=== PATIENT | female | born 1935 | race Two or more races ===

== ENCOUNTER → 2018-07-11 | Outpatient (CLI) | payer MEDICARE, OTHER ==
[~2018-07-11] MED LIST: ACTOS30 MG ORAL; ASPIRIN EC81 MG ORAL; BYSTOLIC10 MG ORAL; IBUPROFEN600 MG ORAL; LEVOTHYROXINE112 MCG ORAL; LOSARTAN POTASS50 MG ORAL; METFORMIN HCL1000 M1 ORAL; ONDANSETRON ODT4 MG ORAL; SIMVASTATIN80 MG ORAL; TRICOR145 MG ORAL; ZOFRAN4 MG ORAL
--- NOTE | 2018-07-11 19:16 | Diagnostic Imaging Report ---
Indication: Headache Technique: MRI the brain performed utilizing T1 sagittal, T2 axial, T1 FLAIR axial, T2 FLAIR axial, T2*GRE and diffusion axial images without gadolinium. Comparison: 03/11/2010 Findings: No diffusion abnormalities are seen on diffusion weighted imaging. There is no evidence of acute intracranial hemorrhage. No abnormal mass effect. No shift of midline structures. No evidence of cortical edema. The sulci, ventricles and cisterns are mildly prominent consistent with age-related atrophy. Periventricular and supratentorial white matter T2 hyperintensity are seen without mass effect, most commonly related to sequela of chronic microvascular ischemia. Expected signal flow voids are seen of the vessels of the skull base. Visualized mastoid air cells and paranasal sinuses are unremarkable. No focal bony calvarium or soft tissue lesions are seen. IMPRESSION: No acute intracranial abnormality identified. Specifically, no evidence of acute intracranial hemorrhage, mass effect, midline shift or cortical edema. Mild atrophy and chronic/senescent changes
== END | disposition home or self-care (01) ==
LOC: MRI 10:33
DX: R51 Headache (principal); R11.0 Nausea
CPT/HCPCS: 70551

== ENCOUNTER 2018-12-11 11:21 | Emergency (ER) | payer MEDICARE, OTHER ==
[~2018-12-11] VITALS: Ht 157.5 cm; Wt 77.1 kg
--- NOTE | 2018-12-11 11:42 | NUR ---
ED Nurse Note: pt present at ER with kim, Welsh speaker, fell when she was getting off the bus yesterday. she fell on her Lt side and Lt foot is swallen and bruised. pt aao x4 and calm. skin clean and intact.
--- NOTE | 2018-12-11 13:49 | Emergency Room Report ---
History of Present Illness General Chief Complaint: Lower Extremity Injury Source: Patient Present Illness HPI 83-year-old female with significant past medical history of hypertension controlled with medication however none taken today and diabetes here complaining of 2 days of left foot pain after she slipped off the bus. Patient injured in the pain 10 out of 10, without radiation, without any tingling and numbness. Patient is here with her daughter and her daughter indicates that she has been taking Advil for pain with minimal relief. Vision is also on daily dose of aspirin. According to daughter patient has never been tested for osteoporosis. Denies any other injuries, chest pain, SOB, palpitation no other associated symptoms Allergies: Coded Allergies: No Known Allergies (Verified , 08/18/07) Patient History Past Medical History: see triage record Past Surgical History: none Immunizations: UTD Reviewed Nursing Documentation: PMH: Agreed; PSxH: Agreed Nursing Documentation-PMH Hx Cardiac Problems: Yes Hx Hypertension: Yes Hx Pacemaker: No - hyperlipidimia Hx Diabetes: Yes Hx Cancer: No Hx Gastrointestinal Problems: Yes Hx Neurological Problems: No Review of Systems All Other Systems: negative except mentioned in HPI Physical Exam Vital Signs Date Time Temp Pulse Resp B/P (MAP) Pulse Ox O2 Delivery O2 Flow Rate FiO2 12/11/18 11:25 98.1 63 18 141/67 95 Room Air Sp02 EP Interpretation: reviewed, normal General Appearance: normal inspection, well appearing, no apparent distress, alert, GCS 15 Head: normocephalic, atraumatic Eyes: bilateral eye normal inspection, bilateral eye PERRL ENT: normal ENT inspection, hearing grossly normal, normal pharynx Neck: normal inspection, full range of motion, supple Respiratory: normal inspection, chest non-tender, lungs clear, normal breath sounds, no rhonchi Cardiovascular #1: normal inspection, normal peripheral pulses, regular rate, rhythm Cardiovascular #2: 2+ dorsalis pedis (R), 2+ dorsalis pedis (L) Gastrointestinal: normal inspection, normal bowel sounds, non tender, soft Rectal: deferred Genitourinary: no CVA tenderness Musculoskeletal: digits/nails normal, swelling - Swelling and bruising of left foot, tender - left foot On the left fourth and fifth metatarsals Neurologic: normal inspection, alert, oriented x3 Psychiatric: normal inspection, judgement/insight normal, memory normal Skin: no rash, warm/dry, other - Bruising over her left foot Lymphatic: normal inspection, no adenopathy Medical Decision Making PA Attestation All diagnoses and treatment plans were reviewed and discussed my supervising physician Diagnostic Impression: Primary Impression: Fracture of fifth metatarsal bone of left foot Additional Impression: Foot fracture, left ER Course 83-year-old female with significant past medical history of hypertension controlled with medication however none taken today and diabetes here complaining of 2 days of left foot pain after she slipped off the bus. Patient injured in the pain 10 out of 10, without radiation, without any tingling and numbness. Patient is here with her daughter and her daughter indicates that she has been taking Advil for pain with minimal relief. Vision is also on daily dose of aspirin. According to daughter patient has never been tested for osteoporosis. Denies any other injuries, chest pain, SOB, palpitation no other associated symptoms Ddx considered but are not limited to left foot fracture, left foot contusion, foot sprain Vital signs: are WNL, pt. is afebrile H&PE are most consistent with fracture of left fourth and fifth metatarsal, osteoporotic changes noted. ORDERS: left foot x-ray, splints, postoperative shoe, cane ED INTERVENTIONS: postoperative shoe, splint, cane DISCHARGE: At this time pt. is stable for d/c to home. Will provide printed patient care instructions, and any necessary prescriptions. Care plan and follow up instructions have been discussed with the patient prior to discharge. follow up with orthopedic for further imaging possible casting or surgery he explained on keeping postoperative shoe on patient refuses crutches as is more comfortable with a cane. Follow-up with a primary care provider for any new onset of symptoms Other X-Ray Diagnostic Results Other X-Ray Diagnostic Results : X-Ray ordered: left foot # of Views/Limited Vs Complete: 2 View Indication: Swelling EP Interpretation: Yes PA Xray: Interpretation reviewed, by supervising MD, and agrees with findings. Interpretation: other - fracture left fourth and fifth metatarsal Impression: Other - Fracture Electronically Signed by: marina branham PA-C Last Vital Signs Date Time Temp Pulse Resp B/P (MAP) Pulse Ox O2 Delivery O2 Flow Rate FiO2 12/11/18 11:25 98.1 63 18 141/67 95 Room Air Disposition: HOME, SELF-CARE Condition: Stable Scripts Acetaminophen With Codeine 300MG/30MG (T#3)* (TYLENOL WITH CODEINE #3 TABLET*) Y Tab 2 TAB ORAL Q8HR PRN for For Pain, #15 TAB 0 Refills Prov: Marina Powell 12/11/18 Referrals: NON PHYSICIAN (PCP) Patient Instructions: Avulsion Fracture of the Foot Additional Instructions: keep splint on and by the postoperative shoe until you see orthopedics. Elevate leg, alternatives and icing and heating Marina Powell Dec 11, 2018 13:49
[2018-12-11] MEDS ORDERED: TYLENOL WITH C1 EACH ORAL (13:50)
[2018-12-11 14:16] VITALS: BP 127/54
--- NOTE | 2018-12-11 14:18 | NUR ---
ER DISCHARGE NOTE: Patient is Kiswahili speaker, accompanied by daughter, cleared to be discharged per ERPA, pt is aox4, on room air, with stable vital signs. pt was given dc instructions, and splint applied, and cane was provided. pt was able to verbalize understanding, pt id band and removed. pt is able to ambulate with steady gait with splint on it and with cane. pt took all belongings and left with daughter.
--- NOTE | 2018-12-12 12:34 | Diagnostic Imaging Report ---
Indication: Foot pain Comparison: None Findings: 3 views of the left foot were obtained. There is a fracture at the neck of this fourth metatarsal and a suspected fracture involving the neck of the fifth metatarsal. Bones are osteopenic. Plantar calcaneal spur noted. Faint vascular calcifications are present. IMPRESSION: Acute fracture of the fourth metatarsal neck and probable fracture of the fifth metatarsal neck
== END 2018-12-11 14:22 | disposition home or self-care (01) ==
LOC: EMR 12:50
DX: S92.352A Displaced fracture of fifth metatarsal bone, left foot, initial encounter for closed fracture (principal); S92.342A Displaced fracture of fourth metatarsal bone, left foot, initial encounter for closed fracture; W01.0XXA Fall on same level from slipping, tripping and stumbling without subsequent striking against object, initial encounter; Y92.811 Bus as the place of occurrence of the external cause; I10 Essential (primary) hypertension; E78.5 Hyperlipidemia, unspecified; E11.9 Type 2 diabetes mellitus without complications
CPT/HCPCS: 29515; 99283

== ENCOUNTER 2019-02-06 10:31 | Inpatient (IN) | payer MEDICARE, OTHER ==
[~2019-02-06] VITALS: Ht 154.9 cm; Wt 81.6 kg
[~2019-02-06 10:31] MED LIST changes: +TYLENOL WITH C1 EACH ORAL
[2019-02-06] MEDS ORDERED: COZAAR25 MG ORAL (10:47)
[2019-02-06 10:54] VITALS: BP 138/70
--- NOTE | 2019-02-06 10:54 | NUR ---
ED Nurse Note: Pt from home came in due to fall incident happened yesterday. Denies head injury. There is no known cause of fall and pt c/o pain in RLE that goes to her left hip. Pt stil able to move all extremities. Noted bruising on pt's right forearm. Pt is AAO x4, follows commands and ambulates with her walker.
[2019-02-06] MEDS ORDERED: Morphine Sulfate 2mg/ml Inj(IV/IM USE ONLY) IVP ONE (11:00)
[2019-02-06] MEDS ORDERED: Ketorolac 30mg Inj IM ONE (11:00)
[2019-02-06 11:30] LABS: BASOPHILS % (AUTO) 0.8 % (0.0-2.0); EOSINOPHILS % (AUTO) 2.3 % (0.0-3.0); HEMATOCRIT 45.9 % (37.0-47.0); HEMOGLOBIN 14.5 G/DL (12.0-16.0); LYMPHOCYTES % (AUTO) 20.8 % (20.0-45.0); MEAN CORPUSCULAR VOLUME 93 FL (80-99); NEUTROPHILS % (AUTO) 70.1 % (45.0-75.0); PLATELET COUNT 219 K/UL (150-450); RED BLOOD COUNT 4.93 M/UL (4.20-5.40); RED CELL DISTRIBUTION WIDTH 13.4 % (11.6-14.8); WHITE BLOOD COUNT 6.9 K/UL (4.8-10.8)
[2019-02-06 11:33] LABS: ANION GAP 8 mmol/L (5-15); BLOOD UREA NITROGEN 39 mg/dL (7-18); CALCIUM 9.3 MG/DL (8.5-10.1); CARBON DIOXIDE 25 MMOL/L (21-32); CHLORIDE 110 MMOL/L (98-107); CREATININE 1.3 MG/DL (0.55-1.30); POTASSIUM 5.2 MMOL/L (3.5-5.1); SODIUM 143 MMOL/L (136-145)
[2019-02-06 11:38] LABS: ALANINE AMINOTRANSFERASE 18 U/L (12-78); ALBUMIN 3.4 G/DL (3.4-5.0); ALBUMIN/GLOBULIN RATIO 0.8 (1.0-2.7); ALKALINE PHOSPHATASE 92 U/L (46-116); ASPARTATE AMINO TRANSFERASE 16 U/L (15-37); BILIRUBIN,TOTAL 0.2 MG/DL (0.2-1.0)
[2019-02-06 12:00] LABS: APPEARANCE,URINE CLEAR; BILIRUBIN, URINE NEGATIVE (NEGATIVE); COLOR,URINE PALE YELLOW; GLUCOSE, URINE (UA) NEGATIVE (NEGATIVE); KETONES,URINE NEGATIVE (NEGATIVE); LEUKOCYTE ESTERASE ,URINE 3+ (NEGATIVE); NITRITE,URINE NEGATIVE (NEGATIVE); PH,URINE 5 (4.5-8.0); PROTEIN,URINE 2+ (NEGATIVE); UROBILINOGEN,URINE NORMAL MG/DL (0.0-1.0)
[2019-02-06 12:26] VITALS: BP 96/63
--- NOTE | 2019-02-06 12:28 | NUR ---
ED Nurse Note: opto mechanical technician for xray at the bedside.
--- NOTE | 2019-02-06 13:10 | NUR ---
ED Nurse Note: Oxygen sat goes down to 87% at times. Noted wheezing upon ascultation. Dr Roman notified and waiting for orders.
--- NOTE | 2019-02-06 13:12 | NUR ---
Ian shah in EDM - 02/06/19 at 1649 by ARPAN ED Note: Oxygen at 2LP
--- NOTE | 2019-02-06 13:12 | NUR ---
ED Nurse Note: Oxygen at 2LPM via NC applied to patient.
[2019-02-06] MEDS ORDERED: Solu-MEDROL 125mg Inj IVP ONE (13:15)
[2019-02-06] MEDS ORDERED: Ipratropium 0.02% Inh Soln 2.5ml UD HHN ONE (13:15)
[2019-02-06] MEDS ORDERED: Albuterol ud Inhalation HHN ONE (13:15)
--- NOTE | 2019-02-06 13:20 | NUR ---
ED Nurse Note: Called RT for breathing treatment.
--- NOTE | 2019-02-06 14:16 | Diagnostic Imaging Report ---
Indication: Trauma, pain Technique: One view of the pelvis Comparison: none Findings: Body habitus limits evaluation. There is bilateral mild hip joint space narrowing and proliferative change. No definite acute fractures. No dislocations. Impression: No definite acute bony trauma. Note, however, that in elderly osteoporotic patients, nondisplaced hip or pelvic fractures can easily be occult. Consider cross-sectional imaging, if there is high clinical suspicion
[2019-02-06 14:20] VITALS: BP 128/55
--- NOTE | 2019-02-06 14:36 | NUR ---
ED Nurse Note: PT. TRANSPORTED TO [facility] WITH ALL BELONGINGS. TELEPHONE REPORT GIVEN TO JULY CANTOR
--- NOTE | 2019-02-06 14:51 | Diagnostic Imaging Report ---
Indication: Right hip pain, trauma, fall yesterday Technique: Noncontrast spiral acquisitions obtained through the pelvis. Multiplanar reconstructions generated. Total dose length product 535.65 mGycm. CTDIvol(s) 20.09 mGy. Dose reduction achieved using automated exposure control Comparison: Plain radiographs of earlier the same day Findings: No acute fractures. No dislocations. There is minimal narrowing of the bilateral hip joint spaces. No significant soft tissue contusion or hematoma demonstrated. The pelvic viscera are unremarkable. Impression: Minimal bilateral hip degenerative changes No acute bony trauma The CT scanner at [facility] is accredited by the [employer] and the scans are performed using protocols designed to limit radiation exposure to as low as reasonably achievable to attain images of sufficient resolution adequate for diagnostic evaluation.
--- NOTE | 2019-02-06 15:01 | Emergency Room Report ---
History of Present Illness General Chief Complaint: Multiple Trauma/Fall Source: Patient, Family Member Present Illness HPI Patient "slipped" and fell in her kitchen yesterday. She is walking with a walker but has severe pain in the R hip radiating to her R knee. There was no loss of consciousness. She denies any chest pain or palpitations before the fall. She denies any back pain. There is no numbness or incontinence. No medication has been taken. She rates the pain 10/10. It radiates somewhat from the hip down to the knee. The knee is not tender. No blood thinners or oncologic problems. The patient has had multiple falls recently. She dislocated her right shoulder. Continued weakness of R arm. No fevers, chills, nausea, vomiting, diarrhea, dysuria, abdominal pain, depression, visual changes, headache. Daughter has heard the patient wheezing. There is a variable response when asked if she used to smoke. Allergies: Coded Allergies: No Known Allergies (Verified , 08/18/07) Patient History Past Medical History: see triage record Social History: Denies: smoking - prior Social History Narrative Born [facility] -lives with 85-year-old with daughter who helps Reviewed Nursing Documentation: PMH: Agreed; PSxH: Agreed Nursing Documentation-PMH Past Medical History: No History, Except For Hx Cardiac Problems: Yes Hx Hypertension: Yes Hx Pacemaker: No - hyperlipidimia Hx Diabetes: Yes Hx Cancer: No Hx Gastrointestinal Problems: Yes Hx Neurological Problems: No Review of Systems All Other Systems: negative except mentioned in HPI Physical Exam Vital Signs Date Time Temp Pulse Resp B/P (MAP) Pulse Ox O2 Delivery O2 Flow Rate FiO2 02/06/19 10:44 98.1 65 18 135/63 95 Room Air 02/06/19 13:35 21 Sp02 EP Interpretation: reviewed, normal General Appearance: well appearing, no apparent distress, GCS 15 Head: normocephalic, atraumatic Eyes: bilateral eye normal inspection, bilateral eye PERRL, bilateral eye EOMI ENT: moist mucus membranes Neck: supple Respiratory: wheezing, expiration Cardiovascular #1: regular rate, rhythm Cardiovascular #2: 2+ radial (R) Gastrointestinal: normal inspection, normal bowel sounds, non tender, no mass, non-distended Musculoskeletal: back normal, no calf tenderness, pelvis stable, other - Painful range of motion right hip with mild tenderness to palpation. No shortening or external rotation. Knee is not tender and range of motion is good. Neurologic: alert, oriented x3, motor strength/tone normal, DTRs symmetric, sensory intact, speech normal, motor weakness - Right arm Psychiatric: mood/affect normal Skin: normal inspection, warm/dry Medical Decision Making Diagnostic Impression: Primary Impression: COPD exacerbation Additional Impressions: Multiple falls Contusion of right hip Qualified Codes: S70.01XA - Contusion of right hip, initial encounter UTI (urinary tract infection) Qualified Codes: N30.00 - Acute cystitis without hematuria ER Course Patient presents post multiple falls. She has right hip pain. Differential includes fracture of the hip, fracture of the pelvis, contusion amongst others. The falls appear to be non-syncopal however the fact that there are multiple falls the etiology is unclear and medical evaluation is indicated. She denies any headache and therefore CT of the head is not indicated at this time. The patient will be treated with gentle IV hydration and analgesia. In addition she has wheezing. She will be treated with Solu-Medrol and breathing treatments. EKG without injury. Chest x-ray with increased ovalles with some suggestion of pulmonary hypertension. Labs with normal CBC, CMP with elevated BUN. Because of the x-ray a BNP was added which is slightly elevated. Pyuria. Rocephin ordered for urinary tract infection. Patient with decreased pain but unable to ambulate. CT of the pelvis is ordered. CT the pelvis reveals degenerative disease without fractures. Discussed with Dr. Brown. Improved with breathing treatments. Patient admitted to medical floor for further evaluation and consideration for arranging for rehab. Laboratory Tests Test 02/06/19 11:10 02/06/19 11:35 White Blood Count 6.9 K/UL (4.8-10.8) Red Blood Count 4.93 M/UL (4.20-5.40) Hemoglobin 14.5 G/DL (12.0-16.0) Hematocrit 45.9 % (37.0-47.0) Mean Corpuscular Volume 93 FL (80-99) Mean Corpuscular Hemoglobin 29.5 PG (27.0-31.0) Mean Corpuscular Hemoglobin Concent 31.7 G/DL (32.0-36.0) L Red Cell Distribution Width 13.4 % (11.6-14.8) Platelet Count 219 K/UL (150-450) Mean Platelet Volume 8.0 FL (6.5-10.1) Neutrophils (%) (Auto) 70.1 % (45.0-75.0) Lymphocytes (%) (Auto) 20.8 % (20.0-45.0) Monocytes (%) (Auto) 6.0 % (1.0-10.0) Eosinophils (%) (Auto) 2.3 % (0.0-3.0) Basophils (%) (Auto) 0.8 % (0.0-2.0) Prothrombin Time 10.1 SEC (9.30-11.50) Prothrombin Time INR 1.0 (0.9-1.1) PTT 27 SEC (23-33) Sodium Level 143 MMOL/L (136-145) Potassium Level 5.2 MMOL/L (3.5-5.1) H Chloride Level 110 MMOL/L (98-107) H Carbon Dioxide Level 25 MMOL/L (21-32) Anion Gap 8 mmol/L (5-15) Blood Urea Nitrogen 39 mg/dL (7-18) H Creatinine 1.3 MG/DL (0.55-1.30) Estimate Glomerular Filtration Rate mL/min (>60) Glucose Level 122 MG/DL (74-106) H Calcium Level 9.3 MG/DL (8.5-10.1) Total Bilirubin 0.2 MG/DL (0.2-1.0) Aspartate Amino Transferase (AST) 16 U/L (15-37) Alanine Aminotransferase (ALT) 18 U/L (12-78) Alkaline Phosphatase 92 U/L (46-116) Pro-B-Type Natriuretic Peptide 480 pg/mL (0-125) H Total Protein 7.6 G/DL (6.4-8.2) Albumin 3.4 G/DL (3.4-5.0) Globulin 4.2 g/dL Albumin/Globulin Ratio 0.8 (1.0-2.7) L Urine Color Pale yellow Urine Appearance Clear Urine pH 5 (4.5-8.0) Urine Specific [place] 1.015 (1.005-1.035) Urine Protein 2+ (NEGATIVE) H Urine Glucose (UA) Negative (NEGATIVE) Urine Ketones Negative (NEGATIVE) Urine Blood Negative (NEGATIVE) Urine Nitrite Negative (NEGATIVE) Urine Bilirubin Negative (NEGATIVE) Urine Urobilinogen Normal MG/DL (0.0-1.0) Urine Leukocyte Esterase 3+ (NEGATIVE) H Urine RBC 0-2 /HPF (0 - 2) Urine WBC 10-15 /HPF (0 - 2) H Urine Squamous Epithelial Cells Moderate /LPF (NONE/OCC) H Urine Bacteria Moderate /HPF (NONE) H Urine Yeast Few /HPF (NONE) H EKG Diagnostic Results Rate: normal Rhythm: NSR ST Segments: no acute changes Rhythm Strip Diag. Results EP Interpretation: yes Rhythm: NSR, no PVC's, no ectopy Chest X-Ray Diagnostic Results Chest X-Ray Diagnostic Results : Chest X-Ray Ordered: Yes # of Views/Limited/Complete: 1 View Indication: Shortness of Breath EP Interpretation: Yes Interpretation: no consolidation, no effusion, no pneumothorax, other - COPD Other X-Ray Diagnostic Results Other X-Ray Diagnostic Results #1: X-Ray ordered: pelvis # of Views/Limited Vs Complete: 1 View Indication: Pain EP Interpretation: Yes Interpretation: no dislocation, no soft tissue swelling, no fractures, other - Degenerative joint disease Impression: Other Electronically Signed by: Electronically signed by Zeus Roman MD Other X-Ray Diagnostic Results #2: X-Ray ordered: Right hip # of Views/Limited Vs Complete: 3 View Indication: Pain EP Interpretation: Yes Interpretation: no dislocation, no soft tissue swelling, no fractures, other - Degenerative joint disease Impression: Other Electronically Signed by: Electronically signed by Zeus Roman MD CT/MRI/US Diagnostic Results CT/MRI/US Diagnostic Results : Imaging Test Ordered: pelvis Impression djd, no fx Last Vital Signs Date Time Temp Pulse Resp B/P (MAP) Pulse Ox O2 Delivery O2 Flow Rate FiO2 02/06/19 20:24 Nasal Cannula 2.0 02/06/19 19:58 98.4 75 18 131/65 (87) 95 02/06/19 13:51 21 Status: improved Disposition: ADMITTED INPATIENT Condition: Serious Referrals: Richard Brown MD (PCP) Zeus Roman MD Feb 06, 2019 15:01
--- NOTE | 2019-02-06 15:11 | Diagnostic Imaging Report ---
Indication: Trauma, chest pain Technique: One view of the chest Comparison: 11/21/2015 Findings: Body habitus limits evaluation. Bilateral diffuse interstitial prominence appears similar to multiple prior studies. The heart is upper limits normal in size. There is equivocal slight costophrenic angle blunting. No focal airspace consolidation Impression: Bilateral diffuse mild interstitial disease, similar to multiple prior exams, suspect on the basis of chronic interstitial changes. The possibility of superimposed acute interstitial disease should nonetheless be considered as well. Equivocal minimal bilateral costophrenic angle blunting, could indicate small pleural effusions real No definite acute process otherwise.
[2019-02-06] MEDS ORDERED: cefTRIAXone 1 GM in NS 55 ML IVPB ONE (15:45)
[2019-02-06] MEDS ORDERED: Albuterol/Ipratropium 3ml neb HHN PRN (17:45)
[2019-02-06] MEDS ORDERED: Milk of Magnesia 30ml Ud ORAL PRN (17:45)
[2019-02-06] MEDS ORDERED: HYDROcodone/Acetamin 5/325 tab ORAL PRN (17:45)
[2019-02-06] MEDS ORDERED: Zolpidem 5mg tab ORAL PRN (17:45)
--- NOTE | 2019-02-06 19:15 | NUR ---
HAND-OFF: Report given to Newton MCDOWELL.
[2019-02-06 19:58] VITALS: BP 131/65
--- NOTE | 2019-02-06 20:09 | NUR ---
NURSE NOTES: Received patient awake,alert,eating dinner,no SOB,daughter at bedside.
--- NOTE | 2019-02-06 23:45 | History and Physical Report ---
DATE OF ADMISSION: 02/06/2019 HISTORY OF PRESENT ILLNESS: The patient is a pleasant 83-year-old female, who states she was in her kitchen, slipped and fell on her right hip and right knee on Wednesday. Denies any loss of consciousness. Denies any chest pain, shortness of breath, or palpitations. Denies any abdominal pain. She does complain of right arm weakness. The patient states the pain got worse and she decided to come to the emergency room for further evaluation. Per the ER physician, apparently the patient has had few episodes of falls, nonsyncopal in nature. The patient also was recently injured, getting off of a bus for which she has been seeing Dr. Villasenor, has had knee pain. PAST MEDICAL HISTORY: Includes a history of hypertension, history of hyperlipidemia, history of diabetes, history of peripheral vascular disease, history of hernia repair in the 1970s, history of chronic obstructive pulmonary disease, history of hypothyroidism, history of hypertriglyceridemia. ALLERGIES: None known. MEDICATIONS: Please see the reconciled med list. SOCIAL HISTORY: The patient has been smoking one pack a day over 30 years, and she has stopped and has not smoked in several years. Denies any alcohol use. FAMILY HISTORY: Noncontributory. REVIEW OF SYSTEMS: She denies any headaches. No shortness of breath. No chest pain. She was noted to be somewhat hypoxic in the ER and wheezy. As per the ER physician, there is no abdominal pain, no urinary symptoms. PHYSICAL EXAMINATION: GENERAL: She is well developed and well nourished, currently in no apparent distress. VITAL SIGNS: Revealed blood pressure 131/55, pulse 75, temperature 98.4, pulse oximetry is now 95%, and she is on 2 L nasal cannula. HEENT: Head is normocephalic and atraumatic. Pupils are equal and reactive to light. Extraocular muscles are intact. Eyes are anicteric. NECK: Supple. No JVP. LUNGS: Decreased breath sounds and wheezy, end-expiratory. HEART: Regular rate and rhythm. ABDOMEN: Soft. Positive bowel sounds. Nondistended. Nontender. EXTREMITIES: No clubbing, cyanosis, or edema. Right knee with some tenderness with range of motion. Right fifth toe has full range of motion with slight tenderness. NEUROLOGIC: She is alert, nonfocal. DIAGNOSTIC DATA: X-rays of the hip and pelvis revealed no definite acute bone trauma. Chest x-ray revealed bilateral diffuse mild interstitial disease similar to multiple prior exams, suspect on the basis of chronic interstitial changes with possibility of superimposed acute interstitial disease should nonetheless be considered as well. She has equivocal minimal bilateral costophrenic angle blunting could indicate small pleural effusions and no definite acute process. Pelvic CT revealed minimal bilateral facet degenerative changes, no acute bony trauma. EKG noted. LABORATORY DATA: White count 6.9, hemoglobin 14.5, hematocrit 45.9, and platelet count 219. Sodium 143, potassium 4.2, carbon dioxide 110, BUN of 39, creatinine 1.3, and glucose 1.2. ProBNP is 480. Urinalysis with 10 to 15 wbc's, 3+ leukocyte esterase, 2+ protein. INR 1.0. ASSESSMENT AND PLAN: The patient is an 83-year-old female with history of hypertension, hyperlipidemia, diabetes, hypothyroidism, peripheral vascular disease, who presents status post fall. She has had a few falls apparently, this appears to be nonsyncopal in nature, mechanical, complaints hip, pelvic, and right knee pain. The patient has been admitted to monitored bed. I will ask orthopedist, Dr. Villasenor to see her. I will also order x-rays of her knee. She is wheezing as well, she was given some breathing treatments and steroids in the ER. We will continue her with breathing treatments as needed. She was also hypoxic, we will check lower extremity venous Dopplers as well. Placed on DVT and ulcer prophylaxis. She also appears to have a UTI, for which we will give her antibiotics. Her BNP is elevated at 480, we will check 2D echo on her as well. The patient should be on DVT and ulcer prophylaxis. Richard Brown M.D. DR: SHARON JOB#: [id number] CC:
[2019-02-07] VITALS: BP 118/50
[2019-02-07 04:00] VITALS: BP 117/52
[2019-02-07] MEDS ORDERED: metFORMIN 500mg tab ORAL SCH (06:30)
[2019-02-07 07:04] LABS: HEMATOCRIT 41.2 % (37.0-47.0); MEAN CORPUSCULAR VOLUME 93 FL (80-99); PLATELET COUNT 227 K/UL (150-450); RED BLOOD COUNT 4.42 M/UL (4.20-5.40); RED CELL DISTRIBUTION WIDTH 13.6 % (11.6-14.8); WHITE BLOOD COUNT 9.8 K/UL (4.8-10.8)
[2019-02-07 07:10] LABS: ALANINE AMINOTRANSFERASE 19 U/L (12-78); ALBUMIN 3.1 G/DL (3.4-5.0); ALBUMIN/GLOBULIN RATIO 0.8 (1.0-2.7); ALKALINE PHOSPHATASE 80 U/L (46-116); ANION GAP 10 mmol/L (5-15); ASPARTATE AMINO TRANSFERASE 15 U/L (15-37); BILIRUBIN,TOTAL 0.2 MG/DL (0.2-1.0); BLOOD UREA NITROGEN 44 mg/dL (7-18); CARBON DIOXIDE 23 MMOL/L (21-32); CHLORIDE 108 MMOL/L (98-107); CHOLESTEROL 142 MG/DL (< 200); CREATININE 1.3 MG/DL (0.55-1.30); HDL CHOLESTEROL 50 MG/DL (40-60); POTASSIUM 5.4 MMOL/L (3.5-5.1); SODIUM 141 MMOL/L (136-145); TRIGLYCERIDES 65 MG/DL (30-150)
--- NOTE | 2019-02-07 07:10 | NUR ---
HAND-OFF: Report given to JULY Miller.
[2019-02-07 08:00] VITALS: BP 97/44
--- NOTE | 2019-02-07 08:00 | NUR ---
NURSE NOTES: RECEIVED PATIENT IN BED, RESTING AND ALERT TO x4. IV INTACT. NO SIGNS OF RESPIRATORY DISTRESS, PATIENT ON 2L NC. BED IN LOWEST POSITION. CALL LIGHT WITHIN REACH. BED ALARM ON. WILL CONTINUE TO MONITOR.
[2019-02-07] MEDS ORDERED: Losartan 50mg tab ORAL SCH (09:00)
--- NOTE | 2019-02-07 09:03 | NUR ---
RADIOLOGY DEPT., RIGHT KNEE X-RAYS COMPLETED.-P.DYE
--- NOTE | 2019-02-07 09:07 | NUR ---
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 CONTUSION OF RIGHT HIP VS: BP 128/55, P 75, T 98.0, RR 18, SpO2 93 on 3.0L O2 NC K 5.2, BUN 44, URINE: BACTERIA- MODERATE , YEAST- FEW IS:ZOFRAN 4mg IVP TORADOL 30mg 15MG IM MORPHINE SULFATE 2mg ATROVENT 500mcg HHN PROVENTIL 5mg HHN SOLU-MEDROL 125mg IVP CEFTRIAXONE 55ml IVPB ADMITTED TO MED/SURG DCP: RETURN HOME
--- NOTE | 2019-02-07 09:26 | Diagnostic Imaging Report ---
Indication: Fall, trauma, pain Technique: 2 views of the right knee Comparison: none Findings: No acute fractures. No dislocations. The joint spaces are preserved. No suprapatellar effusion. Impression: Negative
[2019-02-07] MEDS: Aspirin Baby 81mg ORAL SCH (10:18)
[2019-02-07] MEDS: Docusate 100mg cap ORAL SCH ×2 (10:18→17:53)
[2019-02-07] MEDS: Heparin 5000 units/ml inj SUBQ SCH ×2 (10:26→21:08)
[2019-02-07 12:00] VITALS: BP 125/56
--- NOTE | 2019-02-07 14:11 | Diagnostic Imaging Report ---
Indication: Trauma, right hip pain Technique: 2 views of the right hip, one view of the pelvis Comparison: none Findings: There is mild bilateral degenerative hip joint narrowing. No acute fractures. No dislocations. Impression: Degenerative changes No acute bony trauma
--- NOTE | 2019-02-07 14:31 | Consultation ---
Consult Note Assessment/Plan DICT # [id number] Javi Ho MD Feb 07, 2019 14:31
--- NOTE | 2019-02-07 15:21 | NUR ---
P.T Note: P.T evaluation completed and treatment initiated with daughter present in the room for Emirati translation. Pt reports c/o pain on the R knee aggravated by ambulation :1/10 at rest, 5/10 with WB/ambulation however agreeable to participate in P.T evaluation. Pt is also limited by weakness and LOM of the R shoulder from old injury. Pt currently require MIN A x 1 for bed mobilities, CGA x 1 for transfers and gait/ambulation activities using the FWW. Skilled P.T service is warranted to improve strength, balance and endurance to increase mobility independence and safety. Recommend home P.T and FWW at [facility]. Thank for this referral.
[2019-02-07 16:00] VITALS: BP 108/55
--- NOTE | 2019-02-07 16:15 | Cardiology Report ---
APPROVED REPORT EXAM: Two-dimensional and M-mode echocardiogram with Doppler and color Doppler. INDICATION Ejection Fraction M-Mode DIMENSIONS IVSd1.4 (0.7-1.1cm)Left Atrium (MM)3.8 (1.6-4.0cm) LVDd4.7 (3.5-5.6cm)Aortic Root3.1 (2.0-3.7cm) PWd1.7 (0.7-1.1cm)Aortic Cusp Exc.1.6 (1.5-2.0cm) LVDs3.1 (2.5-4.0cm) PWs1.4 cm Technically difficult study due to poor acoustical windows. Normal left ventricular chamber size, systolic function and wall motion to extent visualized. Left ventricular ejection fraction estimated to be 60-65 %. Borderline left ventricular hypertrophy. Anterior Echo-free space, may be due to pericardial fat or effusion. All other cardiac chamber sizes are within normal limits. Focal aortic valve sclerosis with adequate cusp excursion. Thickened mitral valve leaflets with normal excursion. Mitral annulus and aortic root calcification. Pulmonic valve not well visualized. Normal tricuspid valve structure. IVC at normal size with physiologic collapse. A color flow and spectral Doppler study was performed and revealed: Trace aortic regurgitation. Trace mitral regurgitation. Mitral diastolic velocities suggest reduced left ventricular relaxation c/w mild LV diastolic dysfunction (Grade I). Mild tricuspid regurgitation. Tricuspid systolic velocities suggests peak right ventricular systolic pressure of 43 mmHg, consistent with mild pulmonary hypertension.
--- NOTE | 2019-02-07 16:16 | Diagnostic Imaging Report ---
Clinical Indication: Shortness of breath, recent trauma Technique: Spiral acquisitions obtained through the chest. No IV contrast utilized, per referring physician request. Multiplanar reconstructions generated. Total dose length product 833.1 mGycm. CTDIvol(s) 25.48 mGy. Dose reduction achieved using automated exposure control Comparison: Chest CT angiogram dated 08/19/2000 Findings: The bones are unremarkable. No acute fractures. The lungs demonstrate fairly extensive interstitial septal thickening, diffuse but with a peripheral predominance. Areas of honeycombing are seen in the posterior lower lobes bilaterally. This has progressed considerably since the previous study. A cystic space is seen in the left upper lobe, also evident previously. No dense consolidation, groundglass opacity, effusions, or nodules or masses demonstrated. No pneumothorax. The heart size is normal. No pericardial effusion. No mediastinal or hilar mass or adenopathy. Unremarkable esophagus. No axillary mass or adenopathy. Included upper abdominal viscera demonstrate distended fluid-filled stomach, are otherwise unremarkable. Impression: Extensive bilateral interstitial disease,, nonspecific as regards etiology, progressive since 08/19/2007. There is honeycombing in the posterior lower lobes bilaterally, indicative of chronic interstitial fibrosis. Left upper lobe cystic space, also present on 2007 exam. No evidence of significant posttraumatic abnormality The CT scanner at [facility] is accredited by the [employer] and the scans are performed using protocols designed to limit radiation exposure to as low as reasonably achievable to attain images of sufficient resolution adequate for diagnostic evaluation.
--- NOTE | 2019-02-07 16:30 | NUR ---
NURSE NOTES: WALKER AND RAISED TOILET SEAT PROVIDED TO PATIENT. DME ORDER ENTERED.
[2019-02-07] MEDS: cefTRIAXone 1 GM in D5W 55 ML IVPB SCH (16:47)
--- NOTE | 2019-02-07 16:50 | Cardiac Electrophysiology PN ---
Subjective Subjective [id number] Objective Last 24 Hour Vital Signs Date Time Temp Pulse Resp B/P (MAP) Pulse Ox O2 Delivery O2 Flow Rate FiO2 02/07/19 09:00 97/44 02/07/19 09:00 Nasal Cannula 2.0 02/07/19 08:00 98.3 70 18 97/44 (61) 97 02/07/19 04:00 98.2 57 17 117/52 (73) 98 02/07/19 00:00 98.3 66 16 118/50 (72) 97 02/06/19 20:24 Nasal Cannula 2.0 02/06/19 19:58 98.4 75 18 131/65 (87) 95 02/06/19 17:33 Nasal Cannula 2.0 Intake and Output 02/06/19 02/07/19 18:59 06:59 Intake Total 160 ml 1200 ml Output Total 300 ml Balance 160 ml 900 ml Intake Oral 160 ml 300 ml IV Total 900 ml Output Urine Total 300 ml Laboratory Tests Test 02/07/19 04:45 02/07/19 12:28 02/07/19 12:55 White Blood Count 9.8 K/UL (4.8-10.8) Red Blood Count 4.42 M/UL (4.20-5.40) Hemoglobin 13.0 G/DL (12.0-16.0) Hematocrit 41.2 % (37.0-47.0) Mean Corpuscular Volume 93 FL (80-99) Mean Corpuscular Hemoglobin 29.4 PG (27.0-31.0) Mean Corpuscular Hemoglobin Concent 31.4 G/DL (32.0-36.0) L Red Cell Distribution Width 13.6 % (11.6-14.8) Platelet Count 227 K/UL (150-450) Mean Platelet Volume 8.9 FL (6.5-10.1) Neutrophils (%) (Auto) % (45.0-75.0) Lymphocytes (%) (Auto) % (20.0-45.0) Monocytes (%) (Auto) % (1.0-10.0) Eosinophils (%) (Auto) % (0.0-3.0) Basophils (%) (Auto) % (0.0-2.0) Differential Total Cells Counted 100 Neutrophils % (Manual) 82 % (45-75) H Lymphocytes % (Manual) 16 % (20-45) L Monocytes % (Manual) 2 % (1-10) Eosinophils % (Manual) 0 % (0-3) Basophils % (Manual) 0 % (0-2) Band Neutrophils 0 % (0-8) Platelet Estimate Adequate Platelet Morphology Normal Red Blood Cell Morphology Normal Sodium Level 141 MMOL/L (136-145) Potassium Level 5.4 MMOL/L (3.5-5.1) H Chloride Level 108 MMOL/L (98-107) H Carbon Dioxide Level 23 MMOL/L (21-32) Anion Gap 10 mmol/L (5-15) Blood Urea Nitrogen 44 mg/dL (7-18) H Creatinine 1.3 MG/DL (0.55-1.30) Estimat Glomerular Filtration Rate mL/min (>60) Glucose Level 110 MG/DL (74-106) H Hemoglobin A1c 6.4 % (4.3-6.0) H Calcium Level 9.0 MG/DL (8.5-10.1) Total Bilirubin 0.2 MG/DL (0.2-1.0) Aspartate Amino Transf (AST/SGOT) 15 U/L (15-37) Alanine Aminotransferase (ALT/SGPT) 19 U/L (12-78) Alkaline Phosphatase 80 U/L (46-116) Troponin I 0.000 ng/mL (0.000-0.056) Pro-B-Type Natriuretic Peptide 1126 pg/mL (0-125) H Total Protein 6.9 G/DL (6.4-8.2) Albumin 3.1 G/DL (3.4-5.0) L Globulin 3.8 g/dL Albumin/Globulin Ratio 0.8 (1.0-2.7) L Triglycerides Level 65 MG/DL (30-150) Cholesterol Level 142 MG/DL (< 200) LDL Cholesterol 82 mg/dL (<100) HDL Cholesterol 50 MG/DL (40-60) Cholesterol/HDL Ratio 2.8 (3.3-4.4) L Thyroid Stimulating Hormone (TSH) 1.967 uiU/mL (0.358-3.740) Arterial Blood pH 7.308 (7.350-7.450) Arterial Blood Partial Pressure CO2 44.1 mmHg (35.0-45.0) Arterial Blood Partial Pressure O2 58.1 mmHg (75.0-100.0) L Arterial Blood HCO3 21.6 mmol/L (22.0-26.0) L Arterial Blood Oxygen Saturation 88.7 % (95-100) *L Arterial Blood Base Excess -4.6 (-2-2) L Porfirio Test Positive D-Dimer 0.66 mg/L FEU (0.00-0.49) H Microbiology Date/Time Source Procedure Growth Status 02/06/19 11:35 Urine,Clean Catch Urine Culture - Preliminary Strep Species, Beta Hemolytic Resulted Francesco Patricia MD Feb 07, 2019 16:50
--- NOTE | 2019-02-07 17:45 | Consultation ---
DATE OF CONSULTATION: 02/07/2019 PULMONARY CONSULTATION CONSULTING PHYSICIAN: Javi Ho M.D. REFERRING PHYSICIAN: Richard Brown M.D. REASON FOR CONSULTATION: Chronic obstructive pulmonary disease. HISTORY OF PRESENT ILLNESS: The patient is an 83-year-old female, extensive former smoker with a history of hypertension, hyperlipidemia, diabetes, peripheral vascular disease, hypothyroidism, and likely underlying chronic obstructive pulmonary disease, who presented to the ER yesterday after a slip and fall in her kitchen. She presented with severe right hip pain and was initially seen and evaluated in the ER. Imaging was done. X-ray of her right hip just showed degenerative changes, so a pelvic CT was done which showed bilateral hip degenerative changes. Chest x-ray showed interstitial disease with likely chronic changes and the patient is having cough and wheezing. Per her daughter, who is here with the patient cough and wheezing is chronic. She has never had a formal pulmonary evaluation, but she has a daily nonproductive cough with wheezing and shortness of breath. Her exercise tolerance at baseline is limited by dyspnea. PAST MEDICAL HISTORY: 1. Hypertension. 2. Hyperlipidemia. 3. Diabetes. 4. Peripheral vascular disease. 5. Hypothyroidism. 6. Likely COPD. PAST SURGICAL HISTORY: Hernia repair. ALLERGIES: No known drug allergies. MEDICATIONS: Prior to admission, medications reviewed. Current medications reviewed. SOCIAL HISTORY: One pack per day smoker for greater than 30 years. She per report, quit 10 years ago, but her daughter said she still sneaks cigarettes. No drug use. No alcohol use. FAMILY HISTORY: Noncontributory. REVIEW OF SYSTEMS: Negative on history of present illness. PHYSICAL EXAMINATION: VITAL SIGNS: Temperature 98.2, pulse 57, blood pressure 117/50, respiratory rate 17. GENERAL: She is a frail, elderly female, in no acute distress. Awake, alert, and oriented x3. HEENT: Normocephalic and atraumatic. Oropharynx is clear with moist mucous membranes. NECK: Supple without lymphadenopathy. CHEST: Scattered coarse breath sounds. Distant faint wheezing. HEART: Regular rate and rhythm. ABDOMEN: Soft, nontender, and nondistended. EXTREMITIES: No cyanosis, clubbing or edema. ANCILLARY DATA: Imaging reviewed. Labs, white count 6.9, hemoglobin 14.5, and platelet count 219. ABG 7.30/44/58/21/88. INR 1.0. Sodium 141, potassium 5.4, chloride 108, bicarbonate 23, BUN 44, creatinine 1.3, glucose 110. Hemoglobin A1c 6.4. Calcium 9. Total bilirubin 0.2. AST 15, ALT 19, alkaline phosphatase 80. Troponin negative. BNP 1126. Total protein 6.9, albumin 3.1, globulin 3.8. Triglycerides 65, total cholesterol 142, LDL 82, HDL 50. TSH 1.97. Urinalysis, moderate squamous cells, moderate bacteria, few yeast, 3+ leukocyte esterase. ASSESSMENT: The patient is an 83-year-old female, extensive smoker with likely underlying chronic obstructive pulmonary disease, hypertension, hyperlipidemia, hypothyroidism, presenting after a slip and fall with hip and pelvis injury. Pulmonary consultation is called for optimization of her respiratory status. She has had some wheezing and shortness of breath likely attributable to her underlying chronic obstructive pulmonary disease. PROBLEM LIST: 1. Extensive former smoker with likely chronic obstructive pulmonary disease. 2. Likely chronic obstructive pulmonary disease without evidence of exacerbation. 3. Urinary tract infection. 4. Slip and fall. 5. Degenerative joint disease. 6. Hip injury. 7. Hypertension. 8. Hyperlipidemia. 9. Peripheral vascular disease. 10. Diabetes. 11. Hypothyroidism. TREATMENT PLAN: 1. Optimize pulmonary hygiene/mobilize as tolerated. 2. Check D-dimer and duplex lower extremities. 3. Check an echo. 4. Noncontrast CT of the chest ordered. 5. Around the clock and p.r.n. DuoNebs. 6. Continue antibiotics for urinary tract infection. 7. Monitor for development of respiratory infection. 8. Pain control/supportive care. 9. Orthopedic evaluation. 10. Monitor volumes and renal function. 11. DVT prophylaxis. 12. Heparin subcutaneous. 13. Continue to encourage the patient to abstain from smoking. 14. The patient should have outpatient PFTs. Dr. Brown, thank you for allowing me to assist in the care of your patient. If I may be of any assistance, please do not hesitate to ask. Javi Ho M.D. : Deepali JOB#: [id number] CC:
--- NOTE | 2019-02-07 18:15 | Consultation ---
DATE OF CONSULTATION: 02/07/2019 CARDIOLOGY CONSULTATION CONSULTING PHYSICIAN: Francesco Patricia M.D. REFERRING PHYSICIAN: Richard Brown M.D. REASON FOR CONSULTATION: Shortness of breath and management of hypertension. HISTORY OF PRESENT ILLNESS: The patient is an 83-year-old lady with history of hypertension and smoking history, had a fall in her kitchen, fell on her right hip and right knee on Wednesday. The patient did not have any chest pain or shortness of breath or loss of consciousness. The pain got worse and came to the emergency room. In the emergency room, the patient was found to also have wheezing and was evaluated by surgery, but did not have any fracture. Cardiology consultation was obtained for further evaluation and management. REVIEW OF SYSTEMS: Review of systems was negative other than what is mentioned in the history of present illness. PAST MEDICAL HISTORY: 1. Hypertension. 2. Hyperlipidemia. 3. Diabetes. 4. Peripheral vascular disease. 5. History of hernia repair. 6. Chronic obstructive pulmonary disease. 7. Hypothyroidism. MEDICATIONS: Per reconciliation. ALLERGIES: She has no known drug allergies. SOCIAL HISTORY: Smokes a pack a day over 30 years. But, does not drink alcohol or use any drugs. PHYSICAL EXAMINATION: VITAL SIGNS: Show blood pressure of 97/44, pulse is 70, respirations 18, and she is afebrile. HEAD AND NECK: Shows no jugular venous distention. LUNGS: Has wheezing. CARDIOVASCULAR: Shows regular S1 and S2 with no gallop or murmur. ABDOMEN: Soft. EXTREMITIES: No pitting edema. Her lower extremity duplex showed no evidence of DVT. DIAGNOSTIC DATA: An echocardiogram showed ejection fraction 60 to 65 percent with no significant valvular pathology. LABORATORY AND DIAGNOSTIC DATA: Her laboratories show white count of 9.8, hemoglobin of 13, hematocrit of 41, and platelet count of 227,000. Sodium is 141, potassium 5.4, BUN of 44, and creatinine 1.3. Troponin is negative. BNP is 1126. ASSESSMENT/PLAN: 1. Elevated BNP of more than 1000, likely due to diastolic dysfunction. Ejection fraction is within normal range. I will start the patient on low-dose Lasix and continue to follow the patient clinically. 2. History of hypertension. Blood pressure currently on the lower side. Discontinue Cozaar. Continue Bystolic 10 mg daily and add p.r.n. clonidine. 3. Diabetes. On metformin. 4. Possible pneumonia. On ceftriaxone and a chest CT is ordered per Dr. Ho. 5. Status post fall without syncope. Thank you very much for allowing me to participate in the care of this patient. Please do not hesitate to contact me for any questions regarding my evaluation. Francesco Patricia M.D. DR: SOFIA JOB#: [id number] CC:
--- NOTE | 2019-02-07 19:10 | NUR ---
HAND-OFF: Report given to JULY ALMANZAR.
--- NOTE | 2019-02-07 19:34 | NUR ---
NURSE NOTES: Received patient awake,alert,verbal,resting in bed,no SOB noted,relatives at bedside.
[2019-02-07 20:00] VITALS: BP 114/48
--- NOTE | 2019-02-07 21:03 | Consultation ---
Consult Note Consult Note NEUROLOGY CONSULTATION: Full note dictated #[id number] 83 y/o, RH, HF with PH of HTN, DM, DL, peripheral vascular disease, hypothyroidism, chronic obstructive pulmonary disease, right shoulder injury, left foot injury, right hip injury and a few mechanical falls - 3 in the last 1.5 years. She was in the kitchen and her slippery shoes slipped and she fell down and hurt her right hip yesterday. ON EXAM: Awake and alert. Oriented x3 except for exact date. Able to remember the president is [place] to [employer]. Cranial nerves II through XII intact. Grade 5/[address] in right shoulder and right hip due to pain. Sensory intact to pinprick and light touch. Reflexes trace+ and bilaterally symmetrical at biceps triceps and brachioradialis 0 at both knees and ankles. Plantar responses flexor. Coordination normal finger to nose. Needed support on both sides to stand up. Able to walk but complained of pain when she walked. IMPRESSION: Recent mechanical fall with right hip strain. Nonfocal neurological examination. RECOMMENDATIONS: Agree with management thus far. Pulmonary workup as planned. Mobilize with physical and occupational therapy. Juan Monzon M.D., M.S.P.H. Juan Monzon MD Feb 07, 2019 21:03
--- NOTE | 2019-02-07 22:45 | Consultation ---
DATE OF CONSULTATION: 02/07/2019 NEUROLOGY CONSULTATION CONSULTING PHYSICIAN: uJan Monzon M.D. REFERRING PHYSICIAN: Richard Brown M.D. HISTORY: Ms. Veronica Sesay is an 83-year-old, right-handed, lady, who does have a past history of hypertension, diabetes mellitus, dyslipidemia, peripheral vascular disease, hypothyroidism, chronic obstructive pulmonary disease, a right shoulder injury quite a few years ago associated with a fall, a left foot injury again associated with a fall, and on the day of admission a fall in her kitchen where she slipped over her slippery shoes and strained her right hip. She came in with hip discomfort and in addition problems with breathing. This consultation was requested to evaluate the patient from a neurological point of view for her frequent falls. The patient feels that all her falls were mechanical and there was never any alteration in level of consciousness or altered consciousness associated with the falls. She denies any definite weakness on one side or the other, numbness on one side or the other, problems with speech, problems with language, problems with vision, but does say that because of joint pain she has significant problems with using her right upper extremity and both lower extremities. PAST MEDICAL HISTORY: Significant for hypertension, diabetes mellitus, dyslipidemia, peripheral vascular disease, hypothyroidism, chronic obstructive pulmonary disease, and multiple orthopedic injuries. FAMILY HISTORY: Significant for high blood pressure and diabetes mellitus in other family members. PERSONAL HISTORY: Home: She lives with her and son. 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 Habits: She has been smoking for numerous years. She has a rare alcoholic drink. There is no history of any illicit drug use. MEDICATIONS: Present medications include Lasix, clonidine, ceftriaxone, DSS, pantoprazole, heparin for DVT prophylaxis, aspirin 81 mg daily, fenofibrate, Bystolic, Synthroid, Actos, DuoNeb inhaler, Tylenol as needed, [place] as needed, milk of magnesia as needed, Mylanta as needed, and Ambien as needed. PHYSICAL EXAMINATION: GENERAL: She is a well-developed and well-nourished, obese lady, lying in bed, in no acute distress. VITAL SIGNS: Pulse 63/minute, blood pressure 114/48 mmHg, respirations 18/minute, and temperature 98.7 degrees Fahrenheit. HEAD: Head is normocephalic and atraumatic. EENT: Examination benign. NECK: No neck rigidity was observed. NEUROLOGIC EXAMINATION: MENTAL STATUS EXAMINATION: She was awake and alert. She was oriented to person, place, and time except for the exact date. She was able to recall 3/3 words immediately after 1 minute and after 3 minutes. She was able to remember presidents Trump through [employer]. Her mathematical skills were minimally impaired. Her visuospatial function was also minimally impaired. SPEECH: She had no dysarthria. LANGUAGE: She had no aphasia in Urdu as per her daughter, who was interpreting for her. CRANIAL NERVES EXAMINATION: II: The visual mckeon were intact on confrontation testing. III, IV & : The external ocular movements were full and the pupils 3 mm in diameter, equal, round, regular, and reactive to light. V: She had normal facial sensations, and the temporales, masseters, and pterygoids functioned normally. VII: She had normal facial expressions and no facial asymmetry. VIII: She was able to hear well bilaterally and had no nystagmus. IX: The palate moved symmetrically on phonation. X: She had no hoarseness of voice. XI: The sternocleidomastoids and trapezii functioned normally. XII: The tongue was in the midline without any fasciculations or atrophy. MOTOR SYSTEM: The tone was normal in all four extremities. Examination of muscle mass revealed no focal wasting. Examination of power revealed G 5/5 power except for give-way weakness in the right shoulder and right hip associated with pain. SENSORY EXAMINATION: She had intact sensations to pinprick and light touch. COORDINATION: She performed well on [id number] testing. She was unable to perform [id number] testing. REFLEXES: Trace+ and bilaterally symmetrical at the biceps, triceps, and brachioradialis, 0 at both knees and ankles. The plantar responses were flexor bilaterally. STANCE: She needed support on both sides to stand up. GAIT: She walked with support on both sides, but complained of pain when she walked. DIAGNOSTIC IMPRESSION: 1. Ms. Veronica Sesay is an 83-year-old, right-handed, lady, with the past history of multiple medical problems including hypertension, diabetes mellitus, dyslipidemia, peripheral vascular disease, hypothyroidism, chronic obstructive pulmonary disease, right shoulder injury, left foot injury, and a 3 mechanical falls in the last year and a half. The last fall was on the day of admission where she was in the kitchen slipped over her slippery shoes and fell down and hurt her right hip. 2. On neurological examination, at this time, she does have mild disorientation to the exact date, problems with higher cognitive function and visuospatial function, give-way weakness in the right shoulder and right hip related to pain, and globally diminished reflexes in the upper extremities with loss of deep tendon reflexes in the lower extremities, need for support to stand up and the need for support to walk due to pain in her limbs. 3. The patient's history and neurological examination are most consistent with a recent mechanical fall with a right hip strain making walking more difficult. She does not demonstrate any focal neurological dysfunction. RECOMMENDATIONS: 1. Agree with management thus far. 2. Pulmonary workup as per Dr. Ho. 3. The patient should be mobilized with the help of physical and occupational therapy. 4. She does have a neuropathic process, which is most probably related to her diabetes, but she should be worked up for other treatable causes. Thank you for entrusting me with the care of Ms. Sesay. I shall follow her with you. Juan Monzon M.D., M.S.P.H. DR: MERRILL JOB#: [id number]
--- NOTE | 2019-02-07 22:45 | General Progress Note ---
Assessment/Plan Plan: sp fall weakness UTI right knee pain copd hypoxia interstitial lung disease diabetess htn hld ortho eval PT abx pulmonay hygine abx for uti accuchecks noted bp stabe dvt and ulcer prophylaxis dc planning Subjective Allergies: Coded Allergies: No Known Allergies (Verified , 08/18/07) Subjective co right knee pain sp fall no chest painbeathing better no dysuria Objective Last 24 Hour Vital Signs Date Time Temp Pulse Resp B/P (MAP) Pulse Ox O2 Delivery O2 Flow Rate FiO2 02/07/19 20:29 Nasal Cannula 2.0 02/07/19 20:00 98.7 63 18 114/48 (70) 95 02/07/19 19:45 96 Nasal Cannula 2.0 28 02/07/19 19:45 Nasal Cannula 2.0 28 02/07/19 16:00 98.0 60 20 108/55 (72) 100 02/07/19 12:00 98.9 67 18 125/56 (79) 97 02/07/19 09:00 97/44 02/07/19 09:00 Nasal Cannula 2.0 02/07/19 08:00 98.3 70 18 97/44 (61) 97 02/07/19 04:00 98.2 57 17 117/52 (73) 98 02/07/19 00:00 98.3 66 16 118/50 (72) 97 Intake and Output 02/06/19 02/07/19 19:00 07:00 Intake Total 160 ml 1200 ml Output Total 300 ml Balance 160 ml 900 ml Intake Oral 160 ml 300 ml IV Total 900 ml Output Urine Total 300 ml Laboratory Tests 02/07/19 04:45: White Blood Count 9.8, Red Blood Count 4.42, Hemoglobin 13.0, Hematocrit 41.2, Mean Corpuscular Volume 93, Mean Corpuscular Hemoglobin 29.4, Mean Corpuscular Hemoglobin Concent 31.4L, Red Cell Distribution Width 13.6, Platelet Count 227, Mean Platelet Volume 8.9, Neutrophils (%) (Auto) , Lymphocytes (%) (Auto) , Monocytes (%) (Auto) , Eosinophils (%) (Auto) , Basophils (%) (Auto) , Differential Total Cells Counted 100, Neutrophils % (Manual) 82H, Lymphocytes % (Manual) 16L, Monocytes % (Manual) 2, Eosinophils % (Manual) 0, Basophils % ( Manual) 0, Band Neutrophils 0, Platelet Estimate Adequate, Platelet Morphology Normal, Red Blood Cell Morphology Normal, Erythrocyte Sedimentation Rate 45H, Sodium Level 141, Potassium Level 5.4H, Chloride Level 108H, Carbon Dioxide Level 23, Anion Gap 10, Blood Urea Nitrogen 44H, Creatinine 1.3, Estimat Glomerular Filtration Rate , Glucose Level 110H, Hemoglobin A1c 6.4H, Calcium Level 9.0, Total Bilirubin 0.2, Aspartate Amino Transf (AST/SGOT) 15, Alanine Aminotransferase (ALT/SGPT) 19, Alkaline Phosphatase 80, Troponin I 0.000, Pro-B -Type Natriuretic Peptide 1126H, Total Protein 6.9, Albumin 3.1L, Globulin 3.8, Albumin/Globulin Ratio 0.8L, Triglycerides Level 65, Cholesterol Level 142, LDL Cholesterol 82, HDL Cholesterol 50, Cholesterol/HDL Ratio 2.8L, Vitamin B12 Level 374, Thyroid Stimulating Hormone (TSH) 1.967 02/07/19 12:28: Arterial Blood pH 7.308L, Arterial Blood Partial Pressure CO2 44.1, Arterial Blood Partial Pressure O2 58.1L, Arterial Blood HCO3 21.6L, Arterial Blood Oxygen Saturation 88.7*L, Arterial Blood Base Excess -4.6L, Porfirio Test Positive 02/07/19 12:55: D-Dimer 0.66H Height (Feet): 5 Height (Inches): 1.00 Weight (Pounds): 150 General Appearance: WD/WN Neck: supple Cardiovascular: normal rate Respiratory/Chest: lungs clear Abdomen: soft Edema: no edema noted Arm (L), no edema noted Arm (R), no edema noted Leg (L), no edema noted Leg (R), no edema noted Pedal (L), no edema noted Pedal (R), no edema noted 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
[2019-02-08] VITALS: BP 136/80
--- NOTE | 2019-02-08 00:30 | Consultation ---
DATE OF CONSULTATION: 02/06/2019 ORTHOPEDIC CONSULTATION CONSULTING PHYSICIAN: Ish Villasenor M.D. HISTORY OF PRESENT ILLNESS: The patient is a pleasant 83-year-old female who presented after she had a ground-level fall at home. She was cooking, turned, then fell on the posterior buttock. Since then, she has had some posterior buttock pain radiating on the right thigh. She was seen in the ER, was noted to be somewhat hypoxic and therefore was admitted for COPD exacerbation as well as right hip contusion. Orthopedic consultation was obtained for further care and recommendation. PAST MEDICAL HISTORY: Reviewed per the intake chart. SURGICAL HISTORY: Reviewed per the intake chart. MEDICATIONS: Reviewed per the intake chart. PHYSICAL EXAMINATION: GENERAL: The patient is alert and oriented. She is resting comfortably on exam bed. VITAL SIGNS: Afebrile. Stable vital signs. She is currently on nasal cannula. EXTREMITIES: Right hip shows no ecchymosis. No swelling. No pain on the lumbar spine. No pain on the sacrum. There is some pain on the right hand straining the posterior buttock area. In terms of the right knee, there was some pain and fullness along the posterior aspect of the knee. Mild effusion. No pain on medial or lateral joint line. Posterior calf is soft. IMAGING: Two views of the right knee reviewed showed no fracture or dislocation along the joint space. Two views of the right hip reviewed and showed soft tissue abnormalities. CT scan of the pelvis shows no obvious pelvic ring fracture. No sacral ala fracture. ASSESSMENT: 1. Right hip contusion. 2. COPD. DISCUSSION: At this point, it looks like she stable. What I recommend is to go ahead and start physical therapy. Weightbearing as tolerated. Recommend anti-inflammatories. Re-evaluate her tomorrow. See how she does after therapy. Ish Villasenor M.D. DR: ALEX JOB#: [id number] CC:
--- NOTE | 2019-02-08 00:30 | Progress Note ---
DATE: 02/07/2019 SUBJECTIVE: The patient is doing well. Overnight, she did have some issues with bleeding. Currently requiring nasal cannula. She reports that she is able to bear weight on the right leg. She is ambulating with a walker. PHYSICAL EXAMINATION: GENERAL: The patient is resting comfortably in exam bed. VITAL SIGNS: Afebrile. Stable vital signs. EXTREMITIES: There is right posterior buttock pain. Neurovascular exam is normal. ASSESSMENT: Right posterior buttock pain, status post fall. DISCUSSION: At this point, soft tissue. She had some right knee pain, which may be related to aggravation of possible underlying sciatica, but at this point, she is feeling much better. What I recommend is just a compression wrap around the knee, which did provide her some relief. When she is at home, I recommended physical therapy. Weightbearing as tolerated. The ultrasound of lower extremity was unremarkable for any DVT and the CT scan was unremarkable as well. At this point, I think it is primarily soft tissue injury. In terms of knee, she still has continued issues and she may be a candidate for cortisone injection. I recommend followup in a couple of weeks or cortisone injection as an outpatient if she has continued knee pain and if she is off the antibiotics. If she is on the antibiotics, then she has to wait until she is completely off before getting a cortisone injection. She is doing some outpatient physical therapy for left foot. What I recommend is to may be reschedule that for next week until she feels clinically better from this episode. Ish Villasenor M.D. DR: ALEX JOB#: [id number] CC:
[2019-02-08 03:56] VITALS: BP 129/52
[2019-02-08 07:10] LABS: BASOPHILS % (AUTO) 0.7 % (0.0-2.0); EOSINOPHILS % (AUTO) 1.4 % (0.0-3.0); HEMATOCRIT 40.3 % (37.0-47.0); HEMOGLOBIN 12.6 G/DL (12.0-16.0); LYMPHOCYTES % (AUTO) 22.5 % (20.0-45.0); MEAN CORPUSCULAR VOLUME 94 FL (80-99); MONOCYTES % (AUTO) 6.8 % (1.0-10.0); NEUTROPHILS % (AUTO) 68.6 % (45.0-75.0); PLATELET COUNT 202 K/UL (150-450); RED BLOOD COUNT 4.26 M/UL (4.20-5.40); RED CELL DISTRIBUTION WIDTH 13.8 % (11.6-14.8); WHITE BLOOD COUNT 8.2 K/UL (4.8-10.8)
--- NOTE | 2019-02-08 07:15 | NUR ---
HAND-OFF: Report given to Amor Chan RN.
--- NOTE | 2019-02-08 07:20 | NUR ---
NURSE NOTES: Received patient in bed, awake, alert and oriented x4. not in acute respiratory/cardiac distress. Denies pain @ this time. Patient able to walk with a walker and assist. IV intact, no s/s of infiltration. Bed is in lowest position and locked. Call light within reach, bed alarm is on for safety. Will continue plan of care.
[2019-02-08 07:46] LABS: ANION GAP 8 mmol/L (5-15); BLOOD UREA NITROGEN 56 mg/dL (7-18); CALCIUM 8.6 MG/DL (8.5-10.1); CARBON DIOXIDE 24 MMOL/L (21-32); CHLORIDE 109 MMOL/L (98-107); CREATININE 1.6 MG/DL (0.55-1.30); POTASSIUM 5.6 MMOL/L (3.5-5.1); SODIUM 141 MMOL/L (136-145)
[2019-02-08 08:00] VITALS: BP 122/58
--- NOTE | 2019-02-08 08:11 | NUR ---
NURSE NOTES: RN spoke to Dr. Brown and relayed potassium level of 5.6 and BUN/CR 56/1.6 and sodium of 141 with new order to give kayexalate 30gm po x1 and change IVF to NS @75cc/hr and cbc and BMP in am. Order read back and carried out.
[2019-02-08] MEDS: Docusate 100mg cap ORAL SCH ×2 (09:31→17:38)
[2019-02-08] MEDS: Aspirin Baby 81mg ORAL SCH (09:31)
[2019-02-08] MEDS: Furosemide 40mg tab ORAL SCH (09:31)
[2019-02-08] MEDS: Heparin 5000 units/ml inj SUBQ SCH ×2 (09:33→20:36)
[2019-02-08] MEDS ORDERED: Sodium Polystyrene Sulfonate 15gm Powder ORAL SCH (10:00)
--- NOTE | 2019-02-08 10:15 | NUR ---
NURSE NOTES: given Kayexalate 30gm po.
[2019-02-08 12:00] VITALS: BP 128/64
--- NOTE | 2019-02-08 12:34 | Cardiac Electrophysiology PN ---
Assessment/Plan Assessment/Plan 1. Elevated BNP of more than 1000, likely due to diastolic dysfunction. Ejection fraction is within normal range 65%. On Lasix 40 po daily 2. History of hypertension. Continue Bystolic 10 mg daily, Lasix 40 po daily and p.r.n. clonidine. 3. Diabetes. On metformin. 4. Possible pneumonia. On ceftriaxone and a chest CT is ordered per Dr. Ho. 5. Status post fall without syncope. Her lower extremity duplex showed no evidence of DVT. Subjective Subjective Feeling better. No CP or SOB. Objective Last 24 Hour Vital Signs Date Time Temp Pulse Resp B/P (MAP) Pulse Ox O2 Delivery O2 Flow Rate FiO2 02/08/19 09:40 96 Nasal Cannula 2.0 28 02/08/19 09:40 Nasal Cannula 2.0 28 02/08/19 09:00 Nasal Cannula 2.0 02/08/19 08:00 97.3 63 20 122/58 (79) 97 02/08/19 03:56 98.0 63 20 129/52 (77) 96 02/08/19 00:00 98.3 63 20 136/80 (98) 96 02/07/19 20:29 Nasal Cannula 2.0 02/07/19 20:00 98.7 63 18 114/48 (70) 95 02/07/19 19:45 96 Nasal Cannula 2.0 28 02/07/19 19:45 Nasal Cannula 2.0 28 02/07/19 16:00 98.0 60 20 108/55 (72) 100 Intake and Output 02/07/19 02/08/19 18:59 06:59 Intake Total 720 ml 900 ml Balance 720 ml 900 ml Intake Oral 720 ml IV Total 900 ml # Voids 2 2 Laboratory Tests Test 02/07/19 12:55 02/08/19 05:56 D-Dimer 0.66 mg/L FEU (0.00-0.49) H White Blood Count 8.2 K/UL (4.8-10.8) Red Blood Count 4.26 M/UL (4.20-5.40) Hemoglobin 12.6 G/DL (12.0-16.0) Hematocrit 40.3 % (37.0-47.0) Mean Corpuscular Volume 94 FL (80-99) Mean Corpuscular Hemoglobin 29.5 PG (27.0-31.0) Mean Corpuscular Hemoglobin Concent 31.2 G/DL (32.0-36.0) L Red Cell Distribution Width 13.8 % (11.6-14.8) Platelet Count 202 K/UL (150-450) Mean Platelet Volume 9.2 FL (6.5-10.1) Neutrophils (%) (Auto) 68.6 % (45.0-75.0) Lymphocytes (%) (Auto) 22.5 % (20.0-45.0) Monocytes (%) (Auto) 6.8 % (1.0-10.0) Eosinophils (%) (Auto) 1.4 % (0.0-3.0) Basophils (%) (Auto) 0.7 % (0.0-2.0) Sodium Level 141 MMOL/L (136-145) Potassium Level 5.6 MMOL/L (3.5-5.1) H Chloride Level 109 MMOL/L (98-107) H Carbon Dioxide Level 24 MMOL/L (21-32) Anion Gap 8 mmol/L (5-15) Blood Urea Nitrogen 56 mg/dL (7-18) H Creatinine 1.6 MG/DL (0.55-1.30) H Estimat Glomerular Filtration Rate mL/min (>60) Glucose Level 90 MG/DL (74-106) Calcium Level 8.6 MG/DL (8.5-10.1) Pro-B-Type Natriuretic Peptide 1179 pg/mL (0-125) H Total Protein (PEP) Pending Albumin (PEP) Pending Globulin (PEP) Pending Albumin/Globulin Ratio Pending [id number] Pending Jdxwt-3-[id number] Pending Beta Globulins Pending Beta Gamma Globulin Pending PEP Abnormal Protein Bands Pending Protein Electrophoresis Interpret Pending Vitamin D 25-Hydroxy Pending 25-Hydroxy Vitamin D2 Pending 25-Hydroxy Vitamin D3 Pending Rapid Plasma Reagin Pending Microbiology Date/Time Source Procedure Growth Status 02/06/19 11:35 Urine,Clean Catch Urine Culture - Final Strep Agalactiae Group B Complete Objective HEAD AND NECK: No JVD LUNGS: Has wheezing. CARDIOVASCULAR: Shows regular S1 and S2 with no gallop or murmur. ABDOMEN: Soft. EXTREMITIES: No pitting edema. Francesco Patricia MD Feb 08, 2019 12:34
--- NOTE | 2019-02-08 13:09 | Pulmonology Progress Note ---
Assessment/Plan Problems: (1) Hypoxemia (2) Former smoker (3) COPD (chronic obstructive pulmonary disease) (4) UIP (usual interstitial pneumonitis) (5) ILD (interstitial lung disease) (6) UTI (urinary tract infection) (7) Multiple falls (8) Contusion of right hip Assessment/Plan ASSESSMENT: The patient is an 83-year-old female, extensive smoker with likely underlying chronic obstructive pulmonary disease, hypertension, hyperlipidemia, hypothyroidism, presenting after a slip and fall with hip and pelvis injury. Pulmonary consultation is called for optimization of her respiratory status. She has had some wheezing and shortness of breath likely attributable to her underlying lung disease. CT shows progression of bilateral fibrotic changes in a UIP like pattern, concerning for possible IPF. PROBLEM LIST: 1. Extensive former smoker 2. ILD/UIP like pattern, concerning for IPF 3. Likely chronic obstructive pulmonary disease without evidence of exacerbation. 4. Urinary tract infection. 5. Slip and fall. 6. Degenerative joint disease. 7. Hip injury. 8. Hypertension. 9. Hyperlipidemia. 10. Peripheral vascular disease. 11. Diabetes. 12. Hypothyroidism. 13. DAVID TREATMENT PLAN: 1. Optimize pulmonary hygiene/mobilize as tolerated. 2. ILD serologies sent off 3. Needs outpatient PFT's 4. RTC & PRN DuoNebs. 5. Continue antibiotics for urinary tract infection. 6. Monitor for development of respiratory infection. 7. Pain control/supportive care. 8. Orthopedic recs: non-operative manageemnt 9. Monitor volumes and renal function. 10. DVT prophylaxis: Heparin subcutaneous. 11. Continue to encourage the patient to abstain from smoking. Subjective Allergies: Coded Allergies: No Known Allergies (Verified , 08/18/07) Subjective AFVSS O2 needs stable CT with sig ILD, ? UIP, no infiltrate/GGO No change in baseline cough or SOB no wheezing no CP no FC Objective Last 24 Hour Vital Signs Date Time Temp Pulse Resp B/P (MAP) Pulse Ox O2 Delivery O2 Flow Rate FiO2 02/08/19 12:00 97.7 59 18 128/64 (85) 95 02/08/19 09:40 96 Nasal Cannula 2.0 28 02/08/19 09:40 Nasal Cannula 2.0 28 02/08/19 09:00 Nasal Cannula 2.0 02/08/19 08:00 97.3 63 20 122/58 (79) 97 02/08/19 03:56 98.0 63 20 129/52 (77) 96 02/08/19 00:00 98.3 63 20 136/80 (98) 96 02/07/19 20:29 Nasal Cannula 2.0 02/07/19 20:00 98.7 63 18 114/48 (70) 95 02/07/19 19:45 96 Nasal Cannula 2.0 28 02/07/19 19:45 Nasal Cannula 2.0 28 02/07/19 16:00 98.0 60 20 108/55 (72) 100 Intake and Output 02/07/19 02/08/19 18:59 06:59 Intake Total 720 ml 900 ml Balance 720 ml 900 ml Intake Oral 720 ml IV Total 900 ml # Voids 2 2 General Appearance: WD/WN, no acute distress HEENT: normocephalic, atraumatic, anicteric, mucous membranes moist Respiratory/Chest: chest wall non-tender, crackles/rales Cardiovascular: normal peripheral pulses, normal rate, regular rhythm Abdomen: normal bowel sounds, soft, non tender, no organomegaly, non distended Extremities: no cyanosis, no clubbing, no edema Microbiology Date/Time Source Procedure Growth Status 02/06/19 11:35 Urine,Clean Catch Urine Culture - Final Strep Agalactiae Group B Complete Laboratory Tests 02/08/19 05:56: White Blood Count 8.2, Red Blood Count 4.26, Hemoglobin 12.6, Hematocrit 40.3, Mean Corpuscular Volume 94, Mean Corpuscular Hemoglobin 29.5, Mean Corpuscular Hemoglobin Concent 31.2L, Red Cell Distribution Width 13.8, Platelet Count 202, Mean Platelet Volume 9.2, Neutrophils (%) (Auto) 68.6, Lymphocytes (%) (Auto) 22.5, Monocytes (%) (Auto) 6.8, Eosinophils (%) (Auto) 1.4, Basophils (%) (Auto ) 0.7, Sodium Level 141, Potassium Level 5.6H, Chloride Level 109H, Carbon Dioxide Level 24, Anion Gap 8, Blood Urea Nitrogen 56H, Creatinine 1.6H, Estimat Glomerular Filtration Rate , Glucose Level 90, Calcium Level 8.6, Pro-B- Type Natriuretic Peptide 1179H, Total Protein (PEP) [Pending], Albumin (PEP) [ Pending], Globulin (PEP) [Pending], Albumin/Globulin Ratio [Pending], Alpha-1- Globulins [Pending], Abhyt-4-Hhvarwjkt [Pending], Beta Globulins [Pending], Beta Gamma Globulin [Pending], PEP Abnormal Protein Bands [Pending], Protein Electrophoresis Interpret [Pending], Vitamin D 25-Hydroxy [Pending], 25-Hydroxy Vitamin D2 [Pending], 25-Hydroxy Vitamin D3 [Pending], Rapid Plasma Reagin [ Pending] Current Medications Medications (Trade) Dose Ordered Sig/Diane Route PRN Reason Start Time Stop Time Status Last Admin Dose Admin Acetaminophen (Tylenol) 650 mg Q6H PRN ORAL Mild Pain/Temp > 100.5 02/06/19 17:45 03/08/19 17:44 02/08/19 10:15 Acetaminophen/ Hydrocodone Bitart (Erwin 5/325) 1 tab Q4H PRN ORAL Moderate Pain (Pain Scale 4-6) 02/06/19 17:45 02/13/19 17:44 Al Hydroxide/Mg Hydroxide (Mylanta) 30 ml BIDPRN PRN ORAL UPSET STOMACH 02/06/19 17:45 03/08/19 17:44 Albuterol/ Ipratropium (Albuterol/ Ipratropium) 3 ml Q4H PRN HHN Shortness of Breath 02/06/19 17:45 02/11/19 17:44 Aspirin (ASA) 81 mg DAILY ORAL 02/07/19 09:00 03/09/19 08:59 02/08/19 09:31 Ceftriaxone Sodium 1 gm/ Dextrose 55 ml @ 110 mls/hr Q24H IVPB 02/07/19 16:00 02/14/19 15:59 02/07/19 16:47 Clonidine HCl (Catapres Tab) 0.1 mg Q4H PRN ORAL sbp>170 02/07/19 17:00 03/09/19 16:59 Docusate Sodium (Colace) 100 mg TWICE A DAY ORAL 02/07/19 09:00 03/09/19 08:59 02/08/19 09:31 Fenofibrate (Tricor) 145 mg DAILY ORAL 02/07/19 09:00 03/09/19 08:59 02/08/19 09:30 Furosemide (Lasix) 40 mg DAILY ORAL 02/08/19 09:00 03/10/19 08:59 02/08/19 09:31 Heparin Sodium (Porcine) (Heparin 5000 units/ml) 5,000 units EVERY 12 HOURS SUBQ 02/07/19 09:00 03/09/19 08:59 02/08/19 09:33 Levothyroxine Sodium (Synthroid) 112 mcg DAILY@0630 ORAL 02/07/19 06:30 03/09/19 06:29 02/08/19 05:57 Magnesium Hydroxide (Mom) 30 ml BIDPRN PRN ORAL Constipation 02/06/19 17:45 03/08/19 17:44 Nebivolol (Bystolic) 10 mg DAILY ORAL 02/07/19 09:00 03/09/19 08:59 02/08/19 09:31 Pantoprazole (Protonix) 40 mg EVERY 12 HOURS ORAL 02/07/19 09:00 03/09/19 08:59 02/08/19 09:31 Pioglitazone HCl (Actos) 30 mg ACBREAKFAST ORAL 02/07/19 06:30 03/09/19 06:29 02/08/19 05:57 Sodium Chloride 1,000 ml @ 75 mls/hr [id number] IV 02/08/19 08:15 03/10/19 08:14 02/08/19 09:32 Zolpidem Tartrate (Ambien) 5 mg HSPRN PRN ORAL Insomnia 02/06/19 17:45 02/13/19 17:44 Javi Ho MD Feb 08, 2019 13:09
[2019-02-08] MEDS: cefTRIAXone 1 GM in D5W 55 ML IVPB SCH (15:55)
[2019-02-08 16:00] VITALS: BP 121/57
--- NOTE | 2019-02-08 19:09 | Neurology Progress Note ---
Interim History Interim History Interim History Ms. Sesay feels better. Her right hip is more comfortable. She was able to do some walking today and felt steadier on her feet. The mind is clear. She has not noted any new neurological symptoms. Review of Systems Neuro Review of Systems Benign. Objective Physical Exam Last Vital Signs Date Time Temp Pulse Resp B/P (MAP) Pulse Ox O2 Delivery O2 Flow Rate FiO2 02/08/19 16:00 98.0 63 16 121/57 (78) 96 02/08/19 09:40 Nasal Cannula 2.0 28 Laboratory Tests Test 02/08/19 05:56 White Blood Count 8.2 K/UL (4.8-10.8) Red Blood Count 4.26 M/UL (4.20-5.40) Hemoglobin 12.6 G/DL (12.0-16.0) Hematocrit 40.3 % (37.0-47.0) Mean Corpuscular Volume 94 FL (80-99) Mean Corpuscular Hemoglobin 29.5 PG (27.0-31.0) Mean Corpuscular Hemoglobin Concent 31.2 G/DL (32.0-36.0) L Red Cell Distribution Width 13.8 % (11.6-14.8) Platelet Count 202 K/UL (150-450) Mean Platelet Volume 9.2 FL (6.5-10.1) Neutrophils (%) (Auto) 68.6 % (45.0-75.0) Lymphocytes (%) (Auto) 22.5 % (20.0-45.0) Monocytes (%) (Auto) 6.8 % (1.0-10.0) Eosinophils (%) (Auto) 1.4 % (0.0-3.0) Basophils (%) (Auto) 0.7 % (0.0-2.0) Erythrocyte Sedimentation Rate 35 MM/HR (0-30) H Sodium Level 141 MMOL/L (136-145) Potassium Level 5.6 MMOL/L (3.5-5.1) H Chloride Level 109 MMOL/L (98-107) H Carbon Dioxide Level 24 MMOL/L (21-32) Anion Gap 8 mmol/L (5-15) Blood Urea Nitrogen 56 mg/dL (7-18) H Creatinine 1.6 MG/DL (0.55-1.30) H Estimat Glomerular Filtration Rate mL/min (>60) Glucose Level 90 MG/DL (74-106) Calcium Level 8.6 MG/DL (8.5-10.1) C-Reactive Protein, Quantitative < 0.4 mg/dL (0.00-0.90) Pro-B-Type Natriuretic Peptide 1179 pg/mL (0-125) H Total Protein (PEP) Pending Albumin (PEP) Pending Globulin (PEP) Pending Albumin/Globulin Ratio Pending Vgmoo-7-Fezodrgcd Pending Nhxrd-2-Azxowdipg Pending Beta Globulins Pending Beta Gamma Globulin Pending PEP Abnormal Protein Bands Pending Protein Electrophoresis Interpret Pending Vitamin D 25-Hydroxy Pending 25-Hydroxy Vitamin D2 Pending 25-Hydroxy Vitamin D3 Pending Rheumatoid Factor Screen Pending Cyclic Citrullinated Peptide IgG Ab Pending Anti-Nuclear Antibody Screen Pending c-ANCA Titer Pending p-ANCA Titer Pending Rapid Plasma Reagin Pending Neurologic Exam Objective PHYSICAL EXAMINATION: GENERAL: She is a well-developed and well-nourished, obese lady, lying in bed, in no acute distress. HEAD: Normocephalic and atraumatic. EENT: Examination benign. NECK: No neck rigidity was observed. NEUROLOGIC EXAMINATION: MENTAL STATUS EXAMINATION: She was awake and alert. She was oriented to person, place, and time except for the exact date. She was able to recall 3/3 words immediately after 1 minute and after 3 minutes. She was able to remember presidents Trump through [employer]. Her mathematical skills were minimally impaired. Her visuospatial function was also minimally impaired. SPEECH: She had no dysarthria. LANGUAGE: She had no aphasia in Telugu. CRANIAL NERVES EXAMINATION: II: The visual mckeon were intact on confrontation testing. III, IV & : The external ocular movements were full and the pupils 3 mm in diameter, equal, round, regular, and reactive to light. V: She had normal facial sensations, and the temporales, masseters, and pterygoids functioned normally. VII: She had normal facial expressions and no facial asymmetry. VIII: She was able to hear well bilaterally and had no nystagmus. IX: The palate moved symmetrically on phonation. X: She had no hoarseness of voice. XI: The sternocleidomastoids and trapezii functioned normally. XII: The tongue was in the midline without any fasciculations or atrophy. MOTOR SYSTEM: The tone was normal in all four extremities. Examination of muscle mass revealed no focal wasting. Examination of power revealed G 5/5 power except for give-way weakness in the right shoulder and right hip associated with pain. SENSORY EXAMINATION: She had intact sensations to pinprick and light touch. COORDINATION: She performed well on [id number] testing. She was unable to perform [id number]-[id number] testing. REFLEXES: Trace+ and bilaterally symmetrical at the biceps, triceps, and brachioradialis, 0 at both knees and ankles. The plantar responses were flexor bilaterally. STANCE: She needed support to stand up. GAIT: She walked with support and complained of pain when she walked. Impression/Recommendations Diagnostic Impression 1. Ms. Veronica Sesay is an 83-year-old, right-handed, lady, with the past history of multiple medical problems including hypertension, diabetes mellitus, dyslipidemia, peripheral vascular disease, hypothyroidism, chronic obstructive pulmonary disease, right shoulder injury, left foot injury, and a 3 mechanical falls in the last year and a half. The last fall was on the day of admission where she was in the kitchen slipped over her slippery shoes and fell down and hurt her right hip. 2. She feels better. Her right hip is more comfortable. She was able to do some walking today and felt steadier on her feet. The mind is clear. She has not noted any new neurological symptoms. 3. On neurological examination, at this time, she does have mild disorientation to the exact date, problems with higher cognitive function and visuospatial function, give-way weakness in the right shoulder and right hip related to pain, and globally diminished reflexes in the upper extremities with loss of deep tendon reflexes in the lower extremities, need for support to stand up and the need for support to walk due to pain in her limbs. 4. Her vitamin B 12 level is low at 372. 5. The patient's history and neurological examination are most consistent with a recent mechanical fall with a right hip strain making walking more difficult. She does not demonstrate any focal neurological dysfunction. 6. Her neuropathy is most probably due to the diabetes and B12 deficiency. Recommendations 1. Continue present management. 2. Pulmonary workup. 3. Mobilize with the help of physical and occupational therapy. 4. Vitamin B12 - 1000 mcg SC daily x 3 and then q month. Juan Monzon M.D., M.S.P.H. Juan Monzon MD Feb 08, 2019 19:09
--- NOTE | 2019-02-08 19:37 | NUR ---
HAND-OFF: Report given to Hammad.
[2019-02-08 20:00] VITALS: BP 100/53
--- NOTE | 2019-02-08 20:00 | NUR ---
NURSE NOTES: PT IN BED, ON 2L O2 VIA N/C, NO SOB NO ACUTE DISTRESS, DENIES PAIN. UKRAINIAN SPEAKING, UNDERSTANDS ARMENIAN LITTLE. RAC IV INTACT, PATENT RUNNING FLUIDS. PT USES BEDSIDE COMMODE. BED IN LOWEST POSITION, LOCKED, ALARMS ON. CALL LIGHT IN REACH.
[2019-02-08] MEDS: Vitamin B12 1000mcg/ml Inj SUBQ SCH (20:36)
--- NOTE | 2019-02-08 22:39 | General Progress Note ---
Assessment/Plan Assessment/Plan: right knee pain ho fall diabetes htn hld ct scan noted cw IPF ho copd hyperkalemia renal insufficney pain control ambulate sen by ortho PT bp controlled kayexalate for hyprkalemia fluids dvt and ulcer prohylaxis dc planning Subjective Allergies: Coded Allergies: No Known Allergies (Verified , 08/18/07) Subjective co right knee pain sp fall no chest pain occ cough decresed sob no dysuria Objective Last 24 Hour Vital Signs Date Time Temp Pulse Resp B/P (MAP) Pulse Ox O2 Delivery O2 Flow Rate FiO2 02/08/19 20:00 98.8 66 20 100/53 (69) 96 02/08/19 19:55 Nasal Cannula 2.0 28 02/08/19 19:55 97 Nasal Cannula 2.0 28 02/08/19 19:55 65 18 Nasal Cannula 2.0 28 02/08/19 16:00 98.0 63 16 121/57 (78) 96 02/08/19 12:00 97.7 59 18 128/64 (85) 95 02/08/19 09:40 96 Nasal Cannula 2.0 28 02/08/19 09:40 Nasal Cannula 2.0 28 02/08/19 09:00 Nasal Cannula 2.0 02/08/19 08:00 97.3 63 20 122/58 (79) 97 02/08/19 03:56 98.0 63 20 129/52 (77) 96 02/08/19 00:00 98.3 63 20 136/80 (98) 96 Intake and Output 02/07/19 02/08/19 19:00 07:00 Intake Total 795 ml 900 ml Balance 795 ml 900 ml Intake Oral 720 ml IV Total 75 ml 900 ml # Voids 2 2 Laboratory Tests 02/08/19 05:56: White Blood Count 8.2, Red Blood Count 4.26, Hemoglobin 12.6, Hematocrit 40.3, Mean Corpuscular Volume 94, Mean Corpuscular Hemoglobin 29.5, Mean Corpuscular Hemoglobin Concent 31.2L, Red Cell Distribution Width 13.8, Platelet Count 202, Mean Platelet Volume 9.2, Neutrophils (%) (Auto) 68.6, Lymphocytes (%) (Auto) 22.5, Monocytes (%) (Auto) 6.8, Eosinophils (%) (Auto) 1.4, Basophils (%) (Auto ) 0.7, Erythrocyte Sedimentation Rate 35H, Sodium Level 141, Potassium Level 5.6H, Chloride Level 109H, Carbon Dioxide Level 24, Anion Gap 8, Blood Urea Nitrogen 56H, Creatinine 1.6H, Estimat Glomerular Filtration Rate , Glucose Level 90, Calcium Level 8.6, C-Reactive Protein, Quantitative < 0.4, Pro-B-Type Natriuretic Peptide 1179H, Total Protein (PEP) [Pending], Albumin (PEP) [Pending ], Globulin (PEP) [Pending], Albumin/Globulin Ratio [Pending], Alpha-1- Globulins [Pending], Vrtne-9-Bzzcuegbh [Pending], Beta Globulins [Pending], Beta Gamma Globulin [Pending], PEP Abnormal Protein Bands [Pending], Protein Electrophoresis Interpret [Pending], Vitamin D 25-Hydroxy [Pending], 25-Hydroxy Vitamin D2 [Pending], 25-Hydroxy Vitamin D3 [Pending], Rheumatoid Factor Screen [Pending], Cyclic Citrullinated Peptide IgG Ab [Pending], Anti-Nuclear Antibody Screen [Pending], c-ANCA Titer [Pending], p-ANCA Titer [Pending], Rapid Plasma Reagin [Pending] Height (Feet): 5 Height (Inches): 1.00 Weight (Pounds): 180 General Appearance: WD/WN, no apparent distress, alert Neck: supple Cardiovascular: normal peripheral pulses, normal rate Respiratory/Chest: lungs clear Abdomen: soft Objective right knee some tenderness with rom decrreeased Richard Brown MD Feb 08, 2019 22:39
[2019-02-09] VITALS: BP 108/49
[2019-02-09 04:00] VITALS: BP 99/56
[2019-02-09 07:32] LABS: BASOPHILS % (AUTO) 0.8 % (0.0-2.0); EOSINOPHILS % (AUTO) 2.8 % (0.0-3.0); HEMATOCRIT 41.1 % (37.0-47.0); HEMOGLOBIN 13.1 G/DL (12.0-16.0); LYMPHOCYTES % (AUTO) 22.8 % (20.0-45.0); MEAN CORPUSCULAR VOLUME 94 FL (80-99); MONOCYTES % (AUTO) 7.4 % (1.0-10.0); NEUTROPHILS % (AUTO) 66.2 % (45.0-75.0); PLATELET COUNT 212 K/UL (150-450); RED BLOOD COUNT 4.39 M/UL (4.20-5.40); RED CELL DISTRIBUTION WIDTH 13.6 % (11.6-14.8); WHITE BLOOD COUNT 7.1 K/UL (4.8-10.8)
--- NOTE | 2019-02-09 07:34 | NUR ---
NURSE NOTES: received report from Marisol Diego RN. patient in bed. sleeping. no respiratory distress noted. Iv RAC intact. running fluid. bed in the lowest position. call light within reach. will continue to monitor.
[2019-02-09 07:35] LABS: ANION GAP 8 mmol/L (5-15); BLOOD UREA NITROGEN 47 mg/dL (7-18); CARBON DIOXIDE 28 MMOL/L (21-32); CHLORIDE 110 MMOL/L (98-107); CREATININE 1.4 MG/DL (0.55-1.30); POTASSIUM 4.1 MMOL/L (3.5-5.1); SODIUM 146 MMOL/L (136-145)
[2019-02-09 08:00] VITALS: BP 116/69
[2019-02-09] MEDS: Furosemide 40mg tab ORAL SCH (09:13)
[2019-02-09] MEDS: Aspirin Baby 81mg ORAL SCH (09:13)
[2019-02-09] MEDS: Vitamin B12 1000mcg/ml Inj SUBQ SCH (09:14)
[2019-02-09] MEDS: Docusate 100mg cap ORAL SCH (09:14)
[2019-02-09] MEDS: Heparin 5000 units/ml inj SUBQ SCH (09:17)
--- NOTE | 2019-02-09 10:01 | Cardiac Electrophysiology PN ---
Assessment/Plan Assessment/Plan 1. Elevated BNP of more than 1000, likely due to diastolic dysfunction. Ejection fraction is 65%. On Lasix 40 po daily 2. History of hypertension. Continue Bystolic 10 mg daily, Lasix 40 po daily and p.r.n. clonidine. 3. Diabetes. On metformin. 4. Possible pneumonia. On ceftriaxone and a chest CT is ordered per Dr. Ho. 5. Status post fall without syncope. Her lower extremity duplex showed no evidence of DVT. DC planning in progress Subjective Subjective Feeling better. No CP or SOB.DC planning in progress Objective Last 24 Hour Vital Signs Date Time Temp Pulse Resp B/P (MAP) Pulse Ox O2 Delivery O2 Flow Rate FiO2 02/09/19 08:00 97.8 64 18 116/69 (85) 100 02/09/19 07:33 99 Nasal Cannula 2.0 28 02/09/19 07:33 Nasal Cannula 2.0 28 02/09/19 07:33 66 18 Nasal Cannula 2.0 28 02/09/19 04:00 98.1 61 20 99/56 (70) 100 02/09/19 00:00 98.3 69 20 108/49 (68) 96 02/08/19 21:00 Nasal Cannula 2.0 02/08/19 20:00 98.8 66 20 100/53 (69) 96 02/08/19 19:55 Nasal Cannula 2.0 28 02/08/19 19:55 97 Nasal Cannula 2.0 28 02/08/19 19:55 65 18 Nasal Cannula 2.0 28 02/08/19 16:00 98.0 63 16 121/57 (78) 96 02/08/19 12:00 97.7 59 18 128/64 (85) 95 Intake and Output 02/08/19 02/09/19 19:00 07:00 Intake Total 2004 ml 260 ml Balance 2004 ml 260 ml Intake Oral 1200 ml 260 ml IV Total 805 ml # Voids 9 5 Laboratory Tests Test 02/09/19 06:05 White Blood Count 7.1 K/UL (4.8-10.8) Red Blood Count 4.39 M/UL (4.20-5.40) Hemoglobin 13.1 G/DL (12.0-16.0) Hematocrit 41.1 % (37.0-47.0) Mean Corpuscular Volume 94 FL (80-99) Mean Corpuscular Hemoglobin 29.8 PG (27.0-31.0) Mean Corpuscular Hemoglobin Concent 31.8 G/DL (32.0-36.0) L Red Cell Distribution Width 13.6 % (11.6-14.8) Platelet Count 212 K/UL (150-450) Mean Platelet Volume 8.8 FL (6.5-10.1) Neutrophils (%) (Auto) 66.2 % (45.0-75.0) Lymphocytes (%) (Auto) 22.8 % (20.0-45.0) Monocytes (%) (Auto) 7.4 % (1.0-10.0) Eosinophils (%) (Auto) 2.8 % (0.0-3.0) Basophils (%) (Auto) 0.8 % (0.0-2.0) Sodium Level 146 MMOL/L (136-145) H Potassium Level 4.1 MMOL/L (3.5-5.1) Chloride Level 110 MMOL/L (98-107) H Carbon Dioxide Level 28 MMOL/L (21-32) Anion Gap 8 mmol/L (5-15) Blood Urea Nitrogen 47 mg/dL (7-18) H Creatinine 1.4 MG/DL (0.55-1.30) H Estimat Glomerular Filtration Rate mL/min (>60) Glucose Level 89 MG/DL (74-106) Calcium Level 9.0 MG/DL (8.5-10.1) Microbiology Date/Time Source Procedure Growth Status 02/06/19 11:35 Urine,Clean Catch Urine Culture - Final Strep Agalactiae Group B Complete Objective HEAD AND NECK: No JVD LUNGS: Clear CARDIOVASCULAR: Regular S1 and S2 with no gallop or murmur. ABDOMEN: Soft. EXTREMITIES: No pitting edema. Francesco Patricia MD Feb 09, 2019 10:01
--- NOTE | 2019-02-09 11:45 | NUR ---
NURSE NOTES: patient discharged to home with family stable condition. no repsiratory distress noted. remove IV and ID band. checked and counted belongings with patient and obtained sign. provided dc packet. patient verballized understood. escorted patient via w/C with family member. left by family car.
--- NOTE | 2019-02-09 12:09 | Diagnostic Imaging Report ---
APPROVED REPORT CPT Code: 07815 Present Symptoms Lower Extremity Pain: Bilateral BILATERAL: Imaging reveals a patent deep venous system bilaterally. There is no evidence of thrombus within the common femoral, superficial femoral, popliteal or tibial segments. The greater saphenous veins are within normal limits. Doppler indicates normal spontaneous flow within these segments.
--- NOTE | 2019-02-10 10:29 | Discharge Summary ---
Discharge Summary Discharge Summary _ DATE OF ADMISSION: 02/06/2019 DATE OF DISCHARGE: 02/09/2019 DISCHARGED BY: Dr. Richard Brown CONSULTANTS: Dr. Francesco Ho BRIEF HOSPITAL COURSE: Patient is an 83-year-old female, who was in her kitchen, slipped and fell on her right hip and right knee on 2018. She denied any loss of consciousness. Denied chest pain, shortness of breath or palpitations. Denied abdominal pain. She complained of right arm weakness. Pain had gotten worse and decided to come to the emergency room for further evaluation. She has medical history significant for hypertension, hyperlipidemia, diabetes, history of peripheral vascular disease, history of hernia repair in , COPD, hypothyroidism and hypertriglyceridemia. On evaluation at ED, vital signs were stable. Blood work did not show any leukocytosis. Hemoglobin and hematocrit were stable. Electrolytes showed potassium level of 5.2. BUN was elevated to 39, creatinine 1.3. Glucose 122. Urinalysis with 3+ leukocyte esterase, 10-15 WBC, 0-2 RBC. Chest x-ray showed bilateral diffuse mild interstitial disease. EKG was in normal sinus rhythm. Right hip x-ray showed degenerative changes with no acute bony trauma. No fractures. No dislocations. Pelvic CT showed minimal bilateral hip degenerative changes with no acute bony trauma. She was started on Rocephin for urinary tract infection. She was given gentle IV hydration. She was noted to be wheezing and was given Solu-Medrol and breathing treatment. She was then admitted for evaluation of falls. Patient had a fall, apparently, appeared to be non-syncopal in nature. She complained of pain to the hip, pelvic and right knee. She was admitted to monitored bed. She was also wheezing and was given breathing treatments. She was placed on DVT and ulcer prophylaxis. She was continued on IV antibiotics. She was given Kayexalate for hyperkalemia. Breaster was consulted. Patient was extensive former smoker with likely chronic COPD. There was no evidence of exacerbation. She was given round-the- clock and prn DuoNeb. She was given pulmonary hygiene. D-dimer was slightly high 0.66. Venous duplex of the lower extremity was negative for acute DVT. Journal Box Inspector was consulted. Patient had elevated BNP, likely due to diastolic dysfunction. Echocardiogram done showed ejection fraction of 60 to 65% with no significant valvular pathology. She was started on Lasix. She was continued on Bystolic. Cozaar was discontinued. Neurologist was consulted. Neuro examination did not demonstrate any focal neurological dysfunction patient has a neuropathic process, most probably related to diabetes and low B12 level which was at 372. She had right hip pain making ambulation difficult. She was given vitamin B12 injection. Urine culture showed growth of group B strep. Orthopedic evaluation was done. Imaging of the right knee showed no fractures or dislocation along the joint space. CT scan of the pelvis did not show any fracture. She was given physical therapy and weightbearing as tolerated. Patient was recommended may benefit from cortisone injection into the right knee when off antibiotics. CT scan of the chest showed progression of bilateral fibrotic changes in usual interstitial pneumonia (UIP) pattern, concerning for possible idiopathic pulmonary fibrosis (IPF). Interstitial lung disease serologies were sent off. Patient would need outpatient pulmonary function testing done. He was encouraged to continue abstaining from smoking. She was eventually discharged home with home health. FINAL DIAGNOSES: Status post mechanical fall without syncope Right knee pain and right posterior buttock pain/hip contusion Diabetes Hypertension Hyperlipidemia CT scan findings consistent with idiopathic pulmonary fibrosis Hyperkalemia COPD without evidence of exacerbation Acute diastolic congestive heart failure Possible Renal insufficiency/acute kidney injury Neuropathy most probably due to diabetes and B12 deficiency Extensive former smoker Urinary tract infection Degenerative joint disease Hypothyroidism DISPOSITION: DC home with home health. DISCHARGE MEDICATIONS: Refer to Discharge Medication List. DISCHARGE INSTRUCTIONS: Follow-up in a week. I have been assigned to complete a discharge summary on this account, I was not involved with the patient's management. Julieta Peralta NP Feb 10, 2019 10:29
--- NOTE | 2019-02-10 15:49 | Cardiology Report ---
APPROVED REPORT EKG Measurement Heart [id number] Normal sinus rhythm Normal ECG
== END 2019-02-09 12:00 | disposition home or self-care (01) | DRG 604 ==
LOC: EMR 11:09 → 4E 14:01 → EDBEDREQ 15:31 → 4E 16:47
DX: S70.01XA Contusion of right hip, initial encounter (principal); I50.31 Acute diastolic (congestive) heart failure; N39.0 Urinary tract infection, site not specified; N17.9 Acute kidney failure, unspecified; M25.561 Pain in right knee; W01.0XXA Fall on same level from slipping, tripping and stumbling without subsequent striking against object, initial encounter; Y92.000 Kitchen of unspecified non-institutional (private) residence as the place of occurrence of the external cause; J44.9 Chronic obstructive pulmonary disease, unspecified; I11.0 Hypertensive heart disease with heart failure; Z87.891 Personal history of nicotine dependence; E78.5 Hyperlipidemia, unspecified; E03.9 Hypothyroidism, unspecified; I73.9 Peripheral vascular disease, unspecified; E87.5 Hyperkalemia; E11.40 Type 2 diabetes mellitus with diabetic neuropathy, unspecified; M19.90 Unspecified osteoarthritis, unspecified site; R29.6 Repeated falls; Z79.84 Long term (current) use of oral hypoglycemic drugs; J84.89 Other specified interstitial pulmonary diseases
CPT/HCPCS: 36415; 36600; 71045; 71250; 72170; 72192; 80048; 80053; 80061; 81001; 82306; 82607; 82803; 83036; 83880; 84165; 84443; 84484; 85007; 85025; 85379; 85610; 85651; 85730; 86021; 86039; 86140; 86200; 86431; 86592; 87086; 93005; 93306; 93970; 94640; 94664; 94760; 96365; 96372; 96375; 99285; J2405

== ENCOUNTER 2019-06-24 02:51 | Inpatient (IN) | payer MEDICARE, OTHER ==
[2019-06-24] VITALS (7 sets, daily range): BP systolic 106–176; BP diastolic 46–89
[~2019-06-24] VITALS: Ht 160 cm; Wt 79.8 kg
[~2019-06-24 02:51] MED LIST changes: +COZAAR25 MG ORAL
--- NOTE | 2019-06-24 03:00 | NUR ---
ED Nurse Note: pt brought in by family from home c/c nausea and vomiting x1 day and sob x couple of days. upon arrival noted pt vomiting x 1, increase weakness, noted multiple pvc on the upholstery restorer, 12 lead ekg done, ERMD notified result, pt o2sat =89% on RA, pt started on o2 via nc 2L/min. will cont monitor.
--- NOTE | 2019-06-24 03:05 | NUR ---
ED Nurse Note: EXTRA WARM BLANKET PROVIDED FOR COMFORT.
[2019-06-24] MEDS ORDERED: HYDROCHLOROTHIA25 MG ORAL (03:11)
[2019-06-24] MEDS ORDERED: GUAIFENESIN-CO118 M1 ORAL (03:11)
--- NOTE | 2019-06-24 03:12 | Emergency Room Report ---
History of Present Illness General Chief Complaint: Nausea, Vomiting, and Diarrhea Source: Patient Present Illness HPI Patient is presented after increased nausea and vomiting. Patient was noted to have increased shortness of breath. She had recently been started on inhaler by primary physician. She prior history of diabetes. Patient was noted to have multiple episodes of vomiting. She is a current smoker. She had some prior history of lung disease. Patient been having increased difficulty with breathing over the past few days. Allergies: Coded Allergies: No Known Allergies (Verified , 08/18/07) Patient History Past Medical History: see triage record Last Menstrual Period: na Reviewed Nursing Documentation: PMH: Agreed; PSxH: Agreed Nursing Documentation-PMH Hx Cardiac Problems: Yes Hx Hypertension: Yes Hx Pacemaker: No - hyperlipidimia Hx Diabetes: Yes Hx Cancer: No Hx Gastrointestinal Problems: Yes Hx Neurological Problems: No Review of Systems All Other Systems: negative except mentioned in HPI Physical Exam Vital Signs Date Time Temp Pulse Resp B/P (MAP) Pulse Ox O2 Delivery O2 Flow Rate FiO2 06/24/19 03:03 98.4 94 14 181/90 (120) 92 Nasal Cannula 2.0 Sp02 EP Interpretation: reviewed, normal General Appearance: normal inspection, well appearing, alert, GCS 15 Head: atraumatic ENT: normal ENT inspection, hearing grossly normal, normal voice Neck: normal inspection, full range of motion, supple, no bony tend Respiratory: normal inspection, no retraction, wheezing Cardiovascular #1: no edema, irregularly irregular Gastrointestinal: normal inspection, normal bowel sounds, non tender, soft, no guarding, no hernia Genitourinary: no CVA tenderness Musculoskeletal: normal inspection, back normal, normal range of motion Neurologic: normal inspection, alert, oriented x3, responsive, welfare service aide III-XII nml as tested, speech normal Psychiatric: normal inspection, judgement/insight normal, mood/affect normal Medical Decision Making Diagnostic Impression: Primary Impression: COPD (chronic obstructive pulmonary disease) Additional Impressions: Pancreatitis ILD (interstitial lung disease) ER Course Patient presented for shortness of breath. Differential included but was not limited to anemia, pneumonia, pneumothorax, myocardial infarction, pericardial effusion, congestive heart failure, acidosis because of complexity of patient's case laboratory tests and imaging studies were ordered. Patient was noted to have some prior history of lung disease. She was noted to be somewhat short of breath. She is given IV steroids as well as breathing treatments with some mild improvement. She was also given IV magnesium due to intermittent ventricular bigeminy. She was started on IV Lasix. Laboratory testing showed evidence of elevation of BNP as well as normal white blood count and adequate hemoglobin. Patient was noted to be hypoxic and will be admitted to the hospital for further evaluation treatment. Dr. Juan Luis Brown was contacted and requested patient admitted to panel physician. Patient will be admitted to Dr. Toñito canseco for inpatient management due to panel physician Laboratory Tests Test 06/24/19 03:05 06/25/19 06:00 06/25/19 13:06 White Blood Count 9.8 K/UL (4.8-10.8) 9.7 K/UL (4.8-10.8) Red Blood Count 5.33 M/UL (4.20-5.40) 4.90 M/UL (4.20-5.40) Hemoglobin 15.6 G/DL (12.0-16.0) 14.6 G/DL (12.0-16.0) Hematocrit 50.7 % (37.0-47.0) H 46.5 % (37.0-47.0) Mean Corpuscular Volume 95 FL (80-99) 95 FL (80-99) Mean Corpuscular Hemoglobin 29.3 PG (27.0-31.0) 29.9 PG (27.0-31.0) Mean Corpuscular Hemoglobin Concent 30.9 G/DL (32.0-36.0) L 31.5 G/DL (32.0-36.0) L Red Cell Distribution Width 13.7 % (11.6-14.8) 13.2 % (11.6-14.8) Platelet Count 244 K/UL (150-450) 217 K/UL (150-450) Mean Platelet Volume 7.9 FL (6.5-10.1) 7.5 FL (6.5-10.1) Neutrophils (%) (Auto) 83.5 % (45.0-75.0) H 79.7 % (45.0-75.0) H Lymphocytes (%) (Auto) 10.9 % (20.0-45.0) L 13.2 % (20.0-45.0) L Monocytes (%) (Auto) 4.3 % (1.0-10.0) 6.4 % (1.0-10.0) Eosinophils (%) (Auto) 1.1 % (0.0-3.0) 0.1 % (0.0-3.0) Basophils (%) (Auto) 0.3 % (0.0-2.0) 0.5 % (0.0-2.0) Prothrombin Time 11.0 SEC (9.30-11.50) Prothrombin Time INR 1.0 (0.9-1.1) PTT 29 SEC (23-33) Sodium Level 145 MMOL/L (136-145) 141 MMOL/L (136-145) Potassium Level 4.4 MMOL/L (3.5-5.1) 4.9 MMOL/L (3.5-5.1) Chloride Level 111 MMOL/L (98-107) H 108 MMOL/L (98-107) H Carbon Dioxide Level 22 MMOL/L (21-32) 28 MMOL/L (21-32) Anion Gap 12 mmol/L (5-15) 5 mmol/L (5-15) Blood Urea Nitrogen 29 mg/dL (7-18) H 39 mg/dL (7-18) H Creatinine 1.4 MG/DL (0.55-1.30) H 1.5 MG/DL (0.55-1.30) H Estimate Glomerular Filtration Rate mL/min (>60) mL/min (>60) Glucose Level 145 MG/DL (74-106) H 115 MG/DL (74-106) H Calcium Level 9.2 MG/DL (8.5-10.1) 9.3 MG/DL (8.5-10.1) Total Bilirubin 0.4 MG/DL (0.2-1.0) 0.3 MG/DL (0.2-1.0) Aspartate Amino Transferase (AST) 19 U/L (15-37) 16 U/L (15-37) Alanine Aminotransferase (ALT) 24 U/L (12-78) 18 U/L (12-78) Alkaline Phosphatase 93 U/L (46-116) 79 U/L (46-116) Troponin I 0.006 ng/mL (0.000-0.056) Pro-B-Type Natriuretic Peptide 4708 pg/mL (0-125) H Total Protein 7.5 G/DL (6.4-8.2) 7.1 G/DL (6.4-8.2) Albumin 3.3 G/DL (3.4-5.0) L 3.0 G/DL (3.4-5.0) L Globulin 4.2 g/dL 4.1 g/dL Albumin/Globulin Ratio 0.8 (1.0-2.7) L 0.7 (1.0-2.7) L Triglycerides Level 153 MG/DL (30-150) H Cholesterol Level 161 MG/DL (< 200) LDL Cholesterol 94 mg/dL (<100) HDL Cholesterol 41 MG/DL (40-60) Cholesterol/HDL Ratio 3.9 (3.3-4.4) Lipase 667 U/L (73-393) H Vitamin B12 Level 636 PG/ML (193-986) Thyroid Stimulating Hormone (TSH) 1.618 uiU/mL (0.358-3.740) Urine Color Pale yellow Urine Appearance Clear Urine pH 5 (4.5-8.0) Urine Specific Bryant 1.010 (1.005-1.035) Urine Protein Negative (NEGATIVE) Urine Glucose (UA) Negative (NEGATIVE) Urine Ketones Negative (NEGATIVE) Urine Blood Negative (NEGATIVE) Urine Nitrite Negative (NEGATIVE) Urine Bilirubin Negative (NEGATIVE) Urine Urobilinogen Normal MG/DL (0.0-1.0) Urine Leukocyte Esterase Negative (NEGATIVE) Urine RBC 0 /HPF (0 - 2) Urine WBC 0 /HPF (0 - 2) Urine Squamous Epithelial Cells Occasional /LPF Urine Bacteria Occasional /HPF (NONE) Urine Random Sodium 113 mmol/L (20-110) H Urine Creatinine 8.7 MG/DL (30.0-125.0) L EKG Diagnostic Results Rate: normal Rhythm: NSR ST Segments: no acute changes Chest X-Ray Diagnostic Results Chest X-Ray Diagnostic Results : Chest X-Ray Ordered: Yes # of Views/Limited/Complete: 1 View Indication: Shortness of Breath EP Interpretation: No Interpretation: no effusion, other - interstitial lung disease Last Vital Signs Date Time Temp Pulse Resp B/P (MAP) Pulse Ox O2 Delivery O2 Flow Rate FiO2 06/24/19 03:03 98.4 94 14 181/90 (120) 92 Nasal Cannula 2.0 Status: improved Disposition: ADMITTED INPATIENT Condition: Serious Bart Goodrich MD Jun 24, 2019 03:12
[2019-06-24] MEDS ORDERED: Albuterol/Ipratropium 3ml neb HHN ONE (03:15)
[2019-06-24] MEDS ORDERED: Solu-MEDROL 125mg Inj IVP ONE (03:15)
[2019-06-24 03:24] LABS: BASOPHILS % (AUTO) 0.3 % (0.0-2.0); EOSINOPHILS % (AUTO) 1.1 % (0.0-3.0); HEMATOCRIT 50.7 % (37.0-47.0); HEMOGLOBIN 15.6 G/DL (12.0-16.0); LYMPHOCYTES % (AUTO) 10.9 % (20.0-45.0); MEAN CORPUSCULAR VOLUME 95 FL (80-99); MONOCYTES % (AUTO) 4.3 % (1.0-10.0); NEUTROPHILS % (AUTO) 83.5 % (45.0-75.0); PLATELET COUNT 244 K/UL (150-450); RED BLOOD COUNT 5.33 M/UL (4.20-5.40); RED CELL DISTRIBUTION WIDTH 13.7 % (11.6-14.8); WHITE BLOOD COUNT 9.8 K/UL (4.8-10.8)
--- NOTE | 2019-06-24 03:30 | NUR ---
ED Nurse Note: RT at the bedside for breathing tx, will cont monitor.
[2019-06-24 03:36] LABS: ANION GAP 12 mmol/L (5-15); BLOOD UREA NITROGEN 29 mg/dL (7-18); CALCIUM 9.2 MG/DL (8.5-10.1); CARBON DIOXIDE 22 MMOL/L (21-32); CHLORIDE 111 MMOL/L (98-107); CREATININE 1.4 MG/DL (0.55-1.30); POTASSIUM 4.4 MMOL/L (3.5-5.1); SODIUM 145 MMOL/L (136-145)
[2019-06-24 03:41] LABS: ALANINE AMINOTRANSFERASE 24 U/L (12-78); ALBUMIN 3.3 G/DL (3.4-5.0); ALBUMIN/GLOBULIN RATIO 0.8 (1.0-2.7); ALKALINE PHOSPHATASE 93 U/L (46-116); ASPARTATE AMINO TRANSFERASE 19 U/L (15-37); BILIRUBIN,TOTAL 0.4 MG/DL (0.2-1.0)
--- NOTE | 2019-06-24 04:01 | Diagnostic Imaging Report ---
EXAM: XR Chest, 1 View CLINICAL HISTORY: SOB TECHNIQUE: Frontal view of the chest. COMPARISON: 02/06/19 FINDINGS: Lungs: Severe low lung volumes limit evaluation. Diffuse increased lung markings with indistinctness likely edema. Body habitus and underpenetrated technique limit evaluation of the lung bases. Pleural space: Unremarkable. No pneumothorax. Heart: Stable enlarged cardiovascular silhouette likely accentuated by low lung volume. Mediastinum: Unremarkable. Bones/joints: Unremarkable. Vasculature: Tortuous calcified thoracic aorta, unchanged. IMPRESSION: 1. Suspect developing edema/congestion. 2. Low lung volume limit evaluation. 3. Borderline cardiomegaly
[2019-06-24] MEDS ORDERED: Isovue-300 100ml vial INJ PRN (05:00)
--- NOTE | 2019-06-24 05:08 | NUR ---
NURSE NOTES: Admitted 84 year old female patient from ER with diagnosis of COPD and Atrial Bigeminy. Endorsement received from JULY Odom. Patient alert, oriented. Israeli speaking. On 2LPM nasal cannula. No SOB at this time. Skin is intact. No complains of pain. No nausea or vomiting at this time. With right hand G 20, and left AC G 20 heplock. Oriented to her room, call light, staff. Vital signs taken. Placed on bed. Locked and in low position. Head of bed elevated. Bed alarm on. Call light within reach.
--- NOTE | 2019-06-24 05:10 | NUR ---
ED Nurse Note: PT TRANSFERRED TO SDU(TELE), REPORT WAS GIEN TO RN RAZ AND ENDORSED CARE, IV INTACT AND PATENT, BELONGING SENT W/ PT W/ COMPLETED LIST, PARTIAL BELONGLINGS SENT HOME W/ SON&, PT ON O2VIA NC 2L/MIN, PT SINUS RHYTHM W/ PVC ON PERIOPERATIVE EDUCATOR.
--- NOTE | 2019-06-24 05:15 | NUR ---
ED Nurse Note: VERIFIED W/ ERMD, CANCEL THE CT ORDER.
--- NOTE | 2019-06-24 05:20 | NUR ---
NURSE NOTES: Called Dr. Giang for admission orders. Left a message, awaiting for return call.
[2019-06-24] MEDS ORDERED: Albuterol/Ipratropium 3ml neb HHN PRN (05:45)
[2019-06-24] MEDS ORDERED: HydrALAZINE 25mg tab ORAL PRN (05:45)
--- NOTE | 2019-06-24 05:45 | NUR ---
NURSE NOTES: Received return call from Dr. Mejía, drone software development engineer for Dr. Giang. With new orders made, read back to MD and MD confirmed telephone orders.
--- NOTE | 2019-06-24 05:50 | NUR ---
NURSE NOTES: Dr. Mejía informed that CT scan of abdomen was not done in the ER and was cancelled.
--- NOTE | 2019-06-24 07:00 | NUR ---
TRANSFER TO FLOOR: Patient transferred to [facility] - 2 , per hospital bed in stable condition. No nausea or vomiting, no pain. Report given to JULY Russo. Belongings checked with the RN, dentures, pants and 2 round small gold earrings are all currently being worn by the patient, no other belongings.
--- NOTE | 2019-06-24 08:09 | NUR ---
NURSE NOTES: Received patient from Sal Boles. Patient is awake and alert, Azeri speaking. Oriented patient to new room. safety precautions in place, side rails X2 up, bed locked to lowest position, bed alarm activated. call lainez within patients reach. Will anticipate needs.
--- NOTE | 2019-06-24 09:09 | History and Physical ---
History of Present Illness General Date patient seen: Jun 24, 2019 Reason for Hospitalization: Nausea, Vomiting, and Diarrhea Present Illness HPI 84 year old female brought in by the family from home for nausea and vomiting for 1 day and shortness fo breath for few days. Patient feeling weak. Vomiting non bilious, no blood seen. Also has epigastric abdominal pain, 5/10, radiating to the back, no relieving or aggravating factors. Also has non-bloody diarrhea for the same duration. Denies chest pain, plaps. Has sob, and has been using an inhaler prescribed by pcp. Denies any headaches, fever, chills, recent travel. In the ER had PVCs on the monitor and was saturating at 89% on RA and placed on monitor. Of note she was hospitalized at [facility] [place] in 02/03 after a mechanical fall and was treated for a UTI. At that time, was seen by cards who determined her to have HFpEF and she was maintained on Lasix,Cozaar and Bystolic. 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 She was seen by pulmonary. ILD serologies were sent. RF, cycl cit peptite igG, JOSELYN, P-ANCA and CANCA all negative. Past medical history: COPD, hypertriglyceridemia, HFpEF , B12 deficiency, DM, HTN, HLD, ?CKD, neuropathy, DJD, hypothyroidism Past surgical history: Hernia repair Family history: per patient unknown Social history: Extensive ex smoker Allergies: Coded Allergies: No Known Allergies (Verified , 08/18/07) Medication History Scheduled Aspirin Ec* (Aspirin Ec*), 81 MG ORAL DAILY, (Reported) Fenofibrate (Tricor), 134 MG ORAL DAILY, (Reported) Hydrochlorothiazide* (Hydrochlorothiazide*), 25 MG ORAL DAILY, (Reported) Levothyroxine Sodium* (Levothyroxine Sodium*), 112 MCG ORAL DAILY, (Reported) Losartan Potassium* (Losartan Potassium*), 100 MG ORAL DAILY, (Reported) Losartan Potassium* (Cozaar*), Unknown Dose ORAL DAILY, (Reported) Metformin Hcl* (Metformin Hcl*), 1,000 MG ORAL DAILY, (Reported) Nebivolol Hcl (Bystolic*), 5 MG ORAL DAILY, (Reported) Pioglitazone Hcl* (Actos*), 30 MG ORAL DAILY, (Reported) Simvastatin (Zocor), 80 MG ORAL BEDTIME, (Reported) Scheduled PRN Acetaminophen With Codeine 300MG/30MG (T#3)* (Tylenol With Codeine #3 Tablet*), 2 TAB ORAL Q8HR PRN for For Pain Guaifenesin/Codeine Phos* (Robitussin Ac*), 5 ML ORAL Q6H PRN for For Cough, ( Reported) Patient History Healthcare decision maker Resuscitation status Full Code Advanced Directive on File Review of Systems Constitutional: Reports: weakness Eye: Denies: no symptoms, see HPI, eye pain, blurred vision, tearing, double vision, nose pain, nose congestion, acuity changes, discharge, other ENT: Denies: no symptoms, see HPI, ear pain, ear discharge, nose pain, nose congestion, throat pain, throat swelling, mouth pain, hearing loss, nasal discharge, other Respiratory: Reports: no symptoms, orthopnea, shortness of breath Cardiovascular: Denies: no symptoms, see HPI, chest pain, edema, palpitations, syncope, PND, other Gastrointestinal: Reports: abdominal pain, diarrhea, nausea, vomiting Genitourinary: Denies: no symptoms, see HPI, discharge, dysuria, frequency, hematuria, pain, retention, incontinence, urgency, vag bleed/dc, other Musculoskeletal: Denies: no symptoms, see HPI, back pain, gout, joint pain, joint swelling, muscle pain, muscle stiffness, other Skin: Denies: no symptoms, see HPI, rash, change in color, change in hair/nails , dryness, lesions, other Psychiatric: Denies: no symptoms, see HPI, prior hx, anxiety, depressed feelings, emotional problems, SI, HI, hallucinations, other Neurological: Denies: no symptoms, see HPI, headache, numbness, paresthesia, seizure, tingling, tremors, focal weakness, syncope, dizziness, other Endocrine: Denies: no symptoms, see HPI, excessive sweating, flushing, intolerance to temperature, increased thirst, increased urine, unexplained weight loss, other Hematologic/Lymphatic: Denies: no symptoms, see HPI, anemia, blood clots, easy bleeding, easy bruising, swollen glands, diathesis, other All Other Systems: negative except mentioned in HPI Physical Exam Last 24 Hour Vital Signs Date Time Temp Pulse Resp B/P (MAP) Pulse Ox O2 Delivery O2 Flow Rate FiO2 06/24/19 05:57 Nasal Cannula 2.0 06/24/19 05:30 97.2 75 20 116/47 (70) 94 06/24/19 05:10 97.5 86 24 130/86 96 Nasal Cannula 2.0 06/24/19 04:40 97.5 83 20 135/56 99 Nasal Cannula 2.0 06/24/19 03:45 86 24 Nasal Cannula 2.0 06/24/19 03:40 98.4 92 18 176/89 99 Nasal Cannula 2.0 28 06/24/19 03:31 90 18 99 Nasal Cannula 2.0 28 89 18 89 06/24/19 03:03 98.4 94 14 181/90 (120) 92 Nasal Cannula 2.0 Intake and Output 06/23/19 06/24/19 19:00 07:00 Intake Total 50 ml Balance 50 ml Intake IV Total 50 ml Laboratory Tests Test 06/24/19 03:05 White Blood Count 9.8 K/UL (4.8-10.8) Red Blood Count 5.33 M/UL (4.20-5.40) Hemoglobin 15.6 G/DL (12.0-16.0) Hematocrit 50.7 % (37.0-47.0) H Mean Corpuscular Volume 95 FL (80-99) Mean Corpuscular Hemoglobin 29.3 PG (27.0-31.0) Mean Corpuscular Hemoglobin Concent 30.9 G/DL (32.0-36.0) L Red Cell Distribution Width 13.7 % (11.6-14.8) Platelet Count 244 K/UL (150-450) Mean Platelet Volume 7.9 FL (6.5-10.1) Neutrophils (%) (Auto) 83.5 % (45.0-75.0) H Lymphocytes (%) (Auto) 10.9 % (20.0-45.0) L Monocytes (%) (Auto) 4.3 % (1.0-10.0) Eosinophils (%) (Auto) 1.1 % (0.0-3.0) Basophils (%) (Auto) 0.3 % (0.0-2.0) Prothrombin Time 11.0 SEC (9.30-11.50) Prothromb Time International Ratio 1.0 (0.9-1.1) Activated Partial Thromboplast Time 29 SEC (23-33) Sodium Level 145 MMOL/L (136-145) Potassium Level 4.4 MMOL/L (3.5-5.1) Chloride Level 111 MMOL/L (98-107) H Carbon Dioxide Level 22 MMOL/L (21-32) Anion Gap 12 mmol/L (5-15) Blood Urea Nitrogen 29 mg/dL (7-18) H Creatinine 1.4 MG/DL (0.55-1.30) H Estimat Glomerular Filtration Rate mL/min (>60) Glucose Level 145 MG/DL (74-106) H Calcium Level 9.2 MG/DL (8.5-10.1) Total Bilirubin 0.4 MG/DL (0.2-1.0) Aspartate Amino Transf (AST/SGOT) 19 U/L (15-37) Alanine Aminotransferase (ALT/SGPT) 24 U/L (12-78) Alkaline Phosphatase 93 U/L (46-116) Troponin I 0.006 ng/mL (0.000-0.056) Pro-B-Type Natriuretic Peptide 4708 pg/mL (0-125) H Total Protein 7.5 G/DL (6.4-8.2) Albumin 3.3 G/DL (3.4-5.0) L Globulin 4.2 g/dL Albumin/Globulin Ratio 0.8 (1.0-2.7) L Lipase 667 U/L (73-393) H CXR: Congestion, cardiomegaly EKG: personably reviewed by me Height (Feet): 5 Height (Inches): 3.00 Weight (Pounds): 177 Medications Current Medications Medications (Trade) Dose Ordered Sig/Diane Route PRN Reason Start Time Stop Time Status Last Admin Dose Admin Acetaminophen (Tylenol) 650 mg Q6H PRN ORAL Mild Pain/Temp > 100.5 06/24/19 05:45 07/24/19 05:44 Albuterol/ Ipratropium (Albuterol/ Ipratropium) 3 ml Q4H PRN HHN Shortness of Breath 06/24/19 05:45 06/29/19 05:44 Azithromycin (Zithromax) 500 mg DAILY ORAL 06/24/19 09:00 07/01/19 08:59 Dextrose (Dextrose 50%) 25 ml Q30M PRN IV Hypoglycemia 06/24/19 05:45 07/24/19 05:44 Dextrose (Dextrose 50%) 50 ml Q30M PRN IV Hypoglycemia 06/24/19 05:45 07/24/19 05:44 Hydralazine HCl (Apresoline) 25 mg Q6H PRN ORAL For High Blood Pressure 06/24/19 05:45 07/24/19 05:44 Insulin Aspart (NovoLOG) BEFORE MEALS AND HS SUBQ 06/24/19 11:30 07/24/19 11:29 Ondansetron HCl (Zofran) 4 mg Q6H PRN IVP Nausea & Vomiting 06/24/19 05:45 07/24/19 05:44 Prednisone (predniSONE) 40 mg DAILY ORAL 06/24/19 09:00 07/24/19 08:59 Objective Narrative General Appearance: normal inspection, well appearing, alert HEENT: normal ENT inspection, hearing grossly normal, normal voice Neck: normal inspection, full range of motion, supple, no bony tend Respiratory: normal inspection, no retraction, +wheezing, few rales Cardiovascular: NSR, no m/r/g Gastrointestinal: soft, + epigastric tenderness, no guarding, normal BS Genitourinary: no CVA tenderness Musculoskeletal: normal inspection, back normal, normal range of motion Neurologic: normal inspection, alert, oriented x3, 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, 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, speech normal Psychiatric: normal inspection, judgement/insight normal, mood/affect normal Skin: No ulcers or rashes Assessment/Plan Problem List: (1) (HFpEF) heart failure with preserved ejection fraction ICD Codes: I50.30 - Unspecified diastolic (congestive) heart failure SNOMED: 819242882 (2) Pancreatitis ICD Codes: K85.90 - Acute pancreatitis without necrosis or infection, unspecified SNOMED: 11762970 (3) COPD (chronic obstructive pulmonary disease) ICD Codes: J44.9 - Chronic obstructive pulmonary disease, unspecified SNOMED: 31135621 (4) Abdominal pain ICD Codes: R10.9 - Unspecified abdominal pain SNOMED: 75887057 (5) Nausea, vomiting, and diarrhea ICD Codes: R11.2 - Nausea with vomiting, unspecified; R19.7 - Diarrhea, unspecified SNOMED: 6905743 (6) PVC (premature ventricular contraction) ICD Codes: I49.3 - Ventricular premature depolarization SNOMED: 41639575 Status: stable Assessment/Plan: 84 year old brought in by family for n/v/abdominal pain of 1 day and sob for few days. Admitted for COPD exacerbation. N/V/abdominal pain, from acute pancreatitis with lipase 667. SOB multifactorial, ?ILD (entertained in the past) , copd exacerbation vs. acute exacerbation of HFpEF. She also has DAVID, vs DAVID on CKD. PVCs on telemetry. 1. Acute pancreatitis (lipase 667): maybe drug induced from HCTZ, also patient with history of hypertriglyceridemia. -Hold HCTZ -Check lipid panel and abdominal US -NPO, gentle hydration,due to heart failure. Advance diet as tolerated 2.. AECOPD vs ILD. s/p IV solumedrol. Continue 40mg daily for 5 days. [facility] Consult: Dr. Curiel for Dr. Ho pulmonary toilet Azithromycin for its anti inflammatory properties for COPD 3.Acute exacerbation of diastolic CHF, pro bnp 4708, cxr vascular congestion IV lasix Cardiology consult with Dr. Obrien Monitor on telemetry. Monitor and replace electrolytes Continue ASA, Bystolic. Hold losartan and HCTZ 4. DM -Hold home po medications. Insulin sliding scale coverage 5. Hypothyroidism. Continue levothyroxine. Check TSH 6. DAVID vs DAVID on CKD. creatinine 1.4 on 02/09 when she left the hospital and ranged from 1.3-1.6. Renal consult. 7. B12 deficiency. Check B12 levels to monitor response to treatment DVT ppx: scd boots GI ppx: none code status: full code Disposition: Home with home services I spent 70 minutes on the encounter. 50% spent on counselling and care coordination. I spent 30 minute reviewing patient's previous hospitalizations and records Time of this note may not be the same as time of encounter. Lorne Antoine M.D. Jun 24, 2019 09:09
[2019-06-24] MEDS: Azithromycin 250mg tab ORAL SCH (09:35)
[2019-06-24] MEDS: NovoLOG Insulin Flexpen SUBQ SCH ×3 (11:30→21:41)
[2019-06-24 12:47] LABS: CHOLESTEROL 161 MG/DL (< 200); HDL CHOLESTEROL 41 MG/DL (40-60); TRIGLYCERIDES 153 MG/DL (30-150)
--- NOTE | 2019-06-24 14:46 | Pulmonology Progress Note ---
Assessment/Plan Assessment/Plan Pulmonary Consultation HPI Patient is an 84 year old woman admitted in Congestive Heart Failure (hfPef) with increasing shortness of breath, complained of nausea and vomiting for 1 day as well as feeling weak, diarrhea also noted. Vomiting non bilious, no blood seen. Also has epigastric abdominal pain, 5/10, radiating to the back, no relieving or aggravating factors. Denies chest pain. 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 Noted to have pancreatitis Denies any headaches, fever, chills, recent travel. Hospitalized at [facility] [place] in 02/03 after a mechanical fall and was treated for a UTI. 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 ILD serologies:RF, cycl cit peptite igG, JOSELYN, P-ANCA and CANCA previously negative. Past medical history: COPD, ILD, hypertriglyceridemia, HFpEF , B12 deficiency, DM, HTN, HLD, CKD, Neuropathy, DJD, Hypothyroidism Past surgical history: Hernia repair Social history: Extensive ex smoker Allergies: No Known Allergies All Other Systems: negative except mentioned in HPI Physical Exam Vital Signs Noted General Appearance: normal inspection, well appearing, alert HEENT: normal ENT inspection, hearing grossly normal, normal voice Neck: normal inspection, full range of motion, supple, no bony tend Respiratory: normal inspection, no retraction, mild wheezing, few rales Cardiovascular: NSR, HS1, HS2 normal, no murmer Gastrointestinal: soft, mild epigastric tenderness, no guarding, normal BS Genitourinary: no CVA tenderness Musculoskeletal: normal inspection, back normal, normal range of motion Neurologic: normal inspection, alert, oriented x3, 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, 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, speech normal Psychiatric: normal inspection, judgement/insight normal, mood/affect normal Skin: No ulcers or rashes Laboratory Tests Test 06/24/19 03:05 White Blood Count 9.8 K/UL (4.8-10.8) Red Blood Count 5.33 M/UL (4.20-5.40) Hemoglobin 15.6 G/DL (12.0-16.0) Hematocrit 50.7 % (37.0-47.0) H Mean Corpuscular Volume 95 FL (80-99) Mean Corpuscular Hemoglobin 29.3 PG (27.0-31.0) Mean Corpuscular Hemoglobin Concent 30.9 G/DL (32.0-36.0) L Red Cell Distribution Width 13.7 % (11.6-14.8) Platelet Count 244 K/UL (150-450) Mean Platelet Volume 7.9 FL (6.5-10.1) Neutrophils (%) (Auto) 83.5 % (45.0-75.0) H Lymphocytes (%) (Auto) 10.9 % (20.0-45.0) L Monocytes (%) (Auto) 4.3 % (1.0-10.0) Eosinophils (%) (Auto) 1.1 % (0.0-3.0) Basophils (%) (Auto) 0.3 % (0.0-2.0) Prothrombin Time 11.0 SEC (9.30-11.50) Prothromb Time International Ratio 1.0 (0.9-1.1) Activated Partial Thromboplast Time 29 SEC (23-33) Sodium Level 145 MMOL/L (136-145) Potassium Level 4.4 MMOL/L (3.5-5.1) Chloride Level 111 MMOL/L (98-107) H Carbon Dioxide Level 22 MMOL/L (21-32) Anion Gap 12 mmol/L (5-15) Blood Urea Nitrogen 29 mg/dL (7-18) H Creatinine 1.4 MG/DL (0.55-1.30) H Estimat Glomerular Filtration Rate mL/min (>60) Glucose Level 145 MG/DL (74-106) H Calcium Level 9.2 MG/DL (8.5-10.1) Total Bilirubin 0.4 MG/DL (0.2-1.0) Aspartate Amino Transf (AST/SGOT) 19 U/L (15-37) Alanine Aminotransferase (ALT/SGPT) 24 U/L (12-78) Alkaline Phosphatase 93 U/L (46-116) Troponin I 0.006 ng/mL (0.000-0.056) Pro-B-Type Natriuretic Peptide 4708 pg/mL (0-125) H Total Protein 7.5 G/DL (6.4-8.2) Albumin 3.3 G/DL (3.4-5.0) L Globulin 4.2 g/dL Albumin/Globulin Ratio 0.8 (1.0-2.7) L Lipase 667 U/L (73-393) H CXR: Congestion, cardiomegaly EKG: no acute change Height (Feet): 5 Height (Inches): 3.00 Weight (Pounds): 177 Medications Current Medications Medications (Trade) Dose Ordered Sig/Diane Route PRN Reason Start Time Stop Time Status Last Admin Dose Admin Acetaminophen (Tylenol) 650 mg Q6H PRN ORAL Mild Pain/Temp > 100.5 06/24/19 05:45 07/24/19 05:44 Albuterol/ Ipratropium (Albuterol/ Ipratropium) 3 ml Q4H PRN HHN Shortness of Breath 06/24/19 05:45 06/29/19 05:44 Azithromycin (Zithromax) 500 mg DAILY ORAL 06/24/19 09:00 07/01/19 08:59 Dextrose (Dextrose 50%) 25 ml Q30M PRN IV Hypoglycemia 06/24/19 05:45 07/24/19 05:44 Dextrose (Dextrose 50%) 50 ml Q30M PRN IV Hypoglycemia 06/24/19 05:45 07/24/19 05:44 Hydralazine HCl (Apresoline) 25 mg Q6H PRN ORAL For High Blood Pressure 06/24/19 05:45 07/24/19 05:44 Insulin Aspart (NovoLOG) BEFORE MEALS AND HS SUBQ 06/24/19 11:30 07/24/19 11:29 Ondansetron HCl (Zofran) 4 mg Q6H PRN IVP Nausea & Vomiting 06/24/19 05:45 07/24/19 05:44 Prednisone (predniSONE) 40 mg DAILY ORAL 06/24/19 09:00 07/24/19 08:59 Assessment/Plan Problem List: (1) (HFpEF) heart failure with preserved ejection fraction ICD Codes: I50.30 - Unspecified diastolic (congestive) heart failure SNOMED: 290954154 (2) Pancreatitis ICD Codes: K85.90 - Acute pancreatitis without necrosis or infection, unspecified SNOMED: 14230500 (3) COPD (chronic obstructive pulmonary disease) ICD Codes: J44.9 - Chronic obstructive pulmonary disease, unspecified SNOMED: 15390879 (4) Abdominal pain ICD Codes: R10.9 - Unspecified abdominal pain SNOMED: 10226145 (5) Nausea, vomiting, and diarrhea ICD Codes: R11.2 - Nausea with vomiting, unspecified; R19.7 - Diarrhea, unspecified SNOMED: 5025241 (6) PVC (premature ventricular contraction) ICD Codes: I49.3 - Ventricular premature depolarization SNOMED: 91311667 Status: stable Assessment/Plan: 84 year old brought in by family for n/v/abdominal pain of 1 day and sob for few days. Admitted for COPD exacerbation. N/V/abdominal pain, from acute pancreatitis with lipase 667. 1. Acute pancreatitis (lipase 667): maybe drug induced from HCTZ, also patient with history of hypertriglyceridemia. -Hold HCTZ -Check lipid panel and abdominal US -NPO, gentle hydration,due to heart failure. Advance diet as tolerated 2.. COPD vs ILD. IV solumedrol. Continue steroids 40mg daily for 5 days. 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 DM -Insulin sliding scale coverage 5. Hypothyroidism. on levothyroxine. 6. DAVID vs DAVID on CKD. DVT ppx: scd boots GI ppx: none code status: full code Subjective ROS Limited/Unobtainable: No Allergies: Coded Allergies: No Known Allergies (Verified , 08/18/07) Objective Last 24 Hour Vital Signs Date Time Temp Pulse Resp B/P (MAP) Pulse Ox O2 Delivery O2 Flow Rate FiO2 06/24/19 12:00 97.9 70 22 106/50 (68) 96 06/24/19 12:00 70 06/24/19 12:00 Nasal Cannula 2.0 06/24/19 08:00 94 06/24/19 08:00 99.1 72 20 110/46 (67) 94 06/24/19 05:57 Nasal Cannula 2.0 06/24/19 05:30 97.2 75 20 116/47 (70) 94 06/24/19 05:10 97.5 86 24 130/86 96 Nasal Cannula 2.0 06/24/19 04:40 97.5 83 20 135/56 99 Nasal Cannula 2.0 06/24/19 03:45 86 24 Nasal Cannula 2.0 06/24/19 03:40 98.4 92 18 176/89 99 Nasal Cannula 2.0 28 06/24/19 03:31 90 18 99 Nasal Cannula 2.0 28 89 18 89 06/24/19 03:03 98.4 94 14 181/90 (120) 92 Nasal Cannula 2.0 Intake and Output 06/23/19 06/24/19 18:59 06:59 Intake Total 50 ml Balance 50 ml Intake IV Total 50 ml Laboratory Tests 06/24/19 03:05: White Blood Count 9.8, Red Blood Count 5.33, Hemoglobin 15.6, Hematocrit 50.7H, Mean Corpuscular Volume 95, Mean Corpuscular Hemoglobin 29.3, Mean Corpuscular Hemoglobin Concent 30.9L, Red Cell Distribution Width 13.7, Platelet Count 244, Mean Platelet Volume 7.9, Neutrophils (%) (Auto) 83.5H, Lymphocytes (%) (Auto) 10.9L, Monocytes (%) (Auto) 4.3, Eosinophils (%) (Auto) 1.1, Basophils (%) (Auto ) 0.3, Prothrombin Time 11.0, Prothromb Time International Ratio 1.0, Activated Partial Thromboplast Time 29, Sodium Level 145, Potassium Level 4.4, Chloride Level 111H, Carbon Dioxide Level 22, Anion Gap 12, Blood Urea Nitrogen 29H, Creatinine 1.4H, Estimat Glomerular Filtration Rate , Glucose Level 145H, Calcium Level 9.2, Total Bilirubin 0.4, Aspartate Amino Transf (AST/SGOT) 19, Alanine Aminotransferase (ALT/SGPT) 24, Alkaline Phosphatase 93, Troponin I 0.006, Pro-B-Type Natriuretic Peptide 4708H, Total Protein 7.5, Albumin 3.3L, Globulin 4.2, Albumin/Globulin Ratio 0.8L, Triglycerides Level 153H, Cholesterol Level 161, LDL Cholesterol 94, HDL Cholesterol 41, Cholesterol/HDL Ratio 3.9, Lipase 667H Current Medications Medications (Trade) Dose Ordered Sig/Diane Route PRN Reason Start Time Stop Time Status Last Admin Dose Admin Acetaminophen (Tylenol) 650 mg Q6H PRN ORAL Mild Pain/Temp > 100.5 06/24/19 05:45 07/24/19 05:44 Albuterol/ Ipratropium (Albuterol/ Ipratropium) 3 ml Q4H PRN HHN Shortness of Breath 06/24/19 05:45 06/29/19 05:44 Aspirin (Ecotrin) 81 mg DAILY ORAL 06/25/19 09:00 07/25/19 08:59 Azithromycin (Zithromax) 500 mg DAILY ORAL 06/24/19 09:00 07/01/19 08:59 06/24/19 09:35 Dextrose (Dextrose 50%) 25 ml Q30M PRN IV Hypoglycemia 06/24/19 05:45 07/24/19 05:44 Dextrose (Dextrose 50%) 50 ml Q30M PRN IV Hypoglycemia 06/24/19 05:45 07/24/19 05:44 Fenofibrate (Tricor) 134 mg DAILY ORAL 06/25/19 09:00 07/25/19 08:59 Furosemide (Lasix) 40 mg DAILY IV 06/25/19 09:00 07/25/19 08:59 Hydralazine HCl (Apresoline) 25 mg Q6H PRN ORAL For High Blood Pressure 06/24/19 05:45 07/24/19 05:44 Insulin Aspart (NovoLOG) BEFORE MEALS AND HS SUBQ 06/24/19 11:30 07/24/19 11:29 Levothyroxine Sodium (Synthroid) 112 mcg Q24H ORAL 06/25/19 06:30 07/25/19 06:29 Nebivolol (Bystolic) 5 mg DAILY ORAL 06/25/19 09:00 07/25/19 08:59 Ondansetron HCl (Zofran) 4 mg Q6H PRN IVP Nausea & Vomiting 06/24/19 05:45 07/24/19 05:44 Prednisone (predniSONE) 40 mg DAILY ORAL 06/24/19 09:00 07/24/19 08:59 06/24/19 09:35 Zeus Curiel MD Jun 24, 2019 14:46
--- NOTE | 2019-06-24 15:04 | Consultation ---
History of Present Illness General Date patient seen: Jun 24, 2019 Time patient seen: 14:58 Chief Complaint: Nausea, Vomiting, and Diarrhea Present Illness HPI Patient brought in by family from home c/c nausea and vomiting x1 day and sob x couple of days with wheezing and chest tightness. EKG showed frequent PVCs. Echo pending. CXR with cardiomegaly and edema. BNP elevated. Allergies: Coded Allergies: No Known Allergies (Verified , 08/18/07) Medication History Scheduled Aspirin Ec* (Aspirin Ec*), 81 MG ORAL DAILY, (Reported) Fenofibrate (Tricor), 134 MG ORAL DAILY, (Reported) Hydrochlorothiazide* (Hydrochlorothiazide*), 25 MG ORAL DAILY, (Reported) Levothyroxine Sodium* (Levothyroxine Sodium*), 112 MCG ORAL DAILY, (Reported) Losartan Potassium* (Losartan Potassium*), 100 MG ORAL DAILY, (Reported) Losartan Potassium* (Cozaar*), Unknown Dose ORAL DAILY, (Reported) Metformin Hcl* (Metformin Hcl*), 1,000 MG ORAL DAILY, (Reported) Nebivolol Hcl (Bystolic*), 5 MG ORAL DAILY, (Reported) Pioglitazone Hcl* (Actos*), 30 MG ORAL DAILY, (Reported) Simvastatin (Zocor), 80 MG ORAL BEDTIME, (Reported) Scheduled PRN Acetaminophen With Codeine 300MG/30MG (T#3)* (Tylenol With Codeine #3 Tablet*), 2 TAB ORAL Q8HR PRN for For Pain Guaifenesin/Codeine Phos* (Robitussin Ac*), 5 ML ORAL Q6H PRN for For Cough, ( Reported) Patient History Healthcare decision maker Resuscitation status Full Code Advanced Directive on File Review of Systems Constitutional: Reports: no symptoms, malaise, weakness Eye: Reports: no symptoms ENT: Reports: no symptoms Respiratory: Reports: shortness of breath, wheezing, BAY Cardiovascular: Reports: chest pain, edema Gastrointestinal: Reports: no symptoms Genitourinary: Reports: no symptoms Musculoskeletal: Reports: no symptoms Skin: Reports: no symptoms Psychiatric: Reports: no symptoms Neurological: Reports: no symptoms Endocrine: Reports: no symptoms Hematologic/Lymphatic: Reports: no symptoms Physical Exam General Appearance: no apparent distress, alert Lines, tubes and drains: peripheral HEENT: normocephalic, atraumatic Neck: non-tender, normal alignment, supple, normal inspection Respiratory/Chest: chest wall non-tender, crackles/rales Cardiovascular/Chest: normal peripheral pulses, normal rate, regular rhythm Abdomen: normal bowel sounds, non tender, soft Extremities: normal range of motion, non-tender, normal inspection Skin Exam: normal pigmentation, warm/dry, cyanotic 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 II-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 grossly normal Last 24 Hour Vital Signs Date Time Temp Pulse Resp B/P (MAP) Pulse Ox O2 Delivery O2 Flow Rate FiO2 06/24/19 12:00 97.9 70 22 106/50 (68) 96 06/24/19 12:00 70 06/24/19 12:00 Nasal Cannula 2.0 06/24/19 08:00 94 06/24/19 08:00 99.1 72 20 110/46 (67) 94 06/24/19 05:57 Nasal Cannula 2.0 06/24/19 05:30 97.2 75 20 116/47 (70) 94 06/24/19 05:10 97.5 86 24 130/86 96 Nasal Cannula 2.0 06/24/19 04:40 97.5 83 20 135/56 99 Nasal Cannula 2.0 06/24/19 03:45 86 24 Nasal Cannula 2.0 06/24/19 03:40 98.4 92 18 176/89 99 Nasal Cannula 2.0 28 06/24/19 03:31 90 18 99 Nasal Cannula 2.0 28 89 18 89 06/24/19 03:03 98.4 94 14 181/90 (120) 92 Nasal Cannula 2.0 Intake and Output 06/23/19 06/24/19 18:59 06:59 Intake Total 50 ml Balance 50 ml Intake IV Total 50 ml Laboratory Tests Test 06/24/19 03:05 White Blood Count 9.8 K/UL (4.8-10.8) Red Blood Count 5.33 M/UL (4.20-5.40) Hemoglobin 15.6 G/DL (12.0-16.0) Hematocrit 50.7 % (37.0-47.0) H Mean Corpuscular Volume 95 FL (80-99) Mean Corpuscular Hemoglobin 29.3 PG (27.0-31.0) Mean Corpuscular Hemoglobin Concent 30.9 G/DL (32.0-36.0) L Red Cell Distribution Width 13.7 % (11.6-14.8) Platelet Count 244 K/UL (150-450) Mean Platelet Volume 7.9 FL (6.5-10.1) Neutrophils (%) (Auto) 83.5 % (45.0-75.0) H Lymphocytes (%) (Auto) 10.9 % (20.0-45.0) L Monocytes (%) (Auto) 4.3 % (1.0-10.0) Eosinophils (%) (Auto) 1.1 % (0.0-3.0) Basophils (%) (Auto) 0.3 % (0.0-2.0) Prothrombin Time 11.0 SEC (9.30-11.50) Prothromb Time International Ratio 1.0 (0.9-1.1) Activated Partial Thromboplast Time 29 SEC (23-33) Sodium Level 145 MMOL/L (136-145) Potassium Level 4.4 MMOL/L (3.5-5.1) Chloride Level 111 MMOL/L (98-107) H Carbon Dioxide Level 22 MMOL/L (21-32) Anion Gap 12 mmol/L (5-15) Blood Urea Nitrogen 29 mg/dL (7-18) H Creatinine 1.4 MG/DL (0.55-1.30) H Estimat Glomerular Filtration Rate mL/min (>60) Glucose Level 145 MG/DL (74-106) H Calcium Level 9.2 MG/DL (8.5-10.1) Total Bilirubin 0.4 MG/DL (0.2-1.0) Aspartate Amino Transf (AST/SGOT) 19 U/L (15-37) Alanine Aminotransferase (ALT/SGPT) 24 U/L (12-78) Alkaline Phosphatase 93 U/L (46-116) Troponin I 0.006 ng/mL (0.000-0.056) Pro-B-Type Natriuretic Peptide 4708 pg/mL (0-125) H Total Protein 7.5 G/DL (6.4-8.2) Albumin 3.3 G/DL (3.4-5.0) L Globulin 4.2 g/dL Albumin/Globulin Ratio 0.8 (1.0-2.7) L Triglycerides Level 153 MG/DL (30-150) H Cholesterol Level 161 MG/DL (< 200) LDL Cholesterol 94 mg/dL (<100) HDL Cholesterol 41 MG/DL (40-60) Cholesterol/HDL Ratio 3.9 (3.3-4.4) Lipase 667 U/L (73-393) H Height (Feet): 5 Height (Inches): 3.00 Weight (Pounds): 177 Medications Current Medications Medications (Trade) Dose Ordered Sig/Diane Route PRN Reason Start Time Stop Time Status Last Admin Dose Admin Acetaminophen (Tylenol) 650 mg Q6H PRN ORAL Mild Pain/Temp > 100.5 06/24/19 05:45 07/24/19 05:44 Albuterol/ Ipratropium (Albuterol/ Ipratropium) 3 ml Q4H PRN HHN Shortness of Breath 06/24/19 05:45 06/29/19 05:44 Aspirin (Ecotrin) 81 mg DAILY ORAL 06/25/19 09:00 07/25/19 08:59 Azithromycin (Zithromax) 500 mg DAILY ORAL 06/24/19 09:00 07/01/19 08:59 06/24/19 09:35 Dextrose (Dextrose 50%) 25 ml Q30M PRN IV Hypoglycemia 06/24/19 05:45 07/24/19 05:44 Dextrose (Dextrose 50%) 50 ml Q30M PRN IV Hypoglycemia 06/24/19 05:45 07/24/19 05:44 Fenofibrate (Tricor) 134 mg DAILY ORAL 06/25/19 09:00 07/25/19 08:59 Furosemide (Lasix) 40 mg DAILY IV 06/25/19 09:00 07/25/19 08:59 Hydralazine HCl (Apresoline) 25 mg Q6H PRN ORAL For High Blood Pressure 06/24/19 05:45 07/24/19 05:44 Insulin Aspart (NovoLOG) BEFORE MEALS AND HS SUBQ 06/24/19 11:30 07/24/19 11:29 Levothyroxine Sodium (Synthroid) 112 mcg Q24H ORAL 06/25/19 06:30 07/25/19 06:29 Nebivolol (Bystolic) 5 mg DAILY ORAL 06/25/19 09:00 07/25/19 08:59 Ondansetron HCl (Zofran) 4 mg Q6H PRN IVP Nausea & Vomiting 06/24/19 05:45 07/24/19 05:44 Prednisone (predniSONE) 40 mg DAILY ORAL 06/24/19 09:00 07/24/19 08:59 06/24/19 09:35 Assessment/Plan Status: stable Assessment/Plan: Assessment/Plan Problem List: (1) (HFpEF) heart failure with preserved ejection fraction (2) Pancreatitis (3) COPD (chronic obstructive pulmonary disease) (4) Abdominal pain (5) Nausea, vomiting, and diarrhea (6) PVC (premature ventricular contraction) Recommendations: Pancreatitis -GI consult -start niacin and fish oil for elevated triglycerides -NPO and IV fluids -GI consult -Bowel rest 2) COPD -pulmonary toilets -breathing treatments -steroids -singulair -Azithromycin 3) CHF diastolic exacerbation with elevated BNP and CXR with edema -Continue IV lasix -Replete electrolytes -Echocardiogram 4) Diabetes -ISS 5) Hypothyroid -stable Zeus Obrien MD Jun 24, 2019 15:04
--- NOTE | 2019-06-24 19:52 | NUR ---
HAND-OFF: Report given to Sal Alex.Plan of care endorsed.
--- NOTE | 2019-06-24 19:54 | NUR ---
NURSE NOTES: Received pt from JULY Lackey. Pt is awake and resting in bed, in no acute distress. IV site intact. bed locked in lowest position, call light within reach. Will continue with plan of care.
[2019-06-25 04:00] VITALS: BP 115/46
[2019-06-25] MEDS: NovoLOG Insulin Flexpen SUBQ SCH ×4 (06:17→21:30)
[2019-06-25 07:10] LABS: BASOPHILS % (AUTO) 0.5 % (0.0-2.0); EOSINOPHILS % (AUTO) 0.1 % (0.0-3.0); HEMATOCRIT 46.5 % (37.0-47.0); HEMOGLOBIN 14.6 G/DL (12.0-16.0); LYMPHOCYTES % (AUTO) 13.2 % (20.0-45.0); MEAN CORPUSCULAR VOLUME 95 FL (80-99); MONOCYTES % (AUTO) 6.4 % (1.0-10.0); NEUTROPHILS % (AUTO) 79.7 % (45.0-75.0); PLATELET COUNT 217 K/UL (150-450); RED CELL DISTRIBUTION WIDTH 13.2 % (11.6-14.8); WHITE BLOOD COUNT 9.7 K/UL (4.8-10.8)
[2019-06-25 07:21] LABS: ALANINE AMINOTRANSFERASE 18 U/L (12-78); ALBUMIN/GLOBULIN RATIO 0.7 (1.0-2.7); ALKALINE PHOSPHATASE 79 U/L (46-116); ANION GAP 5 mmol/L (5-15); ASPARTATE AMINO TRANSFERASE 16 U/L (15-37); BILIRUBIN,TOTAL 0.3 MG/DL (0.2-1.0); BLOOD UREA NITROGEN 39 mg/dL (7-18); CALCIUM 9.3 MG/DL (8.5-10.1); CARBON DIOXIDE 28 MMOL/L (21-32); CHLORIDE 108 MMOL/L (98-107); CREATININE 1.5 MG/DL (0.55-1.30); POTASSIUM 4.9 MMOL/L (3.5-5.1); SODIUM 141 MMOL/L (136-145)
--- NOTE | 2019-06-25 07:25 | NUR ---
NURSE NOTES: Received pt from JULY Alex. Pt is awake and resting in bed, in no acute distress. Patient is on 2L NC. 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 IV site intact. bed locked in lowest position, call light within reach. Will continue with plan of care.
--- NOTE | 2019-06-25 07:28 | NUR ---
HAND-OFF: Report given to JULY Delgado. Endorsed plan of care.
[2019-06-25 08:00] VITALS: BP 145/48
[2019-06-25] MEDS: Bystolic 2.5mg Tab ORAL SCH ×2 (09:00→09:21)
[2019-06-25] MEDS: Aspirin EC 81mg tab ORAL SCH (09:20)
[2019-06-25] MEDS: Azithromycin 250mg tab ORAL SCH (09:20)
--- NOTE | 2019-06-25 10:56 | General Progress Note ---
Assessment/Plan Problem List: (1) (HFpEF) heart failure with preserved ejection fraction ICD Codes: I50.30 - Unspecified diastolic (congestive) heart failure SNOMED: 749080647 (2) Pancreatitis ICD Codes: K85.90 - Acute pancreatitis without necrosis or infection, unspecified SNOMED: 33717981 (3) COPD (chronic obstructive pulmonary disease) ICD Codes: J44.9 - Chronic obstructive pulmonary disease, unspecified SNOMED: 67852634 (4) Abdominal pain ICD Codes: R10.9 - Unspecified abdominal pain SNOMED: 05155399 (5) Nausea, vomiting, and diarrhea ICD Codes: R11.2 - Nausea with vomiting, unspecified; R19.7 - Diarrhea, unspecified SNOMED: 4867493 (6) PVC (premature ventricular contraction) ICD Codes: I49.3 - Ventricular premature depolarization SNOMED: 09915364 (7) DAVID (acute kidney injury) ICD Codes: N17.9 - Acute kidney failure, unspecified SNOMED: 4406821, 44429916 (8) Hypertriglyceridemia ICD Codes: E78.1 - Pure hyperglyceridemia SNOMED: 791470557 Status: stable Assessment/Plan: 84 year old brought in by family for n/v/abdominal pain of 1 day and sob for few days. Admitted for COPD exacerbation. N/V/abdominal pain, from acute pancreatitis with lipase 667. SOB multifactorial, ?ILD (entertained in the past) , copd exacerbation vs. acute exacerbation of HFpEF. She also has DAVID, vs DAVID on CKD. PVCs on telemetry. 1. Acute pancreatitis (lipase 667): maybe drug induced from HCTZ, also patient with history of hypertriglyceridemia. -Hold HCTZ now and in the future -abdominal US -Triglycerides 150, LFTs unremarkable -Advance diet as tolerated -Add Niacin and fish oil to fenofibrate for hypertriglyceridemia 2.. AECOPD vs ILD. s/p IV solumedrol. Continue 40mg daily for 5 days. [facility] Consult: Dr. Curiel for Dr. Ho pulmonary toilet Azithromycin for its anti inflammatory properties for COPD 3.Acute exacerbation of diastolic CHF, pro bnp 4708, cxr vascular congestion s/p IV lasix, will stop due to worsening renal function Cardiology consult with Dr. Obrien Monitor on telemetry. Monitor and replace electrolytes Continue ASA, Bystolic. Hold losartan and HCTZ 4. DM -Hold home po medications. Insulin sliding scale coverage 5. Hypothyroidism. Continue levothyroxine. Check TSH 6. DAVID vs DAVID on CKD. creatinine 1.4 on 02/09 when she left the hospital and ranged from 1.3-1.6. Renal consult. Renal US, urine lytes. 7. B12 deficiency. Check B12 levels to monitor response to treatment- B12 600 range. DVT ppx: scd boots GI ppx: none code status: full code Disposition: Home with home services I spent 40 minutes on the encounter. 50% spent on counselling and care coordination. Time of this note may not be the same as time of encounter. Subjective Date patient seen: Jun 25, 2019 ROS Limited/Unobtainable: No Constitutional: Denies: no symptoms, chills, diaphoresis, fever, malaise, weakness, other HEENT: Denies: no symptoms, eye pain, blurred vision, tearing, double vision, ear pain, ear discharge, nose pain, nose congestion, throat pain, throat swelling, mouth pain, mouth swelling, other Cardiovascular: Denies: no symptoms, chest pain, edema, irregular heart rate, lightheadedness, palpitations, syncope, other Respiratory: Denies: no symptoms, cough, orthopnea, shortness of breath, SOB with excertion, SOB at rest, sputum, stridor, wheezing, other Gastrointestinal/Abdominal: Denies: no symptoms, abdomen distended, abdominal pain, black stools, tarry stools, blood in stool, constipated, diarrhea, difficulty swallowing, nausea, poor appetite, poor fluid intake, rectal bleeding , vomiting, other Genitourinary: Denies: no symptoms, burning, discharge, frequency, flank pain, hematuria, incontinence, pain, urgency, other Neurologic/Psychiatric: Denies: no symptoms, anxiety, depressed, emotional problems, headache, numbness, paresthesia, pre-existing deficit, seizure, tingling, tremors, weakness, other Endocrine: Denies: no symptoms, excessive sweating, flushing, intolerance to cold, intolerance to heat, increased hunger, increased thirst, increased urine, unexplained weight gain, unexplained weight loss, other Hematologic/Lymphatic: Denies: no symptoms, anemia, easy bleeding, easy bruising, other Allergies: Coded Allergies: No Known Allergies (Verified , 08/18/07) Subjective seen and examined No complaints Comfortable Diet advanced and tolerating Objective Last 24 Hour Vital Signs Date Time Temp Pulse Resp B/P (MAP) Pulse Ox O2 Delivery O2 Flow Rate FiO2 06/25/19 09:00 Nasal Cannula 2.0 06/25/19 08:00 97.0 48 22 145/48 (80) 99 06/25/19 07:41 53 06/25/19 07:04 54 16 99 Nasal Cannula 2.0 28 06/25/19 07:04 99 Nasal Cannula 2.0 28 06/25/19 04:00 97.6 52 19 115/46 (69) 93 06/25/19 04:00 52 06/25/19 00:00 43 06/25/19 00:00 43 06/24/19 21:00 Nasal Cannula 2.0 06/24/19 20:00 98.2 62 19 136/55 (82) 95 06/24/19 20:00 62 06/24/19 19:50 97 Nasal Cannula 2.0 28 06/24/19 19:50 66 18 97 Nasal Cannula 2.0 28 06/24/19 16:00 56 06/24/19 16:00 98.7 60 18 117/69 (85) 96 06/24/19 12:00 97.9 70 22 106/50 (68) 96 06/24/19 12:00 70 06/24/19 12:00 Nasal Cannula 2.0 Intake and Output 06/24/19 06/25/19 19:00 07:00 Intake Total 240 ml 200 ml Balance 240 ml 200 ml Intake Oral 240 ml 200 ml # Voids 3 2 Laboratory Tests 06/25/19 06:00: White Blood Count 9.7, Red Blood Count 4.90, Hemoglobin 14.6, Hematocrit 46.5, Mean Corpuscular Volume 95, Mean Corpuscular Hemoglobin 29.9, Mean Corpuscular Hemoglobin Concent 31.5L, Red Cell Distribution Width 13.2, Platelet Count 217, Mean Platelet Volume 7.5, Neutrophils (%) (Auto) 79.7H, Lymphocytes (%) (Auto) 13.2L, Monocytes (%) (Auto) 6.4, Eosinophils (%) (Auto) 0.1, Basophils (%) (Auto ) 0.5, Sodium Level 141, Potassium Level 4.9, Chloride Level 108H, Carbon Dioxide Level 28, Anion Gap 5, Blood Urea Nitrogen 39H, Creatinine 1.5H, Estimat Glomerular Filtration Rate , Glucose Level 115H, Calcium Level 9.3, Total Bilirubin 0.3, Aspartate Amino Transf (AST/SGOT) 16, Alanine Aminotransferase (ALT/SGPT) 18, Alkaline Phosphatase 79, Total Protein 7.1, Albumin 3.0L, Globulin 4.1, Albumin/Globulin Ratio 0.7L, Vitamin B12 Level 636, Thyroid Stimulating Hormone (TSH) 1.618 Height (Feet): 5 Height (Inches): 3.00 Weight (Pounds): 177 Objective General Appearance: normal inspection, well appearing, alert HEENT: normal ENT inspection, hearing grossly normal, normal voice Neck: normal inspection, full range of motion, supple, no bony tend Respiratory: normal inspection, no retraction,no wheezing, rales or rhonchi Cardiovascular: NSR, no m/r/g Gastrointestinal: soft, + epigastric tenderness, no guarding, normal BS Genitourinary: no CVA tenderness Musculoskeletal: normal inspection, back normal, normal range of motion Neurologic: normal inspection, alert, oriented x3, responsive, saw handle assembler III-XII nml as tested, speech normal Psychiatric: normal inspection, judgement/insight normal, mood/affect normal Skin: No ulcers or rashes Lorne Antoine M.D. Jun 25, 2019 10:56
[2019-06-25 12:00] VITALS: BP 132/67
--- NOTE | 2019-06-25 13:15 | Consultation ---
History of Present Illness General Date patient seen: Jun 25, 2019 Chief Complaint: Nausea, Vomiting, and Diarrhea Present Illness HPI 84 year old female brought in by the family from home for nausea and vomiting for 1 day and shortness fo breath for few days. Patient feeling weak. Vomiting non bilious, no blood seen. Also has epigastric abdominal pain, 5/10, radiating to the back, no relieving or aggravating factors. Also has non-bloody diarrhea for the same duration. Denies chest pain, plaps. Has sob, and has been using an inhaler prescribed by pcp. Denies any headaches, fever, chills, recent travel. Of note she was hospitalized at [facility] in 02/03 after a mechanical fall and was treated for a UTI. At that time, was seen by cards who determined her to have HFpEF and she was maintained on Lasix,Cozaar and Bystolic. 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 She was seen by pulmonary. ILD serologies were sent. RF, cycl cit peptite igG, JOSELYN, P-ANCA and CANCA all negative. Allergies: Coded Allergies: No Known Allergies (Verified , 08/18/07) Medication History Scheduled Aspirin Ec* (Aspirin Ec*), 81 MG ORAL DAILY, (Reported) Fenofibrate (Tricor), 134 MG ORAL DAILY, (Reported) Hydrochlorothiazide* (Hydrochlorothiazide*), 25 MG ORAL DAILY, (Reported) Levothyroxine Sodium* (Levothyroxine Sodium*), 112 MCG ORAL DAILY, (Reported) Losartan Potassium* (Losartan Potassium*), 100 MG ORAL DAILY, (Reported) Losartan Potassium* (Cozaar*), Unknown Dose ORAL DAILY, (Reported) Metformin Hcl* (Metformin Hcl*), 1,000 MG ORAL DAILY, (Reported) Nebivolol Hcl (Bystolic*), 5 MG ORAL DAILY, (Reported) Pioglitazone Hcl* (Actos*), 30 MG ORAL DAILY, (Reported) Simvastatin (Zocor), 80 MG ORAL BEDTIME, (Reported) Scheduled PRN Acetaminophen With Codeine 300MG/30MG (T#3)* (Tylenol With Codeine #3 Tablet*), 2 TAB ORAL Q8HR PRN for For Pain Guaifenesin/Codeine Phos* (Robitussin Ac*), 5 ML ORAL Q6H PRN for For Cough, ( Reported) Patient History Healthcare decision maker Resuscitation status Full Code Advanced Directive on File Review of Systems Constitutional: Denies: no symptoms, see HPI, chills, sweats, fever, malaise, weakness, other Eye: Denies: no symptoms, see HPI, eye pain, blurred vision, tearing, double vision, nose pain, nose congestion, acuity changes, discharge, other ENT: Denies: no symptoms, see HPI, ear pain, ear discharge, nose pain, nose congestion, throat pain, throat swelling, mouth pain, hearing loss, nasal discharge, other Respiratory: Denies: no symptoms, see HPI, cough, orthopnea, shortness of breath, stridor, wheezing, BAY, sputum, other Gastrointestinal: Reports: nausea, vomiting Genitourinary: Denies: no symptoms, see HPI, discharge, dysuria, frequency, hematuria, pain, retention, incontinence, urgency, vag bleed/dc, other Musculoskeletal: Denies: no symptoms, see HPI, back pain, gout, joint pain, joint swelling, muscle pain, muscle stiffness, other Skin: Denies: no symptoms, see HPI, rash, change in color, change in hair/nails , dryness, lesions, other Neurological: Denies: no symptoms, see HPI, headache, numbness, paresthesia, seizure, tingling, tremors, focal weakness, syncope, dizziness, other Endocrine: Denies: no symptoms, see HPI, excessive sweating, flushing, intolerance to temperature, increased thirst, increased urine, unexplained weight loss, other Hematologic/Lymphatic: Denies: no symptoms, see HPI, anemia, blood clots, easy bleeding, easy bruising, swollen glands, diathesis, other Physical Exam General Appearance: WD/WN, no apparent distress HEENT: normocephalic, atraumatic Neck: non-tender, normal alignment Respiratory/Chest: lungs clear, normal breath sounds, no respiratory distress Cardiovascular/Chest: normal rate, regular rhythm Abdomen: normal bowel sounds, non tender, other - + epigastric pain Extremities: normal range of motion, non-tender Last 24 Hour Vital Signs Date Time Temp Pulse Resp B/P (MAP) Pulse Ox O2 Delivery O2 Flow Rate FiO2 06/25/19 12:00 97.0 52 22 132/67 (88) 96 06/25/19 11:42 51 06/25/19 09:00 Nasal Cannula 2.0 06/25/19 08:00 97.0 48 22 145/48 (80) 99 06/25/19 07:41 53 06/25/19 07:04 54 16 99 Nasal Cannula 2.0 28 06/25/19 07:04 99 Nasal Cannula 2.0 28 06/25/19 04:00 97.6 52 19 115/46 (69) 93 06/25/19 04:00 52 06/25/19 00:00 43 06/25/19 00:00 43 06/24/19 21:00 Nasal Cannula 2.0 06/24/19 20:00 98.2 62 19 136/55 (82) 95 06/24/19 20:00 62 06/24/19 19:50 97 Nasal Cannula 2.0 28 06/24/19 19:50 66 18 97 Nasal Cannula 2.0 28 06/24/19 16:00 56 06/24/19 16:00 98.7 60 18 117/69 (85) 96 Intake and Output 06/24/19 06/25/19 19:00 07:00 Intake Total 240 ml 200 ml Balance 240 ml 200 ml Intake Oral 240 ml 200 ml # Voids 3 2 Laboratory Tests Test 06/25/19 06:00 White Blood Count 9.7 K/UL (4.8-10.8) Red Blood Count 4.90 M/UL (4.20-5.40) Hemoglobin 14.6 G/DL (12.0-16.0) Hematocrit 46.5 % (37.0-47.0) Mean Corpuscular Volume 95 FL (80-99) Mean Corpuscular Hemoglobin 29.9 PG (27.0-31.0) Mean Corpuscular Hemoglobin Concent 31.5 G/DL (32.0-36.0) L Red Cell Distribution Width 13.2 % (11.6-14.8) Platelet Count 217 K/UL (150-450) Mean Platelet Volume 7.5 FL (6.5-10.1) Neutrophils (%) (Auto) 79.7 % (45.0-75.0) H Lymphocytes (%) (Auto) 13.2 % (20.0-45.0) L Monocytes (%) (Auto) 6.4 % (1.0-10.0) Eosinophils (%) (Auto) 0.1 % (0.0-3.0) Basophils (%) (Auto) 0.5 % (0.0-2.0) Sodium Level 141 MMOL/L (136-145) Potassium Level 4.9 MMOL/L (3.5-5.1) Chloride Level 108 MMOL/L (98-107) H Carbon Dioxide Level 28 MMOL/L (21-32) Anion Gap 5 mmol/L (5-15) Blood Urea Nitrogen 39 mg/dL (7-18) H Creatinine 1.5 MG/DL (0.55-1.30) H Estimat Glomerular Filtration Rate mL/min (>60) Glucose Level 115 MG/DL (74-106) H Calcium Level 9.3 MG/DL (8.5-10.1) Total Bilirubin 0.3 MG/DL (0.2-1.0) Aspartate Amino Transf (AST/SGOT) 16 U/L (15-37) Alanine Aminotransferase (ALT/SGPT) 18 U/L (12-78) Alkaline Phosphatase 79 U/L (46-116) Total Protein 7.1 G/DL (6.4-8.2) Albumin 3.0 G/DL (3.4-5.0) L Globulin 4.1 g/dL Albumin/Globulin Ratio 0.7 (1.0-2.7) L Vitamin B12 Level 636 PG/ML (193-986) Thyroid Stimulating Hormone (TSH) 1.618 uiU/mL (0.358-3.740) Height (Feet): 5 Height (Inches): 3.00 Weight (Pounds): 177 Medications Current Medications Medications (Trade) Dose Ordered Sig/Diane Route PRN Reason Start Time Stop Time Status Last Admin Dose Admin Acetaminophen (Tylenol) 650 mg Q6H PRN ORAL Mild Pain/Temp > 100.5 06/24/19 05:45 07/24/19 05:44 Albuterol/ Ipratropium (Albuterol/ Ipratropium) 3 ml Q4H PRN HHN Shortness of Breath 06/24/19 05:45 06/29/19 05:44 Aspirin (Ecotrin) 81 mg DAILY ORAL 06/25/19 09:00 07/25/19 08:59 06/25/19 09:20 Azithromycin (Zithromax) 500 mg DAILY ORAL 06/24/19 09:00 07/01/19 08:59 06/25/19 09:20 Dextrose (Dextrose 50%) 25 ml Q30M PRN IV Hypoglycemia 06/24/19 05:45 07/24/19 05:44 Dextrose (Dextrose 50%) 50 ml Q30M PRN IV Hypoglycemia 06/24/19 05:45 07/24/19 05:44 Fenofibrate (Tricor) 134 mg DAILY ORAL 06/25/19 09:00 07/25/19 08:59 06/25/19 09:20 Furosemide (Lasix) 40 mg DAILY IV 06/25/19 09:00 07/25/19 08:59 06/25/19 09:21 Hydralazine HCl (Apresoline) 25 mg Q6H PRN ORAL For High Blood Pressure 06/24/19 05:45 07/24/19 05:44 Insulin Aspart (NovoLOG) BEFORE MEALS AND HS SUBQ 06/24/19 11:30 07/24/19 11:29 06/25/19 12:06 Levothyroxine Sodium (Synthroid) 112 mcg Q24H ORAL 06/25/19 06:30 07/25/19 06:29 06/25/19 06:17 Nebivolol (Bystolic) 5 mg DAILY ORAL 06/25/19 09:00 07/25/19 08:59 Ondansetron HCl (Zofran) 4 mg Q6H PRN IVP Nausea & Vomiting 06/24/19 05:45 07/24/19 05:44 Prednisone (predniSONE) 40 mg DAILY ORAL 06/24/19 09:00 07/24/19 08:59 06/25/19 09:20 Assessment/Plan Problem List: (1) Nausea, vomiting, and diarrhea ICD Codes: R11.2 - Nausea with vomiting, unspecified; R19.7 - Diarrhea, unspecified SNOMED: 9603400 (2) ILD (interstitial lung disease) ICD Codes: J84.9 - Interstitial pulmonary disease, unspecified SNOMED: 119568676 (3) GERD (gastroesophageal reflux disease) ICD Codes: K21.9 - Gastro-esophageal reflux disease without esophagitis SNOMED: 169967742 (4) (HFpEF) heart failure with preserved ejection fraction ICD Codes: I50.30 - Unspecified diastolic (congestive) heart failure SNOMED: 133541251 (5) Pancreatitis ICD Codes: K85.90 - Acute pancreatitis without necrosis or infection, unspecified SNOMED: 35885810 (6) COPD (chronic obstructive pulmonary disease) ICD Codes: J44.9 - Chronic obstructive pulmonary disease, unspecified SNOMED: 00774735 Diagnosis [place] I: #Acute kidney injury likely pre-renal azotemia in the setting of acute pancreatitis - hold diuresis while on CLD - check urine chemistries - monitor cr - hold HCTZ and PATRICIA for now - continue bystolic 5mg daily - hydralazine prn for bp control - follow renal US - monitor UOP - strict I&Os - daily weights #acute pancreatitis - pain control - advance diet as tolerated - hold off lasix for now - would avoid thiazide going forward Vianney Smith M.D. Jun 25, 2019 13:15
[2019-06-25 13:16] LABS: APPEARANCE,URINE CLEAR; BILIRUBIN, URINE NEGATIVE (NEGATIVE); COLOR,URINE PALE YELLOW; GLUCOSE, URINE (UA) NEGATIVE (NEGATIVE); KETONES,URINE NEGATIVE (NEGATIVE); LEUKOCYTE ESTERASE ,URINE NEGATIVE (NEGATIVE); NITRITE,URINE NEGATIVE (NEGATIVE); PH,URINE 5 (4.5-8.0); PROTEIN,URINE NEGATIVE (NEGATIVE); UROBILINOGEN,URINE NORMAL MG/DL (0.0-1.0)
[2019-06-25 16:00] VITALS: BP 135/67
[2019-06-25] MEDS: Niacin 50mg tab ORAL SCH (17:43)
--- NOTE | 2019-06-25 18:19 | NUR ---
NURSE NOTES: Called Dr. Sibley or covering doctor for PRN medication for cough. Awaiting call back.
--- NOTE | 2019-06-25 18:52 | Pulmonology Progress Note ---
Assessment/Plan Assessment/Plan Pulmonary Progress Note HPI Patient is an 84 year old woman admitted in Congestive Heart Failure (hfPef) with increasing shortness of breath, complained of nausea and vomiting for 1 day as well as feeling weak, diarrhea also noted. Vomiting non bilious, no blood seen. Also has epigastric abdominal pain, 5/10, radiating to the back, no relieving or aggravating factors. Denies chest pain. 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 Noted to have pancreatitis Denies any headaches, fever, chills, recent travel. Hospitalized at [facility] in 02/03 after a mechanical fall and was treated for a UTI. 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 ILD serologies:RF, cycl cit peptite igG, JOSELYN, P-ANCA and CANCA previously negative. Past medical history: COPD, ILD, hypertriglyceridemia, HFpEF , B12 deficiency, DM, HTN, HLD, CKD, Neuropathy, DJD, Hypothyroidism Past surgical history: Hernia repair Social history: Extensive ex smoker Allergies: No Known Allergies All Other Systems: negative except mentioned in HPI Physical Exam Vital Signs Noted General Appearance: normal inspection, well appearing, alert HEENT: normal ENT inspection, hearing grossly normal, normal voice Neck: normal inspection, full range of motion, supple, no bony tend Respiratory: normal inspection, no retraction, mild wheezing, few rales Cardiovascular: NSR, HS1, HS2 normal, no murmer Gastrointestinal: soft, mild epigastric tenderness, no guarding, normal BS Genitourinary: no CVA tenderness Musculoskeletal: normal inspection, back normal, normal range of motion Neurologic: normal inspection, alert, oriented x3, responsive, picking machine operator III-XII nml as tested, speech normal Psychiatric: normal inspection, judgement/insight normal, mood/affect normal Skin: No ulcers or rashes Laboratory Tests Test 06/24/19 03:05 White Blood Count 9.8 K/UL (4.8-10.8) Red Blood Count 5.33 M/UL (4.20-5.40) Hemoglobin 15.6 G/DL (12.0-16.0) Hematocrit 50.7 % (37.0-47.0) H Mean Corpuscular Volume 95 FL (80-99) Mean Corpuscular Hemoglobin 29.3 PG (27.0-31.0) Mean Corpuscular Hemoglobin Concent 30.9 G/DL (32.0-36.0) L Red Cell Distribution Width 13.7 % (11.6-14.8) Platelet Count 244 K/UL (150-450) Mean Platelet Volume 7.9 FL (6.5-10.1) Neutrophils (%) (Auto) 83.5 % (45.0-75.0) H Lymphocytes (%) (Auto) 10.9 % (20.0-45.0) L Monocytes (%) (Auto) 4.3 % (1.0-10.0) Eosinophils (%) (Auto) 1.1 % (0.0-3.0) Basophils (%) (Auto) 0.3 % (0.0-2.0) Prothrombin Time 11.0 SEC (9.30-11.50) Prothromb Time International Ratio 1.0 (0.9-1.1) Activated Partial Thromboplast Time 29 SEC (23-33) Sodium Level 145 MMOL/L (136-145) Potassium Level 4.4 MMOL/L (3.5-5.1) Chloride Level 111 MMOL/L (98-107) H Carbon Dioxide Level 22 MMOL/L (21-32) Anion Gap 12 mmol/L (5-15) Blood Urea Nitrogen 29 mg/dL (7-18) H Creatinine 1.4 MG/DL (0.55-1.30) H Estimat Glomerular Filtration Rate mL/min (>60) Glucose Level 145 MG/DL (74-106) H Calcium Level 9.2 MG/DL (8.5-10.1) Total Bilirubin 0.4 MG/DL (0.2-1.0) Aspartate Amino Transf (AST/SGOT) 19 U/L (15-37) Alanine Aminotransferase (ALT/SGPT) 24 U/L (12-78) Alkaline Phosphatase 93 U/L (46-116) Troponin I 0.006 ng/mL (0.000-0.056) Pro-B-Type Natriuretic Peptide 4708 pg/mL (0-125) H Total Protein 7.5 G/DL (6.4-8.2) Albumin 3.3 G/DL (3.4-5.0) L Globulin 4.2 g/dL Albumin/Globulin Ratio 0.8 (1.0-2.7) L Lipase 667 U/L (73-393) H CXR: Congestion, cardiomegaly EKG: no acute change Height (Feet): 5 Height (Inches): 3.00 Weight (Pounds): 177 Medications Current Medications Medications (Trade) Dose Ordered Sig/Diane Route PRN Reason Start Time Stop Time Status Last Admin Dose Admin Acetaminophen (Tylenol) 650 mg Q6H PRN ORAL Mild Pain/Temp > 100.5 06/24/19 05:45 07/24/19 05:44 Albuterol/ Ipratropium (Albuterol/ Ipratropium) 3 ml Q4H PRN HHN Shortness of Breath 06/24/19 05:45 06/29/19 05:44 Azithromycin (Zithromax) 500 mg DAILY ORAL 06/24/19 09:00 07/01/19 08:59 Dextrose (Dextrose 50%) 25 ml Q30M PRN IV Hypoglycemia 06/24/19 05:45 07/24/19 05:44 Dextrose (Dextrose 50%) 50 ml Q30M PRN IV Hypoglycemia 06/24/19 05:45 07/24/19 05:44 Hydralazine HCl (Apresoline) 25 mg Q6H PRN ORAL For High Blood Pressure 06/24/19 05:45 07/24/19 05:44 Insulin Aspart (NovoLOG) BEFORE MEALS AND HS SUBQ 06/24/19 11:30 07/24/19 11:29 Ondansetron HCl (Zofran) 4 mg Q6H PRN IVP Nausea & Vomiting 06/24/19 05:45 07/24/19 05:44 Prednisone (predniSONE) 40 mg DAILY ORAL 06/24/19 09:00 07/24/19 08:59 Assessment/Plan Problem List: (1) (HFpEF) heart failure with preserved ejection fraction ICD Codes: I50.30 - Unspecified diastolic (congestive) heart failure SNOMED: 436104012 (2) Pancreatitis ICD Codes: K85.90 - Acute pancreatitis without necrosis or infection, unspecified SNOMED: 33978432 (3) COPD (chronic obstructive pulmonary disease) ICD Codes: J44.9 - Chronic obstructive pulmonary disease, unspecified SNOMED: 68962452 (4) Abdominal pain ICD Codes: R10.9 - Unspecified abdominal pain SNOMED: 92847050 (5) Nausea, vomiting, and diarrhea ICD Codes: R11.2 - Nausea with vomiting, unspecified; R19.7 - Diarrhea, unspecified SNOMED: 4669355 (6) PVC (premature ventricular contraction) ICD Codes: I49.3 - Ventricular premature depolarization SNOMED: 50876613 Status: stable Assessment/Plan: 84 year old brought in by family for n/v/abdominal pain of 1 day and sob for few days. Admitted for COPD exacerbation. N/V/abdominal pain, from acute pancreatitis with lipase 667. 1. Acute pancreatitis (lipase 667): maybe drug induced from HCTZ, also patient with history of hypertriglyceridemia. -Hold HCTZ -Check lipid panel and abdominal US -NPO, gentle hydration,due to heart failure. Advance diet as tolerated 2.. COPD vs ILD. 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 DM -Insulin sliding scale coverage 5. Hypothyroidism. on levothyroxine. 6. DAVID vs DAVID on CKD. DVT ppx: scd boots GI ppx: none code status: full code Subjective ROS Limited/Unobtainable: No Allergies: Coded Allergies: No Known Allergies (Verified , 08/18/07) Objective Last 24 Hour Vital Signs Date Time Temp Pulse Resp B/P (MAP) Pulse Ox O2 Delivery O2 Flow Rate FiO2 06/25/19 16:00 97.3 53 22 135/67 (89) 98 06/25/19 15:22 58 06/25/19 12:00 97.0 52 22 132/67 (88) 96 06/25/19 11:42 51 06/25/19 09:00 Nasal Cannula 2.0 06/25/19 08:00 97.0 48 22 145/48 (80) 99 06/25/19 07:41 53 06/25/19 07:04 54 16 99 Nasal Cannula 2.0 28 06/25/19 07:04 99 Nasal Cannula 2.0 28 06/25/19 04:00 97.6 52 19 115/46 (69) 93 06/25/19 04:00 52 06/25/19 00:00 43 06/25/19 00:00 43 06/24/19 21:00 Nasal Cannula 2.0 06/24/19 20:00 98.2 62 19 136/55 (82) 95 06/24/19 20:00 62 06/24/19 19:50 97 Nasal Cannula 2.0 28 06/24/19 19:50 66 18 97 Nasal Cannula 2.0 28 Intake and Output 06/24/19 06/25/19 18:59 06:59 Intake Total 240 ml 200 ml Balance 240 ml 200 ml Intake Oral 240 ml 200 ml # Voids 3 2 Microbiology Date/Time Source Procedure Growth Status 06/24/19 03:45 Blood Blood Culture - Preliminary NO GROWTH AFTER 24 HOURS Resulted 06/24/19 03:05 Blood Blood Culture - Preliminary NO GROWTH AFTER 24 HOURS Resulted Laboratory Tests 06/25/19 06:00: White Blood Count 9.7, Red Blood Count 4.90, Hemoglobin 14.6, Hematocrit 46.5, Mean Corpuscular Volume 95, Mean Corpuscular Hemoglobin 29.9, Mean Corpuscular Hemoglobin Concent 31.5L, Red Cell Distribution Width 13.2, Platelet Count 217, Mean Platelet Volume 7.5, Neutrophils (%) (Auto) 79.7H, Lymphocytes (%) (Auto) 13.2L, Monocytes (%) (Auto) 6.4, Eosinophils (%) (Auto) 0.1, Basophils (%) (Auto ) 0.5, Sodium Level 141, Potassium Level 4.9, Chloride Level 108H, Carbon Dioxide Level 28, Anion Gap 5, Blood Urea Nitrogen 39H, Creatinine 1.5H, Estimat Glomerular Filtration Rate , Glucose Level 115H, Calcium Level 9.3, Total Bilirubin 0.3, Aspartate Amino Transf (AST/SGOT) 16, Alanine Aminotransferase (ALT/SGPT) 18, Alkaline Phosphatase 79, Total Protein 7.1, Albumin 3.0L, Globulin 4.1, Albumin/Globulin Ratio 0.7L, Vitamin B12 Level 636, Thyroid Stimulating Hormone (TSH) 1.618 06/25/19 13:06: Urine Color Pale yellow, Urine Appearance Clear, Urine pH 5, Urine Specific [place] 1.010, Urine Protein Negative, Urine Glucose (UA) Negative, Urine Ketones Negative, Urine Blood Negative, Urine Nitrite Negative, Urine Bilirubin Negative, Urine Urobilinogen Normal, Urine Leukocyte Esterase Negative, Urine RBC 0, Urine WBC 0, Urine Squamous Epithelial Cells Occasional, Urine Bacteria Occasional, Urine Random Sodium 113H, Urine Creatinine 8.7L Current Medications Medications (Trade) Dose Ordered Sig/Diane Route PRN Reason Start Time Stop Time Status Last Admin Dose Admin Acetaminophen (Tylenol) 650 mg Q6H PRN ORAL Mild Pain/Temp > 100.5 06/24/19 05:45 07/24/19 05:44 Albuterol/ Ipratropium (Albuterol/ Ipratropium) 3 ml Q4H PRN HHN Shortness of Breath 06/24/19 05:45 06/29/19 05:44 Aspirin (Ecotrin) 81 mg DAILY ORAL 06/25/19 09:00 07/25/19 08:59 06/25/19 09:20 Azithromycin (Zithromax) 500 mg DAILY ORAL 06/24/19 09:00 07/01/19 08:59 06/25/19 09:20 Dextrose (Dextrose 50%) 25 ml Q30M PRN IV Hypoglycemia 06/24/19 05:45 07/24/19 05:44 Dextrose (Dextrose 50%) 50 ml Q30M PRN IV Hypoglycemia 06/24/19 05:45 07/24/19 05:44 Fenofibrate (Tricor) 134 mg DAILY ORAL 06/25/19 09:00 07/25/19 08:59 06/25/19 09:20 Fish Oil (Fish Oil) 1,000 mg DAILY ORAL 06/26/19 09:00 07/26/19 08:59 Hydralazine HCl (Apresoline) 25 mg Q6H PRN ORAL For High Blood Pressure 06/24/19 05:45 07/24/19 05:44 Insulin Aspart (NovoLOG) BEFORE MEALS AND HS SUBQ 06/24/19 11:30 07/24/19 11:29 06/25/19 17:23 Levothyroxine Sodium (Synthroid) 112 mcg Q24H ORAL 06/25/19 06:30 07/25/19 06:29 06/25/19 06:17 Nebivolol (Bystolic) 5 mg DAILY ORAL 06/25/19 09:00 07/25/19 08:59 Niacin (Niacin) 50 mg THREE TIMES A DAY ORAL 06/25/19 18:00 07/25/19 17:59 06/25/19 17:43 Ondansetron HCl (Zofran) 4 mg Q6H PRN IVP Nausea & Vomiting 06/24/19 05:45 07/24/19 05:44 Prednisone (predniSONE) 30 mg DAILY ORAL 06/26/19 09:00 07/24/19 08:59 Zeus Curiel MD Jun 25, 2019 18:52
--- NOTE | 2019-06-25 19:13 | NUR ---
HAND-OFF: Report given to JULY Alex. Endorsed about cough medication order.
--- NOTE | 2019-06-25 19:16 | NUR ---
NURSE NOTES: Received report from JULY Delgado. Patient in bed AO X4. Patient denies pain at this time. On 2L nasal cannula. IV line intact and patent. Family at bedside. Safety precaution in place; side rails X 2 up, call light within reach, bed in lowest position, brakes and alarm on at all times. Will continue plan of care and monitor for any changes noted
[2019-06-25] MEDS ORDERED: Guaifenesin/DM 10ml syrup ORAL PRN (19:30)
[2019-06-25 20:00] VITALS: BP 155/84
--- NOTE | 2019-06-25 21:43 | Cardiology Progress Note ---
Assessment/Plan Status: stable Assessment/Plan Assessment/Plan Problem List: (1) (HFpEF) heart failure with preserved ejection fraction (2) Pancreatitis (3) COPD (chronic obstructive pulmonary disease) (4) Abdominal pain (5) Nausea, vomiting, and diarrhea (6) PVC (premature ventricular contraction) Recommendations: Pancreatitis -GI consult -start niacin and fish oil for elevated triglycerides -NPO and IV fluids -GI consult -Bowel rest -d/c HCTZ 2) COPD -pulmonary toilets -breathing treatments -steroids -singulair -Azithromycin 3) CHF diastolic exacerbation with elevated BNP and CXR with edema -Continue IV lasix -Replete electrolytes -Echocardiogram 4) Diabetes -ISS 5) Hypothyroid 6) DAVID -hold HCTZ -Hold Cozaar -per nephrology Subjective Cardiovascular: Reports: no symptoms Respiratory: Reports: no symptoms Gastrointestinal/Abdominal: Reports: no symptoms Genitourinary: Reports: no symptoms Subjective No acute events, on 2 liters NC, HCTZ stopped, mild SOB, no fevers, bradycardic Objective Last 24 Hour Vital Signs Date Time Temp Pulse Resp B/P (MAP) Pulse Ox O2 Delivery O2 Flow Rate FiO2 06/25/19 16:00 97.3 53 22 135/67 (89) 98 06/25/19 15:22 58 06/25/19 12:00 97.0 52 22 132/67 (88) 96 06/25/19 11:42 51 06/25/19 09:00 Nasal Cannula 2.0 06/25/19 08:00 97.0 48 22 145/48 (80) 99 06/25/19 07:41 53 06/25/19 07:04 54 16 99 Nasal Cannula 2.0 28 06/25/19 07:04 99 Nasal Cannula 2.0 28 06/25/19 04:00 97.6 52 19 115/46 (69) 93 06/25/19 04:00 52 06/25/19 00:00 43 06/25/19 00:00 43 General Appearance: no apparent distress EENT: PERRL/EOMI Neck: non-tender, normal alignment, supple, normal inspection, no JVD Rhythm: SB Cardiovascular: normal peripheral pulses, normal rate, bradycardia Respiratory/Chest: chest wall non-tender, accessory muscle use, crackles/rales Abdomen: normal bowel sounds, non tender, soft, no organomegaly, no mass Extremities: normal range of motion, non-tender, normal inspection, no calf tenderness, no swelling 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 normal, no motor/sensory deficits Intake and Output 06/24/19 06/25/19 18:59 06:59 Intake Total 240 ml 200 ml Balance 240 ml 200 ml Intake Oral 240 ml 200 ml # Voids 3 2 Laboratory Tests Test 06/25/19 06:00 06/25/19 13:06 White Blood Count 9.7 K/UL (4.8-10.8) Red Blood Count 4.90 M/UL (4.20-5.40) Hemoglobin 14.6 G/DL (12.0-16.0) Hematocrit 46.5 % (37.0-47.0) Mean Corpuscular Volume 95 FL (80-99) Mean Corpuscular Hemoglobin 29.9 PG (27.0-31.0) Mean Corpuscular Hemoglobin Concent 31.5 G/DL (32.0-36.0) L Red Cell Distribution Width 13.2 % (11.6-14.8) Platelet Count 217 K/UL (150-450) Mean Platelet Volume 7.5 FL (6.5-10.1) Neutrophils (%) (Auto) 79.7 % (45.0-75.0) H Lymphocytes (%) (Auto) 13.2 % (20.0-45.0) L Monocytes (%) (Auto) 6.4 % (1.0-10.0) Eosinophils (%) (Auto) 0.1 % (0.0-3.0) Basophils (%) (Auto) 0.5 % (0.0-2.0) Sodium Level 141 MMOL/L (136-145) Potassium Level 4.9 MMOL/L (3.5-5.1) Chloride Level 108 MMOL/L (98-107) H Carbon Dioxide Level 28 MMOL/L (21-32) Anion Gap 5 mmol/L (5-15) Blood Urea Nitrogen 39 mg/dL (7-18) H Creatinine 1.5 MG/DL (0.55-1.30) H Estimat Glomerular Filtration Rate mL/min (>60) Glucose Level 115 MG/DL (74-106) H Calcium Level 9.3 MG/DL (8.5-10.1) Total Bilirubin 0.3 MG/DL (0.2-1.0) Aspartate Amino Transf (AST/SGOT) 16 U/L (15-37) Alanine Aminotransferase (ALT/SGPT) 18 U/L (12-78) Alkaline Phosphatase 79 U/L (46-116) Total Protein 7.1 G/DL (6.4-8.2) Albumin 3.0 G/DL (3.4-5.0) L Globulin 4.1 g/dL Albumin/Globulin Ratio 0.7 (1.0-2.7) L Vitamin B12 Level 636 PG/ML (193-986) Thyroid Stimulating Hormone (TSH) 1.618 uiU/mL (0.358-3.740) Urine Color Pale yellow Urine Appearance Clear Urine pH 5 (4.5-8.0) Urine Specific [place] 1.010 (1.005-1.035) Urine Protein Negative (NEGATIVE) Urine Glucose (UA) Negative (NEGATIVE) Urine Ketones Negative (NEGATIVE) Urine Blood Negative (NEGATIVE) Urine Nitrite Negative (NEGATIVE) Urine Bilirubin Negative (NEGATIVE) Urine Urobilinogen Normal MG/DL (0.0-1.0) Urine Leukocyte Esterase Negative (NEGATIVE) Urine RBC 0 /HPF (0 - 2) Urine WBC 0 /HPF (0 - 2) Urine Squamous Epithelial Cells Occasional /LPF Urine Bacteria Occasional /HPF (NONE) Urine Random Sodium 113 mmol/L (20-110) H Urine Creatinine 8.7 MG/DL (30.0-125.0) L Microbiology Date/Time Source Procedure Growth Status 06/24/19 03:45 Blood Blood Culture - Preliminary NO GROWTH AFTER 24 HOURS Resulted 06/24/19 03:05 Blood Blood Culture - Preliminary NO GROWTH AFTER 24 HOURS Resulted Zeus Obrien MD Jun 25, 2019 21:43
[2019-06-26] VITALS: BP 156/82
[2019-06-26 04:00] VITALS: BP 100/63
[2019-06-26] MEDS: NovoLOG Insulin Flexpen SUBQ SCH ×4 (06:16→21:00)
--- NOTE | 2019-06-26 07:27 | NUR ---
HAND-OFF: Report given to JULY Delgado. Endorsed plan of care.
--- NOTE | 2019-06-26 07:28 | NUR ---
NURSE NOTES: Received pt from JULY Alex. Pt is resting in bed, in no acute distress. Patient is on 2L NC. Patient is on satellite project site monitor. IV site intact. bed locked in lowest position, call light within reach. Will continue with plan of care. Patient is NPO for abdominal ultrasound.
[2019-06-26 08:00] VITALS: BP 140/60
[2019-06-26] MEDS: Niacin 50mg tab ORAL SCH ×3 (08:12→17:50)
[2019-06-26] MEDS: Aspirin EC 81mg tab ORAL SCH (08:12)
[2019-06-26] MEDS: Azithromycin 250mg tab ORAL SCH (08:14)
[2019-06-26] MEDS: Bystolic 2.5mg Tab ORAL SCH (08:26)
[2019-06-26 08:34] LABS: ANION GAP 7 mmol/L (5-15); BLOOD UREA NITROGEN 39 mg/dL (7-18); CALCIUM 9.6 MG/DL (8.5-10.1); CARBON DIOXIDE 29 MMOL/L (21-32); CHLORIDE 106 MMOL/L (98-107); CREATININE 1.3 MG/DL (0.55-1.30); POTASSIUM 4.3 MMOL/L (3.5-5.1); SODIUM 142 MMOL/L (136-145)
--- NOTE | 2019-06-26 09:30 | General Progress Note ---
Assessment/Plan Problem List: (1) (HFpEF) heart failure with preserved ejection fraction ICD Codes: I50.30 - Unspecified diastolic (congestive) heart failure SNOMED: 423598239 (2) Pancreatitis ICD Codes: K85.90 - Acute pancreatitis without necrosis or infection, unspecified SNOMED: 46159411 (3) COPD (chronic obstructive pulmonary disease) ICD Codes: J44.9 - Chronic obstructive pulmonary disease, unspecified SNOMED: 75225144 (4) Abdominal pain ICD Codes: R10.9 - Unspecified abdominal pain SNOMED: 91037910 (5) Nausea, vomiting, and diarrhea ICD Codes: R11.2 - Nausea with vomiting, unspecified; R19.7 - Diarrhea, unspecified SNOMED: 4115850 (6) PVC (premature ventricular contraction) ICD Codes: I49.3 - Ventricular premature depolarization SNOMED: 57392142 (7) DAVID (acute kidney injury) ICD Codes: N17.9 - Acute kidney failure, unspecified SNOMED: 9250421, 57342846 (8) Hypertriglyceridemia ICD Codes: E78.1 - Pure hyperglyceridemia SNOMED: 665515044 Status: stable Assessment/Plan: 84 year old brought in by family for n/v/abdominal pain of 1 day and sob for few days. Admitted for COPD exacerbation. N/V/abdominal pain, from acute pancreatitis with lipase 667. SOB multifactorial, ?ILD (entertained in the past) , copd exacerbation vs. acute exacerbation of HFpEF. She also has DAVID, vs DAVID on CKD. PVCs on telemetry. 1. Acute pancreatitis (lipase 667): maybe drug induced from HCTZ, also patient with history of hypertriglyceridemia. -Hold HCTZ now and in the future -abdominal US -Triglycerides 150, LFTs unremarkable. -Advance diet as tolerated--> can have regular diabetic diet today -Add Niacin and fish oil to fenofibrate for hypertriglyceridemia 2.. AECOPD vs ILD. s/p IV solumedrol. Continue 40mg daily for 5 days. prednisone changed to 30mg by pulmonary Duonebs Pulmonary Consult: Dr. Curiel for Dr. Ho pulmonary toilet Azithromycin for its anti inflammatory properties for COPD for 5 days. 3.Acute exacerbation of diastolic CHF, pro bnp 4708, cxr vascular congestion s/p IV lasix, will stop due to worsening renal function Cardiology consult with Dr. Obrien Monitor on telemetry. Monitor and replace electrolytes Continue ASA, Bystolic. Hold losartan and HCTZ 4. DM -Hold home po medications. Insulin sliding scale coverage -check A1c -Diabetic diet 5. Hypothyroidism. Continue levothyroxine 6. DAVID vs DAVID on CKD. creatinine 1.4 on 02/09 when she left the hospital and ranged from 1.3-1.6. Renal consult. Renal US, urine lytes. creatinine improved to 1.3. Eleavted BUN, from lasix and steroids 7. B12 deficiency. Check B12 levels to monitor response to treatment- B12 600 range. DVT ppx: scd boots GI ppx: none code status: full code Disposition: Home with home services. PT evaluation today. I spent 40 minutes on the encounter. 50% spent on counselling and care coordination. Time of this note may not be the same as time of encounter. Subjective Date patient seen: Jun 26, 2019 Constitutional: Denies: no symptoms, chills, diaphoresis, fever, malaise, weakness, other HEENT: Denies: no symptoms, eye pain, blurred vision, tearing, double vision, ear pain, ear discharge, nose pain, nose congestion, throat pain, throat swelling, mouth pain, mouth swelling, other Cardiovascular: Denies: no symptoms, chest pain, edema, irregular heart rate, lightheadedness, palpitations, syncope, other Respiratory: Denies: no symptoms, cough, orthopnea, shortness of breath, SOB with excertion, SOB at rest, sputum, stridor, wheezing, other Gastrointestinal/Abdominal: Denies: no symptoms, abdomen distended, abdominal pain, black stools, tarry stools, blood in stool, constipated, diarrhea, difficulty swallowing, nausea, poor appetite, poor fluid intake, rectal bleeding , vomiting, other Genitourinary: Denies: no symptoms, burning, discharge, frequency, flank pain, hematuria, incontinence, pain, urgency, other Neurologic/Psychiatric: Denies: no symptoms, anxiety, depressed, emotional problems, headache, numbness, paresthesia, pre-existing deficit, seizure, tingling, tremors, weakness, other Endocrine: Denies: no symptoms, excessive sweating, flushing, intolerance to cold, intolerance to heat, increased hunger, increased thirst, increased urine, unexplained weight gain, unexplained weight loss, other Allergies: Coded Allergies: No Known Allergies (Verified , 08/18/07) Subjective seen and examined No complaints Comfortable asked for cough meds last night Pulm changed prednisone to 30mg daily PO For renal US today creatinine improved after stopping lasix Diet advanced and tolerating Objective Last 24 Hour Vital Signs Date Time Temp Pulse Resp B/P (MAP) Pulse Ox O2 Delivery O2 Flow Rate FiO2 06/26/19 04:00 97.4 68 20 100/63 (75) 98 06/26/19 04:00 68 06/26/19 00:00 97.3 51 18 156/82 (106) 96 06/25/19 21:00 Nasal Cannula 2.0 06/25/19 20:00 57 06/25/19 20:00 97.1 57 18 155/84 (107) 93 06/25/19 19:43 59 18 96 Nasal Cannula 2.0 28 06/25/19 19:43 96 Nasal Cannula 2.0 28 06/25/19 16:00 97.3 53 22 135/67 (89) 98 06/25/19 15:22 58 06/25/19 12:00 97.0 52 22 132/67 (88) 96 06/25/19 11:42 51 Intake and Output 06/25/19 06/26/19 19:00 07:00 Intake Total 600 ml Balance 600 ml Intake Oral 600 ml # Voids 3 4 Laboratory Tests 06/25/19 13:06: Urine Color Pale yellow, Urine Appearance Clear, Urine pH 5, Urine Specific [place] 1.010, Urine Protein Negative, Urine Glucose (UA) Negative, Urine Ketones Negative, Urine Blood Negative, Urine Nitrite Negative, Urine Bilirubin Negative, Urine Urobilinogen Normal, Urine Leukocyte Esterase Negative, Urine RBC 0, Urine WBC 0, Urine Squamous Epithelial Cells Occasional, Urine Bacteria Occasional, Urine Random Sodium 113H, Urine Creatinine 8.7L 06/26/19 06:09: Sodium Level 142, Potassium Level 4.3, Chloride Level 106, Carbon Dioxide Level 29, Anion Gap 7, Blood Urea Nitrogen 39H, Creatinine 1.3, Estimat Glomerular Filtration Rate , Glucose Level 84, Calcium Level 9.6 Height (Feet): 5 Height (Inches): 3.00 Weight (Pounds): 177 Objective General Appearance: normal inspection, well appearing, alert HEENT: normal ENT inspection, hearing grossly normal, normal voice Neck: normal inspection, full range of motion, supple, no bony tend Respiratory: normal inspection, no retraction,no wheezing, rales or rhonchi Cardiovascular: NSR, no m/r/g Gastrointestinal: soft, + epigastric tenderness, no guarding, normal BS Genitourinary: no CVA tenderness Musculoskeletal: normal inspection, back normal, normal range of motion Neurologic: normal inspection, alert, oriented x3, responsive, credit reporting clerk III-XII nml as tested, speech normal Psychiatric: normal inspection, judgement/insight normal, mood/affect normal Skin: No ulcers or rashes Lorne Antoine M.D. Jun 26, 2019 09:30
--- NOTE | 2019-06-26 09:58 | Cardiology Progress Note ---
Assessment/Plan Status: doing well, stable Assessment/Plan Assessment/Plan Problem List: (1) (HFpEF) heart failure with preserved ejection fraction (2) Pancreatitis (3) COPD (chronic obstructive pulmonary disease) (4) Abdominal pain (5) Nausea, vomiting, and diarrhea (6) PVC (premature ventricular contraction) Recommendations: Pancreatitis -GI consult -start niacin and fish oil for elevated triglycerides -NPO and IV fluids -GI consult -Bowel rest -d/c HCTZ 2) COPD -pulmonary toilets -breathing treatments -steroids -singulair -Azithromycin 3) CHF diastolic exacerbation with elevated BNP and CXR with edema -Continue IV lasix -Replete electrolytes -Echocardiogram 4) Diabetes -ISS 5) Hypothyroid 6) DAVID -hold HCTZ -Hold Cozaar -per nephrology Subjective Cardiovascular: Reports: no symptoms Respiratory: Reports: no symptoms Gastrointestinal/Abdominal: Reports: no symptoms Genitourinary: Reports: no symptoms Subjective No acute events, on 2 liters NC, HCTZ stopped, mild SOB, no fevers, bradycardic Objective Last 24 Hour Vital Signs Date Time Temp Pulse Resp B/P (MAP) Pulse Ox O2 Delivery O2 Flow Rate FiO2 06/26/19 09:00 Nasal Cannula 2.0 06/26/19 08:00 97.7 54 18 140/60 (86) 95 06/26/19 07:39 54 06/26/19 04:00 97.4 68 20 100/63 (75) 98 06/26/19 04:00 68 06/26/19 00:00 97.3 51 18 156/82 (106) 96 06/25/19 21:00 Nasal Cannula 2.0 06/25/19 20:00 57 06/25/19 20:00 97.1 57 18 155/84 (107) 93 06/25/19 19:43 59 18 96 Nasal Cannula 2.0 28 06/25/19 19:43 96 Nasal Cannula 2.0 28 06/25/19 16:00 97.3 53 22 135/67 (89) 98 06/25/19 15:22 58 06/25/19 12:00 97.0 52 22 132/67 (88) 96 06/25/19 11:42 51 General Appearance: no apparent distress, alert EENT: PERRL/EOMI, normal ENT inspection, TMs normal, pharynx normal Neck: non-tender, normal alignment, supple, normal inspection, no JVD Rhythm: NSR Cardiovascular: normal peripheral pulses, normal rate, bradycardia Respiratory/Chest: chest wall non-tender, lungs clear, normal breath sounds, no respiratory distress Abdomen: normal bowel sounds, non tender, soft, no organomegaly, no mass Extremities: normal range of motion, non-tender, normal inspection, no calf tenderness 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 grossly normal, no motor/sensory deficits Intake and Output 06/25/19 06/26/19 19:00 07:00 Intake Total 600 ml Balance 600 ml Intake Oral 600 ml # Voids 3 4 Laboratory Tests Test 06/25/19 13:06 06/26/19 06:09 Urine Color Pale yellow Urine Appearance Clear Urine pH 5 (4.5-8.0) Urine Specific [place] 1.010 (1.005-1.035) Urine Protein Negative (NEGATIVE) Urine Glucose (UA) Negative (NEGATIVE) Urine Ketones Negative (NEGATIVE) Urine Blood Negative (NEGATIVE) Urine Nitrite Negative (NEGATIVE) Urine Bilirubin Negative (NEGATIVE) Urine Urobilinogen Normal MG/DL (0.0-1.0) Urine Leukocyte Esterase Negative (NEGATIVE) Urine RBC 0 /HPF (0 - 2) Urine WBC 0 /HPF (0 - 2) Urine Squamous Epithelial Cells Occasional /LPF Urine Bacteria Occasional /HPF (NONE) Urine Random Sodium 113 mmol/L (20-110) H Urine Creatinine 8.7 MG/DL (30.0-125.0) L Sodium Level 142 MMOL/L (136-145) Potassium Level 4.3 MMOL/L (3.5-5.1) Chloride Level 106 MMOL/L (98-107) Carbon Dioxide Level 29 MMOL/L (21-32) Anion Gap 7 mmol/L (5-15) Blood Urea Nitrogen 39 mg/dL (7-18) H Creatinine 1.3 MG/DL (0.55-1.30) Estimat Glomerular Filtration Rate mL/min (>60) Glucose Level 84 MG/DL (74-106) Calcium Level 9.6 MG/DL (8.5-10.1) Microbiology Date/Time Source Procedure Growth Status 06/24/19 03:45 Blood Blood Culture - Preliminary NO GROWTH AFTER 48 HOURS Resulted 06/24/19 03:05 Blood Blood Culture - Preliminary NO GROWTH AFTER 48 HOURS Resulted Zeus Obrien MD Jun 26, 2019 09:58
--- NOTE | 2019-06-26 11:06 | NUR ---
CASE MANAGEMENT:REVIEW 84 YR OLD FEMALE FROM HOME CC; N/V/D AND SOB. SAT 89% ON RA SI:COPD. PANCREATITIS. CHF 97.5 83 20 135/56 99% ON 2L/NC BUN+29 CR+1.4 LIPASE+667 BNP+4708 IS: IV ZOFRAN DUONEB HHN IV SOLUMEDROL IV MAG SULFATE IV LASIX BLOOD CX CHEST XRAY : TO TELEMETRY
--- NOTE | 2019-06-26 11:17 | Diagnostic Imaging Report ---
Indication: Abdominal pain, nausea, vomiting, abnormal renal function tests Technique: Churchill-scale and duplex images of the upper abdomen were obtained Comparison: none Findings: Gallbladder is unremarkable, without stones, wall thickening, nor pericholecystic fluid. Sonographic Celeste's sign is negative. Common bile duct measures 6 mm in diameter. No intrahepatic biliary ductal dilatation. Liver demonstrates coarsened echogenicity. Portal vein and hepatic veins are patent. Pancreas is unremarkable. Spleen is unremarkable. Left kidney measures 8.3 cm in length. Right kidney measures 8.9 cm length. Both kidneys demonstrate normal echogenicity. There is mild fullness to the left renal collecting system. There is a small left renal cyst . The abdominal aorta demonstrates focal saccular ectasia but no martha aneurysm, AP diameter 2.6 cm . Urinary bladder is nondistended Impression: Negative for gallstones or dilated bile duct Coarsened hepatic echogenicity, nonspecific but could indicate hepatocellular disease Mild left renal collecting system fullness, significance/etiology uncertain Abdominal aorta is illustrates focal saccular ectasia but is not frankly aneurysmal, maximal diameter 2.6 cm Incidental finding left renal cyst
[2019-06-26 12:00] VITALS: BP 139/69
--- NOTE | 2019-06-26 12:04 | Nephrology Progress Note ---
Assessment/Plan Problem List: (1) Nausea, vomiting, and diarrhea (2) ILD (interstitial lung disease) (3) GERD (gastroesophageal reflux disease) (4) (HFpEF) heart failure with preserved ejection fraction (5) Pancreatitis (6) COPD (chronic obstructive pulmonary disease) Plan #Acute kidney injury likely pre-renal azotemia in the setting of acute pancreatitis - hold diuresis for one more day - monitor cr - hold HCTZ and cozaar for now - continue bystolic 5mg daily - hydralazine prn for bp control - monitor UOP - strict I&Os - daily weights #BP - stable - continue bystolic 5mg daily - hold HCTZ and cozaar for now #acute pancreatitis - pain control - advance diet as tolerated - hold off lasix for one more day - would avoid thiazide going forward renal US: Both kidneys demonstrate normal echogenicity. There is mild fullness to the left renal collecting system. Subjective Interval Events/Complaints Cr 1.3 today breathing stable. no nausea or emesis Constitutional: Denies: no symptoms, chills, diaphoresis, fever, malaise, weakness, other HEENT: Denies: no symptoms, eye pain, blurred vision, tearing, double vision, ear pain, ear discharge, nose pain, nose congestion, throat pain, throat swelling, mouth pain, mouth swelling, other Genitourinary: Denies: no symptoms, burning, discharge, frequency, flank pain, hematuria, incontinence, pain, urgency, other Neurologic/Psychiatric: Denies: no symptoms, anxiety, depressed, emotional problems, headache, numbness, paresthesia, pre-existing deficit, seizure, tingling, tremors, weakness, other Objective Objective Last 24 Hour Vital Signs Date Time Temp Pulse Resp B/P (MAP) Pulse Ox O2 Delivery O2 Flow Rate FiO2 06/26/19 09:00 Nasal Cannula 2.0 06/26/19 08:00 97.7 54 18 140/60 (86) 95 06/26/19 07:39 54 06/26/19 04:00 97.4 68 20 100/63 (75) 98 06/26/19 04:00 68 06/26/19 00:00 97.3 51 18 156/82 (106) 96 06/25/19 21:00 Nasal Cannula 2.0 06/25/19 20:00 57 06/25/19 20:00 97.1 57 18 155/84 (107) 93 06/25/19 19:43 59 18 96 Nasal Cannula 2.0 28 06/25/19 19:43 96 Nasal Cannula 2.0 28 06/25/19 16:00 97.3 53 22 135/67 (89) 98 06/25/19 15:22 58 Intake and Output 06/25/19 06/26/19 19:00 07:00 Intake Total 600 ml Balance 600 ml Intake Oral 600 ml # Voids 3 4 Laboratory Tests 06/25/19 13:06: Urine Color Pale yellow, Urine Appearance Clear, Urine pH 5, Urine Specific [place] 1.010, Urine Protein Negative, Urine Glucose (UA) Negative, Urine Ketones Negative, Urine Blood Negative, Urine Nitrite Negative, Urine Bilirubin Negative, Urine Urobilinogen Normal, Urine Leukocyte Esterase Negative, Urine RBC 0, Urine WBC 0, Urine Squamous Epithelial Cells Occasional, Urine Bacteria Occasional, Urine Random Sodium 113H, Urine Creatinine 8.7L 06/26/19 06:09: Sodium Level 142, Potassium Level 4.3, Chloride Level 106, Carbon Dioxide Level 29, Anion Gap 7, Blood Urea Nitrogen 39H, Creatinine 1.3, Estimat Glomerular Filtration Rate , Glucose Level 84, Hemoglobin A1c 6.0, Calcium Level 9.6 Height (Feet): 5 Height (Inches): 3.00 Weight (Pounds): 177 General Appearance: WD/WN, no apparent distress EENT: PERRL/EOMI Neck: non-tender, normal alignment Cardiovascular: normal peripheral pulses, normal rate, regular rhythm Respiratory/Chest: chest wall non-tender, lungs clear, normal breath sounds, no respiratory distress Abdomen: normal bowel sounds, non tender, no organomegaly Neurologic: alert, oriented x 3 Vianney Smith M.D. Jun 26, 2019 12:04
--- NOTE | 2019-06-26 13:35 | Pulmonology Progress Note ---
Assessment/Plan Problems: (1) IPF (idiopathic pulmonary fibrosis) (2) ILD (interstitial lung disease) (3) UIP (usual interstitial pneumonitis) (4) COPD (chronic obstructive pulmonary disease) (5) (HFpEF) heart failure with preserved ejection fraction (6) Pancreatitis (7) DAVID (acute kidney injury) Assessment/Plan Optimize pulmonary hygiene/mobilize as tolerated Titrate down Fio2 to keep SaO2 > 90% RTC and PRN DUOnebs Continue Pred 30 (D2) Azithro (D3/5 Monitor volumes and renal function DVT Px: Hep SQ Needs op F/U, PFT's, consideration for anti-fibrotic therapy FC, discuss GOC Subjective Allergies: Coded Allergies: No Known Allergies (Verified , 08/18/07) Subjective AFVSS on 2l + cough + SOB + wheezing no FC Objective Last 24 Hour Vital Signs Date Time Temp Pulse Resp B/P (MAP) Pulse Ox O2 Delivery O2 Flow Rate FiO2 06/26/19 09:00 Nasal Cannula 2.0 06/26/19 08:00 97.7 54 18 140/60 (86) 95 06/26/19 07:39 54 06/26/19 04:00 97.4 68 20 100/63 (75) 98 06/26/19 04:00 68 06/26/19 00:00 97.3 51 18 156/82 (106) 96 06/25/19 21:00 Nasal Cannula 2.0 06/25/19 20:00 57 06/25/19 20:00 97.1 57 18 155/84 (107) 93 06/25/19 19:43 59 18 96 Nasal Cannula 2.0 28 06/25/19 19:43 96 Nasal Cannula 2.0 28 06/25/19 16:00 97.3 53 22 135/67 (89) 98 06/25/19 15:22 58 Intake and Output 06/25/19 06/26/19 19:00 07:00 Intake Total 600 ml Balance 600 ml Intake Oral 600 ml # Voids 3 4 General Appearance: no acute distress, cachetic HEENT: normocephalic, atraumatic, anicteric, mucous membranes moist Respiratory/Chest: crackles/rales Cardiovascular: normal peripheral pulses, normal rate, regular rhythm Abdomen: normal bowel sounds, soft, non tender, no organomegaly, non distended Extremities: no cyanosis, no clubbing, no edema Microbiology Date/Time Source Procedure Growth Status 06/24/19 03:45 Blood Blood Culture - Preliminary NO GROWTH AFTER 48 HOURS Resulted 06/24/19 03:05 Blood Blood Culture - Preliminary NO GROWTH AFTER 48 HOURS Resulted Laboratory Tests 06/26/19 06:09: Sodium Level 142, Potassium Level 4.3, Chloride Level 106, Carbon Dioxide Level 29, Anion Gap 7, Blood Urea Nitrogen 39H, Creatinine 1.3, Estimat Glomerular Filtration Rate , Glucose Level 84, Hemoglobin A1c 6.0, Calcium Level 9.6 Current Medications Medications (Trade) Dose Ordered Sig/Diane Route PRN Reason Start Time Stop Time Status Last Admin Dose Admin Acetaminophen (Tylenol) 650 mg Q6H PRN ORAL Mild Pain/Temp > 100.5 06/24/19 05:45 07/24/19 05:44 Albuterol/ Ipratropium (Albuterol/ Ipratropium) 3 ml Q4H PRN HHN Shortness of Breath 06/24/19 05:45 06/29/19 05:44 Aspirin (Ecotrin) 81 mg DAILY ORAL 06/25/19 09:00 07/25/19 08:59 06/26/19 08:12 Azithromycin (Zithromax) 500 mg DAILY ORAL 06/24/19 09:00 07/01/19 08:59 06/26/19 08:14 Dextrose (Dextrose 50%) 25 ml Q30M PRN IV Hypoglycemia 06/24/19 05:45 07/24/19 05:44 Dextrose (Dextrose 50%) 50 ml Q30M PRN IV Hypoglycemia 06/24/19 05:45 07/24/19 05:44 Fenofibrate (Tricor) 134 mg DAILY ORAL 06/25/19 09:00 07/25/19 08:59 06/26/19 08:12 Fish Oil (Fish Oil) 1,000 mg DAILY ORAL 06/26/19 09:00 07/26/19 08:59 06/26/19 08:13 Guaifenesin/ Dextromethorphan (Robitussin DM Syrup) 10 ml Q6H PRN ORAL For Cough 06/25/19 19:30 07/25/19 19:29 Hydralazine HCl (Apresoline) 25 mg Q6H PRN ORAL For High Blood Pressure 06/24/19 05:45 07/24/19 05:44 Insulin Aspart (NovoLOG) BEFORE MEALS AND HS SUBQ 06/24/19 11:30 07/24/19 11:29 06/25/19 17:23 Levothyroxine Sodium (Synthroid) 112 mcg Q24H ORAL 06/25/19 06:30 07/25/19 06:29 06/26/19 06:21 Nebivolol (Bystolic) 5 mg DAILY ORAL 06/25/19 09:00 07/25/19 08:59 Niacin (Niacin) 50 mg THREE TIMES A DAY ORAL 06/25/19 18:00 07/25/19 17:59 06/26/19 13:22 Ondansetron HCl (Zofran) 4 mg Q6H PRN IVP Nausea & Vomiting 06/24/19 05:45 07/24/19 05:44 Prednisone (predniSONE) 30 mg DAILY ORAL 06/26/19 09:00 07/24/19 08:59 06/26/19 08:14 Javi Ho MD Jun 26, 2019 13:35
--- NOTE | 2019-06-26 14:30 | NUR ---
PT EVALUATION NOTE Patient seen for initial evaluation, see complete evaluation for details. Patient presents with generalized weakness which affects patient's ability to perform mobility tasks safely. Patient requires SBA for bed mobility, transfers and ambulation with SPC x 150 ft. Patient will benefit from skilled inpatient PT intervention to address overall strength, balance and safety for improved functional mobility and to enable patient to return to prior level of function. Recommend discharge home with family assistance as needed and home PT followup once medically cleared by MD. Addendum: 06/26/19 at 1529 by QUINTON JO PT Amended: Links added.
[2019-06-26 16:00] VITALS: BP 117/51
--- NOTE | 2019-06-26 19:15 | NUR ---
HAND-OFF: Report given to JULY Alex.
[2019-06-26] MEDS: Albuterol/Ipratropium 3ml neb HHN SCH (19:30)
[2019-06-26 20:00] VITALS: BP 125/57
[2019-06-26] MEDS: Heparin 5000 units/ml inj SUBQ SCH (22:54)
[2019-06-27] VITALS: BP 112/72
[2019-06-27] MEDS: Albuterol/Ipratropium 3ml neb HHN SCH ×4 (01:13→19:40)
[2019-06-27 04:00] VITALS: BP 120/54
[2019-06-27] MEDS: NovoLOG Insulin Flexpen SUBQ SCH ×4 (06:05→21:20)
--- NOTE | 2019-06-27 07:10 | NUR ---
NURSE NOTES: Received pt from JULY Alex. Pt is resting in bed, in no acute distress. Patient is on 2L NC. Patient is on color television console monitor. IV site intact. bed locked in lowest position, call light within reach. Will continue with plan of care.
[2019-06-27 07:20] LABS: ALANINE AMINOTRANSFERASE 84 U/L (12-78); ALBUMIN 3.1 G/DL (3.4-5.0); ALBUMIN/GLOBULIN RATIO 0.8 (1.0-2.7); ALKALINE PHOSPHATASE 94 U/L (46-116); ANION GAP 7 mmol/L (5-15); ASPARTATE AMINO TRANSFERASE 55 U/L (15-37); BILIRUBIN,TOTAL 0.3 MG/DL (0.2-1.0); BLOOD UREA NITROGEN 53 mg/dL (7-18); CALCIUM 9.2 MG/DL (8.5-10.1); CARBON DIOXIDE 29 MMOL/L (21-32); CHLORIDE 108 MMOL/L (98-107); CREATININE 1.5 MG/DL (0.55-1.30); POTASSIUM 4.1 MMOL/L (3.5-5.1); SODIUM 144 MMOL/L (136-145)
--- NOTE | 2019-06-27 07:22 | NUR ---
HAND-OFF: Report given to JULY Delgado. Endorsed plan of care.
[2019-06-27 08:00] VITALS: BP 132/61
--- NOTE | 2019-06-27 08:48 | Pulmonology Progress Note ---
Assessment/Plan Problems: (1) IPF (idiopathic pulmonary fibrosis) (2) ILD (interstitial lung disease) (3) UIP (usual interstitial pneumonitis) (4) COPD (chronic obstructive pulmonary disease) (5) (HFpEF) heart failure with preserved ejection fraction (6) Pancreatitis (7) DAVID (acute kidney injury) Assessment/Plan Optimize pulmonary hygiene/mobilize as tolerated Titrate down Fio2 to keep SaO2 > 90% RTC and PRN DUOnebs Continue Pred 30 (D3) Azithro (D4/5) Monitor volumes and renal function DVT Px: Hep SQ Needs op F/U, PFT's, consideration for anti-fibrotic therapy FC, discuss GOC Subjective Allergies: Coded Allergies: No Known Allergies (Verified , 08/18/07) Subjective AFVSS on 2l + cough less SOB less wheezing no FC Objective Last 24 Hour Vital Signs Date Time Temp Pulse Resp B/P (MAP) Pulse Ox O2 Delivery O2 Flow Rate FiO2 06/27/19 08:00 98.4 65 21 132/61 (84) 93 06/27/19 07:37 69 18 98 Nasal Cannula 2.0 28 73 18 97 06/27/19 07:37 97 Nasal Cannula 2.0 28 06/27/19 04:00 97.8 78 18 120/54 (76) 95 06/27/19 04:00 78 06/27/19 01:13 60 18 97 Nasal Cannula 2.0 28 61 18 93 06/27/19 00:00 97.8 69 18 112/72 (85) 98 06/27/19 00:00 69 06/26/19 21:00 Nasal Cannula 2.0 06/26/19 20:00 63 06/26/19 20:00 97.7 63 18 125/57 (79) 97 06/26/19 19:40 63 18 98 Nasal Cannula 2.0 28 56 18 95 06/26/19 19:39 95 Nasal Cannula 2.0 28 06/26/19 19:30 86 18 95 Nasal Cannula 2.0 28 06/26/19 16:00 98.0 60 18 117/51 (73) 99 06/26/19 15:33 65 06/26/19 12:00 98.4 61 18 139/69 (92) 97 06/26/19 11:42 55 06/26/19 09:00 Nasal Cannula 2.0 Intake and Output 06/26/19 06/27/19 19:00 07:00 Intake Total 600 ml 120 ml Balance 600 ml 120 ml Intake Oral 600 ml 120 ml # Voids 3 1 General Appearance: no acute distress, cachetic HEENT: normocephalic, atraumatic, anicteric, mucous membranes moist Respiratory/Chest: crackles/rales Cardiovascular: normal peripheral pulses, normal rate, regular rhythm Abdomen: normal bowel sounds, soft, non tender, no organomegaly, non distended Extremities: no cyanosis, no clubbing, no edema Laboratory Tests 06/27/19 05:37: Sodium Level 144, Potassium Level 4.1, Chloride Level 108H, Carbon Dioxide Level 29, Anion Gap 7, Blood Urea Nitrogen 53H, Creatinine 1.5H, Estimat Glomerular Filtration Rate , Glucose Level 112H, Calcium Level 9.2, Total Bilirubin 0.3, Aspartate Amino Transf (AST/SGOT) 55H, Alanine Aminotransferase ( ALT/SGPT) 84H, Alkaline Phosphatase 94, Total Protein 6.8, Albumin 3.1L, Globulin 3.7, Albumin/Globulin Ratio 0.8L Current Medications Medications (Trade) Dose Ordered Sig/Diane Route PRN Reason Start Time Stop Time Status Last Admin Dose Admin Acetaminophen (Tylenol) 650 mg Q6H PRN ORAL Mild Pain/Temp > 100.5 06/24/19 05:45 07/24/19 05:44 Albuterol/ Ipratropium (Albuterol/ Ipratropium) 3 ml Q4H PRN HHN Shortness of Breath 06/24/19 05:45 06/29/19 05:44 Albuterol/ Ipratropium (Albuterol/ Ipratropium) 3 ml Q6HRT HHN 06/26/19 19:00 07/01/19 18:59 06/27/19 07:35 Aspirin (Ecotrin) 81 mg DAILY ORAL 06/25/19 09:00 07/25/19 08:59 06/26/19 08:12 Azithromycin (Zithromax) 500 mg DAILY ORAL 06/24/19 09:00 07/01/19 08:59 06/26/19 08:14 Dextrose (Dextrose 50%) 25 ml Q30M PRN IV Hypoglycemia 06/24/19 05:45 07/24/19 05:44 Dextrose (Dextrose 50%) 50 ml Q30M PRN IV Hypoglycemia 06/24/19 05:45 07/24/19 05:44 Fenofibrate (Tricor) 134 mg DAILY ORAL 06/25/19 09:00 07/25/19 08:59 06/26/19 08:12 Fish Oil (Fish Oil) 1,000 mg DAILY ORAL 06/26/19 09:00 07/26/19 08:59 06/26/19 08:13 Guaifenesin/ Dextromethorphan (Robitussin DM Syrup) 10 ml Q6H PRN ORAL For Cough 06/25/19 19:30 07/25/19 19:29 Heparin Sodium (Porcine) (Heparin 5000 units/ml) 5,000 units EVERY 12 HOURS SUBQ 06/26/19 21:00 07/26/19 20:59 06/26/19 22:54 Hydralazine HCl (Apresoline) 25 mg Q6H PRN ORAL For High Blood Pressure 06/24/19 05:45 07/24/19 05:44 Insulin Aspart (NovoLOG) BEFORE MEALS AND HS SUBQ 06/24/19 11:30 07/24/19 11:29 06/26/19 17:12 Levothyroxine Sodium (Synthroid) 112 mcg Q24H ORAL 06/25/19 06:30 07/25/19 06:29 06/27/19 06:04 Nebivolol (Bystolic) 5 mg DAILY ORAL 06/25/19 09:00 07/25/19 08:59 Niacin (Niacin) 50 mg THREE TIMES A DAY ORAL 06/25/19 18:00 07/25/19 17:59 06/26/19 17:50 Ondansetron HCl (Zofran) 4 mg Q6H PRN IVP Nausea & Vomiting 06/24/19 05:45 07/24/19 05:44 Prednisone (predniSONE) 30 mg DAILY ORAL 06/26/19 09:00 07/24/19 08:59 06/26/19 08:14 Javi Ho MD Jun 27, 2019 08:48
[2019-06-27] MEDS: Bystolic 2.5mg Tab ORAL SCH (09:00)
[2019-06-27] MEDS: Azithromycin 250mg tab ORAL SCH (09:19)
[2019-06-27] MEDS: Aspirin EC 81mg tab ORAL SCH (09:19)
[2019-06-27] MEDS: Heparin 5000 units/ml inj SUBQ SCH ×2 (09:20→21:19)
--- NOTE | 2019-06-27 09:20 | General Progress Note ---
Assessment/Plan Problem List: (1) Pancreatitis ICD Codes: K85.90 - Acute pancreatitis without necrosis or infection, unspecified SNOMED: 61363289 (2) DAVID (acute kidney injury) ICD Codes: N17.9 - Acute kidney failure, unspecified SNOMED: 7944893, 95008754 (3) IPF (idiopathic pulmonary fibrosis) ICD Codes: J84.112 - Idiopathic pulmonary fibrosis SNOMED: 631809576 (4) Transaminitis ICD Codes: R74.0 - Nonspecific elevation of levels of transaminase and lactic acid dehydrogenase [LDH] SNOMED: 019837134, 511526054 (5) (HFpEF) heart failure with preserved ejection fraction ICD Codes: I50.30 - Unspecified diastolic (congestive) heart failure SNOMED: 917306479 (6) COPD (chronic obstructive pulmonary disease) ICD Codes: J44.9 - Chronic obstructive pulmonary disease, unspecified SNOMED: 73737993 (7) Abdominal pain ICD Codes: R10.9 - Unspecified abdominal pain SNOMED: 85710864 (8) Nausea, vomiting, and diarrhea ICD Codes: R11.2 - Nausea with vomiting, unspecified; R19.7 - Diarrhea, unspecified SNOMED: 4847919 (9) PVC (premature ventricular contraction) ICD Codes: I49.3 - Ventricular premature depolarization SNOMED: 61361831 (10) Hypertriglyceridemia ICD Codes: E78.1 - Pure hyperglyceridemia SNOMED: 819348025 (11) ILD (interstitial lung disease) ICD Codes: J84.9 - Interstitial pulmonary disease, unspecified SNOMED: 664423712 (12) UIP (usual interstitial pneumonitis) ICD Codes: J84.112 - Idiopathic pulmonary fibrosis SNOMED: 856101360 Status: doing well, stable Assessment/Plan: 84 year old brought in by family for n/v/abdominal pain of 1 day and sob for few days. Admitted for COPD exacerbation. Has IPF. Never followed up.N/V/ abdominal pain, from acute pancreatitis with lipase 667. SOB multifactorial, ? ILD (entertained in the past), copd exacerbation vs. acute exacerbation of HFpEF. She also has DAVID, vs DAVID on CKD. PVCs on telemetry. 1. Acute pancreatitis (lipase 667): maybe drug induced from HCTZ, also patient with history of hypertriglyceridemia. -Hold HCTZ now and in the future -abdominal US- reviewed -Triglycerides 150, LFTs unremarkable on admission now rising -Advance diet as tolerated--> can have regular diabetic diet today -Added Niacin and fish oil to fenofibrate for hypertriglyceridemia per cardiolgoy recs. worsening LFTs, will discontinue Niacin 2.. AECOPD /IPF/UIP s/p IV solumedrol. Continue 40mg daily for 5 days. prednisone changed to 30mg by pulmonary, continue the same Duonebs Pulmonary Consult: Dr. Curiel/Dr. Ho pulmonary toilet Azithromycin for its anti inflammatory properties for COPD for 5 days. Considerations for antifibrotics medications per pulmonary as outpatient. 3.Acute exacerbation of diastolic CHF, pro bnp 4708, cxr vascular congestion s/p IV lasix, will stop due to worsening renal function. Continue to hold Cardiology consult with Dr. Obrien Monitor on telemetry. Monitor and replace electrolytes Continue ASA, Bystolic. Hold losartan and HCTZ 4. DM- Controlled HbA1c, 6.0 -Hold home po medications. Insulin sliding scale coverage -Diabetic diet 5. Hypothyroidism. Continue levothyroxine 6. DAVID vs DAVID on CKD. pre-renal azotemia, pancreatitis, lasix. creatinine 1.4 on 02/09 when she left the hospital and ranged from 1.3-1.6. Renal consult. Renal US, urine lytes, all reviewed. creatinine improved to 1.3, then abck to 1.5. Eleavted BUN, from lasix and steroids. Continue to hold lasix 7. B12 deficiency. Check B12 levels to monitor response to treatment- B12 600 range. DVT ppx: scd boots GI ppx: none code status: full code Disposition: Home with home services and home PT per PT evaluation. discharge date: 1-2 days I spent 40 minutes on the encounter. 50% spent on counselling and care coordination. Time of this note may not be the same as time of encounter. Subjective Date patient seen: Jun 27, 2019 ROS Limited/Unobtainable: No Constitutional: Denies: no symptoms, chills, diaphoresis, fever, malaise, weakness, other HEENT: Denies: no symptoms, eye pain, blurred vision, tearing, double vision, ear pain, ear discharge, nose pain, nose congestion, throat pain, throat swelling, mouth pain, mouth swelling, other Cardiovascular: Denies: no symptoms, chest pain, edema, irregular heart rate, lightheadedness, palpitations, syncope, other Respiratory: Denies: no symptoms, cough, orthopnea, shortness of breath, SOB with excertion, SOB at rest, sputum, stridor, wheezing, other Gastrointestinal/Abdominal: Denies: no symptoms, abdomen distended, abdominal pain, black stools, tarry stools, blood in stool, constipated, diarrhea, difficulty swallowing, nausea, poor appetite, poor fluid intake, rectal bleeding , vomiting, other Genitourinary: Denies: no symptoms, burning, discharge, frequency, flank pain, hematuria, incontinence, pain, urgency, other Neurologic/Psychiatric: Denies: no symptoms, anxiety, depressed, emotional problems, headache, numbness, paresthesia, pre-existing deficit, seizure, tingling, tremors, weakness, other Endocrine: Denies: no symptoms, excessive sweating, flushing, intolerance to cold, intolerance to heat, increased hunger, increased thirst, increased urine, unexplained weight gain, unexplained weight loss, other Hematologic/Lymphatic: Denies: no symptoms, anemia, easy bleeding, easy bruising, other Allergies: Coded Allergies: No Known Allergies (Verified , 08/18/07) Subjective seen and examined No complaints Comfortable Pulm changed prednisone to 30mg daily PO For renal US:renal US: Both kidneys demonstrate normal echogenicity. There is mild fullness to the left renal collecting system. Diet advanced and tolerating Objective Last 24 Hour Vital Signs Date Time Temp Pulse Resp B/P (MAP) Pulse Ox O2 Delivery O2 Flow Rate FiO2 06/27/19 08:00 98.4 65 21 132/61 (84) 93 06/27/19 07:37 69 18 98 Nasal Cannula 2.0 28 73 18 97 06/27/19 07:37 97 Nasal Cannula 2.0 28 06/27/19 04:00 97.8 78 18 120/54 (76) 95 06/27/19 04:00 78 06/27/19 01:13 60 18 97 Nasal Cannula 2.0 28 61 18 93 06/27/19 00:00 97.8 69 18 112/72 (85) 98 06/27/19 00:00 69 06/26/19 21:00 Nasal Cannula 2.0 06/26/19 20:00 63 06/26/19 20:00 97.7 63 18 125/57 (79) 97 06/26/19 19:40 63 18 98 Nasal Cannula 2.0 28 56 18 95 06/26/19 19:39 95 Nasal Cannula 2.0 28 06/26/19 19:30 86 18 95 Nasal Cannula 2.0 28 06/26/19 16:00 98.0 60 18 117/51 (73) 99 06/26/19 15:33 65 06/26/19 12:00 98.4 61 18 139/69 (92) 97 06/26/19 11:42 55 Intake and Output 06/26/19 06/27/19 19:00 07:00 Intake Total 600 ml 120 ml Balance 600 ml 120 ml Intake Oral 600 ml 120 ml # Voids 3 1 Laboratory Tests 06/27/19 05:37: Sodium Level 144, Potassium Level 4.1, Chloride Level 108H, Carbon Dioxide Level 29, Anion Gap 7, Blood Urea Nitrogen 53H, Creatinine 1.5H, Estimat Glomerular Filtration Rate , Glucose Level 112H, Calcium Level 9.2, Total Bilirubin 0.3, Aspartate Amino Transf (AST/SGOT) 55H, Alanine Aminotransferase ( ALT/SGPT) 84H, Alkaline Phosphatase 94, Total Protein 6.8, Albumin 3.1L, Globulin 3.7, Albumin/Globulin Ratio 0.8L Renal US:Both kidneys demonstrate normal echogenicity. There is mild fullness to the left renal collecting system. Height (Feet): 5 Height (Inches): 3.00 Weight (Pounds): 177 Objective General Appearance: normal inspection, well appearing, alert HEENT: normal ENT inspection, hearing grossly normal, normal voice Neck: normal inspection, full range of motion, supple, no bony tend Respiratory: normal inspection, no retraction,no wheezing, rales or rhonchi Cardiovascular: NSR, no m/r/g Gastrointestinal: soft, + epigastric tenderness, no guarding, normal BS Genitourinary: no CVA tenderness Musculoskeletal: normal inspection, back normal, normal range of motion Neurologic: normal inspection, alert, oriented x3, responsive, medical insurance clerk III-XII nml as tested, speech normal Psychiatric: normal inspection, judgement/insight normal, mood/affect normal Skin: No ulcers or rashes Lorne Antoine M.D. Jun 27, 2019 09:20
[2019-06-27 12:00] VITALS: BP_SYST 107; BP_SYST 108; BP_DIAS 60; BP_DIAS 75
--- NOTE | 2019-06-27 14:00 | NUR ---
NURSE NOTES: Physical therapy noted that the patient desat to 80% on room air. 2L NC was applied and patient After about 100 ft of walking, patient desat to 90% pulse ox. After a certain time, patient pulse ox was 97% on 2L NC.
[2019-06-27 16:00] VITALS: BP 108/75
--- NOTE | 2019-06-27 17:08 | Nephrology Progress Note ---
Assessment/Plan Problem List: (1) Nausea, vomiting, and diarrhea (2) ILD (interstitial lung disease) (3) GERD (gastroesophageal reflux disease) (4) (HFpEF) heart failure with preserved ejection fraction (5) Pancreatitis (6) COPD (chronic obstructive pulmonary disease) Plan #Acute kidney injury likely pre-renal azotemia in the setting of acute pancreatitis - UA bland - hold diuresis for one more day - monitor cr - hold HCTZ and cozaar for now - continue bystolic 5mg daily - hydralazine prn for bp control - monitor UOP - strict I&Os - daily weights #BP - stable - continue bystolic 5mg daily - hold HCTZ and cozaar for now #acute pancreatitis - pain control - advance diet as tolerated - hold off lasix for one more day - would avoid thiazide going forward renal US: Both kidneys demonstrate normal echogenicity. There is mild fullness to the left renal collecting system. Subjective Subjective BP controlled Cr 1.5m today Breathing stable Objective Objective Last 24 Hour Vital Signs Date Time Temp Pulse Resp B/P (MAP) Pulse Ox O2 Delivery O2 Flow Rate FiO2 06/27/19 16:00 96.4 72 21 108/75 (86) 100 06/27/19 13:38 67 18 98 Nasal Cannula 2.0 28 64 18 95 06/27/19 12:00 97.7 64 21 107/60 (76) 100 06/27/19 09:00 Nasal Cannula 2.0 06/27/19 08:02 63 06/27/19 08:00 98.4 65 21 132/61 (84) 93 06/27/19 07:37 69 18 98 Nasal Cannula 2.0 28 73 18 97 06/27/19 07:37 97 Nasal Cannula 2.0 28 06/27/19 04:00 97.8 78 18 120/54 (76) 95 06/27/19 04:00 78 06/27/19 01:13 60 18 97 Nasal Cannula 2.0 28 61 18 93 06/27/19 00:00 97.8 69 18 112/72 (85) 98 06/27/19 00:00 69 06/26/19 21:00 Nasal Cannula 2.0 06/26/19 20:00 63 06/26/19 20:00 97.7 63 18 125/57 (79) 97 06/26/19 19:40 63 18 98 Nasal Cannula 2.0 28 56 18 95 06/26/19 19:39 95 Nasal Cannula 2.0 28 06/26/19 19:30 86 18 95 Nasal Cannula 2.0 28 Intake and Output 06/26/19 06/27/19 19:00 07:00 Intake Total 600 ml 120 ml Balance 600 ml 120 ml Intake Oral 600 ml 120 ml # Voids 3 1 Laboratory Tests 06/27/19 05:37: Sodium Level 144, Potassium Level 4.1, Chloride Level 108H, Carbon Dioxide Level 29, Anion Gap 7, Blood Urea Nitrogen 53H, Creatinine 1.5H, Estimat Glomerular Filtration Rate , Glucose Level 112H, Calcium Level 9.2, Total Bilirubin 0.3, Aspartate Amino Transf (AST/SGOT) 55H, Alanine Aminotransferase ( ALT/SGPT) 84H, Alkaline Phosphatase 94, Total Protein 6.8, Albumin 3.1L, Globulin 3.7, Albumin/Globulin Ratio 0.8L Height (Feet): 5 Height (Inches): 3.00 Weight (Pounds): 177 Vianney Smith M.D. Jun 27, 2019 17:08
--- NOTE | 2019-06-27 18:50 | NUR ---
NURSE NOTES: Paged Dr. Sibley[facility] group about physical therapy note of patient possibly needing oxygen at home. Awaiting call back. Will be endorsed to assistant casino shift manager nurse.
--- NOTE | 2019-06-27 19:32 | NUR ---
HAND-OFF: Report given to JULY Daniel. Endorsed about physical therapy evaluation for possible need for o2 at home.
--- NOTE | 2019-06-27 19:35 | NUR ---
NURSE NOTES: Received report from JULY Delgado. Patient in bed awake showing no signs of acute distress. AOx4. Respiration even and non labored room air. No sob noted. IV on right hand 20g sl patent and intact. Side rails up x2. Bed in lowest position, wheels locked and alarm on. Call button within reach. All needs attended and met. Will continue plan of care.
[2019-06-27 20:00] VITALS: BP 102/54
[2019-06-28] VITALS: BP 118/99
[2019-06-28] MEDS: Albuterol/Ipratropium 3ml neb HHN SCH ×3 (01:26→14:18)
[2019-06-28 04:00] VITALS: BP 133/78
[2019-06-28] MEDS: NovoLOG Insulin Flexpen SUBQ SCH ×2 (05:46→12:33)
[2019-06-28 07:14] LABS: BASOPHILS % (AUTO) 0.4 % (0.0-2.0); EOSINOPHILS % (AUTO) 0.1 % (0.0-3.0); HEMATOCRIT 50.1 % (37.0-47.0); HEMOGLOBIN 15.4 G/DL (12.0-16.0); LYMPHOCYTES % (AUTO) 13.7 % (20.0-45.0); MEAN CORPUSCULAR VOLUME 95 FL (80-99); MONOCYTES % (AUTO) 6.5 % (1.0-10.0); NEUTROPHILS % (AUTO) 79.3 % (45.0-75.0); PLATELET COUNT 252 K/UL (150-450); RED BLOOD COUNT 5.29 M/UL (4.20-5.40); RED CELL DISTRIBUTION WIDTH 13.3 % (11.6-14.8); WHITE BLOOD COUNT 8.8 K/UL (4.8-10.8)
--- NOTE | 2019-06-28 07:17 | NUR ---
HAND-OFF: Report given to JULY Cornejo.
--- NOTE | 2019-06-28 07:20 | NUR ---
NURSE NOTES: Received report from JULY Daniel. Pt is laying in bed, sleeping. No distress noted. Bed is in lowest position, side rails up X2, and call light is within reach. Will continue to monitor.
[2019-06-28 07:57] LABS: ALANINE AMINOTRANSFERASE 62 U/L (12-78); ALBUMIN 3.1 G/DL (3.4-5.0); ALBUMIN/GLOBULIN RATIO 0.8 (1.0-2.7); ALKALINE PHOSPHATASE 94 U/L (46-116); ANION GAP 12 mmol/L (5-15); ASPARTATE AMINO TRANSFERASE 26 U/L (15-37); BILIRUBIN,TOTAL 0.3 MG/DL (0.2-1.0); BLOOD UREA NITROGEN 55 mg/dL (7-18); CALCIUM 9.2 MG/DL (8.5-10.1); CARBON DIOXIDE 26 MMOL/L (21-32); CHLORIDE 110 MMOL/L (98-107); CREATININE 1.6 MG/DL (0.55-1.30); POTASSIUM 4.3 MMOL/L (3.5-5.1); SODIUM 148 MMOL/L (136-145)
[2019-06-28 08:00] VITALS: BP 144/61
[2019-06-28] MEDS: Aspirin EC 81mg tab ORAL SCH (09:16)
[2019-06-28] MEDS: Bystolic 2.5mg Tab ORAL SCH (09:17)
[2019-06-28] MEDS: Azithromycin 250mg tab ORAL SCH (09:20)
--- NOTE | 2019-06-28 09:33 | General Progress Note ---
Assessment/Plan Problem List: (1) Pancreatitis ICD Codes: K85.90 - Acute pancreatitis without necrosis or infection, unspecified SNOMED: 19642289 (2) DAVID (acute kidney injury) ICD Codes: N17.9 - Acute kidney failure, unspecified SNOMED: 4674139, 27674281 (3) IPF (idiopathic pulmonary fibrosis) ICD Codes: J84.112 - Idiopathic pulmonary fibrosis SNOMED: 492475210 (4) Transaminitis ICD Codes: R74.0 - Nonspecific elevation of levels of transaminase and lactic acid dehydrogenase [LDH] SNOMED: 056271696, 119196564 (5) (HFpEF) heart failure with preserved ejection fraction ICD Codes: I50.30 - Unspecified diastolic (congestive) heart failure SNOMED: 716368132 (6) COPD (chronic obstructive pulmonary disease) ICD Codes: J44.9 - Chronic obstructive pulmonary disease, unspecified SNOMED: 24293582 (7) Abdominal pain ICD Codes: R10.9 - Unspecified abdominal pain SNOMED: 30514947 (8) Nausea, vomiting, and diarrhea ICD Codes: R11.2 - Nausea with vomiting, unspecified; R19.7 - Diarrhea, unspecified SNOMED: 2972503 (9) PVC (premature ventricular contraction) ICD Codes: I49.3 - Ventricular premature depolarization SNOMED: 83029685 (10) Hypertriglyceridemia ICD Codes: E78.1 - Pure hyperglyceridemia SNOMED: 183810294 (11) ILD (interstitial lung disease) ICD Codes: J84.9 - Interstitial pulmonary disease, unspecified SNOMED: 427116878 (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 Admitted for COPD exacerbation. Has IPF. Never followed up.N/V/ abdominal pain, from acute pancreatitis with lipase 667. SOB multifactorial, ? ILD (entertained in the past), copd exacerbation vs. acute exacerbation of HFpEF. She also has DAVID, vs DAVID on CKD. PVCs on telemetry. 1. Acute pancreatitis (lipase 667): maybe drug induced from HCTZ, also patient with history of hypertriglyceridemia. -Hold HCTZ now and in the future -abdominal US- reviewed -Triglycerides 150, LFTs unremarkable on admission now rising -Advance diet as tolerated--> can have regular diabetic diet today -Added Niacin and fish oil to fenofibrate for hypertriglyceridemia per cardiolgoy recs. worsening LFTs, will discontinue Niacin 2.. AECOPD /IPF/UIP s/p IV solumedrol. Continue 40mg daily for 5 days. prednisone changed to 30mg by pulmonary, continue the same Duonebs Pulmonary Consult: Dr. Curiel/Dr. Ho pulmonary toilet Azithromycin for its anti inflammatory properties for COPD for 5 days. Considerations for antifibrotics medications per pulmonary as outpatient. 3.Acute exacerbation of diastolic CHF, pro bnp 4708, cxr vascular congestion s/p IV lasix, will stop due to worsening renal function. Continue to hold Cardiology consult with Dr. Obrien Monitor on telemetry. Monitor and replace electrolytes Continue ASA, Bystolic. Hold losartan and HCTZ 4. DM- Controlled HbA1c, 6.0 -Hold home po medications. Insulin sliding scale coverage -Diabetic diet 5. Hypothyroidism. Continue levothyroxine 6. DAVID vs DAVID on CKD. pre-renal azotemia, pancreatitis, lasix. creatinine 1.4 on 02/09 when she left the hospital and ranged from 1.3-1.6. Renal consult. Renal US, urine lytes, all reviewed. creatinine improved to 1.3, then abck to 1.5. Eleavted BUN, from lasix and steroids. Continue to hold lasix 7. B12 deficiency. Check B12 levels to monitor response to treatment- B12 600 range. DVT ppx: scd boots GI ppx: none code status: full code Disposition: Home with home services and home PT per PT evaluation. discharge date: 1-2 days I spent 40 minutes on the encounter. 50% spent on counselling and care coordination. Time of this note may not be the same as time of encounter. Subjective Allergies: Coded Allergies: No Known Allergies (Verified , 08/18/07) Subjective seen and examined No complaints Comfortable Pulm changed prednisone to 30mg daily PO For renal US:renal US: Both kidneys demonstrate normal echogenicity. There is mild fullness to the left renal collecting system. Diet advanced and tolerating Objective Last 24 Hour Vital Signs Date Time Temp Pulse Resp B/P (MAP) Pulse Ox O2 Delivery O2 Flow Rate FiO2 06/28/19 08:16 97 Nasal Cannula 2.0 28 06/28/19 08:16 50 20 99 Nasal Cannula 2.0 28 45 20 97 06/28/19 04:00 97.7 64 19 133/78 (96) 94 06/28/19 04:00 69 06/28/19 01:26 64 18 98 Nasal Cannula 2.0 28 57 18 96 06/28/19 00:00 97.9 62 18 118/99 (105) 98 06/28/19 00:00 66 06/27/19 21:00 Nasal Cannula 2.0 06/27/19 20:00 76 06/27/19 20:00 98.1 64 18 102/54 (70) 100 06/27/19 19:40 97 Nasal Cannula 2.0 28 06/27/19 19:40 58 18 98 Nasal Cannula 2.0 28 54 18 94 06/27/19 16:00 96.4 72 21 108/75 (86) 100 06/27/19 15:28 68 06/27/19 13:38 67 18 98 Nasal Cannula 2.0 28 64 18 95 06/27/19 12:00 97.7 64 21 107/60 (76) 100 06/27/19 11:44 71 Intake and Output 06/27/19 06/28/19 19:00 07:00 Intake Total 600 ml 240 ml Balance 600 ml 240 ml Intake Oral 600 ml 240 ml # Voids 2 1 Laboratory Tests 06/28/19 06:16: White Blood Count 8.8, Red Blood Count 5.29, Hemoglobin 15.4, Hematocrit 50.1H, Mean Corpuscular Volume 95, Mean Corpuscular Hemoglobin 29.1, Mean Corpuscular Hemoglobin Concent 30.7L, Red Cell Distribution Width 13.3, Platelet Count 252, Mean Platelet Volume 8.7, Neutrophils (%) (Auto) 79.3H, Lymphocytes (%) (Auto) 13.7L, Monocytes (%) (Auto) 6.5, Eosinophils (%) (Auto) 0.1, Basophils (%) (Auto ) 0.4, Sodium Level 148H, Potassium Level 4.3, Chloride Level 110H, Carbon Dioxide Level 26, Anion Gap 12, Blood Urea Nitrogen 55H, Creatinine 1.6H, Estimat Glomerular Filtration Rate , Glucose Level 103, Calcium Level 9.2, Total Bilirubin 0.3, Aspartate Amino Transf (AST/SGOT) 26, Alanine Aminotransferase (ALT/SGPT) 62, Alkaline Phosphatase 94, Total Protein 7.0, Albumin 3.1L, Globulin 3.9, Albumin/Globulin Ratio 0.8L Height (Feet): 5 Height (Inches): 3.00 Weight (Pounds): 176 Objective General Appearance: normal inspection, well appearing, alert HEENT: normal ENT inspection, hearing grossly normal, normal voice Neck: normal inspection, full range of motion, supple, no bony tend Respiratory: normal inspection, no retraction,no wheezing, rales or rhonchi Cardiovascular: NSR, no m/r/g Gastrointestinal: soft, + epigastric tenderness, no guarding, normal BS Genitourinary: no CVA tenderness Musculoskeletal: normal inspection, back normal, normal range of motion Neurologic: normal inspection, alert, oriented x3, responsive, director of social media marketing III-XII nml as tested, speech normal Psychiatric: normal inspection, judgement/insight normal, mood/affect normal Skin: No ulcers or rashes Lrone Antoine M.D. Jun 28, 2019 09:33
[2019-06-28] MEDS: Heparin 5000 units/ml inj SUBQ SCH (09:34)
--- NOTE | 2019-06-28 11:23 | Pulmonology Progress Note ---
Assessment/Plan Problems: (1) IPF (idiopathic pulmonary fibrosis) (2) ILD (interstitial lung disease) (3) UIP (usual interstitial pneumonitis) (4) COPD (chronic obstructive pulmonary disease) (5) (HFpEF) heart failure with preserved ejection fraction (6) Pancreatitis (7) DAVID (acute kidney injury) Assessment/Plan Optimize pulmonary hygiene/mobilize as tolerated Titrate down Fio2 to keep SaO2 > 90% RTC and PRN DUOnebs Continue Pred 30 (D4/5) D/C Azithro (D5/5) Monitor volumes and renal function DVT Px: Hep SQ Needs op F/U, PFT's, consideration for anti-fibrotic therapy FC, discuss GOC Subjective Allergies: Coded Allergies: No Known Allergies (Verified , 08/18/07) Subjective AFVSS on RA - 2L less cough less SOB less wheezing no FC Objective Last 24 Hour Vital Signs Date Time Temp Pulse Resp B/P (MAP) Pulse Ox O2 Delivery O2 Flow Rate FiO2 06/28/19 09:00 Nasal Cannula 2.0 06/28/19 08:16 97 Nasal Cannula 2.0 28 06/28/19 08:16 50 20 99 Nasal Cannula 2.0 28 45 20 97 06/28/19 08:00 97.5 54 21 144/61 (88) 95 06/28/19 04:00 97.7 64 19 133/78 (96) 94 06/28/19 04:00 69 06/28/19 01:26 64 18 98 Nasal Cannula 2.0 28 57 18 96 06/28/19 00:00 97.9 62 18 118/99 (105) 98 06/28/19 00:00 66 06/27/19 21:00 Nasal Cannula 2.0 06/27/19 20:00 76 06/27/19 20:00 98.1 64 18 102/54 (70) 100 06/27/19 19:40 97 Nasal Cannula 2.0 28 06/27/19 19:40 58 18 98 Nasal Cannula 2.0 28 54 18 94 06/27/19 16:00 96.4 72 21 108/75 (86) 100 06/27/19 15:28 68 06/27/19 13:38 67 18 98 Nasal Cannula 2.0 28 64 18 95 06/27/19 12:00 97.7 64 21 107/60 (76) 100 06/27/19 11:44 71 Intake and Output 06/27/19 06/28/19 19:00 07:00 Intake Total 600 ml 240 ml Balance 600 ml 240 ml Intake Oral 600 ml 240 ml # Voids 2 1 General Appearance: WD/WN, no acute distress HEENT: normocephalic, atraumatic, anicteric, mucous membranes moist Respiratory/Chest: crackles/rales Cardiovascular: normal peripheral pulses, normal rate, regular rhythm Abdomen: normal bowel sounds, soft, non tender, no organomegaly, non distended , no mass Extremities: no cyanosis, no clubbing, no edema Laboratory Tests 06/28/19 06:16: White Blood Count 8.8, Red Blood Count 5.29, Hemoglobin 15.4, Hematocrit 50.1H, Mean Corpuscular Volume 95, Mean Corpuscular Hemoglobin 29.1, Mean Corpuscular Hemoglobin Concent 30.7L, Red Cell Distribution Width 13.3, Platelet Count 252, Mean Platelet Volume 8.7, Neutrophils (%) (Auto) 79.3H, Lymphocytes (%) (Auto) 13.7L, Monocytes (%) (Auto) 6.5, Eosinophils (%) (Auto) 0.1, Basophils (%) (Auto ) 0.4, Sodium Level 148H, Potassium Level 4.3, Chloride Level 110H, Carbon Dioxide Level 26, Anion Gap 12, Blood Urea Nitrogen 55H, Creatinine 1.6H, Estimat Glomerular Filtration Rate , Glucose Level 103, Calcium Level 9.2, Total Bilirubin 0.3, Aspartate Amino Transf (AST/SGOT) 26, Alanine Aminotransferase (ALT/SGPT) 62, Alkaline Phosphatase 94, Total Protein 7.0, Albumin 3.1L, Globulin 3.9, Albumin/Globulin Ratio 0.8L Current Medications Medications (Trade) Dose Ordered Sig/Diane Route PRN Reason Start Time Stop Time Status Last Admin Dose Admin Acetaminophen (Tylenol) 650 mg Q6H PRN ORAL Mild Pain/Temp > 100.5 06/24/19 05:45 07/24/19 05:44 Albuterol/ Ipratropium (Albuterol/ Ipratropium) 3 ml Q4H PRN HHN Shortness of Breath 06/24/19 05:45 06/29/19 05:44 Albuterol/ Ipratropium (Albuterol/ Ipratropium) 3 ml Q6HRT HHN 06/26/19 19:00 07/01/19 18:59 06/28/19 08:19 Aspirin (Ecotrin) 81 mg DAILY ORAL 06/25/19 09:00 07/25/19 08:59 06/28/19 09:16 Azithromycin (Zithromax) 500 mg DAILY ORAL 06/24/19 09:00 06/29/19 10:00 06/28/19 09:20 Dextrose (Dextrose 50%) 25 ml Q30M PRN IV Hypoglycemia 06/24/19 05:45 07/24/19 05:44 Dextrose (Dextrose 50%) 50 ml Q30M PRN IV Hypoglycemia 06/24/19 05:45 07/24/19 05:44 Fenofibrate (Tricor) 134 mg DAILY ORAL 06/25/19 09:00 07/25/19 08:59 06/28/19 09:20 Fish Oil (Fish Oil) 1,000 mg DAILY ORAL 06/26/19 09:00 07/26/19 08:59 06/28/19 09:19 Guaifenesin/ Dextromethorphan (Robitussin DM Syrup) 10 ml Q6H PRN ORAL For Cough 06/25/19 19:30 07/25/19 19:29 06/27/19 09:26 Heparin Sodium (Porcine) (Heparin 5000 units/ml) 5,000 units EVERY 12 HOURS SUBQ 06/26/19 21:00 07/26/19 20:59 06/28/19 09:34 Hydralazine HCl (Apresoline) 25 mg Q6H PRN ORAL For High Blood Pressure 06/24/19 05:45 07/24/19 05:44 Insulin Aspart (NovoLOG) BEFORE MEALS AND HS SUBQ 06/24/19 11:30 07/24/19 11:29 06/27/19 21:20 Levothyroxine Sodium (Synthroid) 112 mcg Q24H ORAL 06/25/19 06:30 07/25/19 06:29 06/28/19 05:45 Nebivolol (Bystolic) 5 mg DAILY ORAL 06/25/19 09:00 07/25/19 08:59 06/28/19 09:17 Ondansetron HCl (Zofran) 4 mg Q6H PRN IVP Nausea & Vomiting 06/24/19 05:45 07/24/19 05:44 Prednisone (predniSONE) 30 mg DAILY ORAL 06/26/19 09:00 07/24/19 08:59 06/28/19 09:20 Javi Ho MD Jun 28, 2019 11:23
--- NOTE | 2019-06-28 11:33 | NUR ---
DISCHARGE PLANNING PATIENT HAS BEEN REFERRED TO [facility] FOR HOME OXYGEN DELIVERY TO HOSPITAL PENDING Addendum: 06/28/19 at 1543 by JOHN WASHINGTON LVN LVN OXYGEN WAS DELIVERED TO [facility] FAXED TO [facility] T: [phone]
--- NOTE | 2019-06-28 11:56 | NUR ---
NURSE NOTES: PT was taken off 2L NC. At rest patients O2 is 86% in room air. WIll continue to monitor.
[2019-06-28 12:00] VITALS: BP 117/49
--- NOTE | 2019-06-28 12:34 | NUR ---
NURSE NOTES: pts o2 is 94% on room air at rest. While walking pts o2 went to 86% on room air. Applied O2 while ambulating. O2 went to 90% via 2LNC
[2019-06-28] MEDS ORDERED: FISH OIL CAP1000 MG ORAL (12:40)
[2019-06-28] MEDS ORDERED: DUONEB 0.5-3(2.53 ML HHN (12:40)
[2019-06-28] MEDS ORDERED: GUAIFENESIN DM118 M1 ORAL (12:40)
[2019-06-28] MEDS ORDERED: FENOFIBRATE 13134 MG ORAL (12:40)
[2019-06-28] MEDS ORDERED: PREDNISONE10 MG ORAL (12:40)
--- NOTE | 2019-06-28 12:46 | Discharge Instructions ---
Discharge Instructions Discharge Instructions Services at Discharge: physical therapy, home health services, oxygen therapy Diet: 2 GM sodium (low sodium), diabetic calorie control Resume Normal Activity?: Yes For Congestive Heart Failure Reminder Report to your physician any weight gain of 5 pounds or more in one week. Lorne Antoine M.D. Jun 28, 2019 12:46
--- NOTE | 2019-06-28 12:56 | Discharge Summary ---
Discharge Summary Hospital Course Date of Admission Jun 24, 2019 at 04:02 Date of Discharge Admitting Diagnosis Acute pancreatitis, AECOPD vs IPF, DAVID vs DAVID on CKD HPI Veronica Sesay is a 84 year old female who was admitted on Jun 24, 2019 at 04:02 for Acute pancreatitis, AECOPD va IPF, heart failure exacerbation Consultations Cardiology: Dr. Zeus Obrien Pulmonary: Dr. Javi Ho Nephrology: Dr. Vianney Smith Procedures EKG Telemetry CXR Abdominal Ultrasound Hospital Course 84 year old brought in by family for n/v/abdominal pain of 1 day and sob for few days. Admitted for COPD exacerbation. Has IPF. Never followed up.N/V/ abdominal pain, from acute pancreatitis with lipase 667. SOB multifactorial, ? ILD (entertained in the past), copd exacerbation vs. acute exacerbation of HFpEF. She also has DAVID, vs DAVID on CKD. PVCs on telemetry. 1. Acute pancreatitis (lipase 667): maybe drug induced from HCTZ, also patient with history of hypertriglyceridemia. -Hold HCTZ now and in the future -abdominal US- reviewed, no gallstones or cbd dilatation -Triglycerides 150, LFTs unremarkable on admission -Advanced diet as tolerated--> Tolerating regular diabetic diet -Added Niacin and fish oil to fenofibrate for hypertriglyceridemia per cardiolgoy recs. worsening LFTs, discontinued Niacin. LFTs normal now. 2.. AECOPD /IPF/UIP s/p IV solumedrol. Continue 40mg daily for 5 days. prednisone changed to 30mg by pulmonary, continue the same for another 2 days. then stop [facility] Consult: Dr. Curiel/Dr. Ho pulmonary toilet Azithromycin for its anti inflammatory properties for COPD for 5 days. Completed treatment Considerations for anti fibrotics medications per pulmonary as outpatient. Also needs PFTs. I went over this in detail with Son Orlin [place] 24946% upon ambulation. Oxygen therapy ordered. Should use Low flow 2l via NC on ambulation at home. 3.Acute exacerbation of diastolic CHF, pro bnp 4708, cxr vascular congestion s/p IV lasix, stopped due to worsening renal function. Continue to hold, on exam euvolemic Cardiology consult with Dr. Obrien Monitored on telemetry. Monitored and replaced electrolytes Continue ASA, Bystolic. Hold losartan and HCTZ 4. DM- Controlled HbA1c, 6.0 -Hold home po medications. -Diabetic diet 5. Hypothyroidism. Continue levothyroxine 6. DAVID vs DAVID on CKD. pre-renal azotemia, pancreatitis, lasix. creatinine 1.4 on 02/09 when she left the hospital and ranged from 1.3-1.6. Renal consult. Renal US, urine lytes, all reviewed. creatinine improved to 1.3, then abck to 1.5. Eleavted BUN, from lasix and steroids. Continue to hold lasix. Patient needs close follow up of renal function. I explained this to son Orlin. 7. B12 deficiency. Check B12 levels to monitor response to treatment- B12 600 range. DVT ppx: scd boots GI ppx: none code status: full code Disposition: Home with home services and home PT per PT evaluation. discharge date: 1-2 days On exam today: General Appearance: no acute distress HEENT: normocephalic, atraumatic, anicteric, mucous membranes moist Respiratory/Chest: crackles/rales Cardiovascular: normal peripheral pulses, normal rate, regular rhythm Abdomen: normal bowel sounds, soft, non tender, no organomegaly, non distended , no mass Extremities: no cyanosis, no clubbing, no edema I spent 35 minutes on the encounter. Time of this note may not be the same as time of encounter. Discharge Medications New Medications: Fenofibrate (Fenofibrate) 134 Mg Capsule 134 MG ORAL DAILY for 30 Days, #30 CAP Fish Oil (Fish Oil 1,000 mg Capsule) 1 Each Capsule 1000 MG ORAL DAILY for 30 Days, #30 CAP Guaifenesin/Dextromethorphan (Guaifenesin Dm Syrup) 5 Ml Syrup 10 ML ORAL Q6H PRN for 7 Days, #10 ML Ipratropium/Albuterol Sulfate (DuoNeb 0.5-3(2.5)mg/3ml) 3 Ml Ampul.neb 3 ML HHN Q6HRT for 14 Days, #1 EA Prednisone* (Prednisone*) 10 Mg Tablet 30 MG ORAL DAILY for 2 Days, #2 TAB Continued Medications: Aspirin Ec* (Aspirin Ec*) 81 Mg Tablet.dr 81 MG ORAL DAILY, TAB Levothyroxine Sodium* (Levothyroxine Sodium*) 112 Mcg Tablet 137 MCG ORAL DAILY, TAB Take in the morning on an empty stomach, at least 30 minutes before food. Metformin Hcl* (Metformin Hcl*) 1,000 Mg Tablet 1000 MG ORAL DAILY, TAB Nebivolol Hcl (Bystolic*) 10 Mg Tablet 5 MG ORAL DAILY, TAB Pioglitazone Hcl* (Actos*) 30 Mg Tablet 30 MG ORAL DAILY, TAB Discontinued Medications: Hydrochlorothiazide* (Hydrochlorothiazide*) 25 Mg Tablet 25 MG ORAL DAILY, TAB Losartan Potassium* (Losartan Potassium*) 50 Mg Tablet 100 MG ORAL DAILY, TAB Simvastatin (Zocor) 80 Mg Tablet 80 MG ORAL BEDTIME, TAB Discharge Condition Upon Discharge: stable Discharge Disposition Patient was discharged to home with home health and PT Discharge Diagnoses: (1) Pancreatitis (2) IPF (idiopathic pulmonary fibrosis) (3) UIP (usual interstitial pneumonitis) (4) Transaminitis (5) DAVID (acute kidney injury) (6) Hypertriglyceridemia (7) PVC (premature ventricular contraction) (8) GERD (gastroesophageal reflux disease) (9) COPD (chronic obstructive pulmonary disease) (10) (HFpEF) heart failure with preserved ejection fraction (11) Atrial bigeminy (12) Hypoxemia Discharge Instructions Discharge Instructions Services Upon Discharge: physical therapy, home health services, oxygen therapy Lorne Antoine M.D. Jun 28, 2019 12:56
--- NOTE | 2019-06-28 14:49 | Nephrology Progress Note ---
Assessment/Plan Problem List: (1) Nausea, vomiting, and diarrhea (2) ILD (interstitial lung disease) (3) GERD (gastroesophageal reflux disease) (4) (HFpEF) heart failure with preserved ejection fraction (5) Pancreatitis (6) COPD (chronic obstructive pulmonary disease) Plan #Acute kidney injury likely pre-renal azotemia in the setting of acute pancreatitis - UA bland - hold diuresis for one more day - monitor cr - hold HCTZ and cozaar for now - continue bystolic 5mg daily - hydralazine prn for bp control - monitor UOP - strict I&Os - daily weights #BP - stable - continue bystolic 5mg daily - hold HCTZ and cozaar for now #acute pancreatitis - pain control - advance diet as tolerated - hold off lasix for one more day - would avoid thiazide going forward renal US: Both kidneys demonstrate normal echogenicity. There is mild fullness to the left renal collecting system. Subjective Subjective BP controlled Cr 1.5m today Breathing stable Objective Objective Last 24 Hour Vital Signs Date Time Temp Pulse Resp B/P (MAP) Pulse Ox O2 Delivery O2 Flow Rate FiO2 06/28/19 14:12 45 20 99 Nasal Cannula 2.0 28 49 20 95 06/28/19 12:00 97.7 77 20 117/49 (71) 93 06/28/19 12:00 72 06/28/19 09:00 Nasal Cannula 2.0 06/28/19 08:16 97 Nasal Cannula 2.0 28 06/28/19 08:16 50 20 99 Nasal Cannula 2.0 28 45 20 97 06/28/19 08:00 97.5 54 21 144/61 (88) 95 06/28/19 08:00 76 06/28/19 04:00 97.7 64 19 133/78 (96) 94 06/28/19 04:00 69 06/28/19 01:26 64 18 98 Nasal Cannula 2.0 28 57 18 96 06/28/19 00:00 97.9 62 18 118/99 (105) 98 06/28/19 00:00 66 06/27/19 21:00 Nasal Cannula 2.0 06/27/19 20:00 76 06/27/19 20:00 98.1 64 18 102/54 (70) 100 06/27/19 19:40 97 Nasal Cannula 2.0 28 06/27/19 19:40 58 18 98 Nasal Cannula 2.0 28 54 18 94 06/27/19 16:00 96.4 72 21 108/75 (86) 100 06/27/19 15:28 68 Intake and Output 06/27/19 06/28/19 19:00 07:00 Intake Total 600 ml 240 ml Balance 600 ml 240 ml Intake Oral 600 ml 240 ml # Voids 2 1 Laboratory Tests 06/28/19 06:16: White Blood Count 8.8, Red Blood Count 5.29, Hemoglobin 15.4, Hematocrit 50.1H, Mean Corpuscular Volume 95, Mean Corpuscular Hemoglobin 29.1, Mean Corpuscular Hemoglobin Concent 30.7L, Red Cell Distribution Width 13.3, Platelet Count 252, Mean Platelet Volume 8.7, Neutrophils (%) (Auto) 79.3H, Lymphocytes (%) (Auto) 13.7L, Monocytes (%) (Auto) 6.5, Eosinophils (%) (Auto) 0.1, Basophils (%) (Auto ) 0.4, Sodium Level 148H, Potassium Level 4.3, Chloride Level 110H, Carbon Dioxide Level 26, Anion Gap 12, Blood Urea Nitrogen 55H, Creatinine 1.6H, Estimat Glomerular Filtration Rate , Glucose Level 103, Calcium Level 9.2, Total Bilirubin 0.3, Aspartate Amino Transf (AST/SGOT) 26, Alanine Aminotransferase (ALT/SGPT) 62, Alkaline Phosphatase 94, Total Protein 7.0, Albumin 3.1L, Globulin 3.9, Albumin/Globulin Ratio 0.8L Height (Feet): 5 Height (Inches): 3.00 Weight (Pounds): 176 Vianney Smith M.D. Jun 28, 2019 14:49
--- NOTE | 2019-06-28 15:30 | NUR ---
NURSE NOTES: Patient was discharged per MD orders. Heart monitor removed and returned to MT. IV removed. No redness or swelling noted. Pt left with the O2 that was provided. Pt was accompanied by her son and daughter. Belongings are accounted for. Belongings list signed and in chart. Pt educated on how to use O2 tank. Pt and family verbalized understanding. Pt stable at time of DC.
== END 2019-06-28 15:39 | disposition home or self-care (01) | DRG 438 ==
LOC: EMR 03:13 → 2W 04:02 → EDBEDREQ 04:07 → 2E 06:55
DX: K85.90 Acute pancreatitis without necrosis or infection, unspecified (principal); I50.33 Acute on chronic diastolic (congestive) heart failure; J44.1 Chronic obstructive pulmonary disease with (acute) exacerbation; I13.0 Hypertensive heart and chronic kidney disease with heart failure and stage 1 through stage 4 chronic kidney disease, or unspecified chronic kidney disease; N17.9 Acute kidney failure, unspecified; R19.7 Diarrhea, unspecified; R11.2 Nausea with vomiting, unspecified; E03.9 Hypothyroidism, unspecified; E53.8 Deficiency of other specified B group vitamins; N18.9 Chronic kidney disease, unspecified; E78.1 Pure hyperglyceridemia; J84.112 Idiopathic pulmonary fibrosis; J84.89 Other specified interstitial pulmonary diseases; R74.0 Nonspecific elevation of levels of transaminase and lactic acid dehydrogenase [LDH]; I49.3 Ventricular premature depolarization; R00.8 Other abnormalities of heart beat; R09.02 Hypoxemia
CPT/HCPCS: 36415; 71045; 76700; 80048; 80053; 80061; 81001; 82570; 82607; 82962; 83036; 83690; 83880; 84300; 84443; 84484; 85025; 85610; 85730; 87040; 94640; 94664; 96365; 96375; 99285; J1815; J2405; J7620

== ENCOUNTER 2019-07-16 10:38 | Inpatient (IN) | payer MEDICARE, OTHER ==
[~2019-07-16] VITALS: Ht 167.6 cm; Wt 78.0 kg
[~2019-07-16 10:38] MED LIST changes: +DUONEB 0.5-3(2.53 ML HHN; +FENOFIBRATE 13134 MG ORAL; +FISH OIL CAP1000 MG ORAL; +GUAIFENESIN DM118 M1 ORAL; +GUAIFENESIN-CO118 M1 ORAL; +HYDROCHLOROTHIA25 MG ORAL; +PREDNISONE10 MG ORAL
[2019-07-16 10:55] VITALS: BP 161/134
--- NOTE | 2019-07-16 10:55 | NUR ---
ED Nurse Note: Pt from home and presents to ED with respiratory distress that has been progressive for the last 2 weeks. Noted bilateral leg pitting edema and SOB at rest. No JVD. AAO x4 ambulatory with dyspnea. Sats 94 % in 3LPm of o2 via Nasal cannula.
--- NOTE | 2019-07-16 11:03 | Emergency Room Report ---
History of Present Illness General Chief Complaint: Dyspnea/Respdistress Source: Family Member Present Illness HPI Disclaimer: Please note that this report is being documented using DRAGON technology. This can lead to erroneous entry secondary to incorrect interpretation by the dictating instrument. HPI: 84-year-old female with a history of COPD, CHF, diabetes, hypothyroidism, CKD presents for evaluation shortness of breath. She was recently admitted to the hospital for CHF and COPD exacerbation. She has been complaining of 2 to 3 days exertional dyspnea, shortness of breath but denies any chest pain or pressure. There is no fall or loss of consciousness. He denies any abdominal pain, vomiting, diarrhea, cough, fever or chills. Patient uses oxygen at home but notes an increase in oxygen requirement to 3 L. Denies lower extremity swelling. PMH: COPD, CHF, diabetes, pancreatitis PSH: See chart Allergies: Denies Social Hx: Former smoker, quit 5 months ago Allergies: Coded Allergies: No Known Allergies (Verified , 08/18/07) Nursing Documentation-PMH Hx Cardiac Problems: Yes Hx Hypertension: Yes Hx Pacemaker: No - hyperlipidimia Hx Diabetes: Yes Hx Cancer: No Hx Gastrointestinal Problems: No Hx Neurological Problems: No Review of Systems All Other Systems: negative except mentioned in HPI Physical Exam Vital Signs Date Time Temp Pulse Resp B/P (MAP) Pulse Ox O2 Delivery O2 Flow Rate FiO2 07/16/19 10:45 97.0 98 29 161/34 (76) Nasal Cannula 3.0 General: Awake and alert, no acute distress HEENT: NC/AT. EOMI. Cardiovascular: Borderline tachycardia. S1 and S2 normal. No murmur appreciated Resp: On nasal cannula. Normal work of breathing. No cough, wheezing or crackles appreciated Abdomen: Abdomen is soft, nondistended. Nontender Skin: Intact. No abrasions, laceration or rash over the exposed skin MSK: Normal tone and bulk. Moving all extremities. No obvious deformity. Nonpitting edema in the lower extremities. Neuro: Awake and alert. Mentating appropriately. Procedures Critical Care Time Critical Care Time Total critical care time: Approximately 31 minutes Due to a high probability of clinically significant, life threatening deterioration, the patient required the highest level of preparedness to intervene emergently and I personally spent this critical care time directly and personally managing the patient. This critical care time included obtaining a history, examining the patient, pulse oximetry, ordering and reviewing studies , ordering treatments, evaluating response to treatment and updating management plan as needed, frequent reassessment and discussion with other providers as well as arranging for ultimate disposition. This critical to care time was performed to assess and manage the high probability of life-threatening deterioration that could result in multiorgan failure. This critical care time is separate from the separately billable procedures and treating other patients. Medical Decision Making Diagnostic Impression: Primary Impression: COPD (chronic obstructive pulmonary disease) Additional Impression: Hyperkalemia ER Course Is an 84-year-old female with history of COPD, CHF presenting for evaluation of exertional dyspnea shortness of breath. Differential includes was not limited to CHF exacerbation, COPD exacerbation, ACS, angina, deconditioning, electrolyte abnormality, pneumonia, pneumothorax. We will start broad cardiac and respiratory work-up with chest x-ray, EKG, labs including B and peptide, troponin. There are no wheezes on exam and the patient would present more as a CHF exacerbation. Will treat with Lasix and monitor closely. Laboratory Tests Test 07/16/19 11:00 07/16/19 11:35 White Blood Count 7.0 K/UL (4.8-10.8) Red Blood Count 5.09 M/UL (4.20-5.40) Hemoglobin 15.0 G/DL (12.0-16.0) Hematocrit 48.5 % (37.0-47.0) H Mean Corpuscular Volume 95 FL (80-99) Mean Corpuscular Hemoglobin 29.4 PG (27.0-31.0) Mean Corpuscular Hemoglobin Concent 30.9 G/DL (32.0-36.0) L Red Cell Distribution Width 14.5 % (11.6-14.8) Platelet Count 285 K/UL (150-450) Mean Platelet Volume 7.6 FL (6.5-10.1) Neutrophils (%) (Auto) 83.1 % (45.0-75.0) H Lymphocytes (%) (Auto) 9.5 % (20.0-45.0) L Monocytes (%) (Auto) 4.6 % (1.0-10.0) Eosinophils (%) (Auto) 1.2 % (0.0-3.0) Basophils (%) (Auto) 1.5 % (0.0-2.0) Sodium Level 143 MMOL/L (136-145) Potassium Level 5.8 MMOL/L (3.5-5.1) H Chloride Level 109 MMOL/L (98-107) H Carbon Dioxide Level 27 MMOL/L (21-32) Anion Gap 7 mmol/L (5-15) Blood Urea Nitrogen 40 mg/dL (7-18) H Creatinine 1.6 MG/DL (0.55-1.30) H Estimate Glomerular Filtration Rate mL/min (>60) Glucose Level 181 MG/DL (74-106) H Calcium Level 9.3 MG/DL (8.5-10.1) Total Bilirubin 0.6 MG/DL (0.2-1.0) Aspartate Amino Transferase (AST) 22 U/L (15-37) Alanine Aminotransferase (ALT) 25 U/L (12-78) Alkaline Phosphatase 67 U/L (46-116) Total Creatine Kinase 77 U/L (26-308) Creatine Kinase MB 0.9 NG/ML (0.0-3.6) Creatine Kinase MB Relative Index 1.1 Troponin I 0.000 ng/mL (0.000-0.056) Pro-B-Type Natriuretic Peptide 02892 pg/mL (0-125) H Total Protein 7.5 G/DL (6.4-8.2) Albumin 3.2 G/DL (3.4-5.0) L Globulin 4.3 g/dL Albumin/Globulin Ratio 0.7 (1.0-2.7) L Arterial Blood pH 7.281 (7.350-7.450) Arterial Blood Partial Pressure CO2 48.5 mmHg (35.0-45.0) H Arterial Blood Partial Pressure O2 57.5 mmHg (75.0-100.0) L Arterial Blood HCO3 22.3 mmol/L (22.0-26.0) Arterial Blood Oxygen Saturation 87.3 % (95-100) *L Arterial Blood Base Excess -4.7 (-2-2) L Porfirio Test Positive EKG Diagnostic Results EKG Time: 11:12 Rate: normal Rhythm: NSR ST Segments: no acute changes Other Impression Sinus rhythm, frequent PVCs, no ST segment changes Rhythm Strip Diag. Results Rhythm Strip Time: 11:12 EP Interpretation: yes Rate: 80s Rhythm: other - Sinus rhythm with frequent PVC Chest X-Ray Diagnostic Results Chest X-Ray Diagnostic Results : Chest X-Ray Ordered: Yes # of Views/Limited/Complete: 1 View Indication: Shortness of Breath EP Interpretation: Yes Interpretation: other - Bilateral pulmonary congestion and small effusions. Impression: Other - Bilateral vascular congestion and small effusion consistent with CHF Electronically Signed by: Electronically signed by Dr. Anam Hernandez Reevaluation Time: 12:19 Last Vital Signs Date Time Temp Pulse Resp B/P (MAP) Pulse Ox O2 Delivery O2 Flow Rate FiO2 07/16/19 10:45 97.0 98 29 161/34 (76) Nasal Cannula 3.0 Reevaluation Impression Chest x-ray shows bilateral pulmonary congestion consistent with CHF exacerbation. Blood gas showed a pH of 7.281 with a O2 saturation of 87%. Patient was increased from 3 to 4 L on nasal cannula. CO2 was 48. She is received Solu-Medrol on arrival however it appears to be more of a CHF exacerbation as opposed to COPD. Patient's peptide is elevated at 15,000. Troponin is negative. Labs show hyperkalemia and baseline renal function with a creatinine of 1.6. The patient will be given another dose of Lasix and admitted to telemetry for further diuresis. Disposition: ADMITTED INPATIENT Condition: Serious Anam Hernandez MD Jul 16, 2019 11:03
[2019-07-16] MEDS ORDERED: VITAMIN D400 INTLU ORAL (11:12)
[2019-07-16] MEDS ORDERED: SIMVASTATIN80 MG ORAL (11:12)
[2019-07-16] MEDS ORDERED: Solu-MEDROL 125mg Inj IVP ONE (11:15)
--- NOTE | 2019-07-16 11:15 | NUR ---
ED Nurse Note: Blood collected then sent.
[2019-07-16 11:30] LABS: BASOPHILS % (AUTO) 1.5 % (0.0-2.0); EOSINOPHILS % (AUTO) 1.2 % (0.0-3.0); HEMATOCRIT 48.5 % (37.0-47.0); LYMPHOCYTES % (AUTO) 9.5 % (20.0-45.0); MEAN CORPUSCULAR VOLUME 95 FL (80-99); MONOCYTES % (AUTO) 4.6 % (1.0-10.0); NEUTROPHILS % (AUTO) 83.1 % (45.0-75.0); PLATELET COUNT 285 K/UL (150-450); RED BLOOD COUNT 5.09 M/UL (4.20-5.40); RED CELL DISTRIBUTION WIDTH 14.5 % (11.6-14.8)
[2019-07-16 11:38] LABS: ANION GAP 7 mmol/L (5-15); BLOOD UREA NITROGEN 40 mg/dL (7-18); CALCIUM 9.3 MG/DL (8.5-10.1); CARBON DIOXIDE 27 MMOL/L (21-32); CHLORIDE 109 MMOL/L (98-107); CREATININE 1.6 MG/DL (0.55-1.30); POTASSIUM 5.8 MMOL/L (3.5-5.1); SODIUM 143 MMOL/L (136-145)
[2019-07-16 11:51] LABS: ALANINE AMINOTRANSFERASE 25 U/L (12-78); ALBUMIN 3.2 G/DL (3.4-5.0); ALBUMIN/GLOBULIN RATIO 0.7 (1.0-2.7); ALKALINE PHOSPHATASE 67 U/L (46-116); ASPARTATE AMINO TRANSFERASE 22 U/L (15-37); BILIRUBIN,TOTAL 0.6 MG/DL (0.2-1.0); CKMB 0.9 NG/ML (0.0-3.6); CREATINE KINASE 77 U/L (26-308)
--- NOTE | 2019-07-16 12:42 | Diagnostic Imaging Report ---
EXAM: XR Chest, 1 View CLINICAL HISTORY: SOB TECHNIQUE: Frontal view of the chest. COMPARISON: Chest x-ray 9 7 19 FINDINGS: Lungs: Interstitial and airspace opacities. Pleural space: Small bilateral pleural effusions. No pneumothorax. Heart: Cardiomegaly. Mediastinum: Unremarkable. Bones joints: Unremarkable. IMPRESSION: Interstitial and airspace opacities. Small bilateral pleural effusions. Cardiomegaly. Findings likely CHF.
[2019-07-16 13:01] VITALS: BP 149/70
[2019-07-16 15:00] VITALS: BP 138/58
--- NOTE | 2019-07-16 15:57 | NUR ---
ED Nurse Note: Report given to Lavern MCDOWELL.
[2019-07-16] MEDS ORDERED: Insulin Human Regular 100units/ml 3ml IV ONE (16:15)
--- NOTE | 2019-07-16 16:30 | NUR ---
NURSE NOTES: Received report from JULY Ramires. Patient in bed resting, no active s/s cardiac, respiratory distress noticed at this time. Family member at the bedside, plate worker helper on, On 3L oxygen. VS at the time of arrival T 98.0, BP 139/75, HR 83, O2 91%, denies pain at this time, AOX4. IV on right AC 20G, asymptomatic, patent, intact. Chappell Catheter inserted at ED, draining well to gravity. Bed in lowest position, side rails upx3, call light within reach. Will continue to monitor.
[2019-07-16 16:40] VITALS: BP 139/75
[2019-07-16] MEDS ORDERED: Milk of Magnesia 30ml Ud ORAL PRN (17:15)
[2019-07-16] MEDS ORDERED: Albuterol/Ipratropium 3ml neb HHN PRN (17:15)
--- NOTE | 2019-07-16 17:20 | NUR ---
NURSE NOTES: Called Dr. Brown for admission order. Order noted, entered, carried out. Will continue to monitor.
[2019-07-16] MEDS: Docusate 100mg cap ORAL SCH (17:59)
--- NOTE | 2019-07-16 19:19 | NUR ---
NURSE NOTES: Received report from JULY Davis. Pt in bed, resting. In no acute distress. Will continue plan of care.
--- NOTE | 2019-07-16 19:19 | NUR ---
HAND-OFF: Report given to JULY Chandler.
[2019-07-16 20:00] VITALS: BP 129/68
[2019-07-16] MEDS: NovoLOG Insulin Flexpen SUBQ SCH (21:10)
[2019-07-16] MEDS: Heparin 5000 units/ml inj SUBQ SCH (21:14)
--- NOTE | 2019-07-16 21:40 | NUR ---
NURSE NOTES: Spoke with Dr. Brown and made aware of the pt's new onset PVC. per MD, call Dr. Patricia. left a message to Dr Patrciia.
[2019-07-17] VITALS: BP 135/86
[2019-07-17 04:00] VITALS: BP 125/55
[2019-07-17] MEDS: NovoLOG Insulin Flexpen SUBQ SCH ×4 (06:30→21:00)
[2019-07-17] MEDS: Levothyroxine 25mcg tab ORAL SCH (06:50)
--- NOTE | 2019-07-17 07:12 | NUR ---
NURSE NOTES: Received report from JULY Chandler. 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 Patient on 3L oxygen via NC. SB with HR 57, AOx4, denies pain at this time. IV on right AC 20G, asymptomatic, patent, intact, Chappell Catheter draining well to gravity. Bed in lowest position, side rails upx3, call light within reach, bed alarm on. Will continue to monitor.
--- NOTE | 2019-07-17 07:16 | NUR ---
HAND-OFF: Report given to Ryan MCDOWELL.
[2019-07-17 07:47] LABS: BASOPHILS % (AUTO) 0.2 % (0.0-2.0); HEMATOCRIT 43.2 % (37.0-47.0); HEMOGLOBIN 13.6 G/DL (12.0-16.0); LYMPHOCYTES % (AUTO) 9.9 % (20.0-45.0); MEAN CORPUSCULAR VOLUME 94 FL (80-99); MONOCYTES % (AUTO) 7.6 % (1.0-10.0); NEUTROPHILS % (AUTO) 82.3 % (45.0-75.0); PLATELET COUNT 239 K/UL (150-450); RED BLOOD COUNT 4.61 M/UL (4.20-5.40); RED CELL DISTRIBUTION WIDTH 13.7 % (11.6-14.8); WHITE BLOOD COUNT 6.6 K/UL (4.8-10.8)
[2019-07-17 08:00] VITALS: BP 138/57
[2019-07-17 08:05] LABS: ANION GAP 5 mmol/L (5-15); BLOOD UREA NITROGEN 41 mg/dL (7-18); CALCIUM 9.6 MG/DL (8.5-10.1); CARBON DIOXIDE 30 MMOL/L (21-32); CHLORIDE 110 MMOL/L (98-107); CHOLESTEROL 107 MG/DL (< 200); CREATININE 1.5 MG/DL (0.55-1.30); HDL CHOLESTEROL 37 MG/DL (40-60); POTASSIUM 4.8 MMOL/L (3.5-5.1); SODIUM 145 MMOL/L (136-145); TRIGLYCERIDES 88 MG/DL (30-150)
[2019-07-17] MEDS: Docusate 100mg cap ORAL SCH ×2 (08:24→17:33)
[2019-07-17] MEDS: Aspirin EC 81mg tab ORAL SCH (08:24)
[2019-07-17] MEDS: Heparin 5000 units/ml inj SUBQ SCH ×2 (08:25→21:42)
[2019-07-17] MEDS ORDERED: metFORMIN 500mg tab ORAL SCH (09:00)
--- NOTE | 2019-07-17 10:24 | Cardiology Report ---
APPROVED REPORT EXAM: Two-dimensional and M-mode echocardiogram with Doppler and color Doppler. INDICATION Dyspnea M-Mode DIMENSIONS IVSd1.1 (0.7-1.1cm)Left Atrium (MM)3.2 (1.6-4.0cm) LVDd4.7 (3.5-5.6cm)Aortic Root2.7 (2.0-3.7cm) PWd1.1 (0.7-1.1cm)Aortic Cusp Exc.1.6 (1.5-2.0cm) LVDs2.9 (2.5-4.0cm) PWs1.1 cm Normal left ventricular chamber size, systolic function and wall motion. Left ventricular ejection fraction estimated to be 55%. No left ventricular hypertrophy. Left atrial size at upper limits of normal. Right cardiac chamber sizes are within normal limits. Focal aortic valve sclerosis with adequate cusp excursion. Thickened mitral valve leaflets with normal excursion. Mitral annulus and aortic root calcification. Normal pulmonic valve structure. Normal tricuspid valve structure. IVC measured at 2.1 cm with slight physiologic collapse, suggestive of mildly increased RA pressure. A color flow and spectral Doppler study was performed and revealed: Trace aortic regurgitation. Trace to mild mitral regurgitation. Mitral inflow indicates pseudo-normal left ventricular physiology or left ventricular diastolic dysfunction grade II suggestive of moderately elevated left atrial pressure. Moderate tricuspid regurgitation. Tricuspid systolic velocities suggests peak right ventricular systolic pressure of 71 mmHg, consistent with severe pulmonary hypertension.
--- NOTE | 2019-07-17 11:34 | Cardiology Report ---
APPROVED REPORT EKG Measurement Heart [id number] Sinus rhythm with frequent premature ventricular complexes mostly bigeminy Septal infarct, age undetermined Abnormal ECG
--- NOTE | 2019-07-17 11:59 | NUR ---
INSURANCE ADJUSTORFLAVOR EXTRACTOR 84 YO FEMALE FROM HOME TO ER CC SOB ON HOME OXYGEN UNABLE TO AMBULATE WITH WEAKNESS SI: CHF T. 97.0 HR 98 RR 29 B/P 161/84 3L NC PH 7.28 PCO2 48.1 PO2 52.3 HCO3 22.3 O2 SAT 87.3 K 5.8 BUN 40 CR 1.6 BNP 44483 CXR= SMALL PLEURAL EFFUSIONS IS: LASIX IV SOLU MEDROL IV ADMITTED TO TELE @ 7420 TELE STATUS DCP RETURN HOME
[2019-07-17 12:00] VITALS: BP 119/58
--- NOTE | 2019-07-17 13:00 | NUR ---
NURSE NOTES: Dr. Patricia at the nursing station, made aware of new onset of PVC. No order given at this time. Will continue to monitor.
[2019-07-17] MEDS ORDERED: Vitamin D 50,000 units cap ORAL SCH (13:15)
--- NOTE | 2019-07-17 13:17 | NUR ---
NURSE NOTES: Called Dr. Brown regarding a list of home medication. Per Dr. Brown, medication ordered. Order noted, entered, carried out. Addendum: 07/17/19 at 1610 by MARITZA FRANCE RN Dr. Brown made aware of BUN, creatinine, BNP level. Per Dr. Brown, One time Lasix IV 40mg, no need of nephrology at this time. Will continue to monitor.
[2019-07-17 16:00] VITALS: BP 105/46
--- NOTE | 2019-07-17 16:39 | Consultation ---
Consult Note Assessment/Plan DICT # [id number] Javi Ho MD Jul 17, 2019 16:39
--- NOTE | 2019-07-17 19:25 | NUR ---
HAND-OFF: Report given to JULY Mckeon.
--- NOTE | 2019-07-17 19:26 | NUR ---
NURSE NOTES: Report received from JULY Davis. Patient is awake, lying in semi villanueva's; resting comfortably. Primarily Stateless speaking. A/Ox4. Denies pain at this time. No signs of acute cardiorespiratory distress noted. Checked IV site and flushed. No erythema, bleeding or infiltration noted. Bed at lowest position, brakes on, siderailsx2. Call light within reach. Will continue to monitor. Addendum: 07/18/19 at 0736 by Linda Ford RN On nasal cannula @ 3LPM. No SOB or noted.
--- NOTE | 2019-07-17 19:30 | Consultation ---
DATE OF CONSULTATION: 07/16/2019 PULMONARY CONSULTATION CONSULTING PHYSICIAN: Javi Ho M.D. REFERRING PHYSICIAN: Richard Brown M.D. HISTORY OF PRESENT ILLNESS: The patient is an 84-year-old female with a history of interstitial lung disease, who I last saw in the office on 07/10/2019, exactly 1 week ago, presenting with 2 to 3 days of cough, congestion, and increased shortness of breath. A high-resolution CT scan of the chest ordered at my last visit. Pulmonary function test and echo at [facility] are still pending. Nonetheless, the patient presented with shortness of breath as stated. No other complaints. She was seen and examined in the ER. She is afebrile. Vital signs are stable. She is requiring 3 L of oxygen. Laboratory evaluation is unremarkable except for a respiratory acidosis. ABG, pH 7.28/48/57/87. Bicarb on the chemistry was 30. Creatinine is 1.5. Chest x-ray done in the emergency department and reviewed by myself showed interstitial and airspace opacities and some pulmonary vascular congestion. BNP was 15,000. The patient has an echocardiogram ordered and pending. She is currently on IV Lasix. PAST MEDICAL HISTORY: 1. Diabetes. 2. Hypertension. 3. Hyperlipidemia. 4. Obesity. 5. Hypothyroidism. 6. . PAST SURGICAL HISTORY: None. MEDICATIONS: Prior to admission medications reviewed. Current medications reviewed. ALLERGIES: No known drug allergies. SOCIAL HISTORY: Born in [facility] and moved to in . Worked in [employer]. Has 7 children, 9 grandchildren. Former smoker, quit 3 months ago. No drug or alcohol use. No pets. FAMILY HISTORY: Father of an accident. Mother of natural causes. Otherwise unremarkable. REVIEW OF SYSTEMS: Negative other than history of present illness. PHYSICAL EXAMINATION: VITAL SIGNS: Temperature is 98.2, pulse 64, blood pressure 119/58, and respiratory rate 18. GENERAL: This is a well-developed and well-nourished female, in no acute distress. Awake, alert, and oriented x3. Obese. HEENT: Normocephalic and atraumatic. Oropharynx is clear with moist mucous membranes. NECK: Supple without lymphadenopathy with 8 cm JVD. CHEST: Coarse bilateral rales and like. HEART: Regular rate and rhythm. ABDOMEN: Soft, nontender, and nondistended. EXTREMITIES: No cyanosis, clubbing, or edema. ANCILLARY DATA: Laboratories reviewed. IMAGING: Chest x-ray with evidence of interstitial disease and pulmonary vascular congestion. ASSESSMENT: The patient is an 84-year-old female with a history of ILD, likely IPF, obesity, likely sleep apnea, presenting with acute on chronic hypoxemic and hypercapnic respiratory failure and likely decompensated heart failure. PROBLEM LIST: 1. Acute on chronic hypoxemic and hypercapnic respiratory failure. 2. 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 3. Obesity with likely obesity hypoventilation and MARCIE. 4. CHF with acute decompensated heart failure. 5. CKD. 6. Former smoker. 7. Hypothyroidism. TREATMENT PLAN: 1. Optimize pulmonary hygiene/mobilize as tolerated. 2. Titrate down FiO2. 3. BiPAP 12/5 at bedtime and p.r.n. 4. Continue p.r.n. bronchodilators for the time being. 5. Monitor volumes and renal function, diuresis as able. 6. Aspiration precautions. 7. Follow up echocardiogram. 8. Plan for outpatient high-resolution CT, full PFTs, and sleep study as previously planned. 9. The patient is a Full Code. 10. Continue to abstain from smoking. Dr. Brown, thank you for allowing me to assist in the care of this patient. If I may be of any assistance in the future, please do not hesitate to ask. Javi Ho M.D. DR: JORGE ALBERTO JOB#: [id number] CC:
[2019-07-17 20:00] VITALS: BP 106/52
[2019-07-17] MEDS: Atorvastatin 80mg tab ORAL SCH (21:43)
--- NOTE | 2019-07-17 22:00 | NUR ---
NURSE NOTES: Per Dr. Brown, labs to Addendum: 07/17/19 at 2202 by Linda Ford RN NURSE NOTES: Per Dr. Brown, ordered labs CBC, BMP, BNP, T4, Troponin I for tomorrow 07/18/2019 morning. Carried out orders.
--- NOTE | 2019-07-17 23:30 | History and Physical Report ---
DATE OF ADMISSION: 07/16/2019 HISTORY OF PRESENT ILLNESS: The patient is an 84-year-old female with history of COPD, history of CHF, history of renal insufficiency, diabetes, history of pulmonary fibrosis. She presented to the emergency room with complaints of increasing dyspnea mostly exertional over the past 2-3 days. She denies any chest pain associated with this. She admits to slight cough. There is no fevers or chills. No headaches. No sore throat. No abdominal pain. No urinary symptoms. The patient does use apparently oxygen at home. She has required increased oxygen to 3 L. She follows up with Dr. Ho, her pattern designer as an outpatient. In the ER, workup initiated and shows including chest x-ray shows increased interstitial and airspace opacities, pulmonary vascular congestion, and her BNP was 15,000. She was given some IV Lasix and admitted to a monitored bed. PAST MEDICAL HISTORY: Includes a history of COPD, history of CHF, history of diabetes, history of pancreatitis, history of hypothyroidism, history of obesity. MEDICATIONS: Please see reconciled medication list. ALLERGIES: None known. SOCIAL HISTORY: She is originally from [facility] and moved to [facility] in [place]. She has 7 children and 9 grandchildren. She is a former smoker, quit over a year ago. Denies any alcohol use. FAMILY HISTORY: Mother of natural causes. Father of an accident. REVIEW OF SYSTEMS: Twelve-point review of systems reviewed and negative except for above. PHYSICAL EXAMINATION: GENERAL: She is well developed, well nourished, currently in no apparent distress. VITAL SIGNS: Blood pressure 119/58, pulse 64, temperature 98.2, respirations 18. HEENT: Head is normocephalic, atraumatic. Pupils are equal, reactive to light. Extraocular muscles are intact. Eyes are anicteric. NECK: Supple. JVP is about 8 cm. LUNGS: She has got coarse breath sounds and rales at the bases. HEART: Regular rate and rhythm. ABDOMEN: Soft. Positive bowel sounds. EXTREMITIES: No clubbing, cyanosis, or edema. LABORATORY AND DIAGNOSTIC DATA: Chest x-ray reveals interstitial disease with pulmonary vascular congestion. EKG noted. White count of 7, hemoglobin 15, hematocrit 48.5, platelet count of 285,000. Her sodium is 145, potassium 4.8, BUN of 41, creatinine 1.5, glucose 109. Glycohemoglobin 6.5. BNP is 15,756. Troponin 0.00. ASSESSMENT AND PLAN: The patient is a pleasant 84-year-old female with multiple medical problems including history of diabetes, hypertension, hyperlipidemia, COPD, pulmonary fibrosis, who presents with increased shortness of breath. She does appear to have an elevated BNP of 15,000. She will be admitted to a monitored bed. I have asked her pattern designer, Dr. Ho, to see her as well as her careers adviser, Dr. Obrien, who is aware of her as well. The patient will be diuresed. We will obtain a 2D echo. She will be given pulmonary hygiene, bronchodilators. Her diabetes, monitor Accu-Cheks and place her on sliding scale of insulin. Her thyroid, continue her Synthroid. We will monitor her BNP. Strict I's and O's. The patient should be on DVT and ulcer prophylaxis. Richard Brown M.D. DR: Shaun JOB#: [id number] CC:
--- NOTE | 2019-07-17 23:48 | Consultation ---
History of Present Illness General Date patient seen: Jul 17, 2019 Time patient seen: 21:48 Chief Complaint: Dyspnea/Respdistress Present Illness HPI 84 year old female Pt from home and presents to ED with respiratory distress that has been progressive for the last 2 weeks. Noted bilateral leg pitting edema and SOB at rest. No JVD. AAO x4 ambulatory with dyspnea. Sats 94 % in 3LPm of o2 via Nasal cannula. She has a history of interstitial lung disease. CXR showed pulmonary vascular congestion and BNP elevated She has a history of CHF, CKD, DM, pulmonary fibrosis. Allergies: Coded Allergies: No Known Allergies (Verified , 08/18/07) Medication History Scheduled Aspirin Ec* (Aspirin Ec*), 81 MG ORAL DAILY, (Reported) Fenofibrate (Fenofibrate), 134 MG ORAL DAILY Fish Oil (Fish Oil 1,000 mg Capsule), 1,000 MG ORAL DAILY Ipratropium/Albuterol Sulfate (DuoNeb 0.5-3(2.5)mg/3ml), 3 ML HHN Q6HRT Levothyroxine Sodium* (Levothyroxine Sodium*), 137 MCG ORAL DAILY, (Reported) Metformin Hcl* (Metformin Hcl*), 1,000 MG ORAL DAILY, (Reported) Nebivolol Hcl (Bystolic*), 5 MG ORAL DAILY, (Reported) Pioglitazone Hcl* (Actos*), 30 MG ORAL DAILY, (Reported) Prednisone* (Prednisone*), 30 MG ORAL DAILY Simvastatin (Zocor), 80 MG ORAL BEDTIME, (Reported) Vitamin D (Vitamin D3), 400 UNITS ORAL DAILY, (Reported) Scheduled PRN Guaifenesin/Dextromethorphan (Guaifenesin Dm Syrup), 10 ML ORAL Q6H PRN Patient History Healthcare decision maker Brother Orlin Resuscitation status Full Code Advanced Directive on File Review of Systems Constitutional: Reports: no symptoms Eye: Reports: no symptoms ENT: Reports: no symptoms Respiratory: Reports: shortness of breath, BAY Cardiovascular: Reports: no symptoms Gastrointestinal: Reports: no symptoms Genitourinary: Reports: no symptoms Musculoskeletal: Reports: no symptoms Skin: Reports: no symptoms Psychiatric: Reports: no symptoms Neurological: Reports: no symptoms Endocrine: Reports: no symptoms Hematologic/Lymphatic: Reports: no symptoms Physical Exam General Appearance: no apparent distress Lines, tubes and drains: peripheral HEENT: anicteric, mucous membranes moist, PERRL Neck: non-tender, normal alignment, supple, normal inspection Respiratory/Chest: no respiratory distress, no accessory muscle use, accessory muscle use, crackles/rales, rhonchi - bilaterally, expiratory wheezing Cardiovascular/Chest: normal peripheral pulses, normal rate, regular rhythm Abdomen: normal bowel sounds, non tender, soft, no organomegaly, no mass Extremities: normal range of motion, non-tender, normal inspection, no calf tenderness, normal capillary refill, non-pitting Skin Exam: normal pigmentation, warm/dry, cyanotic Neurologic: bleacher kraft pulp II-XII grossly normal, no motor/sensory deficits Last 24 Hour Vital Signs Date Time Temp Pulse Resp B/P (MAP) Pulse Ox O2 Delivery O2 Flow Rate FiO2 07/17/19 21:12 70 18 93 Room Air 21 07/17/19 20:00 98.5 68 17 106/52 (70) 95 07/17/19 16:00 98.4 71 20 105/46 (65) 94 07/17/19 16:00 70 07/17/19 12:00 98.2 64 18 119/58 (78) 94 07/17/19 12:00 66 07/17/19 09:00 Nasal Cannula 3.0 07/17/19 08:00 98.4 61 20 138/57 (84) 94 07/17/19 08:00 70 07/17/19 04:00 97.5 57 19 125/55 (78) 93 07/17/19 04:00 58 07/17/19 00:00 97.2 63 19 135/86 (102) 99 70 07/17/19 00:00 63 Intake and Output 07/16/19 07/17/19 19:00 07:00 Intake Total 240 ml Output Total 700 ml 800 ml Balance -460 ml -800 ml Intake Oral 240 ml Output Urine Total 700 ml 800 ml Laboratory Tests Test 07/17/19 05:22 White Blood Count 6.6 K/UL (4.8-10.8) Red Blood Count 4.61 M/UL (4.20-5.40) Hemoglobin 13.6 G/DL (12.0-16.0) Hematocrit 43.2 % (37.0-47.0) Mean Corpuscular Volume 94 FL (80-99) Mean Corpuscular Hemoglobin 29.5 PG (27.0-31.0) Mean Corpuscular Hemoglobin Concent 31.5 G/DL (32.0-36.0) L Red Cell Distribution Width 13.7 % (11.6-14.8) Platelet Count 239 K/UL (150-450) Mean Platelet Volume 7.6 FL (6.5-10.1) Neutrophils (%) (Auto) 82.3 % (45.0-75.0) H Lymphocytes (%) (Auto) 9.9 % (20.0-45.0) L Monocytes (%) (Auto) 7.6 % (1.0-10.0) Eosinophils (%) (Auto) 0.0 % (0.0-3.0) Basophils (%) (Auto) 0.2 % (0.0-2.0) Sodium Level 145 MMOL/L (136-145) Potassium Level 4.8 MMOL/L (3.5-5.1) Chloride Level 110 MMOL/L (98-107) H Carbon Dioxide Level 30 MMOL/L (21-32) Anion Gap 5 mmol/L (5-15) Blood Urea Nitrogen 41 mg/dL (7-18) H Creatinine 1.5 MG/DL (0.55-1.30) H Estimat Glomerular Filtration Rate mL/min (>60) Glucose Level 109 MG/DL (74-106) H Hemoglobin A1c 6.5 % (4.3-6.0) H Calcium Level 9.6 MG/DL (8.5-10.1) Triglycerides Level 88 MG/DL (30-150) Cholesterol Level 107 MG/DL (< 200) LDL Cholesterol 59 mg/dL (<100) HDL Cholesterol 37 MG/DL (40-60) L Cholesterol/HDL Ratio 2.9 (3.3-4.4) L Thyroid Stimulating Hormone (TSH) 0.291 uiU/mL (0.358-3.740) Height (Feet): 5 Height (Inches): 6.00 Weight (Pounds): 179 Medications Current Medications Medications (Trade) Dose Ordered Sig/Diane Route PRN Reason Start Time Stop Time Status Last Admin Dose Admin Acetaminophen (Tylenol) 650 mg Q6H PRN ORAL Mild Pain/Temp > 100.5 07/16/19 17:15 08/15/19 17:14 Al Hydroxide/Mg Hydroxide (Mylanta) 30 ml BIDPRN PRN ORAL Dyspepsia 07/16/19 17:30 08/15/19 17:14 Albuterol/ Ipratropium (Albuterol/ Ipratropium) 3 ml Q6H PRN HHN Shortness of Breath 07/16/19 17:15 07/21/19 17:14 Aspirin (Ecotrin) 81 mg DAILY ORAL 07/17/19 09:00 08/16/19 08:59 07/17/19 08:24 Atorvastatin Calcium (Lipitor) 40 mg BEDTIME ORAL 07/17/19 21:00 08/16/19 20:59 07/17/19 21:43 Dextrose (Dextrose 50%) 25 ml Q30M PRN IV Hypoglycemia 07/16/19 17:15 08/15/19 17:14 Dextrose (Dextrose 50%) 50 ml Q30M PRN IV Hypoglycemia 07/16/19 17:15 08/15/19 17:14 Docusate Sodium (Colace) 100 mg BID ORAL 07/16/19 18:00 08/15/19 17:59 07/17/19 17:33 Ergocalciferol (Drisdol) 50,000 intlu 2XW ORAL 07/20/19 09:00 08/19/19 08:59 Fenofibrate (Tricor) 134 mg DAILY ORAL 07/18/19 09:00 08/17/19 08:59 Furosemide (Lasix) 40 mg DAILY IV 07/17/19 09:00 08/16/19 08:59 07/17/19 08:24 Heparin Sodium (Porcine) (Heparin 5000 units/ml) 5,000 units Q12HR SUBQ 07/16/19 21:00 08/15/19 20:59 07/17/19 21:42 Insulin Aspart (NovoLOG) BEFORE MEALS AND HS SUBQ 07/16/19 21:00 08/15/19 20:59 07/17/19 13:41 Levothyroxine Sodium (Synthroid) 25 mcg DAILY@0630 ORAL 07/17/19 06:30 08/16/19 06:29 07/17/19 06:50 Levothyroxine Sodium (Synthroid) 112 mcg DAILY@0630 ORAL 07/17/19 06:30 08/16/19 06:29 07/17/19 06:50 Magnesium Hydroxide (Mom) 30 ml DAILYPRN PRN ORAL Constipation 07/16/19 17:15 08/15/19 17:14 Nebivolol (Bystolic) 5 mg DAILY ORAL 07/18/19 09:00 08/17/19 08:59 Pantoprazole (Protonix) 40 mg DAILY ORAL 07/17/19 09:00 08/16/19 08:59 07/17/19 08:24 Assessment/Plan Status: stable Assessment/Plan: Assessment: CHF exacerbation Diastolic heart failure Diabetes COPD Pulmonary fibrosis Hypothyroidism Severe pulmonary hypertension Plan: Fluid restriction and Salt restriction Continue diuresis with lasix BID BIPAP qHS Echocardiogram reviewed, elevated right atrial and pulmonary pressures- likely group 2 and 3 pulmonary hypertension Continue aspirinn Continue atorvastatin Continue bystolic Hold metformin Monitor renal function. Zeus Obrien MD Jul 17, 2019 23:48
[2019-07-18] VITALS: BP 141/50
--- NOTE | 2019-07-18 01:14 | NUR ---
NURSE NOTES: Resting comfortably throughout the night. No significant change of condition noted. Will continue to monitor.
[2019-07-18 04:00] VITALS: BP 117/80
[2019-07-18] MEDS: NovoLOG Insulin Flexpen SUBQ SCH ×4 (06:02→21:41)
[2019-07-18] MEDS: Levothyroxine 25mcg tab ORAL SCH (06:03)
--- NOTE | 2019-07-18 07:25 | NUR ---
HAND-OFF: Report given to JULY Russo. Plan of care endorsed.
--- NOTE | 2019-07-18 07:27 | NUR ---
NURSE NOTES: Received patient from Sal Mckeon. Patient is awake and alert sitting up in bed eating her breakfast. No c/o pain or discomfort. Safety precautions in place. call lainez within patients reached. Will attend to patients needs and monitor patient.
[2019-07-18 07:45] LABS: BASOPHILS % (AUTO) 0.7 % (0.0-2.0); HEMATOCRIT 43.2 % (37.0-47.0); HEMOGLOBIN 13.6 G/DL (12.0-16.0); LYMPHOCYTES % (AUTO) 18.4 % (20.0-45.0); MEAN CORPUSCULAR VOLUME 94 FL (80-99); MONOCYTES % (AUTO) 7.8 % (1.0-10.0); NEUTROPHILS % (AUTO) 69.2 % (45.0-75.0); PLATELET COUNT 269 K/UL (150-450); RED BLOOD COUNT 4.61 M/UL (4.20-5.40); RED CELL DISTRIBUTION WIDTH 13.7 % (11.6-14.8); WHITE BLOOD COUNT 7.5 K/UL (4.8-10.8)
[2019-07-18 08:00] VITALS: BP 105/55
[2019-07-18 08:21] LABS: ANION GAP 5 mmol/L (5-15); BLOOD UREA NITROGEN 61 mg/dL (7-18); CALCIUM 9.4 MG/DL (8.5-10.1); CARBON DIOXIDE 31 MMOL/L (21-32); CHLORIDE 109 MMOL/L (98-107); CREATININE 2.2 MG/DL (0.55-1.30); POTASSIUM 4.6 MMOL/L (3.5-5.1); SODIUM 145 MMOL/L (136-145)
[2019-07-18] MEDS: Docusate 100mg cap ORAL SCH ×2 (09:56→17:14)
[2019-07-18] MEDS: Aspirin EC 81mg tab ORAL SCH (09:57)
[2019-07-18] MEDS: Bystolic 2.5mg Tab ORAL SCH (09:57)
[2019-07-18] MEDS: Heparin 5000 units/ml inj SUBQ SCH ×2 (09:59→21:42)
--- NOTE | 2019-07-18 11:06 | Cardiac Electrophysiology PN ---
Subjective Subjective Known to me from earlier admission this year. Frequent Bigeminal PVCs EP consult Dictated [id number] Objective Last 24 Hour Vital Signs Date Time Temp Pulse Resp B/P (MAP) Pulse Ox O2 Delivery O2 Flow Rate FiO2 07/18/19 08:00 97.3 64 20 105/55 (72) 96 07/18/19 04:00 70 07/18/19 04:00 98.0 60 16 117/80 (92) 98 07/18/19 00:00 98.0 72 16 141/50 (80) 100 07/18/19 00:00 72 07/17/19 21:12 70 18 93 Room Air 21 07/17/19 21:00 Nasal Cannula 3.0 07/17/19 20:00 70 07/17/19 20:00 98.5 68 17 106/52 (70) 95 07/17/19 16:00 98.4 71 20 105/46 (65) 94 07/17/19 16:00 70 07/17/19 12:00 98.2 64 18 119/58 (78) 94 07/17/19 12:00 66 Intake and Output 07/17/19 07/18/19 19:00 07:00 Intake Total 360 ml 140 ml Output Total 800 ml 600 ml Balance -440 ml -460 ml Intake Oral 360 ml 140 ml Output Urine Total 800 ml 600 ml Laboratory Tests Test 07/18/19 06:37 White Blood Count 7.5 K/UL (4.8-10.8) Red Blood Count 4.61 M/UL (4.20-5.40) Hemoglobin 13.6 G/DL (12.0-16.0) Hematocrit 43.2 % (37.0-47.0) Mean Corpuscular Volume 94 FL (80-99) Mean Corpuscular Hemoglobin 29.6 PG (27.0-31.0) Mean Corpuscular Hemoglobin Concent 31.5 G/DL (32.0-36.0) L Red Cell Distribution Width 13.7 % (11.6-14.8) Platelet Count 269 K/UL (150-450) Mean Platelet Volume 7.3 FL (6.5-10.1) Neutrophils (%) (Auto) 69.2 % (45.0-75.0) Lymphocytes (%) (Auto) 18.4 % (20.0-45.0) L Monocytes (%) (Auto) 7.8 % (1.0-10.0) Eosinophils (%) (Auto) 4.0 % (0.0-3.0) H Basophils (%) (Auto) 0.7 % (0.0-2.0) Sodium Level 145 MMOL/L (136-145) Potassium Level 4.6 MMOL/L (3.5-5.1) Chloride Level 109 MMOL/L (98-107) H Carbon Dioxide Level 31 MMOL/L (21-32) Anion Gap 5 mmol/L (5-15) Blood Urea Nitrogen 61 mg/dL (7-18) H Creatinine 2.2 MG/DL (0.55-1.30) H Estimat Glomerular Filtration Rate mL/min (>60) Glucose Level 86 MG/DL (74-106) Calcium Level 9.4 MG/DL (8.5-10.1) Troponin I 0.000 ng/mL (0.000-0.056) Pro-B-Type Natriuretic Peptide 86033 pg/mL (0-125) H Free Thyroxine 1.48 NG/DL (0.76-1.46) H Microbiology Date/Time Source Procedure Growth Status 07/16/19 16:20 Nasal Nares MRSA Culture - Final NO METHICILLIN RESISTANT STAPH AUREUS... Complete 07/16/19 16:20 Rectum - Final NO CARBAPENEM-RESISTANT ENTEROBACTERI... Complete 07/16/19 16:20 Rectum VRE Culture - Final Enterococcus Faecalis - Vre Complete Francesco Patricia MD Jul 18, 2019 11:06
--- NOTE | 2019-07-18 11:43 | Pulmonology Progress Note ---
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 PROBLEM LIST: 1. Acute on chronic hypoxemic and hypercapnic respiratory failure. 2. 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 3. Obesity with likely obesity hypoventilation and MARCIE. 4. CHF with acute decompensated heart failure. 5. DAVID on CKD. 6. Former smoker. 7. Hypothyroidism. 8. Pulmonary HTN TREATMENT PLAN: 1. Optimize pulmonary hygiene/mobilize as tolerated. 2. Titrate down FiO2. 3. BiPAP 12/5 at bedtime and p.r.n. 4. Continue p.r.n. bronchodilators for the time being. 5. Monitor volumes and renal function, hold lasix 6. Aspiration precautions. 7. Plan for outpatient high-resolution CT, full PFTs, and sleep study as previously planned. 8. The patient is a Full Code, continue to discuss GOC 9. Continue to abstain from smoking. Subjective Allergies: Coded Allergies: No Known Allergies (Verified , 08/18/07) Subjective AFVSS O2 needs stable Cr 2.2 No change in SOB some cough no wheezing no FC Objective Last 24 Hour Vital Signs Date Time Temp Pulse Resp B/P (MAP) Pulse Ox O2 Delivery O2 Flow Rate FiO2 07/18/19 08:00 97.3 64 20 105/55 (72) 96 07/18/19 04:00 70 07/18/19 04:00 98.0 60 16 117/80 (92) 98 07/18/19 00:00 98.0 72 16 141/50 (80) 100 07/18/19 00:00 72 07/17/19 21:12 70 18 93 Room Air 21 07/17/19 21:00 Nasal Cannula 3.0 07/17/19 20:00 70 07/17/19 20:00 98.5 68 17 106/52 (70) 95 07/17/19 16:00 98.4 71 20 105/46 (65) 94 07/17/19 16:00 70 07/17/19 12:00 98.2 64 18 119/58 (78) 94 07/17/19 12:00 66 Intake and Output 07/17/19 07/18/19 19:00 07:00 Intake Total 360 ml 140 ml Output Total 800 ml 600 ml Balance -440 ml -460 ml Intake Oral 360 ml 140 ml Output Urine Total 800 ml 600 ml General Appearance: no acute distress, cachetic HEENT: normocephalic, atraumatic, anicteric, mucous membranes moist Respiratory/Chest: rhonchi Cardiovascular: normal peripheral pulses, normal rate, regular rhythm Abdomen: normal bowel sounds, soft, non tender, no organomegaly, non distended , no mass Extremities: no cyanosis, no clubbing, no edema Microbiology Date/Time Source Procedure Growth Status 07/16/19 16:20 Nasal Nares MRSA Culture - Final NO METHICILLIN RESISTANT STAPH AUREUS... Complete 07/16/19 16:20 Rectum - Final NO CARBAPENEM-RESISTANT ENTEROBACTERI... Complete 07/16/19 16:20 Rectum VRE Culture - Final Enterococcus Faecalis - Vre Complete Laboratory Tests 07/18/19 06:37: White Blood Count 7.5, Red Blood Count 4.61, Hemoglobin 13.6, Hematocrit 43.2, Mean Corpuscular Volume 94, Mean Corpuscular Hemoglobin 29.6, Mean Corpuscular Hemoglobin Concent 31.5L, Red Cell Distribution Width 13.7, Platelet Count 269, Mean Platelet Volume 7.3, Neutrophils (%) (Auto) 69.2, Lymphocytes (%) (Auto) 18.4L, Monocytes (%) (Auto) 7.8, Eosinophils (%) (Auto) 4.0H, Basophils (%) ( Auto) 0.7, Sodium Level 145, Potassium Level 4.6, Chloride Level 109H, Carbon Dioxide Level 31, Anion Gap 5, Blood Urea Nitrogen 61H, Creatinine 2.2H, Estimat Glomerular Filtration Rate , Glucose Level 86, Calcium Level 9.4, Troponin I 0.000, Pro-B-Type Natriuretic Peptide 49208T, Free Thyroxine 1.48H Current Medications Medications (Trade) Dose Ordered Sig/Diane Route PRN Reason Start Time Stop Time Status Last Admin Dose Admin Acetaminophen (Tylenol) 650 mg Q6H PRN ORAL Mild Pain/Temp > 100.5 07/16/19 17:15 08/15/19 17:14 Al Hydroxide/Mg Hydroxide (Mylanta) 30 ml BIDPRN PRN ORAL Dyspepsia 07/16/19 17:30 08/15/19 17:14 Albuterol/ Ipratropium (Albuterol/ Ipratropium) 3 ml Q6H PRN HHN Shortness of Breath 07/16/19 17:15 07/21/19 17:14 Aspirin (Ecotrin) 81 mg DAILY ORAL 07/17/19 09:00 08/16/19 08:59 07/18/19 09:57 Atorvastatin Calcium (Lipitor) 40 mg BEDTIME ORAL 07/17/19 21:00 08/16/19 20:59 07/17/19 21:43 Dextrose (Dextrose 50%) 25 ml Q30M PRN IV Hypoglycemia 07/16/19 17:15 08/15/19 17:14 Dextrose (Dextrose 50%) 50 ml Q30M PRN IV Hypoglycemia 07/16/19 17:15 08/15/19 17:14 Docusate Sodium (Colace) 100 mg BID ORAL 07/16/19 18:00 08/15/19 17:59 07/18/19 09:56 Ergocalciferol (Drisdol) 50,000 intlu 2XW ORAL 07/20/19 09:00 08/19/19 08:59 Fenofibrate (Tricor) 134 mg DAILY ORAL 07/18/19 09:00 08/17/19 08:59 07/18/19 09:57 Furosemide (Lasix) 40 mg DAILY IV 07/17/19 09:00 08/16/19 08:59 07/18/19 09:57 Heparin Sodium (Porcine) (Heparin 5000 units/ml) 5,000 units Q12HR SUBQ 07/16/19 21:00 08/15/19 20:59 07/18/19 09:59 Insulin Aspart (NovoLOG) BEFORE MEALS AND HS SUBQ 07/16/19 21:00 08/15/19 20:59 07/17/19 13:41 Levothyroxine Sodium (Synthroid) 25 mcg DAILY@0630 ORAL 07/17/19 06:30 08/16/19 06:29 07/18/19 06:03 Levothyroxine Sodium (Synthroid) 112 mcg DAILY@0630 ORAL 07/17/19 06:30 08/16/19 06:29 07/18/19 06:03 Magnesium Hydroxide (Mom) 30 ml DAILYPRN PRN ORAL Constipation 9/29/19 17:15 08/15/19 17:14 Nebivolol (Bystolic) 5 mg DAILY ORAL 07/18/19 09:00 08/17/19 08:59 07/18/19 09:57 Pantoprazole (Protonix) 40 mg DAILY ORAL 07/17/19 09:00 08/16/19 08:59 07/18/19 09:57 Javi Ho MD Jul 18, 2019 11:43
[2019-07-18 12:00] VITALS: BP 125/62
[2019-07-18 16:30] VITALS: BP 115/56
--- NOTE | 2019-07-18 16:30 | Consultation ---
DATE OF CONSULTATION: 07/18/2019 CARDIAC ELECTROPHYSIOLOGY CONSULTATION CONSULTING PHYSICIAN: Francesco Patricia M.D. REFERRING PHYSICIAN: Richard Brown M.D. REASON FOR CONSULTATION: Frequent PVCs in a bigeminal pattern. HISTORY OF PRESENT ILLNESS: The patient is an 84-year-old lady with history of hypertension, COPD, CHF, chronic kidney disease, diabetes, and history of pulmonary fibrosis who was brought in to the emergency for increasing shortness of breath for the last 2 to 3 days. The patient was noted to have frequent PVCs in a bigeminal pattern. Cardiac electrophysiology consultation was obtained for further evaluation. Her BNP was 15,000. The patient was also evaluated by Dr. Obrien from Cardiology perspective. At the time of my evaluation, the patient denies any chest pain or palpitation. Denies any syncope. REVIEW OF SYSTEMS: Negative other than what was mentioned in the history of present illness. MEDICATIONS: Per reconciliation. ALLERGIES: She has no known drug allergies. SOCIAL HISTORY: She is from [facility] and has 7 children and 9 grandchildren. She is a former smoker. The son is at the bedside. FAMILY HISTORY: Noncontributory. PHYSICAL EXAMINATION: VITAL SIGNS: Show blood pressure of 105/55, pulse 64, respirations 20, temperature 97.3. HEAD AND NECK: Showed no JVD. LUNGS: Decreased breath sounds. CARDIOVASCULAR: Irregular S1 and S2 with no gallop or murmur. ABDOMEN: Soft. EXTREMITIES: No pitting edema. DIAGNOSTIC AND LABORATORY DATA: Her EKG showed sinus rhythm with frequent PVCs. The telemetry shows bigeminal PVCs. Labs show white count of 7.5, hemoglobin 13.2, hematocrit 43.1, platelet count of 269. Sodium 145, potassium 4.6, BUN of 61, creatinine 2.5, glucose of 86. Troponin negative x2. BNP is 10,000. ASSESSMENT AND PLAN: 1. 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 The patient's echocardiogram will be repeated. Depending on the 12-lead morphology with PVCs, the patient may benefit from electrophysiology study and ablation of these frequent bigeminal PVCs. 2. Congestive heart failure with preserved ejection fraction. 3. COPD. Further evaluation by Dr. Ho. 4. Diabetes. 5. Hypothyroidism. 6. Hypertension. The patient is on Bystolic 5 mg daily, Lasix 40 mg IV daily. 7. Hyperlipidemia, on Lipitor and Tricor. Thank you very much for allowing me to participate in the care of this patient. Please do not hesitate to contact me for any questions regarding my evaluation. Francesco Patricia M.D. DR: MATTEO JOB#: [id number] CC:
--- NOTE | 2019-07-18 19:37 | NUR ---
HAND-OFF: Report given to Sal Brumfield.Plan of care endorsed.
[2019-07-18 20:00] VITALS: BP 126/64
--- NOTE | 2019-07-18 20:00 | NUR ---
NURSE NOTES: Report received from Rafaela MCDOWELL. Patient is observed in bed, asleep but easily arousable. Patient uis AOX4 and able to make needs known. Patient denies pain at this time. Respiratory even and unlabored. IV site is asymptomatic, patent, and intact. Bed is in lowest position with side rails up x2 and brakes are engaged. Bed alarm is on. Educated patient to use call light when in need of assistance, pt verbalized understanding. Will continue to monitor.
--- NOTE | 2019-07-18 20:43 | General Progress Note ---
Assessment/Plan Status: stable Assessment/Plan: chf diastolic heart failure pulmonary htn ILD likely IPF ? sleep apnea htn diabetes hld renal insufficency diuresis echo noted cards fup on o2 bp controlled bs controlled monitor labs renal parameters ambulate dvt and ulcer prohylaxis Subjective Allergies: Coded Allergies: No Known Allergies (Verified , 08/18/07) Subjective decreased sob no cp Objective Last 24 Hour Vital Signs Date Time Temp Pulse Resp B/P (MAP) Pulse Ox O2 Delivery O2 Flow Rate FiO2 07/18/19 20:26 73 18 96 Nasal Cannula 2.0 28 07/18/19 20:26 96 Nasal Cannula 2.0 28 07/18/19 16:30 97.8 62 18 115/56 (75) 93 07/18/19 16:00 66 07/18/19 13:20 66 18 97 Nasal Cannula 2.0 28 07/18/19 12:00 69 07/18/19 12:00 96.8 64 20 125/62 (83) 94 07/18/19 09:00 Nasal Cannula 3.0 07/18/19 08:00 97.3 64 20 105/55 (72) 96 07/18/19 08:00 73 07/18/19 04:00 70 07/18/19 04:00 98.0 60 16 117/80 (92) 98 07/18/19 00:00 98.0 72 16 141/50 (80) 100 07/18/19 00:00 72 07/17/19 21:12 70 18 93 Room Air 21 07/17/19 21:00 Nasal Cannula 3.0 Intake and Output 07/17/19 07/18/19 19:00 07:00 Intake Total 360 ml 140 ml Output Total 800 ml 600 ml Balance -440 ml -460 ml Intake Oral 360 ml 140 ml Output Urine Total 800 ml 600 ml Laboratory Tests 07/18/19 06:37: White Blood Count 7.5, Red Blood Count 4.61, Hemoglobin 13.6, Hematocrit 43.2, Mean Corpuscular Volume 94, Mean Corpuscular Hemoglobin 29.6, Mean Corpuscular Hemoglobin Concent 31.5L, Red Cell Distribution Width 13.7, Platelet Count 269, Mean Platelet Volume 7.3, Neutrophils (%) (Auto) 69.2, Lymphocytes (%) (Auto) 18.4L, Monocytes (%) (Auto) 7.8, Eosinophils (%) (Auto) 4.0H, Basophils (%) ( Auto) 0.7, Sodium Level 145, Potassium Level 4.6, Chloride Level 109H, Carbon Dioxide Level 31, Anion Gap 5, Blood Urea Nitrogen 61H, Creatinine 2.2H, Estimat Glomerular Filtration Rate , Glucose Level 86, Calcium Level 9.4, Troponin I 0.000, Pro-B-Type Natriuretic Peptide 01174X, Free Thyroxine 1.48H Height (Feet): 5 Height (Inches): 6.00 Weight (Pounds): 175 General Appearance: WD/WN, no apparent distress Neck: supple Cardiovascular: normal rate Respiratory/Chest: decreased breath sounds Abdomen: soft Extremities: normal range of motion Edema: no edema noted Arm (L), no edema noted Arm (R), no edema noted Leg (L), no edema noted Leg (R), no edema noted Pedal (L), no edema noted Pedal (R), no edema noted Generalized Neurologic: audio video repairer II-XII grossly normal, alert Richard Brown MD Jul 18, 2019 20:43
[2019-07-18] MEDS: Atorvastatin 80mg tab ORAL SCH (21:39)
[2019-07-19] VITALS: BP 121/55
--- NOTE | 2019-07-19 | NUR ---
NURSE NOTES: Patient is asleep but arousable by voice. No s/s of acute distress at this time. Respiratory even and unlabored. Bed is in lowest position with side rails up x2 and brakes are engaged. Bed alarm is on. Will continue to monitor.
[2019-07-19 04:00] VITALS: BP 112/46
[2019-07-19] MEDS: Levothyroxine 25mcg tab ORAL SCH (06:20)
[2019-07-19] MEDS: NovoLOG Insulin Flexpen SUBQ SCH ×4 (06:21→21:00)
--- NOTE | 2019-07-19 07:39 | NUR ---
HAND-OFF: Report given to Arely MCDOWELL. Patient is in stable condition. Endorsed plan of care.
--- NOTE | 2019-07-19 08:04 | NUR ---
NURSE NOTES: Patient stable AOx4 eating her breakfast in bed. RR even and unlabored on 3L NC. No complaints of pain. Side rails up x2, bed low and locked. Will continue to monitor.
[2019-07-19 09:00] VITALS: BP 116/48
[2019-07-19] MEDS: Aspirin EC 81mg tab ORAL SCH (09:13)
[2019-07-19] MEDS: Bystolic 2.5mg Tab ORAL SCH (09:14)
[2019-07-19] MEDS: Docusate 100mg cap ORAL SCH ×2 (09:20→17:10)
[2019-07-19] MEDS: Heparin 5000 units/ml inj SUBQ SCH ×2 (09:20→21:47)
--- NOTE | 2019-07-19 09:43 | Pulmonology Progress Note ---
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 PROBLEM LIST: 1. Acute on chronic hypoxemic and hypercapnic respiratory failure. 2. 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 3. Obesity with likely obesity hypoventilation and MARCIE. 4. CHF with acute decompensated heart failure. 5. DAVID on CKD. 6. Former smoker. 7. Hypothyroidism. 8. Pulmonary HTN TREATMENT PLAN: 1. CXR 2. ABG 3. Optimize pulmonary hygiene/mobilize as tolerated. 4. Titrate down FiO2. 5. BiPAP 12/5 at bedtime and p.r.n. 6. HHN's 7. Monitor volumes and renal function, hold lasix 8. Aspiration precautions. 9. Plan for outpatient high-resolution CT, full PFTs, and sleep study as previously planned. 10. The patient is a Full Code, continue to discuss GOC 11. Continue to abstain from smoking. Subjective Allergies: Coded Allergies: No Known Allergies (Verified , 08/18/07) Subjective AFVSS O2 needs stable AML pending No change in SOB some cough no wheezing no FC Objective Last 24 Hour Vital Signs Date Time Temp Pulse Resp B/P (MAP) Pulse Ox O2 Delivery O2 Flow Rate FiO2 07/19/19 04:00 98.3 68 20 112/46 (68) 95 07/19/19 03:26 68 07/19/19 00:00 98.7 65 20 121/55 (77) 93 07/19/19 00:00 70 07/18/19 21:00 Nasal Cannula 3.0 07/18/19 20:26 73 18 96 Nasal Cannula 2.0 28 07/18/19 20:26 96 Nasal Cannula 2.0 28 07/18/19 20:00 98.8 75 20 126/64 (84) 93 07/18/19 19:36 77 07/18/19 16:30 97.8 62 18 115/56 (75) 93 07/18/19 16:00 66 07/18/19 13:20 66 18 97 Nasal Cannula 2.0 28 07/18/19 12:00 69 07/18/19 12:00 96.8 64 20 125/62 (83) 94 Intake and Output 07/18/19 07/19/19 18:59 06:59 Intake Total 260 ml Output Total 2600 ml Balance 260 ml -2600 ml Intake Oral 260 ml Output Urine Total 2600 ml # Voids 3 General Appearance: no acute distress, cachetic HEENT: normocephalic, atraumatic, anicteric, mucous membranes moist Respiratory/Chest: rhonchi Cardiovascular: normal peripheral pulses, normal rate, regular rhythm Abdomen: normal bowel sounds, soft, non tender, no organomegaly, non distended , no mass Extremities: no cyanosis, no clubbing, no edema Microbiology Date/Time Source Procedure Growth Status 07/16/19 16:20 Nasal Nares MRSA Culture - Final NO METHICILLIN RESISTANT STAPH AUREUS... Complete 07/16/19 16:20 Rectum - Final NO CARBAPENEM-RESISTANT ENTEROBACTERI... Complete 07/16/19 16:20 Rectum VRE Culture - Final Enterococcus Faecalis - Vre Complete Current Medications Medications (Trade) Dose Ordered Sig/Diane Route PRN Reason Start Time Stop Time Status Last Admin Dose Admin Acetaminophen (Tylenol) 650 mg Q6H PRN ORAL Mild Pain/Temp > 100.5 07/16/19 17:15 08/15/19 17:14 Al Hydroxide/Mg Hydroxide (Mylanta) 30 ml BIDPRN PRN ORAL Dyspepsia 07/16/19 17:30 08/15/19 17:14 Albuterol/ Ipratropium (Albuterol/ Ipratropium) 3 ml Q6H PRN HHN Shortness of Breath 07/16/19 17:15 07/21/19 17:14 Aspirin (Ecotrin) 81 mg DAILY ORAL 07/17/19 09:00 08/16/19 08:59 07/19/19 09:13 Atorvastatin Calcium (Lipitor) 40 mg BEDTIME ORAL 07/17/19 21:00 08/16/19 20:59 07/18/19 21:39 Dextrose (Dextrose 50%) 25 ml Q30M PRN IV Hypoglycemia 07/16/19 17:15 08/15/19 17:14 Dextrose (Dextrose 50%) 50 ml Q30M PRN IV Hypoglycemia 07/16/19 17:15 08/15/19 17:14 Docusate Sodium (Colace) 100 mg BID ORAL 07/16/19 18:00 08/15/19 17:59 07/19/19 09:20 Ergocalciferol (Drisdol) 50,000 intlu 2XW ORAL 07/20/19 09:00 08/19/19 08:59 Fenofibrate (Tricor) 134 mg DAILY ORAL 07/18/19 09:00 08/17/19 08:59 07/19/19 09:13 Furosemide (Lasix) 40 mg DAILY IV 07/17/19 09:00 08/16/19 08:59 07/19/19 09:13 Heparin Sodium (Porcine) (Heparin 5000 units/ml) 5,000 units Q12HR SUBQ 07/16/19 21:00 08/15/19 20:59 07/19/19 09:20 Insulin Aspart (NovoLOG) BEFORE MEALS AND HS SUBQ 07/16/19 21:00 08/15/19 20:59 07/18/19 21:41 Levothyroxine Sodium (Synthroid) 25 mcg DAILY@0630 ORAL 07/17/19 06:30 08/16/19 06:29 07/19/19 06:20 Levothyroxine Sodium (Synthroid) 112 mcg DAILY@0630 ORAL 07/17/19 06:30 08/16/19 06:29 07/19/19 06:20 Magnesium Hydroxide (Mom) 30 ml DAILYPRN PRN ORAL Constipation 07/16/19 17:15 08/15/19 17:14 Nebivolol (Bystolic) 5 mg DAILY ORAL 07/18/19 09:00 08/17/19 08:59 07/19/19 09:14 Pantoprazole (Protonix) 40 mg DAILY ORAL 07/17/19 09:00 08/16/19 08:59 07/19/19 09:14 Javi Ho MD Jul 19, 2019 09:43
--- NOTE | 2019-07-19 10:00 | NUR ---
PT EVALUATION NOTE Patient seen for initial evaluation, see complete evaluation for details. Patient presents with generalized weakness and impaired functional mobility. Patient requires min/mod assist for bed mobility and min assist for transfers with FWW. Patient able to ambulate 40 ft with min assist to manage FWW, on supplemental O2 via NC. Patient will benefit from skilled inpatient PT intervention to address strength, balance, safety and functional mobility. Anticipate discharge home with family assistance as needed once medically cleared by MD. DME needs to be determined based on patient's progress, patient has a FWW at home. Addendum: 07/19/19 at 1434 by QUINTON JO PT Amended: Links added.
--- NOTE | 2019-07-19 10:45 | Cardiac Electrophysiology PN ---
Assessment/Plan Assessment/Plan 1. 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 The patient's echocardiogram will be repeated today. 12-lead morphology of PVCs suggests these PVCs coming from left ventricular inferoseptal wall. May benefit from electrophysiology study and ablation of these frequent bigeminal PVCs. 2. Congestive heart failure with preserved ejection fraction. 3. COPD. Further evaluation by Dr. Ho. 4. Diabetes. 5. Hypothyroidism. 6. Hypertension. The patient is on Bystolic 5 mg daily, Lasix 40 mg IV daily. 7. Hyperlipidemia, on Lipitor and Tricor. DW son and RN at bedside Subjective Subjective Still having Frequent Bigeminal PVCs but no VT. No CP but on NC for SOB getting breathing treatment Objective Last 24 Hour Vital Signs Date Time Temp Pulse Resp B/P (MAP) Pulse Ox O2 Delivery O2 Flow Rate FiO2 07/19/19 09:00 97.9 68 21 116/48 (70) 93 07/19/19 09:00 Nasal Cannula 3.0 07/19/19 04:00 98.3 68 20 112/46 (68) 95 07/19/19 03:26 68 07/19/19 00:00 98.7 65 20 121/55 (77) 93 07/19/19 00:00 70 07/18/19 21:00 Nasal Cannula 3.0 07/18/19 20:26 73 18 96 Nasal Cannula 2.0 28 07/18/19 20:26 96 Nasal Cannula 2.0 28 07/18/19 20:00 98.8 75 20 126/64 (84) 93 07/18/19 19:36 77 07/18/19 16:30 97.8 62 18 115/56 (75) 93 07/18/19 16:00 66 07/18/19 13:20 66 18 97 Nasal Cannula 2.0 28 07/18/19 12:00 69 07/18/19 12:00 96.8 64 20 125/62 (83) 94 Intake and Output 07/18/19 07/19/19 18:59 06:59 Intake Total 260 ml Output Total 2600 ml Balance 260 ml -2600 ml Intake Oral 260 ml Output Urine Total 2600 ml # Voids 3 Microbiology Date/Time Source Procedure Growth Status 07/16/19 16:20 Nasal Nares MRSA Culture - Final NO METHICILLIN RESISTANT STAPH AUREUS... Complete 07/16/19 16:20 Rectum - Final NO CARBAPENEM-RESISTANT ENTEROBACTERI... Complete 07/16/19 16:20 Rectum VRE Culture - Final Enterococcus Faecalis - Vre Complete Objective HEAD AND NECK: Showed no JVD. LUNGS: Decreased breath sounds. CARDIOVASCULAR: Irregular S1 and S2 with no gallop or murmur. ABDOMEN: Soft. EXTREMITIES: No pitting edema. Francesco Patricia MD Jul 19, 2019 10:45
--- NOTE | 2019-07-19 11:30 | NUR ---
NURSE NOTES: Dr. Ho called regarding pCO2 level of 55.8. Message left with answering service.
[2019-07-19 12:00] VITALS: BP 110/53
--- NOTE | 2019-07-19 13:29 | NUR ---
BOOK AGENTORGANIZATIONAL CONSULTANT SI: CHF T. 98.0 HR 57 RR 22 B/P 110/53 NC 2L PH 7.38 PCO2 55.8 PO2 74.8 HCO3 32.4 O2 SAT 94.3 IS: ALB HHN ATROVENT HHN SYNTHROID PO D-DIMER TELE STATUS
--- NOTE | 2019-07-19 13:43 | NUR ---
RADIOLOGY DEPART., CHEST X-RAY COMPLETED @ [id number], Terri. REINALDO/Tomasz BROOKS
[2019-07-19] MEDS: Albuterol/Ipratropium 3ml neb HHN SCH ×2 (14:05→19:33)
--- NOTE | 2019-07-19 15:10 | NUR ---
RD ASSESSMENT & RECOMMENDATIONS SEE CARE ACTIVITY FOR COMPLETE ASSESSMENT DAILY ESTIMATED NEEDS: Needs based on CHF, obese, DM, pulmonary/ 58kg abw 25-30 kcals/kg 0866-1102 total kcals 1-1.5 g protein/kg 58-87 g total protein 20-25 mL/kg 1823-4499 total fluid mLs NUTRITION DIAGNOSIS: Altered nutrition related lab values R/T diabetes, CHF, respiratory status as evidenced by A1C of 6.5, elev BNP (90983), critically elev PCO2 (55.8*) CURRENT DIET:CCHO MED, soft easy chew PO DIET RECOMMENDATIONS: LOW NA, CCHO LOW/ texture as tolerated ADDITIONAL RECOMMENDATIONS: * Daily standing wt monitoring: CHF dx * Monitor lytes w/ lasix, replete as needed * Pt on BIPAP prn/ qhs- monitor tolerance to diet texture, GLASS MOULD CLEANER eval for appropriate texture if needed
[2019-07-19 16:00] VITALS: BP 108/52
--- NOTE | 2019-07-19 16:04 | Diagnostic Imaging Report ---
Indication: Dyspnea Comparison: 07/16/2019 A single view chest radiograph was obtained. Findings: Vascular prominence and cephalization, interstitial densities and cardiomegaly are again demonstrated consistent with CHF. Findings may be marginally improved but there still moderate disease. There may be a component of pulmonary fibrosis as well. The bones are osteopenic. IMPRESSION: Moderate congestive heart failure.
--- NOTE | 2019-07-19 19:35 | NUR ---
NURSE NOTES: Received patient from Arely MCDOWELL. Patient in bed, alert and oriented x4. Chappell catheter intact. On 2L NC, no signs of respiratory distress. Bed in low position, locked, bed alarm on, call light within reach.
--- NOTE | 2019-07-19 19:39 | NUR ---
HAND-OFF: Report given to Padilla Kinsey RN. Patient stable.
[2019-07-19 20:00] VITALS: BP 129/69
[2019-07-19] MEDS ORDERED: BYSTOLIC5 MG ORAL (20:13)
[2019-07-19] MEDS ORDERED: VITAMIN D250000 UNI1 ORAL (20:13)
[2019-07-19] MEDS ORDERED: VENTOLIN HFA18 GM INH (20:17)
--- NOTE | 2019-07-19 21:06 | General Progress Note ---
Assessment/Plan Status: stable Assessment/Plan: chf diastolic heart failure pulmonary htn ILD likely IPF ? sleep apnea htn diabetes hld renal insufficency diuresis echo noted cards fup on o2 bp controlled bs controlled monitor labs renal parameters ambulate dvt and ulcer prohylaxis ambulate dc planning Subjective Allergies: Coded Allergies: No Known Allergies (Verified , 08/18/07) Subjective decreased sob no cp Objective Last 24 Hour Vital Signs Date Time Temp Pulse Resp B/P (MAP) Pulse Ox O2 Delivery O2 Flow Rate FiO2 07/19/19 19:47 60 20 96 Nasal Cannula 2.0 28 07/19/19 19:30 96 Nasal Cannula 2.0 28 07/19/19 19:30 64 20 99 Nasal Cannula 2.0 28 60 20 96 07/19/19 16:00 98.1 60 20 108/52 (70) 95 07/19/19 14:00 60 07/19/19 12:00 98.0 53 22 110/53 (72) 93 07/19/19 12:00 57 07/19/19 09:48 79 20 95 Nasal Cannula 2.0 28 07/19/19 09:46 95 Nasal Cannula 2.0 28 07/19/19 09:00 97.9 68 21 116/48 (70) 93 07/19/19 09:00 Nasal Cannula 3.0 07/19/19 08:00 77 07/19/19 04:00 98.3 68 20 112/46 (68) 95 07/19/19 03:26 68 07/19/19 00:00 98.7 65 20 121/55 (77) 93 07/19/19 00:00 70 Intake and Output 07/18/19 07/19/19 19:00 07:00 Intake Total 120 ml Output Total 2600 ml Balance 120 ml -2600 ml Intake Oral 120 ml Output Urine Total 2600 ml # Voids 3 Laboratory Tests 07/19/19 10:25: Arterial Blood pH 7.382, Arterial Blood Partial Pressure CO2 55.8*H, Arterial Blood Partial Pressure O2 74.8L, Arterial Blood HCO3 32.4H, Arterial Blood Oxygen Saturation 94.3L, Arterial Blood Base Excess 5.6H, Porfirio Test Positive Height (Feet): 5 Height (Inches): 6.00 Weight (Pounds): 176 General Appearance: WD/WN, no apparent distress Neck: supple Cardiovascular: regular rhythm Respiratory/Chest: lungs clear, decreased breath sounds Abdomen: soft Edema: no edema noted Arm (L), no edema noted Arm (R), no edema noted Leg (L), no edema noted Leg (R), no edema noted Pedal (L), no edema noted Pedal (R), no edema noted Generalized Neurologic: industrial health engineer II-XII grossly normal, oriented x 3 Richard Brown MD Jul 19, 2019 21:06
[2019-07-19] MEDS: Atorvastatin 80mg tab ORAL SCH (21:42)
[2019-07-20] VITALS: BP 141/55
[2019-07-20] MEDS: Albuterol/Ipratropium 3ml neb HHN SCH ×4 (01:00→19:39)
[2019-07-20 04:00] VITALS: BP 139/65
[2019-07-20] MEDS: NovoLOG Insulin Flexpen SUBQ SCH ×4 (06:25→20:29)
--- NOTE | 2019-07-20 07:15 | NUR ---
NURSE NOTES: RECEIVED PT RESTING IN BED QUIETLY ,AWAKE AND ALERT DENIES CP AT THIS TIME.PT USING O2@ 2l/mins via n/c ,o2 sat 95%.full AM BODY ASSESSMENT DONE. NO ACUTE DISTRESS NOTED AT THIS TIME. WILL CONT TO MONITOR.
[2019-07-20 07:42] LABS: EOSINOPHILS % (AUTO) 6.2 % (0.0-3.0); HEMATOCRIT 46.2 % (37.0-47.0); HEMOGLOBIN 14.6 G/DL (12.0-16.0); LYMPHOCYTES % (AUTO) 25.5 % (20.0-45.0); MEAN CORPUSCULAR VOLUME 93 FL (80-99); MONOCYTES % (AUTO) 9.6 % (1.0-10.0); NEUTROPHILS % (AUTO) 57.7 % (45.0-75.0); PLATELET COUNT 269 K/UL (150-450); RED BLOOD COUNT 4.99 M/UL (4.20-5.40); RED CELL DISTRIBUTION WIDTH 13.5 % (11.6-14.8); WHITE BLOOD COUNT 5.1 K/UL (4.8-10.8)
[2019-07-20 08:00] VITALS: BP_SYST 131; BP_DIAS 64; BP_DIAS 66
[2019-07-20 08:00] LABS: ANION GAP 5 mmol/L (5-15); BLOOD UREA NITROGEN 70 mg/dL (7-18); CALCIUM 9.9 MG/DL (8.5-10.1); CARBON DIOXIDE 36 MMOL/L (21-32); CHLORIDE 106 MMOL/L (98-107); CREATININE 1.9 MG/DL (0.55-1.30); POTASSIUM 3.9 MMOL/L (3.5-5.1); SODIUM 147 MMOL/L (136-145)
[2019-07-20] MEDS ORDERED: Vitamin D 50,000 units cap ORAL SCH (09:00)
--- NOTE | 2019-07-20 09:39 | Pulmonology Progress Note ---
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 PROBLEM LIST: 1. Acute on chronic hypoxemic and hypercapnic respiratory failure. 2. 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 3. Obesity with likely obesity hypoventilation and MARCIE. 4. CHF with acute decompensated heart failure. 5. DAVID on CKD. 6. Former smoker. 7. Hypothyroidism. 8. Pulmonary HTN TREATMENT PLAN: 1. Optimize pulmonary hygiene/mobilize as tolerated. 2. Titrate down FiO2. 3. BiPAP 12/5 at bedtime and p.r.n. 4. HHN's 5. Monitor volumes and renal function, hold lasix 6. Aspiration precautions. 7. Plan for outpatient high-resolution CT, full PFTs, and sleep study as previously planned. 8. The patient is a Full Code, continue to discuss GOC. 9. Continue to abstain from smoking 10. Dispo planning. Subjective Allergies: Coded Allergies: No Known Allergies (Verified , 08/18/07) Subjective AFVSS O2 needs stable Less SOB some cough no wheezing no FC Objective Last 24 Hour Vital Signs Date Time Temp Pulse Resp B/P (MAP) Pulse Ox O2 Delivery O2 Flow Rate FiO2 07/20/19 08:00 97.4 59 20 131/64 (86) 07/20/19 07:58 59 18 98 Nasal Cannula 2.0 28 07/20/19 07:58 98 Nasal Cannula 2.0 28 07/20/19 07:58 64 18 99 Nasal Cannula 2.0 28 59 18 98 07/20/19 05:28 72 18 97 Facial 28 07/20/19 04:00 98.6 60 18 139/65 (89) 98 07/20/19 04:00 58 07/20/19 03:29 74 18 96 Facial 28 07/20/19 01:07 77 19 97 Facial 28 07/20/19 01:00 69 17 99 Nasal Cannula 2.0 28 74 17 97 07/20/19 00:01 76 17 96 Facial 28 07/20/19 00:00 67 07/20/19 00:00 98.1 52 18 141/55 (83) 98 07/19/19 21:00 Nasal Cannula 2.0 07/19/19 20:00 64 10/2/19 20:00 98.1 61 16 129/69 (89) 98 07/19/19 19:47 60 20 96 Nasal Cannula 2.0 28 07/19/19 19:30 96 Nasal Cannula 2.0 28 07/19/19 19:30 64 20 99 Nasal Cannula 2.0 28 60 20 96 07/19/19 16:00 98.1 60 20 108/52 (70) 95 07/19/19 14:00 60 07/19/19 12:00 98.0 53 22 110/53 (72) 93 07/19/19 12:00 57 07/19/19 09:48 79 20 95 Nasal Cannula 2.0 28 07/19/19 09:46 95 Nasal Cannula 2.0 28 Intake and Output 07/19/19 07/20/19 18:59 06:59 Intake Total 240 ml Output Total 3000 ml Balance -2760 ml Intake Oral 240 ml Output Urine Total 3000 ml # Voids 6 General Appearance: no acute distress, cachetic HEENT: normocephalic, atraumatic, anicteric, mucous membranes moist Respiratory/Chest: rhonchi Cardiovascular: normal peripheral pulses, normal rate, regular rhythm Abdomen: normal bowel sounds, soft, non tender, no organomegaly, non distended , no mass Extremities: no cyanosis, no clubbing, no edema Laboratory Tests 07/19/19 10:25: Arterial Blood pH 7.382, Arterial Blood Partial Pressure CO2 55.8*H, Arterial Blood Partial Pressure O2 74.8L, Arterial Blood HCO3 32.4H, Arterial Blood Oxygen Saturation 94.3L, Arterial Blood Base Excess 5.6H, Porfirio Test Positive 07/20/19 06:02: White Blood Count 5.1, Red Blood Count 4.99, Hemoglobin 14.6, Hematocrit 46.2, Mean Corpuscular Volume 93, Mean Corpuscular Hemoglobin 29.4, Mean Corpuscular Hemoglobin Concent 31.7L, Red Cell Distribution Width 13.5, Platelet Count 269, Mean Platelet Volume 7.5, Neutrophils (%) (Auto) 57.7, Lymphocytes (%) (Auto) 25.5, Monocytes (%) (Auto) 9.6, Eosinophils (%) (Auto) 6.2H, Basophils (%) (Auto ) 1.0, Sodium Level 147H, Potassium Level 3.9, Chloride Level 106, Carbon Dioxide Level 36H, Anion Gap 5, Blood Urea Nitrogen 70H, Creatinine 1.9H, Estimat Glomerular Filtration Rate , Glucose Level 86, Calcium Level 9.9, Pro-B- Type Natriuretic Peptide 4746H Current Medications Medications (Trade) Dose Ordered Sig/Diane Route PRN Reason Start Time Stop Time Status Last Admin Dose Admin Acetaminophen (Tylenol) 650 mg Q6H PRN ORAL Mild Pain/Temp > 100.5 07/16/19 17:15 08/15/19 17:14 Al Hydroxide/Mg Hydroxide (Mylanta) 30 ml BIDPRN PRN ORAL Dyspepsia 07/16/19 17:30 08/15/19 17:14 Albuterol/ Ipratropium (Albuterol/ Ipratropium) 3 ml Q6H PRN HHN Shortness of Breath 07/16/19 17:15 07/21/19 17:14 Albuterol/ Ipratropium (Albuterol/ Ipratropium) 3 ml Q6HRT HHN 07/19/19 13:00 07/24/19 12:59 07/20/19 07:54 Aspirin (Ecotrin) 81 mg DAILY ORAL 07/17/19 09:00 08/16/19 08:59 07/19/19 09:13 Atorvastatin Calcium (Lipitor) 40 mg BEDTIME ORAL 07/17/19 21:00 08/16/19 20:59 07/19/19 21:42 Dextrose (Dextrose 50%) 25 ml Q30M PRN IV Hypoglycemia 07/16/19 17:15 08/15/19 17:14 Dextrose (Dextrose 50%) 50 ml Q30M PRN IV Hypoglycemia 07/16/19 17:15 08/15/19 17:14 Docusate Sodium (Colace) 100 mg BID ORAL 07/16/19 18:00 08/15/19 17:59 07/19/19 17:10 Ergocalciferol (Drisdol) 50,000 intlu 2XW ORAL 07/21/19 09:00 08/20/19 08:59 Fenofibrate (Tricor) 134 mg DAILY ORAL 07/18/19 09:00 08/17/19 08:59 07/19/19 09:13 Heparin Sodium (Porcine) (Heparin 5000 units/ml) 5,000 units Q12HR SUBQ 07/16/19 21:00 08/15/19 20:59 07/19/19 21:47 Insulin Aspart (NovoLOG) BEFORE MEALS AND HS SUBQ 07/16/19 21:00 08/15/19 20:59 07/19/19 16:35 Levothyroxine Sodium (Synthroid) 112 mcg DAILY@0630 ORAL 07/20/19 06:30 08/19/19 06:29 07/20/19 06:21 Magnesium Hydroxide (Mom) 30 ml DAILYPRN PRN ORAL Constipation 07/16/19 17:15 08/15/19 17:14 Nebivolol (Bystolic) 5 mg DAILY ORAL 07/18/19 09:00 08/17/19 08:59 07/19/19 09:14 Pantoprazole (Protonix) 40 mg DAILY ORAL 07/17/19 09:00 08/16/19 08:59 07/19/19 09:14 Javi Ho MD Jul 20, 2019 09:39
--- NOTE | 2019-07-20 10:07 | Cardiac Electrophysiology PN ---
Assessment/Plan Assessment/Plan 1. 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 Echocardiogram showed EF 55%. 12-lead morphology of PVCs suggests these PVCs coming from left ventricular inferoseptal wall. May benefit from electrophysiology study and ablation of these frequent bigeminal PVCs that can be done as out patient 2. Congestive heart failure with preserved ejection fraction. 3. COPD. Further evaluation by Dr. Ho. 4. Diabetes. 5. Hypothyroidism. 6. Hypertension. On Bystolic 5 mg daily. DC Lasix 7. Hyperlipidemia, on Lipitor and Tricor. DW RN at bedside Subjective Subjective Still has Frequent Bigeminal PVCs but no VT. No CP or SOB. Has been nisa in low 50s Objective Last 24 Hour Vital Signs Date Time Temp Pulse Resp B/P (MAP) Pulse Ox O2 Delivery O2 Flow Rate FiO2 07/20/19 08:00 97.4 59 20 131/64 (86) 07/20/19 07:58 59 18 98 Nasal Cannula 2.0 28 07/20/19 07:58 98 Nasal Cannula 2.0 28 07/20/19 07:58 64 18 99 Nasal Cannula 2.0 28 59 18 98 07/20/19 05:28 72 18 97 Facial 28 07/20/19 04:00 98.6 60 18 139/65 (89) 98 07/20/19 04:00 58 07/20/19 03:29 74 18 96 Facial 28 07/20/19 01:07 77 19 97 Facial 28 07/20/19 01:00 69 17 99 Nasal Cannula 2.0 28 74 17 97 07/20/19 00:01 76 17 96 Facial 28 07/20/19 00:00 67 07/20/19 00:00 98.1 52 18 141/55 (83) 98 07/19/19 21:00 Nasal Cannula 2.0 07/19/19 20:00 64 07/19/19 20:00 98.1 61 16 129/69 (89) 98 07/19/19 19:47 60 20 96 Nasal Cannula 2.0 28 07/19/19 19:30 96 Nasal Cannula 2.0 28 07/19/19 19:30 64 20 99 Nasal Cannula 2.0 28 60 20 96 07/19/19 16:00 98.1 60 20 108/52 (70) 95 07/19/19 14:00 60 07/19/19 12:00 98.0 53 22 110/53 (72) 93 07/19/19 12:00 57 Intake and Output 07/19/19 07/20/19 18:59 06:59 Intake Total 240 ml Output Total 3000 ml Balance -2760 ml Intake Oral 240 ml Output Urine Total 3000 ml # Voids 6 Laboratory Tests Test 07/19/19 10:25 07/20/19 06:02 Arterial Blood pH 7.382 (7.350-7.450) Arterial Blood Partial Pressure CO2 55.8 mmHg (35.0-45.0) *H Arterial Blood Partial Pressure O2 74.8 mmHg (75.0-100.0) L Arterial Blood HCO3 32.4 mmol/L (22.0-26.0) H Arterial Blood Oxygen Saturation 94.3 % (95-100) L Arterial Blood Base Excess 5.6 (-2-2) H Porfirio Test Positive White Blood Count 5.1 K/UL (4.8-10.8) Red Blood Count 4.99 M/UL (4.20-5.40) Hemoglobin 14.6 G/DL (12.0-16.0) Hematocrit 46.2 % (37.0-47.0) Mean Corpuscular Volume 93 FL (80-99) Mean Corpuscular Hemoglobin 29.4 PG (27.0-31.0) Mean Corpuscular Hemoglobin Concent 31.7 G/DL (32.0-36.0) L Red Cell Distribution Width 13.5 % (11.6-14.8) Platelet Count 269 K/UL (150-450) Mean Platelet Volume 7.5 FL (6.5-10.1) Neutrophils (%) (Auto) 57.7 % (45.0-75.0) Lymphocytes (%) (Auto) 25.5 % (20.0-45.0) Monocytes (%) (Auto) 9.6 % (1.0-10.0) Eosinophils (%) (Auto) 6.2 % (0.0-3.0) H Basophils (%) (Auto) 1.0 % (0.0-2.0) Sodium Level 147 MMOL/L (136-145) H Potassium Level 3.9 MMOL/L (3.5-5.1) Chloride Level 106 MMOL/L (98-107) Carbon Dioxide Level 36 MMOL/L (21-32) H Anion Gap 5 mmol/L (5-15) Blood Urea Nitrogen 70 mg/dL (7-18) H Creatinine 1.9 MG/DL (0.55-1.30) H Estimat Glomerular Filtration Rate mL/min (>60) Glucose Level 86 MG/DL (74-106) Calcium Level 9.9 MG/DL (8.5-10.1) Pro-B-Type Natriuretic Peptide 4746 pg/mL (0-125) H Objective HEAD AND NECK: No JVD. LUNGS: Decreased breath sounds. CARDIOVASCULAR: Irregular S1 and S2 with no gallop or murmur. ABDOMEN: Soft. EXTREMITIES: No pitting edema. Francesco Patricia MD Jul 20, 2019 10:07
[2019-07-20] MEDS: Aspirin EC 81mg tab ORAL SCH (11:16)
[2019-07-20] MEDS: Bystolic 2.5mg Tab ORAL SCH (11:16)
[2019-07-20] MEDS: Heparin 5000 units/ml inj SUBQ SCH ×2 (11:21→20:29)
[2019-07-20] MEDS: Docusate 100mg cap ORAL SCH ×2 (11:26→17:27)
--- NOTE | 2019-07-20 11:33 | Consultation ---
Consult Note Assessment/Plan Renal consult dictated # [id number] Martin Quinteros MD Jul 20, 2019 11:33
[2019-07-20 12:00] VITALS: BP 99/37
--- NOTE | 2019-07-20 12:54 | Diagnostic Imaging Report ---
Indication:Elevated Bun and Creatinine. Technique: Grayscale and duplex Doppler imaging of the kidneys performed. Comparison: None Findings: The size, contour, and echogenicity of both kidneys are within normal limits. There is no hydronephrosis.. The right kidney measures 8.9 cm. in length. The left kidney measures 8.6 cm. in length. There is a small left renal cyst measuring 8 mm. The IVC is patent. Urinary bladder is unremarkable. Chappell catheter noted. IMPRESSION: Borderline small kidneys. Otherwise negative exam. Tiny left renal cyst
--- NOTE | 2019-07-20 13:00 | Diagnostic Imaging Report ---
APPROVED REPORT CPT Code: 37179 Present Symptoms Comments: Dyspnea BILATERAL: Imaging reveals a patent deep venous system bilaterally. There is no evidence of thrombus within the femoral, popliteal or tibial segments. The greater saphenous veins are also within normal limits. Doppler indicates normal spontaneous flow within these segments.
[2019-07-20 16:00] VITALS: BP 106/73
--- NOTE | 2019-07-20 17:15 | Consultation ---
DATE OF CONSULTATION: 07/20/2019 NEPHROLOGY CONSULTATION CONSULTING PHYSICIAN: Martin Quinteros M.D. REFERRING PHYSICIAN: Richard Brown M.D. REASON FOR CONSULTATION: Renal failure. HISTORY OF PRESENT ILLNESS: This is an 84-year-old female, who was admitted with shortness of breath. The patient has history of CHF. Initial serum creatinine was 1.6. The patient was diuresed, creatinine was up to 2.2 as of 07/18/2019. Today the serum creatinine is 1.9. The patient's shortness of breath has improved and she has diuresed in the past few days. According to the son who has translated, the patient has had kidney problems before and she was supposed to see a regrinder operator. PAST MEDICAL HISTORY: The patient has had diabetes and hypertension for many years. She apparently has not had any diabetic retinopathy, no history of eye surgery. She has a history of COPD, she was a smoker for long time, history of pancreatitis, hypothyroidism, history of obesity. MEDICATIONS: Reviewed in the EMR. Currently, she is not on any diuretics. SOCIAL HISTORY: Previous history of smoking. No history of alcohol abuse. ALLERGIES: No known drug allergies. REVIEW OF SYSTEMS: Noncontributory. The patient has not had any urinary symptoms. PHYSICAL EXAMINATION: GENERAL: The patient is a moderately obese female, in no acute distress. VITAL SIGNS: Blood pressure is 131/64, pulse is 59 temperature 97.4, respiratory rate is 20. HEENT: [place] conjunctivae. Anicteric sclerae. NECK: Supple. LUNGS: Bilateral rhonchi. Some crackles at bases. HEART: S1, S2 without murmurs or rubs. ABDOMEN: Soft, nontender. EXTREMITIES: No cyanosis or edema. LABORATORY FINDINGS: The chemistry panel shows serum sodium 147, potassium 3.9, chloride 106, CO2 36, BUN of 70, creatinine 1.9. ProBNP was 68058 on 07/18/2019, it is down to 4746. TSH is 0.29 with free T4 of 1.48. ABG as of yesterday showed a pH of 7.3, pCO2 of 56 and pO2 of 75. ASSESSMENT: This is an 84-year-old female, who is admitted with shortness of breath, CHF and COPD exacerbation. She has likely underlying chronic kidney disease. She had acute renal failure, possibly as of diuretics, which has improved. The etiology of her CKD is most likely diabetes, hypertension, and age. PLANS: Urine studies will be done. Also, a renal ultrasound to look at the echogenicity of kidneys, make sure the patient does have any obstruction. A serum PTH will be done to rule out secondary hyperparathyroidism. The patient needs to be back on diuretics soon, this will be discussed with the paint preparer. She needs good control of blood pressure as well as diabetes. Thank you very much, Dr. Brown, for this consultation. Martin Quinteros M.D. DR: VLAENTE JOB#: [id number] CC:
--- NOTE | 2019-07-20 17:15 | NUR ---
HAND-OFF: Report given to DANAY MCDOWELL.
--- NOTE | 2019-07-20 17:43 | NUR ---
NURSE NOTES: Received patient and report from Ali RN in bed resting, denies any pain. no s/s of acute respiratory distress noted. Patient is on 2L NC, breathing is even and unlabored. Family at bedside. Bed is on lowest position, with bedside rails up x3, brakes engaged for safety. Call light is within reach. Will continue with the plan of care.
--- NOTE | 2019-07-20 19:27 | NUR ---
HAND-OFF: Report given to Padilla. Patient is in stable condition.
--- NOTE | 2019-07-20 19:52 | NUR ---
NURSE NOTES: Received patient from Jerson MCDOWELL. Patient in bed, asleep, on 2L NC, no signs of respiratory distress. Chappell catheter intact. Bed in low position, locked, bed alarm on, call light within reach.
[2019-07-20 20:00] VITALS: BP 100/45
[2019-07-20] MEDS: Atorvastatin 80mg tab ORAL SCH (20:19)
--- NOTE | 2019-07-20 21:30 | General Progress Note ---
Assessment/Plan Status: stable Assessment/Plan: chf diastolic heart failure pulmonary htn ILD likely IPF ? sleep apnea htn diabetes hld renal insufficency diuretiic held due to increased creatienine check renal ultrsound diurestiec will need to be restarted soon echo noted cards fup on o2 bp controlled bs controlled monitor labs renal parameters ambulate dvt and ulcer prohylaxis ambulate dc planning Subjective Allergies: Coded Allergies: No Known Allergies (Verified , 08/18/07) Subjective decreased sob no cp Objective Last 24 Hour Vital Signs Date Time Temp Pulse Resp B/P (MAP) Pulse Ox O2 Delivery O2 Flow Rate FiO2 07/20/19 19:39 67 18 98 Nasal Cannula 2.0 28 65 18 95 07/20/19 19:16 98 Nasal Cannula 2.0 28 07/20/19 19:15 62 18 98 Nasal Cannula 2.0 28 07/20/19 16:00 61 07/20/19 16:00 98.5 82 18 106/73 (84) 98 82 07/20/19 13:48 66 18 99 Nasal Cannula 2.0 28 65 18 95 07/20/19 12:00 98.2 66 18 99/37 (57) 93 07/20/19 12:00 65 07/20/19 09:00 Nasal Cannula 2.0 07/20/19 08:00 58 07/20/19 08:00 97.4 59 20 131/66 (87) 95 59 07/20/19 07:58 59 18 98 Nasal Cannula 2.0 28 07/20/19 07:58 98 Nasal Cannula 2.0 28 07/20/19 07:58 64 18 99 Nasal Cannula 2.0 28 59 18 98 07/20/19 05:28 72 18 97 Facial 28 07/20/19 04:00 98.6 60 18 139/65 (89) 98 07/20/19 04:00 58 07/20/19 03:29 74 18 96 Facial 28 07/20/19 01:07 77 19 97 Facial 28 07/20/19 01:00 69 17 99 Nasal Cannula 2.0 28 74 17 97 07/20/19 00:01 76 17 96 Facial 28 07/20/19 00:00 67 07/20/19 00:00 98.1 52 18 141/55 (83) 98 Intake and Output 07/19/19 07/20/19 19:00 07:00 Intake Total 240 ml Output Total 3000 ml Balance -2760 ml Intake Oral 240 ml Output Urine Total 3000 ml # Voids 6 Laboratory Tests 07/20/19 06:02: White Blood Count 5.1, Red Blood Count 4.99, Hemoglobin 14.6, Hematocrit 46.2, Mean Corpuscular Volume 93, Mean Corpuscular Hemoglobin 29.4, Mean Corpuscular Hemoglobin Concent 31.7L, Red Cell Distribution Width 13.5, Platelet Count 269, Mean Platelet Volume 7.5, Neutrophils (%) (Auto) 57.7, Lymphocytes (%) (Auto) 25.5, Monocytes (%) (Auto) 9.6, Eosinophils (%) (Auto) 6.2H, Basophils (%) (Auto ) 1.0, Sodium Level 147H, Potassium Level 3.9, Chloride Level 106, Carbon Dioxide Level 36H, Anion Gap 5, Blood Urea Nitrogen 70H, Creatinine 1.9H, Estimat Glomerular Filtration Rate , Glucose Level 86, Calcium Level 9.9, Pro-B- Type Natriuretic Peptide 4746H 07/20/19 11:33: Calcium (Send out) [Pending], Parathyroid Hormone (Intact) [Pending] Height (Feet): 5 Height (Inches): 6.00 Weight (Pounds): 178 General Appearance: WD/WN, no apparent distress Cardiovascular: normal rate Respiratory/Chest: lungs clear Abdomen: normal bowel sounds, soft Edema: no edema noted Arm (L), no edema noted Arm (R), no edema noted Leg (L), no edema noted Leg (R), no edema noted Pedal (L), no edema noted Pedal (R), no edema noted Generalized Neurologic: hand lens polisher II-XII grossly normal Richard Brown MD Jul 20, 2019 21:30
[2019-07-20 23:06] LABS: APPEARANCE,URINE CLEAR; BILIRUBIN, URINE NEGATIVE (NEGATIVE); COLOR,URINE PALE YELLOW; GLUCOSE, URINE (UA) NEGATIVE (NEGATIVE); KETONES,URINE NEGATIVE (NEGATIVE); LEUKOCYTE ESTERASE ,URINE NEGATIVE (NEGATIVE); NITRITE,URINE NEGATIVE (NEGATIVE); PH,URINE 6 (4.5-8.0); PROTEIN,URINE 1+ (NEGATIVE); UROBILINOGEN,URINE NORMAL MG/DL (0.0-1.0)
[2019-07-21] VITALS: BP 115/52
[2019-07-21] MEDS: Albuterol/Ipratropium 3ml neb HHN SCH ×2 (01:26→07:48)
[2019-07-21 04:00] VITALS: BP 114/49
[2019-07-21] MEDS: NovoLOG Insulin Flexpen SUBQ SCH ×2 (06:08→12:07)
[2019-07-21 07:07] LABS: BASOPHILS % (AUTO) 1.3 % (0.0-2.0); EOSINOPHILS % (AUTO) 6.8 % (0.0-3.0); HEMATOCRIT 45.5 % (37.0-47.0); HEMOGLOBIN 14.3 G/DL (12.0-16.0); LYMPHOCYTES % (AUTO) 22.7 % (20.0-45.0); MEAN CORPUSCULAR VOLUME 93 FL (80-99); MONOCYTES % (AUTO) 9.4 % (1.0-10.0); NEUTROPHILS % (AUTO) 59.8 % (45.0-75.0); PLATELET COUNT 264 K/UL (150-450); RED BLOOD COUNT 4.89 M/UL (4.20-5.40); RED CELL DISTRIBUTION WIDTH 13.8 % (11.6-14.8); WHITE BLOOD COUNT 5.4 K/UL (4.8-10.8)
--- NOTE | 2019-07-21 07:50 | NUR ---
NURSE NOTES: Patient received from Padilla MCDOWELL. Patient stable sleeping in bed. Bipap on. Chappell draining well to gravity. Side rails upx2, bed low and locked in lowest position, call light within reach. Will continue to monitor.
[2019-07-21 07:55] LABS: ALANINE AMINOTRANSFERASE 17 U/L (12-78); ALBUMIN 2.8 G/DL (3.4-5.0); ALBUMIN/GLOBULIN RATIO 0.7 (1.0-2.7); ALKALINE PHOSPHATASE 55 U/L (46-116); ANION GAP 5 mmol/L (5-15); ASPARTATE AMINO TRANSFERASE 19 U/L (15-37); BILIRUBIN,TOTAL 0.4 MG/DL (0.2-1.0); BLOOD UREA NITROGEN 63 mg/dL (7-18); CARBON DIOXIDE 35 MMOL/L (21-32); CHLORIDE 107 MMOL/L (98-107); PHOSPHORUS 3.3 MG/DL (2.5-4.9); SODIUM 147 MMOL/L (136-145)
[2019-07-21 08:00] VITALS: BP 110/53
--- NOTE | 2019-07-21 08:38 | Pulmonology Progress Note ---
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 PROBLEM LIST: 1. Acute on chronic hypoxemic and hypercapnic respiratory failure. 2. 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 3. Obesity with likely obesity hypoventilation and MARCIE. 4. CHF with acute decompensated heart failure. 5. DAVID on CKD. 6. Former smoker. 7. Hypothyroidism. 8. Pulmonary HTN TREATMENT PLAN: 1. Optimize pulmonary hygiene/mobilize as tolerated. 2. Titrate down FiO2. 3. BiPAP 12/5 at bedtime and p.r.n. 4. HHN's 5. Monitor volumes and renal function, hold lasix 6. Aspiration precautions. 7. Plan for outpatient high-resolution CT, full PFTs, and sleep study as previously planned. 8. The patient is a Full Code, continue to discuss GOC. 9. Continue to abstain from smoking 10. Dispo planning. Subjective Allergies: Coded Allergies: No Known Allergies (Verified , 08/18/07) Subjective AFVSS O2 needs stable Baseline SOB some cough no wheezing no FC Objective Last 24 Hour Vital Signs Date Time Temp Pulse Resp B/P (MAP) Pulse Ox O2 Delivery O2 Flow Rate FiO2 07/21/19 07:50 98 Nasal Cannula 2.0 28 07/21/19 07:50 64 18 99 Nasal Cannula 2.0 28 64 18 96 07/21/19 07:50 61 18 98 Nasal Cannula 2.0 28 07/21/19 05:16 71 19 97 Facial 28 07/21/19 04:00 97.9 54 16 114/49 (70) 97 07/21/19 04:00 58 07/21/19 01:29 67 18 96 Facial 28 07/21/19 01:26 65 18 99 Nasal Cannula 2.0 28 63 18 96 07/21/19 00:00 63 07/21/19 00:00 97.8 58 20 115/52 (73) 94 07/20/19 23:29 69 19 98 Facial 28 07/20/19 21:00 Nasal Cannula 2.0 07/20/19 20:00 98.0 67 20 100/45 (63) 97 07/20/19 20:00 66 07/20/19 19:39 67 18 98 Nasal Cannula 2.0 28 65 18 95 07/20/19 19:16 98 Nasal Cannula 2.0 28 07/20/19 19:15 62 18 98 Nasal Cannula 2.0 28 07/20/19 16:00 61 07/20/19 16:00 98.5 82 18 106/73 (84) 98 82 07/20/19 13:48 66 18 99 Nasal Cannula 2.0 28 65 18 95 07/20/19 12:00 98.2 66 18 99/37 (57) 93 07/20/19 12:00 65 07/20/19 09:00 Nasal Cannula 2.0 Intake and Output 07/20/19 07/21/19 19:00 07:00 Output Total 4000 ml Balance -4000 ml Output Urine Total 4000 ml # Voids 7 General Appearance: no acute distress, cachetic HEENT: normocephalic, atraumatic, anicteric, mucous membranes moist Respiratory/Chest: rhonchi Cardiovascular: normal peripheral pulses, normal rate, regular rhythm Abdomen: normal bowel sounds, soft, non tender, no organomegaly, non distended , no mass Extremities: no cyanosis, no clubbing, no edema Laboratory Tests 07/20/19 11:33: Calcium (Send out) [Pending], Parathyroid Hormone (Intact) [Pending] 07/20/19 20:30: Urine Color Pale yellow, Urine Appearance Clear, Urine pH 6, Urine Specific [place] 1.015, Urine Protein 1+H, Urine Glucose (UA) Negative, Urine Ketones Negative, Urine Blood Negative, Urine Nitrite Negative, Urine Bilirubin Negative , Urine Urobilinogen Normal, Urine Leukocyte Esterase Negative, Urine RBC 0, Urine WBC 0-2, Urine Squamous Epithelial Cells Occasional, Urine Bacteria Occasional, Urine Creatinine 92.0 07/21/19 06:03: White Blood Count 5.4, Red Blood Count 4.89, Hemoglobin 14.3, Hematocrit 45.5, Mean Corpuscular Volume 93, Mean Corpuscular Hemoglobin 29.2, Mean Corpuscular Hemoglobin Concent 31.4L, Red Cell Distribution Width 13.8, Platelet Count 264, Mean Platelet Volume 7.4, Neutrophils (%) (Auto) 59.8, Lymphocytes (%) (Auto) 22.7, Monocytes (%) (Auto) 9.4, Eosinophils (%) (Auto) 6.8H, Basophils (%) (Auto ) 1.3, Sodium Level 147H, Potassium Level 4.0, Chloride Level 107, Carbon Dioxide Level 35H, Anion Gap 5, Blood Urea Nitrogen 63H, Creatinine 2.0H, Estimat Glomerular Filtration Rate , Glucose Level 95, Hemoglobin A1c 6.4H, Calcium Level 9.0, Phosphorus Level 3.3, Total Bilirubin 0.4, Aspartate Amino Transf (AST/SGOT) 19, Alanine Aminotransferase (ALT/SGPT) 17, Alkaline Phosphatase 55, Pro-B-Type Natriuretic Peptide 2137H, Total Protein 6.6, Albumin 2.8L, Globulin 3.8, Albumin/Globulin Ratio 0.7L Current Medications Medications (Trade) Dose Ordered Sig/Diane Route PRN Reason Start Time Stop Time Status Last Admin Dose Admin Acetaminophen (Tylenol) 650 mg Q6H PRN ORAL Mild Pain/Temp > 100.5 07/16/19 17:15 08/15/19 17:14 Al Hydroxide/Mg Hydroxide (Mylanta) 30 ml BIDPRN PRN ORAL Dyspepsia 07/16/19 17:30 08/15/19 17:14 Albuterol/ Ipratropium (Albuterol/ Ipratropium) 3 ml Q6H PRN HHN Shortness of Breath 07/16/19 17:15 07/21/19 17:14 Albuterol/ Ipratropium (Albuterol/ Ipratropium) 3 ml Q6HRT HHN 07/19/19 13:00 07/24/19 12:59 07/21/19 07:48 Aspirin (Ecotrin) 81 mg DAILY ORAL 07/17/19 09:00 08/16/19 08:59 07/20/19 11:16 Atorvastatin Calcium (Lipitor) 40 mg BEDTIME ORAL 07/17/19 21:00 08/16/19 20:59 07/20/19 20:19 Dextrose (Dextrose 50%) 25 ml Q30M PRN IV Hypoglycemia 07/16/19 17:15 08/15/19 17:14 Dextrose (Dextrose 50%) 50 ml Q30M PRN IV Hypoglycemia 07/16/19 17:15 08/15/19 17:14 Docusate Sodium (Colace) 100 mg BID ORAL 07/16/19 18:00 08/15/19 17:59 07/20/19 17:27 Ergocalciferol (Drisdol) 50,000 intlu 2XW ORAL 07/21/19 09:00 08/20/19 08:59 Fenofibrate (Tricor) 134 mg DAILY ORAL 07/18/19 09:00 08/17/19 08:59 07/20/19 11:16 Heparin Sodium (Porcine) (Heparin 5000 units/ml) 5,000 units Q12HR SUBQ 07/16/19 21:00 08/15/19 20:59 07/20/19 20:29 Insulin Aspart (NovoLOG) BEFORE MEALS AND HS SUBQ 07/16/19 21:00 08/15/19 20:59 07/20/19 17:27 Levothyroxine Sodium (Synthroid) 112 mcg DAILY@0630 ORAL 07/20/19 06:30 08/19/19 06:29 07/21/19 06:05 Magnesium Hydroxide (Mom) 30 ml DAILYPRN PRN ORAL Constipation 07/16/19 17:15 08/15/19 17:14 Nebivolol (Bystolic) 5 mg DAILY ORAL 07/18/19 09:00 08/17/19 08:59 07/20/19 11:16 Pantoprazole (Protonix) 40 mg DAILY ORAL 07/17/19 09:00 08/16/19 08:59 07/20/19 11:15 Javi Ho MD Jul 21, 2019 08:38
[2019-07-21] MEDS: Bystolic 2.5mg Tab ORAL SCH (08:48)
[2019-07-21] MEDS: Aspirin EC 81mg tab ORAL SCH (08:48)
[2019-07-21] MEDS: Docusate 100mg cap ORAL SCH (08:48)
[2019-07-21] MEDS: Heparin 5000 units/ml inj SUBQ SCH (08:50)
[2019-07-21] MEDS ORDERED: Vitamin D 50,000 units cap ORAL SCH (09:00)
--- NOTE | 2019-07-21 09:57 | Cardiac Electrophysiology PN ---
Assessment/Plan Assessment/Plan 1. 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 Echo showed EF 55%. 12-lead morphology of PVCs suggests these PVCs coming from left ventricular inferoseptal wall. Electrophysiology study and ablation of these frequent bigeminal PVCs that can be done as out patient On Bystolic 5 daily 2. Congestive heart failure with preserved ejection fraction. 3. COPD. Further evaluation by Dr. Ho. 4. Diabetes. 5. Hypothyroidism. 6. Hypertension. On Bystolic 5 mg daily. 7. Hyperlipidemia, on Lipitor and Tricor. ELICEO RN at bedside OK to DC Subjective Subjective No CP or SOB. Has been nisa in 50s and 60s. Objective Last 24 Hour Vital Signs Date Time Temp Pulse Resp B/P (MAP) Pulse Ox O2 Delivery O2 Flow Rate FiO2 07/21/19 07:50 98 Nasal Cannula 2.0 28 07/21/19 07:50 64 18 99 Nasal Cannula 2.0 28 64 18 96 07/21/19 07:50 61 18 98 Nasal Cannula 2.0 28 07/21/19 05:16 71 19 97 Facial 28 07/21/19 04:00 97.9 54 16 114/49 (70) 97 07/21/19 04:00 58 07/21/19 01:29 67 18 96 Facial 28 07/21/19 01:26 65 18 99 Nasal Cannula 2.0 28 63 18 96 07/21/19 00:00 63 07/21/19 00:00 97.8 58 20 115/52 (73) 94 07/20/19 23:29 69 19 98 Facial 28 07/20/19 21:00 Nasal Cannula 2.0 07/20/19 20:00 98.0 67 20 100/45 (63) 97 07/20/19 20:00 66 07/20/19 19:39 67 18 98 Nasal Cannula 2.0 28 65 18 95 07/20/19 19:16 98 Nasal Cannula 2.0 28 07/20/19 19:15 62 18 98 Nasal Cannula 2.0 28 07/20/19 16:00 61 07/20/19 16:00 98.5 82 18 106/73 (84) 98 82 07/20/19 13:48 66 18 99 Nasal Cannula 2.0 28 65 18 95 07/20/19 12:00 98.2 66 18 99/37 (57) 93 07/20/19 12:00 65 Intake and Output 07/20/19 07/21/19 18:59 06:59 Output Total 4000 ml Balance -4000 ml Output Urine Total 4000 ml # Voids 7 Laboratory Tests Test 07/20/19 11:33 07/20/19 20:30 07/21/19 06:03 Calcium (Send out) Pending Parathyroid Hormone (Intact) Pending Urine Color Pale yellow Urine Appearance Clear Urine pH 6 (4.5-8.0) Urine Specific [place] 1.015 (1.005-1.035) Urine Protein 1+ (NEGATIVE) H Urine Glucose (UA) Negative (NEGATIVE) Urine Ketones Negative (NEGATIVE) Urine Blood Negative (NEGATIVE) Urine Nitrite Negative (NEGATIVE) Urine Bilirubin Negative (NEGATIVE) Urine Urobilinogen Normal MG/DL (0.0-1.0) Urine Leukocyte Esterase Negative (NEGATIVE) Urine RBC 0 /HPF (0 - 2) Urine WBC 0-2 /HPF (0 - 2) Urine Squamous Epithelial Cells Occasional /LPF Urine Bacteria Occasional /HPF (NONE) Urine Creatinine 92.0 MG/DL (30.0-125.0) White Blood Count 5.4 K/UL (4.8-10.8) Red Blood Count 4.89 M/UL (4.20-5.40) Hemoglobin 14.3 G/DL (12.0-16.0) Hematocrit 45.5 % (37.0-47.0) Mean Corpuscular Volume 93 FL (80-99) Mean Corpuscular Hemoglobin 29.2 PG (27.0-31.0) Mean Corpuscular Hemoglobin Concent 31.4 G/DL (32.0-36.0) L Red Cell Distribution Width 13.8 % (11.6-14.8) Platelet Count 264 K/UL (150-450) Mean Platelet Volume 7.4 FL (6.5-10.1) Neutrophils (%) (Auto) 59.8 % (45.0-75.0) Lymphocytes (%) (Auto) 22.7 % (20.0-45.0) Monocytes (%) (Auto) 9.4 % (1.0-10.0) Eosinophils (%) (Auto) 6.8 % (0.0-3.0) H Basophils (%) (Auto) 1.3 % (0.0-2.0) Sodium Level 147 MMOL/L (136-145) H Potassium Level 4.0 MMOL/L (3.5-5.1) Chloride Level 107 MMOL/L (98-107) Carbon Dioxide Level 35 MMOL/L (21-32) H Anion Gap 5 mmol/L (5-15) Blood Urea Nitrogen 63 mg/dL (7-18) H Creatinine 2.0 MG/DL (0.55-1.30) H Estimat Glomerular Filtration Rate mL/min (>60) Glucose Level 95 MG/DL (74-106) Hemoglobin A1c 6.4 % (4.3-6.0) H Calcium Level 9.0 MG/DL (8.5-10.1) Phosphorus Level 3.3 MG/DL (2.5-4.9) Total Bilirubin 0.4 MG/DL (0.2-1.0) Aspartate Amino Transf (AST/SGOT) 19 U/L (15-37) Alanine Aminotransferase (ALT/SGPT) 17 U/L (12-78) Alkaline Phosphatase 55 U/L (46-116) Pro-B-Type Natriuretic Peptide 2137 pg/mL (0-125) H Total Protein 6.6 G/DL (6.4-8.2) Albumin 2.8 G/DL (3.4-5.0) L Globulin 3.8 g/dL Albumin/Globulin Ratio 0.7 (1.0-2.7) L Objective HEAD AND NECK: No JVD. LUNGS: Decreased breath sounds. CARDIOVASCULAR: Irregular S1 and S2 with no gallop or murmur. ABDOMEN: Soft. EXTREMITIES: No pitting edema. Francesco Patricia MD Jul 21, 2019 09:57
--- NOTE | 2019-07-21 11:00 | NUR ---
NURSE NOTES: Chappell d/c per MD orders. Awaiting patient to urinate.
--- NOTE | 2019-07-21 12:28 | NUR ---
NURSE NOTES: Patient voided. Patient helped get dressed. Awaiting family for discharge.
--- NOTE | 2019-07-21 13:11 | Nephrology Progress Note ---
Assessment/Plan Problem List: (1) CKD (chronic kidney disease) (2) COPD (chronic obstructive pulmonary disease) (3) CHF (congestive heart failure) (4) DM (diabetes mellitus) (5) HTN (hypertension) Assessment renal function stable Plan discussed with dr arlyn ESTEBAN to Dc will follow as outpt Subjective Subjective feels ok Objective Objective Last 24 Hour Vital Signs Date Time Temp Pulse Resp B/P (MAP) Pulse Ox O2 Delivery O2 Flow Rate FiO2 07/21/19 09:00 Nasal Cannula 2.0 07/21/19 08:00 97.7 74 16 110/53 (72) 93 07/21/19 07:50 98 Nasal Cannula 2.0 28 07/21/19 07:50 64 18 99 Nasal Cannula 2.0 28 64 18 96 07/21/19 07:50 61 18 98 Nasal Cannula 2.0 28 07/21/19 05:16 71 19 97 Facial 28 07/21/19 04:00 97.9 54 16 114/49 (70) 97 07/21/19 04:00 58 07/21/19 01:29 67 18 96 Facial 28 07/21/19 01:26 65 18 99 Nasal Cannula 2.0 28 63 18 96 07/21/19 00:00 63 07/21/19 00:00 97.8 58 20 115/52 (73) 94 07/20/19 23:29 69 19 98 Facial 28 07/20/19 21:00 Nasal Cannula 2.0 07/20/19 20:00 98.0 67 20 100/45 (63) 97 07/20/19 20:00 66 07/20/19 19:39 67 18 98 Nasal Cannula 2.0 28 65 18 95 07/20/19 19:16 98 Nasal Cannula 2.0 28 07/20/19 19:15 62 18 98 Nasal Cannula 2.0 28 07/20/19 16:00 61 07/20/19 16:00 98.5 82 18 106/73 (84) 98 82 07/20/19 13:48 66 18 99 Nasal Cannula 2.0 28 65 18 95 Intake and Output 07/20/19 07/21/19 18:59 06:59 Output Total 4000 ml Balance -4000 ml Output Urine Total 4000 ml # Voids 7 Laboratory Tests 07/20/19 20:30: Urine Color Pale yellow, Urine Appearance Clear, Urine pH 6, Urine Specific [place] 1.015, Urine Protein 1+H, Urine Glucose (UA) Negative, Urine Ketones Negative, Urine Blood Negative, Urine Nitrite Negative, Urine Bilirubin Negative , Urine Urobilinogen Normal, Urine Leukocyte Esterase Negative, Urine RBC 0, Urine WBC 0-2, Urine Squamous Epithelial Cells Occasional, Urine Bacteria Occasional, Urine Creatinine 92.0 07/21/19 06:03: White Blood Count 5.4, Red Blood Count 4.89, Hemoglobin 14.3, Hematocrit 45.5, Mean Corpuscular Volume 93, Mean Corpuscular Hemoglobin 29.2, Mean Corpuscular Hemoglobin Concent 31.4L, Red Cell Distribution Width 13.8, Platelet Count 264, Mean Platelet Volume 7.4, Neutrophils (%) (Auto) 59.8, Lymphocytes (%) (Auto) 22.7, Monocytes (%) (Auto) 9.4, Eosinophils (%) (Auto) 6.8H, Basophils (%) (Auto ) 1.3, Sodium Level 147H, Potassium Level 4.0, Chloride Level 107, Carbon Dioxide Level 35H, Anion Gap 5, Blood Urea Nitrogen 63H, Creatinine 2.0H, Estimat Glomerular Filtration Rate , Glucose Level 95, Hemoglobin A1c 6.4H, Calcium Level 9.0, Phosphorus Level 3.3, Total Bilirubin 0.4, Aspartate Amino Transf (AST/SGOT) 19, Alanine Aminotransferase (ALT/SGPT) 17, Alkaline Phosphatase 55, Pro-B-Type Natriuretic Peptide 2137H, Total Protein 6.6, Albumin 2.8L, Globulin 3.8, Albumin/Globulin Ratio 0.7L Height (Feet): 5 Height (Inches): 6.00 Weight (Pounds): 172 Cardiovascular: normal rate Respiratory/Chest: lungs clear Martin Quinteros MD Jul 21, 2019 13:11
--- NOTE | 2019-07-21 15:07 | NUR ---
NURSE NOTES: Patient discharged home with son and via private vehicle. All belongings with patient. Explained s/s to look out for that could indicate CHF exacerbation. Reviewed meds with patient and family and informed her that Dr. Brown d/ralph metformin and actos but would be sending new prescription to her pharmacy ([facility] [phone]). Also informed her that she has a follow up appointment on Wednesday and to follow up with Dr. Patricia in a few weeks. Family verbalized understanding. Melissa walked down via wheelchair. Patient stable. Addendum: 07/21/19 at 1513 by BETSY GREGORIO RN Patient discharged at 1400
--- NOTE | 2019-07-24 10:16 | Discharge Summary ---
Discharge Summary Discharge Summary _ DATE OF ADMISSION: 07/16/2019 DATE OF DISCHARGE: 07/21/2019 DISCHARGED BY: Dr. Brown REASON FOR ADMISSION: 84 years old female with past medical history of COPD, CHF, diabetes mellitus, pancreatitis, hypertension, hyperlipidemia, hypothyroidism, chronic kidney disease, presented for evaluation due to shortness of breath. Patient had recent hospitalization for CHF and COPD exacerbation. Patient reported exertional dyspnea for 2 to 3 days, but denied chest pain or chest pressure. She denied falls. She denied loss of consciousness. No cough. No abdominal pain. No nausea, vomiting or diarrhea. Patient has supplemental oxygen at home , that she had been using for some time , but recently noted increase in oxygen requirements . Patient denied lower extremities swelling. Upon evaluation vital signs revealed slightly elevated blood pressure . ABG on 2 L of oxygen revealed hypoxemia with O2 sat of 87% and acidosis with pH 7.28 ,PCO2 48. Laboratory work-up revealed no leukocytosis , stable hemoglobin and hematocrit. Potassium 5.8. BUN 40, creatinine 1.6 Stable LFT. Troponin negative. Pro BNP 49551 . EKG revealed sinus rhythm, no acute ischemic changes. Chest x-ray demonstrated interstitial and airspace opacities with small bilateral pleural effusion and cardiomegaly. Likely CHF. Patient subsequently admitted to telemetry floor for further management. CONSULTANTS: bail bondsman Dr. Loza pulmonary Dr. Ho fruit harvester Dr. Quinteros [facility]RSE: Patient admitted to telemetry floor. Helper Driver and icebox man followed. Echocardiogram demonstrated preserved ejection fraction of 55% with no evidence of left ventricular hypertrophy. No evidence of wall motion abnormality. Moderate tricuspid regurgitation. Moderately elevated left atrial pressure; left ventricular diastolic dysfunction grade 2. Right ventricular systolic pressure of 71 , consistent with severe pulmonary hypertension. Patient started on diuresis with close monitoring of volumes and cardiorenal parameters. Patient noted to have frequent PVC in bigeminal pattern with morphology, suggestive that these PVCs were coming from left ventricular inferior septal wall. Helper Driver recommended electrophysiology study and ablation of this frequent bigeminal PVC , which can be done as outpatient. Patient was continued on beta blockage. Antiplatelet therapy was continued. Statin and TriCor continued. Boiler Plant Worker closely followed. Supplemental oxygen titrated to keep pulse oximetry above 92%. Bronchodilator treatment provided. Venous duplex bilateral lower extremity revealed no evidence of acute DVT. Patient was mobilized. Patient provided with BiPAP at night and as needed. Strict aspiration precaution maintained. Boiler Plant Worker recommended outpatient high-resolution CT scan, full PFT, and sleep study. Patient was counseled to continue abstinence from smoking. DVT and GI prophylaxis provided. Blood sugar was managed with sliding scale of insulin Synthroid continued. Bulking Machine Operator followed. Renal parameters and electrolytes were closely monitored. Electrolytes corrected as needed. Nephrotoxics were avoided. Patient to follow-up with fruit harvester as outpatient. Pro BNP [place] initial [address]508 down to 2137. Follow-up chest x-ray revealed some improvement. As patient clinically improved , she was able to wean down to oxygen f 2 L via nasal cannula. Patient clinically stabilized and was ready for discharge home. 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 DISCHARGE INSTRUCTIONS: Patient was discharged home. Follow up with primary care provider in one week. Recommended outpatient follow-up with icebox man for high-resolution CT scan, polysomnogram and pulmonary function test. Recommended outpatient follow-up with a cardiac farm loan representative for electrophysiology study and ablation of frequent bigeminal PVCs. Follow-up as outpatient with fruit harvester for close monitoring of renal function. I have been assigned to dictate discharge summary for this account. I was not involved in the patient's management. Char Scanlon NP Jul 24, 2019 10:16
== END 2019-07-21 14:00 | disposition home or self-care (01) | DRG 291 ==
LOC: EMR 11:00 → 2E 12:49 → EDBEDREQ 14:50 → 2E 07-17 21:56
DX: I13.0 Hypertensive heart and chronic kidney disease with heart failure and stage 1 through stage 4 chronic kidney disease, or unspecified chronic kidney disease (principal); I50.33 Acute on chronic diastolic (congestive) heart failure; J96.21 Acute and chronic respiratory failure with hypoxia; J96.22 Acute and chronic respiratory failure with hypercapnia; E66.2 Morbid (severe) obesity with alveolar hypoventilation; J44.9 Chronic obstructive pulmonary disease, unspecified; E87.5 Hyperkalemia; I27.20 Pulmonary hypertension, unspecified; Z87.891 Personal history of nicotine dependence; E11.22 Type 2 diabetes mellitus with diabetic chronic kidney disease; N18.9 Chronic kidney disease, unspecified; J84.112 Idiopathic pulmonary fibrosis; E03.9 Hypothyroidism, unspecified; I36.1 Nonrheumatic tricuspid (valve) insufficiency; I49.3 Ventricular premature depolarization; E78.5 Hyperlipidemia, unspecified; Z79.84 Long term (current) use of oral hypoglycemic drugs; Z68.33 Body mass index [BMI] 33.0-33.9, adult
CPT/HCPCS: 36415; 36600; 71045; 76770; 80048; 80053; 80061; 81001; 82550; 82553; 82570; 82803; 82962; 83036; 83880; 83970; 84100; 84439; 84443; 84484; 85025; 87081; 93005; 93306; 93970; 94640; 94660; 94664; 96374; 96375; 96376; 99291; J1815; J7620

== ENCOUNTER 2019-07-27 14:36 | Inpatient (IN) | payer MEDICARE, OTHER ==
[~2019-07-27] VITALS: Ht 153 cm; Wt 72.6 kg
[~2019-07-27 14:36] MED LIST changes: +BYSTOLIC5 MG ORAL; +VENTOLIN HFA18 GM INH; +VITAMIN D250000 UNI1 ORAL; +VITAMIN D400 INTLU ORAL
[2019-07-27 14:54] VITALS: BP 108/61
--- NOTE | 2019-07-27 14:54 | NUR ---
ED Nurse Note: Pt came in due to decreased heart rate. Pt was seen by her home care nurse and told the pt that her heart rate was low and came to ED for evaluation. HR of 38 upon triage. Pt denies CP or SOB but states she feels weak. AAO x4 and speaks in full sentences. ER MD mello stallings.
--- NOTE | 2019-07-27 15:01 | Emergency Room Report ---
History of Present Illness General Chief Complaint: Generalized Weakness Source: Patient, Medical Record Present Illness HPI 84 years old female with past medical history of COPD, CHF, diabetes mellitus, pancreatitis, hypertension, hyperlipidemia, hypothyroidism, chronic kidney disease, presented for evaluation due to hypotension and bradycardia, heart rate was down to low 30s, patient was feeling lightheaded and short of breath, patient was being evaluated by home health nurse. Patient denies any chest pain patient presents for evaluation. Unknown aggravating relieving factors severity was severe symptoms are constant. Symptoms occurred prior to arrival Allergies: Coded Allergies: No Known Allergies (Verified , 08/18/07) Patient History Past Medical History: see triage record Now: No Reviewed Nursing Documentation: PMH: Agreed; PSxH: Agreed Nursing Documentation-PMH Past Medical History: No History, Except For Hx Cardiac Problems: Yes Hx Hypertension: Yes Hx Pacemaker: No - hyperlipidimia Hx Diabetes: Yes Hx Cancer: No Hx Gastrointestinal Problems: No Hx Neurological Problems: No Review of Systems All Other Systems: negative except mentioned in HPI Physical Exam Vital Signs Date Time Temp Pulse Resp B/P (MAP) Pulse Ox O2 Delivery O2 Flow Rate FiO2 07/27/19 14:44 98.1 38 22 108/61 (77) 96 Room Air 2.0 Sp02 EP Interpretation: reviewed, abnormal - Requiring supplemental O2 General Appearance: alert, severe distress Head: normocephalic, atraumatic Eyes: bilateral eye PERRL, bilateral eye EOMI ENT: uvula midline, moist mucus membranes Neck: supple, thyroid normal, supple/symm/no masses Respiratory: lungs clear, no retraction, no accessory muscle use, decreased breath sounds Cardiovascular #1: normal peripheral pulses, no edema, no gallop, no murmur, bradycardia Gastrointestinal: non tender, soft, no guarding, no rebound Musculoskeletal: normal inspection Neurologic: alert, oriented x3 Psychiatric: mood/affect normal Skin: no rash, warm/dry Procedures Critical Care Time Critical Care Time Given the critical condition in which the patient arrived, the patient was immediately assessed by myself and the nurse, and cardiac monitoring initiated due to the potential for rapid decompensation of the patient's clinical condition. During the course of the patient's stay, I spent a considerable amount of time at the bedside performing serial re-evaluations of the patient's hemodynamic and clinical status because of the recognized potential threat to life or limb in this condition. I then had a chance to review not only all of the available current laboratory and radiographic studies obtained today, but I also reviewed old records available to me at the time. Additionally, any ancillary information available including retail sales associate bilingual records were reviewed. Sequential vital signs were obtained. Critical Care time of 31 minutes was performed exclusive of billable procedures. Medical Decision Making Diagnostic Impression: Primary Impression: Symptomatic bradycardia ER Course 84-year-old female recent admission for CHF, dyspnea, patient with symptom medic bradycardia down to 30s, patient was given fluids, patient was retaining her blood pressure patient will be admitted to [facility] for admission, possible tacky dysrhythmia Pads were placed on patient. Multiple reevaluations patient remained stable. Patient admitted to Dr. Brown Cardiology consulted, Kathy Patient admitted to [facility] down. Laboratory Tests Test 07/27/19 15:15 07/27/19 15:19 07/27/19 15:25 White Blood Count 6.9 K/UL (4.8-10.8) Red Blood Count 5.04 M/UL (4.20-5.40) Hemoglobin 14.6 G/DL (12.0-16.0) Hematocrit 47.2 % (37.0-47.0) H Mean Corpuscular Volume 94 FL (80-99) Mean Corpuscular Hemoglobin 29.0 PG (27.0-31.0) Mean Corpuscular Hemoglobin Concent 31.0 G/DL (32.0-36.0) L Red Cell Distribution Width 13.6 % (11.6-14.8) Platelet Count 248 K/UL (150-450) Mean Platelet Volume 9.2 FL (6.5-10.1) Neutrophils (%) (Auto) 68.8 % (45.0-75.0) Lymphocytes (%) (Auto) 20.2 % (20.0-45.0) Monocytes (%) (Auto) 7.4 % (1.0-10.0) Eosinophils (%) (Auto) 2.6 % (0.0-3.0) Basophils (%) (Auto) 1.0 % (0.0-2.0) Prothrombin Time 10.5 SEC (9.30-11.50) Prothrombin Time INR 1.0 (0.9-1.1) PTT 26 SEC (23-33) Sodium Level 142 MMOL/L (136-145) Potassium Level 5.3 MMOL/L (3.5-5.1) H Chloride Level 107 MMOL/L (98-107) Carbon Dioxide Level 30 MMOL/L (21-32) Anion Gap 5 mmol/L (5-15) Blood Urea Nitrogen 48 mg/dL (7-18) H Creatinine 1.8 MG/DL (0.55-1.30) H Estimate Glomerular Filtration Rate mL/min (>60) Glucose Level 99 MG/DL (74-106) Lactic Acid Level 1.10 mmol/L (0.4-2.0) Calcium Level 9.6 MG/DL (8.5-10.1) Phosphorus Level 3.8 MG/DL (2.5-4.9) Magnesium Level 2.1 MG/DL (1.8-2.4) Total Bilirubin 0.3 MG/DL (0.2-1.0) Aspartate Amino Transferase (AST) 24 U/L (15-37) Alanine Aminotransferase (ALT) 27 U/L (12-78) Alkaline Phosphatase 58 U/L (46-116) Total Creatine Kinase 30 U/L (26-308) Creatine Kinase MB < 0.5 NG/ML (0.0-3.6) Creatine Kinase MB Relative Index 1.6 Troponin I 0.000 ng/mL (0.000-0.056) Pro-B-Type Natriuretic Peptide 6748 pg/mL (0-125) H Total Protein 7.3 G/DL (6.4-8.2) Albumin 3.2 G/DL (3.4-5.0) L Globulin 4.1 g/dL Albumin/Globulin Ratio 0.8 (1.0-2.7) L Lipase 121 U/L (73-393) Thyroid Stimulating Hormone (TSH) 1.473 uiU/mL (0.358-3.740) Free Thyroxine 1.41 NG/DL (0.76-1.46) Free Triiodothyronine 2.2 pg/mL (2.3-4.2) L Arterial Blood pH 7.399 (7.350-7.450) Arterial Blood Partial Pressure CO2 44.1 mmHg (35.0-45.0) Arterial Blood Partial Pressure O2 79.6 mmHg (75.0-100.0) Arterial Blood HCO3 26.6 mmol/L (22.0-26.0) H Arterial Blood Oxygen Saturation 95.8 % (95-100) Arterial Blood Base Excess 1.5 (-2-2) Porfirio Test Positive Urine Color Pale yellow Urine Appearance Clear Urine pH 6.5 (4.5-8.0) Urine Specific [place] 1.005 (1.005-1.035) Urine Protein 2+ (NEGATIVE) H Urine Glucose (UA) Negative (NEGATIVE) Urine Ketones Negative (NEGATIVE) Urine Blood Negative (NEGATIVE) Urine Nitrite Negative (NEGATIVE) Urine Bilirubin Negative (NEGATIVE) Urine Urobilinogen Normal MG/DL (0.0-1.0) Urine Leukocyte Esterase 1+ (NEGATIVE) H Urine RBC 0-2 /HPF (0 - 2) Urine WBC 2-4 /HPF (0 - 2) Urine Squamous Epithelial Cells Few /LPF (NONE/OCC) Urine Bacteria Few /HPF (NONE) EKG Diagnostic Results EKG Time: 14:52 EP Interpretation: NSR, rate 68, QTc 401, no acute ST elevations, PVC, left axis Rhythm Strip Diag. Results Rhythm Strip Time: 15:26 EP Interpretation: yes Rate: 36 Rhythm: other - Bradycardia Last Vital Signs Date Time Temp Pulse Resp B/P (MAP) Pulse Ox O2 Delivery O2 Flow Rate FiO2 07/27/19 14:44 98.1 38 22 108/61 (77) 96 Room Air 2.0 Disposition: ADMITTED INPATIENT Condition: Sebastián Baptiste MD Jul 27, 2019 15:01
--- NOTE | 2019-07-27 15:35 | Diagnostic Imaging Report ---
Indication: Shortness of breath Technique: One view of the chest Comparison: 07/19/2019 Findings: Bilateral interstitial opacities appear similar to the prior exam. No definite focal airspace consolidation. The heart size is upper limits of normal. No definite effusions. Findings on prior chest CT for 04/01/2019 suggest interstitial findings are due primarily to pulmonary interstitial fibrosis. Impression: Bilateral diffuse interstitial disease, appearing similar to prior study 07/19/2019. Probably largely on the basis of chronic interstitial fibrotic change, but element of superimposed pulmonary edema also possible
--- NOTE | 2019-07-27 15:38 | NUR ---
ED Nurse Note: Dr Lopez cancelled order for hunt catheter.
[2019-07-27 16:07] LABS: EOSINOPHILS % (AUTO) 2.6 % (0.0-3.0); HEMATOCRIT 47.2 % (37.0-47.0); HEMOGLOBIN 14.6 G/DL (12.0-16.0); LYMPHOCYTES % (AUTO) 20.2 % (20.0-45.0); MEAN CORPUSCULAR VOLUME 94 FL (80-99); MONOCYTES % (AUTO) 7.4 % (1.0-10.0); NEUTROPHILS % (AUTO) 68.8 % (45.0-75.0); PLATELET COUNT 248 K/UL (150-450); RED BLOOD COUNT 5.04 M/UL (4.20-5.40); RED CELL DISTRIBUTION WIDTH 13.6 % (11.6-14.8); WHITE BLOOD COUNT 6.9 K/UL (4.8-10.8)
[2019-07-27 16:13] LABS: ANION GAP 5 mmol/L (5-15); BLOOD UREA NITROGEN 48 mg/dL (7-18); CALCIUM 9.6 MG/DL (8.5-10.1); CARBON DIOXIDE 30 MMOL/L (21-32); CHLORIDE 107 MMOL/L (98-107); CREATININE 1.8 MG/DL (0.55-1.30); POTASSIUM 5.3 MMOL/L (3.5-5.1); SODIUM 142 MMOL/L (136-145)
[2019-07-27 16:14] LABS: APPEARANCE,URINE CLEAR; BILIRUBIN, URINE NEGATIVE (NEGATIVE); COLOR,URINE PALE YELLOW; GLUCOSE, URINE (UA) NEGATIVE (NEGATIVE); KETONES,URINE NEGATIVE (NEGATIVE); LEUKOCYTE ESTERASE ,URINE 1+ (NEGATIVE); NITRITE,URINE NEGATIVE (NEGATIVE); PH,URINE 6.5 (4.5-8.0); PROTEIN,URINE 2+ (NEGATIVE); UROBILINOGEN,URINE NORMAL MG/DL (0.0-1.0)
[2019-07-27 16:27] LABS: ALANINE AMINOTRANSFERASE 27 U/L (12-78); ALBUMIN 3.2 G/DL (3.4-5.0); ALBUMIN/GLOBULIN RATIO 0.8 (1.0-2.7); ALKALINE PHOSPHATASE 58 U/L (46-116); ASPARTATE AMINO TRANSFERASE 24 U/L (15-37); BILIRUBIN,TOTAL 0.3 MG/DL (0.2-1.0); CKMB < 0.5 NG/ML (0.0-3.6); CREATINE KINASE 30 U/L (26-308); PHOSPHORUS 3.8 MG/DL (2.5-4.9)
--- NOTE | 2019-07-27 16:53 | NUR ---
ED Nurse Note: REPORT GIVEN TO MIGUEL ANGEL MCDOWELL OF [facility]U.
[2019-07-27 16:57] VITALS: BP 127/75
[2019-07-27 18:00] VITALS: BP 136/66
--- NOTE | 2019-07-27 18:00 | NUR ---
NURSE NOTES: Received patient from JULY Wright from ED. Pt reported to ED for treatment after home health nurse noted a HR of 38. NKA. Pt is alert and oriented x4, NSR and on NC 2L O2 saturation of 98% no signs of respiratory distress noted. Skin is intact. 18g IV catheter on R AC patent and asymptomatic 20g IV catheter on L forearm patient and asymptomatic VS upon arrival to the unit were BP 136/66, HR 69 Temp 98.3 RR 20 O2 Sat 98% Fall risk precautions observed. Bed is in lowest position, wheels locked, call light within reach and bed alarm activated.
--- NOTE | 2019-07-27 19:25 | NUR ---
HAND-OFF: Report given to Oliva Alonzo RN.
[2019-07-27 20:00] VITALS: BP 151/67
--- NOTE | 2019-07-27 20:00 | NUR ---
NURSE NOTES: Received patient from JULY Conner and JULY Ness. patient is observed resting in bed, AO X4, Croatian speaking, daughter at bedside. denies pain at this time. patient is currently on 2 L O2 via NC, no s/sx of respiratory distress noted at this time. bilateral pulses palpable. IV sites are patent and intact, asymptomatic. ecchymosis noted on mid to lower abdominal area. bed in lowest position and locked, bed alarm on, siderails up X3, call light within reach. will continue to monitor. will contact MD for admitting orders.
--- NOTE | 2019-07-27 20:10 | NUR ---
NURSE NOTES: called Dr. Brown regarding admission orders. will follow orders per MD.
[2019-07-27] MEDS ORDERED: Milk of Magnesia 30ml Ud ORAL PRN (23:30)
[2019-07-27] MEDS ORDERED: Guaifenesin/DM 10ml syrup ORAL PRN (23:30)
[2019-07-27] MEDS ORDERED: Docusate 100mg cap ORAL PRN (23:30)
[2019-07-28] VITALS: BP 127/67
[2019-07-28 04:00] VITALS: BP 123/65
[2019-07-28 05:29] LABS: BASOPHILS % (AUTO) 0.7 % (0.0-2.0); EOSINOPHILS % (AUTO) 4.4 % (0.0-3.0); HEMATOCRIT 40.9 % (37.0-47.0); HEMOGLOBIN 12.9 G/DL (12.0-16.0); LYMPHOCYTES % (AUTO) 22.1 % (20.0-45.0); MEAN CORPUSCULAR VOLUME 93 FL (80-99); MONOCYTES % (AUTO) 9.7 % (1.0-10.0); PLATELET COUNT 206 K/UL (150-450); RED BLOOD COUNT 4.42 M/UL (4.20-5.40); RED CELL DISTRIBUTION WIDTH 13.3 % (11.6-14.8); WHITE BLOOD COUNT 5.6 K/UL (4.8-10.8)
[2019-07-28 05:58] LABS: ALANINE AMINOTRANSFERASE 24 U/L (12-78); ALBUMIN 2.7 G/DL (3.4-5.0); ALBUMIN/GLOBULIN RATIO 0.8 (1.0-2.7); ALKALINE PHOSPHATASE 45 U/L (46-116); ANION GAP 4 mmol/L (5-15); ASPARTATE AMINO TRANSFERASE 23 U/L (15-37); BILIRUBIN,TOTAL 0.4 MG/DL (0.2-1.0); BLOOD UREA NITROGEN 40 mg/dL (7-18); CALCIUM 9.1 MG/DL (8.5-10.1); CARBON DIOXIDE 31 MMOL/L (21-32); CHLORIDE 109 MMOL/L (98-107); CHOLESTEROL 130 MG/DL (< 200); CREATININE 1.5 MG/DL (0.55-1.30); HDL CHOLESTEROL 45 MG/DL (40-60); POTASSIUM 4.6 MMOL/L (3.5-5.1); SODIUM 144 MMOL/L (136-145); TRIGLYCERIDES 139 MG/DL (30-150)
--- NOTE | 2019-07-28 07:48 | NUR ---
HAND-OFF: Report given to JULY Blakely. patient is in stable condition. endorsed plan of care.
[2019-07-28 08:00] VITALS: BP 134/49
--- NOTE | 2019-07-28 08:00 | NUR ---
NURSE NOTES: Received change of shift report from Oliva MCDOWELL. Pt is awake, alert, Romanian speaking, oriented x4. Pt is on 2L of oxygen via nasal cannula with 98% O2sat and diminished lung sounds on auscultation. Per Tele monitor, heart rhythm is NSR with heart rate in the 80's, bounding peripheral pulses and trace peripheral edema. Peripheral IV access is noted on right AC #18G and left FA #20G, saline locked, patent/intact. Abdomen is large, round, soft, nontender to touch with hypoactive bowel sounds. Pt uses bedpan for urination and BM. Pt denies any pain or discomfort at this time. Skin is intact, however lower abdominal bruises noted. Bed is locked, in lowest position with three side rails up, in lowest position, and call light within reach. Will continue to monitor pt and follow plan of care per MD orders and protocol.
--- NOTE | 2019-07-28 08:41 | Consultation ---
Consult Note Assessment/Plan DATE OF CONSULTATION: 07/28/2019 PULMONARY CONSULTATION CONSULTING PHYSICIAN: Javi Ho M.D. REFERRING PHYSICIAN: Richard Brown M.D. HISTORY OF PRESENT ILLNESS: The patient is an 84-year-old female with a history of interstitial lung disease and COPD a/e symptomatic bradycardia to the 30's. No FC, no CP, SOB and coughing @ baseline. No NVDC, no abd pain or urinary complaints. PAST MEDICAL HISTORY: 1. Diabetes. 2. Hypertension. 3. Hyperlipidemia. 4. Obesity. 5. Hypothyroidism. 6. ILD. PAST SURGICAL HISTORY: None. MEDICATIONS: Prior to admission medications reviewed. Current medications reviewed. ALLERGIES: No known drug allergies. SOCIAL HISTORY: Born in [facility] and moved to in . Worked in [employer]. Has 7 children, 9 grandchildren. Former smoker, quit 3 months ago. No drug or alcohol use. No pets. FAMILY HISTORY: Father of an accident. Mother of natural causes. Otherwise unremarkable. REVIEW OF SYSTEMS: Negative other than history of present illness. PHYSICAL EXAMINATION: Last 24 Hour Vital Signs Date Time Temp Pulse Resp B/P (MAP) Pulse Ox O2 Delivery O2 Flow Rate FiO2 07/28/19 04:00 99.0 70 20 123/65 (84) 94 07/28/19 04:00 61 07/28/19 04:00 Nasal Cannula 2.0 07/28/19 04:00 2.0 07/28/19 00:00 Nasal Cannula 2.0 07/28/19 00:00 98.5 63 20 127/67 (87) 94 07/28/19 00:00 61 07/28/19 00:00 2.0 07/27/19 22:41 Nasal Cannula 2.0 07/27/19 20:00 98.5 67 20 151/67 (95) 94 07/27/19 20:00 63 07/27/19 18:00 98.3 69 20 136/66 (89) 99 07/27/19 17:23 98.7 1 16 135/70 100 Room Air 2.0 07/27/19 16:57 98.5 87 20 127/75 99 Room Air 2.0 07/27/19 14:54 98.1 38 22 108/61 96 Room Air 2.0 07/27/19 14:54 38 22 Room Air 2.0 07/27/19 14:44 98.1 38 22 108/61 (77) 96 Room Air 2.0 . GENERAL: This is a well-developed and well-nourished female, in no acute distress. Awake, alert, and oriented x3. Obese. HEENT: Normocephalic and atraumatic. Oropharynx is clear with moist mucous membranes. NECK: Supple without lymphadenopathy with 8 cm JVD. CHEST: Coarse bilateral rales and like. HEART: Regular rate and rhythm. ABDOMEN: Soft, nontender, and nondistended. EXTREMITIES: No cyanosis, clubbing, or edema. ANCILLARY DATA: Laboratories reviewed. IMAGING: Chest x-ray with evidence of interstitial disease and pulmonary vascular congestion. ASSESSMENT: The patient is an 84-year-old female with a history of ILD, likely IPF, obesity, likely sleep apnea, presenting with symptomatic bradycardia. PROBLEM LIST: 1. Chronic hypoxemic and hypercapnic respiratory failure. 2. 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 3. Obesity with likely obesity hypoventilation and MARCIE. 4. CHF with acute decompensated heart failure. 5. CKD. 6. Former smoker. 7. Hypothyroidism. 8. Symptomatic bradycardia TREATMENT PLAN: 1. Optimize pulmonary hygiene/mobilize as tolerated. 2. Titrate down FiO2. 3. BiPAP 12/5 at bedtime and p.r.n. 4. Continue p.r.n. bronchodilators for the time being. 5. Monitor volumes and renal function, diuresis as able. 6. Aspiration precautions. 7. Follow up cardiology recs, will likely need PM, continue tele 8. Plan for outpatient high-resolution CT, full PFTs, and sleep study as previously planned. 9. The patient is a Full Code. 10. Continue to abstain from smoking. Dr. Brown, thank you for allowing me to assist in the care of this patient. If I may be of any assistance in the future, please do not hesitate to ask. Chaz Patterson Ashkan L. MD Jul 28, 2019 08:41
[2019-07-28] MEDS ORDERED: Albuterol/Ipratropium 3ml neb HHN PRN (08:45)
[2019-07-28] MEDS: Heparin 5000 units/ml inj SUBQ SCH ×2 (09:00→21:38)
--- NOTE | 2019-07-28 10:30 | NUR ---
NURSE NOTES: Pt consumed 75% of breakfast this AM. Family is now at bedside. Pt denies any pain or discomfort. Pt remains on 2L of oxygen via nasal cannula. Pt is at high villanueva's position in bed, watching TV. AM meds were administered.
[2019-07-28] MEDS: Aspirin EC 81mg tab ORAL SCH (11:25)
[2019-07-28 12:00] VITALS: BP 131/51
--- NOTE | 2019-07-28 12:27 | Consultation ---
Consult Note Assessment/Plan renal consult dictated # [id number] Martin Quinteros MD Jul 28, 2019 12:27
--- NOTE | 2019-07-28 12:30 | NUR ---
NURSE NOTES: Pt is now having lunch. Remains afebrile with stable VS. Family, now daughter and son is at bedside. Pt was seen by Dr Ho. Order noted for PRN Duoneb. Pt was administered Zofran per PRN order prior to lunch meal consumption as pt reported nausea. Tele monitor displays NSR.
[2019-07-28] MEDS: Furosemide 40mg tab ORAL SCH (13:58)
--- NOTE | 2019-07-28 14:00 | Cardiac Electrophysiology PN ---
Subjective Subjective [id number] Objective Last 24 Hour Vital Signs Date Time Temp Pulse Resp B/P (MAP) Pulse Ox O2 Delivery O2 Flow Rate FiO2 07/28/19 04:00 99.0 70 20 123/65 (84) 94 07/28/19 04:00 61 07/28/19 04:00 Nasal Cannula 2.0 07/28/19 04:00 2.0 07/28/19 00:00 Nasal Cannula 2.0 07/28/19 00:00 98.5 63 20 127/67 (87) 94 07/28/19 00:00 61 07/28/19 00:00 2.0 07/27/19 22:41 Nasal Cannula 2.0 07/27/19 20:00 98.5 67 20 151/67 (95) 94 07/27/19 20:00 63 07/27/19 18:00 98.3 69 20 136/66 (89) 99 07/27/19 17:23 98.7 1 16 135/70 100 Room Air 2.0 07/27/19 16:57 98.5 87 20 127/75 99 Room Air 2.0 07/27/19 14:54 98.1 38 22 108/61 96 Room Air 2.0 07/27/19 14:54 38 22 Room Air 2.0 07/27/19 14:44 98.1 38 22 108/61 (77) 96 Room Air 2.0 Intake and Output 07/27/19 07/28/19 19:00 07:00 Intake Total 240 ml Output Total 300 ml Balance -60 ml Intake Oral 240 ml Output Urine Total 300 ml # Voids 1 1 Laboratory Tests Test 07/27/19 15:15 07/27/19 15:19 07/27/19 15:25 07/28/19 03:30 White Blood Count 6.9 K/UL (4.8-10.8) 5.6 K/UL (4.8-10.8) Red Blood Count 5.04 M/UL (4.20-5.40) 4.42 M/UL (4.20-5.40) Hemoglobin 14.6 G/DL (12.0-16.0) 12.9 G/DL (12.0-16.0) Hematocrit 47.2 % (37.0-47.0) H 40.9 % (37.0-47.0) Mean Corpuscular Volume 94 FL (80-99) 93 FL (80-99) Mean Corpuscular Hemoglobin 29.0 PG (27.0-31.0) 29.3 PG (27.0-31.0) Mean Corpuscular Hemoglobin Concent 31.0 G/DL (32.0-36.0) L 31.6 G/DL (32.0-36.0) L Red Cell Distribution Width 13.6 % (11.6-14.8) 13.3 % (11.6-14.8) Platelet Count 248 K/UL (150-450) 206 K/UL (150-450) Mean Platelet Volume 9.2 FL (6.5-10.1) 9.6 FL (6.5-10.1) Neutrophils (%) (Auto) 68.8 % (45.0-75.0) 63.0 % (45.0-75.0) Lymphocytes (%) (Auto) 20.2 % (20.0-45.0) 22.1 % (20.0-45.0) Monocytes (%) (Auto) 7.4 % (1.0-10.0) 9.7 % (1.0-10.0) Eosinophils (%) (Auto) 2.6 % (0.0-3.0) 4.4 % (0.0-3.0) H Basophils (%) (Auto) 1.0 % (0.0-2.0) 0.7 % (0.0-2.0) Prothrombin Time 10.5 SEC (9.30-11.50) Prothromb Time International Ratio 1.0 (0.9-1.1) Activated Partial Thromboplast Time 26 SEC (23-33) Sodium Level 142 MMOL/L (136-145) 144 MMOL/L (136-145) Potassium Level 5.3 MMOL/L (3.5-5.1) H 4.6 MMOL/L (3.5-5.1) Chloride Level 107 MMOL/L (98-107) 109 MMOL/L (98-107) H Carbon Dioxide Level 30 MMOL/L (21-32) 31 MMOL/L (21-32) Anion Gap 5 mmol/L (5-15) 4 mmol/L (5-15) L Blood Urea Nitrogen 48 mg/dL (7-18) H 40 mg/dL (7-18) H Creatinine 1.8 MG/DL (0.55-1.30) H 1.5 MG/DL (0.55-1.30) H Estimat Glomerular Filtration Rate mL/min (>60) mL/min (>60) Glucose Level 99 MG/DL (74-106) 76 MG/DL (74-106) Lactic Acid Level 1.10 mmol/L (0.4-2.0) Calcium Level 9.6 MG/DL (8.5-10.1) 9.1 MG/DL (8.5-10.1) Phosphorus Level 3.8 MG/DL (2.5-4.9) Magnesium Level 2.1 MG/DL (1.8-2.4) Total Bilirubin 0.3 MG/DL (0.2-1.0) 0.4 MG/DL (0.2-1.0) Aspartate Amino Transf (AST/SGOT) 24 U/L (15-37) 23 U/L (15-37) Alanine Aminotransferase (ALT/SGPT) 27 U/L (12-78) 24 U/L (12-78) Alkaline Phosphatase 58 U/L (46-116) 45 U/L (46-116) L Total Creatine Kinase 30 U/L (26-308) Creatine Kinase MB < 0.5 NG/ML (0.0-3.6) Creatine Kinase MB Relative Index 1.6 Troponin I 0.000 ng/mL (0.000-0.056) Pro-B-Type Natriuretic Peptide 6748 pg/mL (0-125) H Total Protein 7.3 G/DL (6.4-8.2) 6.2 G/DL (6.4-8.2) L Albumin 3.2 G/DL (3.4-5.0) L 2.7 G/DL (3.4-5.0) L Globulin 4.1 g/dL 3.5 g/dL Albumin/Globulin Ratio 0.8 (1.0-2.7) L 0.8 (1.0-2.7) L Lipase 121 U/L (73-393) Thyroid Stimulating Hormone (TSH) 1.473 uiU/mL (0.358-3.740) 1.104 uiU/mL (0.358-3.740) Free Thyroxine 1.41 NG/DL (0.76-1.46) Free Triiodothyronine 2.2 pg/mL (2.3-4.2) L Arterial Blood pH 7.399 (7.350-7.450) Arterial Blood Partial Pressure CO2 44.1 mmHg (35.0-45.0) Arterial Blood Partial Pressure O2 79.6 mmHg (75.0-100.0) Arterial Blood HCO3 26.6 mmol/L (22.0-26.0) H Arterial Blood Oxygen Saturation 95.8 % (95-100) Arterial Blood Base Excess 1.5 (-2-2) Porfirio Test Positive Urine Color Pale yellow Urine Appearance Clear Urine pH 6.5 (4.5-8.0) Urine Specific Noel 1.005 (1.005-1.035) Urine Protein 2+ (NEGATIVE) H Urine Glucose (UA) Negative (NEGATIVE) Urine Ketones Negative (NEGATIVE) Urine Blood Negative (NEGATIVE) Urine Nitrite Negative (NEGATIVE) Urine Bilirubin Negative (NEGATIVE) Urine Urobilinogen Normal MG/DL (0.0-1.0) Urine Leukocyte Esterase 1+ (NEGATIVE) H Urine RBC 0-2 /HPF (0 - 2) Urine WBC 2-4 /HPF (0 - 2) Urine Squamous Epithelial Cells Few /LPF (NONE/OCC) Urine Bacteria Few /HPF (NONE) Hemoglobin A1c 6.6 % (4.3-6.0) H Triglycerides Level 139 MG/DL (30-150) Cholesterol Level 130 MG/DL (< 200) LDL Cholesterol 66 mg/dL (<100) HDL Cholesterol 45 MG/DL (40-60) Cholesterol/HDL Ratio 2.9 (3.3-4.4) Francesco Arechiga MD Jul 28, 2019 14:00
--- NOTE | 2019-07-28 14:30 | NUR ---
NURSE NOTES: Pt used bedpan x2 for urine output, 400mL for AM, and 300mL for PM urine output measured. Pt was seen by Dr Patricia. telecommunications technician is now at bedside for 2D Echo imaging study.
[2019-07-28 16:00] VITALS: BP 94/63
--- NOTE | 2019-07-28 16:00 | NUR ---
NURSE NOTES: 2D Echo and Venous duplex have now been completed and resulted uploaded. Pt is resting in stable condition, watching TV, denies any discomfort at this time. Family is at bedside.
--- NOTE | 2019-07-28 16:23 | NUR ---
CASE MANAGEMENT: INITIAL REVIEW 84 YR OLD FEMALE FROM HOME CC: GENERALIZED WEAKNESS SI: SYMPTOMATIC BRADYCARDIA 98.0 38 22 108/61 96% NC 2L BNP 6748; K+ 5.3; BUN 48; CRE 1.8; Hct 47.2; ABG: HCO3 26.6; IS:IVF NS BOLUS X1 CXR ECG ECHO : TO 2W STEP DOWN UNIT PLAN: VENOUS DOPPLER ECHO CASE MANAGEMENT: INITIAL REVIEW 07/28/19 SI: SYMPTOMATIC BRADYCARDIA 97.9 68 18 134/49 95% NC 2L BNP 6748; K+ 5.3; BUN 40; CRE 1.5; IS: LASIX PO QD HEPARIN SQ Q12 ASA PO QD : TO 2W STEP DOWN UNIT PLAN: VENOUS DOPPLER ECHO
--- NOTE | 2019-07-28 17:15 | Consultation ---
DATE OF CONSULTATION: 07/28/2019 NEPHROLOGY CONSULTATION CONSULTING PHYSICIAN: Martin Quinteros M.D. REFERRING PHYSICIAN: Richard Brown M.D. REASON FOR CONSULTATION: Renal failure. HISTORY OF PRESENT ILLNESS: This is an 84-year-old female, who is known to me from recent admissions to [facility], also 1 visit in my office. The patient has history of CKD, but recently she had also acute renal failure. According to the son, the patient's heart rate was in low 30s at home and the visiting nurse checked her. She was also hypotensive and she was brought into the emergency room and was admitted. On admission, her BUN and creatinine were 48 and 1.8 and today the BUN is 40 with creatinine 1.5. PAST MEDICAL HISTORY: Includes history of diastolic dysfunction, CHF, hyperlipidemia, diabetes mellitus. MEDICATIONS: Reviewed in the EMR. SOCIAL HISTORY: No history of smoking or alcohol abuse. The patient lives at home and has very supportive family. ALLERGIES: No known drug allergies. REVIEW OF SYSTEMS: Noncontributory. PHYSICAL EXAMINATION: GENERAL: The patient is an elderly female, in no acute distress. VITAL SIGNS: Blood pressure is 123/65, pulse 70, respiratory rate 20, temperature 99. HEENT: [place] conjunctivae. Anicteric sclerae. NECK: Supple. LUNGS: Bibasilar rales. HEART: S1-S2 without murmurs or rubs. ABDOMEN: Soft, nontender. EXTREMITIES: No cyanosis or edema. LABORATORY FINDINGS: The CBC shows WBC of 5600, hematocrit 40.9, hemoglobin 12.9, platelets 206,000. Chemistry panel shows a sodium 144, potassium 4.6, chloride 109, CO2 31, BUN is 40, creatinine 1.5. Hemoglobin A1c is 6.6. Albumin is 2.7. UA shows 2+ protein. ASSESSMENT: This is an 84-year-old female with a history of CKD, recent acute renal failure, which has improved. She was admitted with bradycardia and hypotension. PLAN: I will restart her on Lasix 40 mg daily. Her serum creatinine will be followed closely. Case will be discussed with Dr. Patricia and Dr. Brown. The patient will need to have a PTH checked, which I would do as an outpatient. Thank you very much, Dr. Brown, for this consultation. Martin Quinteros M.D. DR: POLLY JOB#: [id number] CC:
--- NOTE | 2019-07-28 18:00 | NUR ---
NURSE NOTES: Pt was assisted with repositioning. VS remain stable. Pt is now watching TV with no s/s of discomfort/pain reported/noted.
--- NOTE | 2019-07-28 18:30 | Consultation ---
DATE OF CONSULTATION: 07/28/2019 CARDIOLOGY CONSULTATION CONSULTING PHYSICIAN: Francesco Patricia M.D. REFERRING PHYSICIAN: Richard Brown M.D. REASON FOR CONSULTATION: Bradycardia and frequent PVCs. HISTORY OF PRESENT ILLNESS: The patient is an 84-year-old lady that I am quite familiar with that she was discharged just 4 days ago. 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 The patient has normal left ventricular systolic function. The patient also has chronic obstructive pulmonary disease and interstitial lung disease. The patient was admitted for her bradycardia with the heart rate dropping to 30s. The cardiac electrophysiology consultation was obtained for further evaluation and management. At the time of my evaluation, the patient of shortness of breath. REVIEW OF SYSTEMS: Review of systems was negative other than what is mentioned in the history of present illness. PAST MEDICAL HISTORY: As mentioned above. FAMILY HISTORY: Noncontributory. SOCIAL HISTORY: She lives at home. Does not smoke or drink alcohol. PHYSICAL EXAMINATION: VITAL SIGNS: Show blood pressure is 133/65, pulse is 63, respirations 18, and she is afebrile. HEAD AND NECK: Shows no JVD. LUNGS: Clear. CARDIOVASCULAR: Shows regular S1 and S2 with no gallop or murmur. ABDOMEN: Soft. EXTREMITIES: No pitting edema. LABORATORY DATA: Labs show white count 5.7, hematocrit 12.9, hematocrit of 40, and platelet count is 209,000. Sodium 144, potassium 4.6, BUN of 40, creatinine 1.5, and glucose of 76. Troponin is negative. ASSESSMENT AND PLAN: 1. Symptomatic bradycardia. The patient is off any sinus or AV jessica blocking agents. We will watch the patient on telemetry. If the bradycardia persists, the patient may need permanent pacemaker implantation. 2. 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 Echocardiogram showed normal left ventricular systolic function. These premature ventricular contractions may be amenable to ablation even though does not a typical site of the left ventricle and it can be done as an outpatient. 3. Hyperlipidemia. On Lipitor. 4. Shortness of breath. On Lasix 40 mg daily and albuterol. The patient also has chronic obstructive pulmonary disease. 5. Hypothyroidism. On Synthroid. Thank you very much for allowing me to participate in the care of this patient. Please do not hesitate to contact me for any questions regarding my evaluation. Francesco Patricia M.D. DR: SOFIA JOB#: [id number] CC:
--- NOTE | 2019-07-28 19:30 | NUR ---
NURSE NOTES: Received patient from JULY Blakely. patient is observed resting in bed, AO X4, Emirati speaking, denies pain at this time. patient is on 2 L O2 via NC, tolerating well, saturating at 96%, no s/sx of respiratory distress noted at this time. IV sites are patent and intact, asymptomatic. bed in lowest position and locked, siderails up X3, call light within reach. will continue to monitor.
--- NOTE | 2019-07-28 19:31 | NUR ---
HAND-OFF: Report given to Oliva MCDOWELL. VS stable. Endorsed plan of care.
[2019-07-28 20:00] VITALS: BP 125/59
[2019-07-28] MEDS: Atorvastatin 80mg tab ORAL SCH (21:27)
--- NOTE | 2019-07-28 22:00 | History and Physical Report ---
DATE OF ADMISSION: 07/27/2019 HISTORY OF PRESENT ILLNESS: The patient is an unfortunate 84-year-old female with history of COPD, history of idiopathic pulmonary fibrosis, history of CHF, history of renal insufficiency and diabetes who is oxygen dependent at home presented to the emergency room with complaints of dizziness, lightheadedness. She was noted to be bradycardic at times in the 30s and has been admitted to a monitored bed. Dr. Patricia, her health services manager was notified as well. She denies any chest pain. Denies any headaches. Denies any abdominal pain. No diarrhea. No changes in her bowel habits or urinary symptoms. PAST MEDICAL HISTORY: Includes history of COPD, history of CHF, history of diabetes, history of pancreatitis in the past, history of hypothyroidism, history of obesity, history of idiopathic pulmonary fibrosis, history of hypertension and hyperlipidemia. MEDICATIONS: Please see reconciled medication list. ALLERGIES: None known. SOCIAL HISTORY: She is originally from [facility] and moved to the [facility] in [place]. She has 7 children and 9 grandchildren. She is a former smoker. Quit over a year ago. Denies any alcohol use. FAMILY HISTORY: Mother of natural causes. Father in an accident. REVIEW OF SYSTEMS: Twelve point review of systems reviewed, negative except for above. PHYSICAL EXAMINATION: GENERAL: She is well developed, well nourished, currently in no apparent distress. VITAL SIGNS: Revealed a T-max of 99, blood pressure 123/65, respiratory rate 20, pulse ox 94, pulse and in the ER, she was in the 30s. HEENT: Head is normocephalic, atraumatic. Pupils are equal, reactive to light. Extraocular muscles are intact. Eyes are anicteric. NECK: Supple. No JVP. LUNGS: Decreased breath sounds. HEART: Regular rate and rhythm. ABDOMEN: Soft. Positive bowel sounds. Nondistended. Nontender. EXTREMITIES: No clubbing, cyanosis, or edema. LABORATORY AND DIAGNOSTIC DATA: White count 5.6, hemoglobin 12.9, hematocrit 40.9, platelet count 206. Sodium 144, potassium 4.6, BUN of 40, creatinine 1.5, chloride 109. Glycohemoglobin 6.6. Lactic acid 9.1. TSH 1.104. Troponin 0.00. ProBNP 6748. Chest x-ray, bilateral diffuse interstitial disease appearance similar to prior study, probably chronic interstitial fibrotic changes with element of superimposed pulmonary edema is possible. EKG noted bradycardia with frequent premature ventricular contractions. ASSESSMENT: The patient is an unfortunate 84-year-old female with history of hypertension, COPD, idiopathic pulmonary fibrosis, diabetes, hyperlipidemia who presented with symptomatic bradycardia to the ER feeling dizzy. She had bradycardia down to the 30s. She is off currently any sinus or AV jessica blocking agents. The patient admitted to telemetry. Cardiology consultation requested from Dr. Patricia. If her rate remains low, she may need a permanent pacemaker. She has had an echo which revealed normal left ventricular systolic function. She does have frequent premature ventricular contractions and Dr. Patricia is considering possible ablation. For her diabetes, continue her Accu-Cheks and medications, monitor. For her hyperlipidemia, continue her statin. For her idiopathic pulmonary fibrosis, I have asked Dr. Ho to see her. She is currently on oxygen, give her respiratory treatments. For her history of CHF, likely diastolic dysfunction. We will give her Lasix. For her hypothyroidism, continue Synthroid. The patient should be on DVT and ulcer prophylaxis. Richard Brown M.D. : Evelio JOB#: [id number] CC:
[2019-07-29] VITALS: BP 112/60
[2019-07-29 04:00] VITALS: BP 115/66
[2019-07-29 06:26] LABS: BASOPHILS % (AUTO) 0.9 % (0.0-2.0); EOSINOPHILS % (AUTO) 3.5 % (0.0-3.0); HEMATOCRIT 43.7 % (37.0-47.0); HEMOGLOBIN 13.7 G/DL (12.0-16.0); LYMPHOCYTES % (AUTO) 19.4 % (20.0-45.0); MEAN CORPUSCULAR VOLUME 92 FL (80-99); MONOCYTES % (AUTO) 7.1 % (1.0-10.0); NEUTROPHILS % (AUTO) 69.1 % (45.0-75.0); PLATELET COUNT 207 K/UL (150-450); RED BLOOD COUNT 4.72 M/UL (4.20-5.40); RED CELL DISTRIBUTION WIDTH 13.1 % (11.6-14.8); WHITE BLOOD COUNT 6.8 K/UL (4.8-10.8)
[2019-07-29 07:05] LABS: ANION GAP 5 mmol/L (5-15); BLOOD UREA NITROGEN 39 mg/dL (7-18); CALCIUM 9.9 MG/DL (8.5-10.1); CARBON DIOXIDE 32 MMOL/L (21-32); CHLORIDE 106 MMOL/L (98-107); CREATININE 1.7 MG/DL (0.55-1.30); POTASSIUM 4.6 MMOL/L (3.5-5.1); SODIUM 143 MMOL/L (136-145)
--- NOTE | 2019-07-29 07:10 | NUR ---
NURSE NOTES: Received report JULY Baptiste,patient asleep breathing regular,on 2 liters nasal cannula,speaks bahamian,will use case sealer as needed,continue care,instructed in bahamian,to call nurse when need to get out bed to use commode,showed call light how to use it,express understanding
--- NOTE | 2019-07-29 07:39 | NUR ---
HAND-OFF: Report given to JULY Boyle. patient is in stable condition. endorsed plan of care.
[2019-07-29 08:00] VITALS: BP 117/43
[2019-07-29] MEDS: Furosemide 40mg tab ORAL SCH (09:05)
[2019-07-29] MEDS: Heparin 5000 units/ml inj SUBQ SCH ×2 (09:05→20:35)
[2019-07-29] MEDS: Aspirin EC 81mg tab ORAL SCH (09:06)
[2019-07-29 11:48] VITALS: BP 119/55
--- NOTE | 2019-07-29 13:24 | NUR ---
NURSE NOTES: Family visiting,express patient plan discharge tomorrow per MD,patient tolerating getting up,no shortness of breath,ate good lunch,accurate intake/output,instructed family to bring O2 when patient get discharge,voiding good amount
[2019-07-29 16:00] VITALS: BP 111/45
--- NOTE | 2019-07-29 17:00 | NUR ---
NURSE NOTES: Dr. Martin Quinteros visited ok to transfer telemetry, 181 Dr. Patricia Ok transfer to telemetry,notified rate and rhythm-sinus rhythm with Bigeminy/Trigeminy,no chest pain ,no complaints
--- NOTE | 2019-07-29 17:12 | Nephrology Progress Note ---
Assessment/Plan Problem List: (1) CKD (chronic kidney disease) (2) CHF (congestive heart failure) (3) COPD (chronic obstructive pulmonary disease) (4) HTN (hypertension) (5) DM (diabetes mellitus) (6) GERD (gastroesophageal reflux disease) Assessment S creatinine slightly higher Plan Keep on current dose of diuretics follow BMP Discussed with Dr Brown and Dr Patricia Discussed with professor of social work to [facility] is ok Subjective Subjective feels ok no SOB Objective Objective Last 24 Hour Vital Signs Date Time Temp Pulse Resp B/P (MAP) Pulse Ox O2 Delivery O2 Flow Rate FiO2 07/29/19 16:06 Nasal Cannula 2.0 Nasal Cannula 2.0 07/29/19 16:00 98.5 66 20 111/45 (67) 95 07/29/19 16:00 67 07/29/19 12:00 Nasal Cannula 2.0 Nasal Cannula 2.0 07/29/19 11:49 63 07/29/19 11:48 98.5 70 20 119/55 (76) 94 07/29/19 08:45 Nasal Cannula 2.0 Nasal Cannula 2.0 07/29/19 08:00 98.0 60 19 117/43 (67) 95 07/29/19 08:00 2.0 07/29/19 07:50 68 07/29/19 04:00 63 07/29/19 04:00 98.4 60 18 115/66 (82) 100 07/29/19 04:00 Nasal Cannula 2.0 07/29/19 04:00 2.0 07/29/19 00:00 97.8 87 20 112/60 (77) 100 07/29/19 00:00 62 07/29/19 00:00 Nasal Cannula 2.0 07/28/19 20:11 67 18 96 Nasal Cannula 2.0 28 07/28/19 20:00 98.9 68 20 125/59 (81) 96 07/28/19 20:00 2.0 07/28/19 20:00 Nasal Cannula 2.0 07/28/19 20:00 68 Intake and Output 07/28/19 07/29/19 18:59 06:59 Intake Total 500 ml 80 ml Output Total 900 ml 1200 ml Balance -400 ml -1120 ml Intake Oral 500 ml 80 ml Output Urine Total 900 ml 1200 ml # Voids 2 3 Laboratory Tests 07/29/19 05:25: White Blood Count 6.8, Red Blood Count 4.72, Hemoglobin 13.7, Hematocrit 43.7, Mean Corpuscular Volume 92, Mean Corpuscular Hemoglobin 28.9, Mean Corpuscular Hemoglobin Concent 31.3L, Red Cell Distribution Width 13.1, Platelet Count 207, Mean Platelet Volume 8.4, Neutrophils (%) (Auto) 69.1, Lymphocytes (%) (Auto) 19.4L, Monocytes (%) (Auto) 7.1, Eosinophils (%) (Auto) 3.5H, Basophils (%) ( Auto) 0.9, Sodium Level 143, Potassium Level 4.6, Chloride Level 106, Carbon Dioxide Level 32, Anion Gap 5, Blood Urea Nitrogen 39H, Creatinine 1.7H, Estimat Glomerular Filtration Rate , Glucose Level 86, Calcium Level 9.9, Pro-B- Type Natriuretic Peptide 4213H Height (Feet): 5 Height (Inches): 0.25 Weight (Pounds): 176 Cardiovascular: normal rate Respiratory/Chest: lungs clear Extremities: other Martin Quinteros MD Jul 29, 2019 17:12
--- NOTE | 2019-07-29 17:35 | Cardiology Report ---
APPROVED REPORT EKG Measurement Heart [id number] Sinus rhythm with frequent premature ventricular complexes Septal infarct, age undetermined Abnormal ECG
--- NOTE | 2019-07-29 17:44 | General Progress Note ---
Assessment/Plan Assessment/Plan: bradycardia chf diastlic dysfucntion copd IPF pulmonary htn renal insufficiency diabeter per cards diuresis per nephrolgoy and cards pulmonay hygine montior labs ambulate acuchecks noted dvt and ulcer prophyalxis Subjective Allergies: Coded Allergies: No Known Allergies (Verified , 08/18/07) Subjective feels better no chest pain or sob dizziness improved Objective Last 24 Hour Vital Signs Date Time Temp Pulse Resp B/P (MAP) Pulse Ox O2 Delivery O2 Flow Rate FiO2 07/29/19 16:06 Nasal Cannula 2.0 Nasal Cannula 2.0 07/29/19 16:00 98.5 66 20 111/45 (67) 95 07/29/19 16:00 67 07/29/19 12:00 Nasal Cannula 2.0 Nasal Cannula 2.0 07/29/19 11:49 63 07/29/19 11:48 98.5 70 20 119/55 (76) 94 07/29/19 08:45 Nasal Cannula 2.0 Nasal Cannula 2.0 07/29/19 08:00 98.0 60 19 117/43 (67) 95 07/29/19 08:00 2.0 07/29/19 07:50 68 07/29/19 04:00 63 07/29/19 04:00 98.4 60 18 115/66 (82) 100 07/29/19 04:00 Nasal Cannula 2.0 07/29/19 04:00 2.0 07/29/19 00:00 97.8 87 20 112/60 (77) 100 07/29/19 00:00 62 07/29/19 00:00 Nasal Cannula 2.0 07/28/19 20:11 67 18 96 Nasal Cannula 2.0 28 07/28/19 20:00 98.9 68 20 125/59 (81) 96 07/28/19 20:00 2.0 07/28/19 20:00 Nasal Cannula 2.0 07/28/19 20:00 68 Intake and Output 07/28/19 07/29/19 19:00 07:00 Intake Total 500 ml 80 ml Output Total 900 ml 1200 ml Balance -400 ml -1120 ml Intake Oral 500 ml 80 ml Output Urine Total 900 ml 1200 ml # Voids 2 3 Laboratory Tests 07/29/19 05:25: White Blood Count 6.8, Red Blood Count 4.72, Hemoglobin 13.7, Hematocrit 43.7, Mean Corpuscular Volume 92, Mean Corpuscular Hemoglobin 28.9, Mean Corpuscular Hemoglobin Concent 31.3L, Red Cell Distribution Width 13.1, Platelet Count 207, Mean Platelet Volume 8.4, Neutrophils (%) (Auto) 69.1, Lymphocytes (%) (Auto) 19.4L, Monocytes (%) (Auto) 7.1, Eosinophils (%) (Auto) 3.5H, Basophils (%) ( Auto) 0.9, Sodium Level 143, Potassium Level 4.6, Chloride Level 106, Carbon Dioxide Level 32, Anion Gap 5, Blood Urea Nitrogen 39H, Creatinine 1.7H, Estimat Glomerular Filtration Rate , Glucose Level 86, Calcium Level 9.9, Pro-B- Type Natriuretic Peptide 4213H Height (Feet): 5 Height (Inches): 0.25 Weight (Pounds): 176 General Appearance: WD/WN, no apparent distress Neck: supple Cardiovascular: normal rate Respiratory/Chest: lungs clear Abdomen: soft Edema: no edema noted Arm (L), no edema noted Arm (R), no edema noted Leg (L), no edema noted Leg (R), no edema noted Pedal (L), no edema noted Pedal (R), no edema noted Generalized Neurologic: concrete technician II-XII grossly normal Richard Brown MD Jul 29, 2019 17:44
--- NOTE | 2019-07-29 18:37 | Pulmonology Progress Note ---
Assessment/Plan Assessment/Plan PROBLEM LIST: 1. Chronic hypoxemic and hypercapnic respiratory failure. 2. 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 3. Obesity with likely obesity hypoventilation and MARCIE. 4. CHF with acute decompensated heart failure. 5. CKD. 6. Former smoker. 7. Hypothyroidism. 8. Symptomatic bradycardia TREATMENT PLAN: 1. Optimize pulmonary hygiene/mobilize as tolerated. 2. Titrate down FiO2. 3. BiPAP 12/5 at bedtime and p.r.n. 4. Continue p.r.n. bronchodilators for the time being. 5. Monitor volumes and renal function, diuresis as able. 6. Aspiration precautions. 7. Follow up cardiology recs, will likely need PM, continue tele 8. Plan for outpatient high-resolution CT, full PFTs, and sleep study as previously planned. 9. The patient is a Full Code. 10. Continue to abstain from smoking. Subjective Constitutional: Reports: no symptoms HEENT: Repors: no symptoms Cardiovascular: Reports: no symptoms Gastrointestinal/Abdominal: Reports: no symptoms Allergies: Coded Allergies: No Known Allergies (Verified , 08/18/07) Subjective no new events no bleeding tolreating po not getting oob no nv or fever noted Objective Last 24 Hour Vital Signs Date Time Temp Pulse Resp B/P (MAP) Pulse Ox O2 Delivery O2 Flow Rate FiO2 07/29/19 16:06 Nasal Cannula 2.0 Nasal Cannula 2.0 07/29/19 16:00 98.5 66 20 111/45 (67) 95 07/29/19 16:00 67 07/29/19 12:00 Nasal Cannula 2.0 Nasal Cannula 2.0 07/29/19 11:49 63 07/29/19 11:48 98.5 70 20 119/55 (76) 94 07/29/19 08:45 Nasal Cannula 2.0 Nasal Cannula 2.0 07/29/19 08:00 98.0 60 19 117/43 (67) 95 07/29/19 08:00 2.0 07/29/19 07:50 68 07/29/19 04:00 63 07/29/19 04:00 98.4 60 18 115/66 (82) 100 07/29/19 04:00 Nasal Cannula 2.0 07/29/19 04:00 2.0 07/29/19 00:00 97.8 87 20 112/60 (77) 100 10/12/19 00:00 62 07/29/19 00:00 Nasal Cannula 2.0 07/28/19 20:11 67 18 96 Nasal Cannula 2.0 28 07/28/19 20:00 98.9 68 20 125/59 (81) 96 07/28/19 20:00 2.0 07/28/19 20:00 Nasal Cannula 2.0 07/28/19 20:00 68 Intake and Output 07/28/19 07/29/19 19:00 07:00 Intake Total 500 ml 80 ml Output Total 900 ml 1200 ml Balance -400 ml -1120 ml Intake Oral 500 ml 80 ml Output Urine Total 900 ml 1200 ml # Voids 2 3 General Appearance: WD/WN Respiratory/Chest: crackles/rales, rhonchi Cardiovascular: normal rate, regular rhythm, edema Abdomen: soft, non tender, non distended Neurologic/Psychiatric: alert, oriented x 3 Microbiology Date/Time Source Procedure Growth Status 07/27/19 15:15 Blood Blood Culture - Preliminary NO GROWTH AFTER 24 HOURS Resulted 07/27/19 15:00 Blood Blood Culture - Preliminary NO GROWTH AFTER 24 HOURS Resulted Laboratory Tests 07/29/19 05:25: White Blood Count 6.8, Red Blood Count 4.72, Hemoglobin 13.7, Hematocrit 43.7, Mean Corpuscular Volume 92, Mean Corpuscular Hemoglobin 28.9, Mean Corpuscular Hemoglobin Concent 31.3L, Red Cell Distribution Width 13.1, Platelet Count 207, Mean Platelet Volume 8.4, Neutrophils (%) (Auto) 69.1, Lymphocytes (%) (Auto) 19.4L, Monocytes (%) (Auto) 7.1, Eosinophils (%) (Auto) 3.5H, Basophils (%) ( Auto) 0.9, Sodium Level 143, Potassium Level 4.6, Chloride Level 106, Carbon Dioxide Level 32, Anion Gap 5, Blood Urea Nitrogen 39H, Creatinine 1.7H, Estimat Glomerular Filtration Rate , Glucose Level 86, Calcium Level 9.9, Pro-B- Type Natriuretic Peptide 4213H Current Medications Medications (Trade) Dose Ordered Sig/Diane Route PRN Reason Start Time Stop Time Status Last Admin Dose Admin Acetaminophen (Tylenol) 650 mg Q6H PRN ORAL Mild Pain/Temp > 100.5 07/27/19 23:30 08/26/19 23:29 Al Hydroxide/Mg Hydroxide (Mylanta) 30 ml BID PRN ORAL Constipation 07/27/19 23:30 08/26/19 23:29 Albuterol/ Ipratropium (Albuterol/ Ipratropium) 3 ml Q4H PRN HHN Shortness of Breath 07/28/19 08:45 08/02/19 08:44 Aspirin (Ecotrin) 81 mg DAILY ORAL 07/28/19 09:00 08/27/19 08:59 07/29/19 09:06 Atorvastatin Calcium (Lipitor) 80 mg BEDTIME ORAL 07/28/19 21:00 08/27/19 20:59 07/28/19 21:27 Docusate Sodium (Colace) 100 mg TWICE A DAY PRN ORAL Constipation 07/27/19 23:30 08/26/19 23:29 Ergocalciferol (Drisdol) 50,000 intlu 2XW ORAL 07/31/19 09:00 08/30/19 08:59 Fenofibrate (Tricor) 134 mg DAILY ORAL 07/28/19 09:00 08/27/19 08:59 07/29/19 09:06 Fish Oil (Fish Oil) 1,000 mg DAILY ORAL 07/28/19 09:00 08/27/19 08:59 07/29/19 09:06 Furosemide (Lasix) 40 mg DAILY ORAL 07/28/19 12:30 08/27/19 12:29 07/29/19 09:05 Guaifenesin/ Dextromethorphan (Robitussin DM Syrup) 10 ml EVERY 6 HOURS PRN ORAL For Cough 07/27/19 23:30 08/26/19 23:29 Heparin Sodium (Porcine) (Heparin 5000 units/ml) 5,000 units EVERY 12 HOURS SUBQ 07/28/19 09:00 08/27/19 08:59 07/29/19 09:05 Levothyroxine Sodium (Synthroid) 137 mcg DAILY@0630 ORAL 07/28/19 06:30 08/27/19 06:29 07/29/19 06:35 Magnesium Hydroxide (Mom) 30 ml BID PRN ORAL Constipation 07/27/19 23:30 08/26/19 23:29 Ondansetron HCl (Zofran) 4 mg Q6H PRN IVP Nausea & Vomiting 07/27/19 23:30 08/26/19 23:29 07/28/19 13:04 Char Jara DO Jul 29, 2019 18:37
--- NOTE | 2019-07-29 19:42 | NUR ---
HAND-OFF: Report given to JULY Gutiérrez,stable,no compalints,son at bedside,heart rate 70,on 2L nasal ,no shortness of breath
--- NOTE | 2019-07-29 19:59 | NUR ---
NURSE NOTES: Received report from JULY Boyle. Patient is awake lying semi-villanueva's; resting comfortably. No signs of acute distress noted; denies pain at this time. On 2L nasal cannula. Son at bedside. AOX4; able to make needs known. Primarily Belarusian speaking. Checked IV site; patent and flushed. No erythema, bleeding, or infiltration noted. Bed at lowest position, brakes on, siderails up x3. Call light within reach. Will continue to monitor.
[2019-07-29 20:00] VITALS: BP 104/57
[2019-07-29] MEDS: Atorvastatin 80mg tab ORAL SCH (20:35)
[2019-07-30] VITALS: BP 109/60
--- NOTE | 2019-07-30 03:43 | NUR ---
NURSE NOTES: Patient is asleep lying semi-villanueva's; resting comfortably. No signs of acute distress or pain noted at this time. On 2L nasal cannula.
[2019-07-30 04:00] VITALS: BP 110/70
--- NOTE | 2019-07-30 06:16 | NUR ---
TRANSFER TO FLOOR: Report given to JULY Causey. Patient was transferred to Telemetry unit from SDU without incident. No signs of acute distress noted; denies pain at this time. On 2L nasal cannula. Belongings list checked with patient and transferring RN. Bed at lowest position, brakes on, siderails up x3. Call light within reach.
[2019-07-30] MEDS ORDERED: Albuterol/Ipratropium 3ml neb HHN PRN (06:30)
[2019-07-30] MEDS ORDERED: Guaifenesin/DM 10ml syrup ORAL PRN (06:30)
[2019-07-30] MEDS ORDERED: Levothyroxine 25mcg tab ORAL SCH ×2 (06:30)
--- NOTE | 2019-07-30 07:29 | NUR ---
HAND-OFF: Report given to Ryan MCDOWELL. Plan of care endorsed.
--- NOTE | 2019-07-30 07:50 | NUR ---
NURSE NOTES: Received report from JULY Causey. Patient in bed resting, no active s/s cardiac, respiratory distress noticed at this time. Patient AOx4, SR with HR 68, on 2L oxygen via NC, IV on right FA 22G, asymptomatic, patent, intact. Bed in lowest position, side rails upx3, call light within reach. Will continue to monitor.
[2019-07-30 08:00] VITALS: BP 112/57
[2019-07-30] MEDS ORDERED: Heparin 5000 units/ml inj SUBQ SCH (09:00)
[2019-07-30] MEDS ORDERED: Aspirin EC 81mg tab ORAL SCH (09:00)
[2019-07-30] MEDS ORDERED: Milk of Magnesia 30ml Ud ORAL PRN (09:00)
[2019-07-30] MEDS ORDERED: Docusate 100mg cap ORAL PRN (09:00)
[2019-07-30] MEDS ORDERED: Furosemide 40mg tab ORAL SCH (09:00)
[2019-07-30 10:01] LABS: BASOPHILS % (AUTO) 0.8 % (0.0-2.0); EOSINOPHILS % (AUTO) 3.8 % (0.0-3.0); HEMATOCRIT 48.4 % (37.0-47.0); HEMOGLOBIN 14.9 G/DL (12.0-16.0); LYMPHOCYTES % (AUTO) 19.6 % (20.0-45.0); MEAN CORPUSCULAR VOLUME 93 FL (80-99); MONOCYTES % (AUTO) 6.9 % (1.0-10.0); NEUTROPHILS % (AUTO) 68.9 % (45.0-75.0); PLATELET COUNT 224 K/UL (150-450); RED CELL DISTRIBUTION WIDTH 13.4 % (11.6-14.8); WHITE BLOOD COUNT 6.7 K/UL (4.8-10.8)
[2019-07-30 10:11] LABS: ANION GAP 7 mmol/L (5-15); BLOOD UREA NITROGEN 47 mg/dL (7-18); CALCIUM 9.6 MG/DL (8.5-10.1); CARBON DIOXIDE 33 MMOL/L (21-32); CHLORIDE 101 MMOL/L (98-107); CREATININE 1.8 MG/DL (0.55-1.30); POTASSIUM 4.7 MMOL/L (3.5-5.1); SODIUM 141 MMOL/L (136-145)
[2019-07-30 12:00] VITALS: BP 106/66
--- NOTE | 2019-07-30 12:03 | Cardiology Report ---
APPROVED REPORT EXAM: Two-dimensional and M-mode echocardiogram with Doppler and color Doppler. INDICATION Bradycardia M-Mode DIMENSIONS IVSd1.2 (0.7-1.1cm)Left Atrium (MM)3.8 (1.6-4.0cm) LVDd4.9 (3.5-5.6cm)Aortic Root3.1 (2.0-3.7cm) PWd0.8 (0.7-1.1cm)Aortic Cusp Exc.1.8 (1.5-2.0cm) LVDs2.9 (2.5-4.0cm) PWs1.4 cm Normal left ventricular chamber size, systolic function and wall motion. Left ventricular ejection fraction estimated to be 55 %. Mild left ventricular hypertrophy. No evidence of pericardial effusion. Mild right atrial enlargement. Left atrial chamber size is within normal limits. Right ventricular chamber sizes is within normal limits. Focal aortic valve sclerosis with adequate cusp excursion. Thickened mitral valve leaflets with normal excursion. Mild mitral annulus and aortic root calcification. Normal pulmonic valve structure. Normal tricuspid valve structure. IVC is normal in size with physiological collapse. A color flow and spectral Doppler study was performed and revealed: No aortic regurgitation. Mild mitral regurgitation. Mitral diastolic velocities suggest mild left ventricular diastolic dysfunction (Grade I). Severe tricuspid regurgitation. Tricuspid systolic velocities suggests peak right ventricular systolic pressure of 64 mmHg, consistent with severe pulmonary hypertension. Trace pulmonic regurgitation present.
[2019-07-30] MEDS ORDERED: COLACE100 MG ORAL (13:43)
[2019-07-30] MEDS ORDERED: FUROSEMIDE40 MG ORAL (13:45)
--- NOTE | 2019-07-30 14:10 | NUR ---
NURSE NOTES: Patient discharged per Dr. Brown. Per Dr. Quinteros, continue to Lasix 40 mg PO daily after discharge, DME ordered for wheelchair, home health with [facility], patient family and patient informed follow up with Dr. Brown on 08/02/19 or 08/03/19. Educated regarding medication after discharge. Patient family members brought oxygen tank from home, patient discharged with all belonging, patient taking private vehicle. Patient's ID removed and placed in shredder, IV removed and sodium chlorite operator returned to ob tech.
[2019-07-30] MEDS ORDERED: Atorvastatin 80mg tab ORAL SCH (21:00)
--- NOTE | 2019-07-30 22:53 | Diagnostic Imaging Report ---
APPROVED REPORT CPT Code: 90479 Present Symptoms Shortness of breath BILATERAL: Imaging reveals a patent deep venous system bilaterally. There is no evidence of thrombus within the femoral, popliteal or tibial segments. The greater saphenous veins are also within normal limits. Doppler indicates normal spontaneous flow within these segments.
[2019-07-31] MEDS ORDERED: Vitamin D 50,000 units cap ORAL SCH ×2 (09:00)
--- NOTE | 2019-07-31 13:01 | Discharge Summary ---
Discharge Summary Discharge Summary _ DATE OF ADMISSION: 07/27/2019 DATE OF DISCHARGE: 07/30/2019 DISCHARGED BY: Dr. Brown REASON FOR ADMISSION: 84 years old female with past medical history of CHF, hypertension, hyperlipidemia, diabetes mellitus, hypothyroidism, interstitial lung disease/ idiopathic pulmonary fibrosis, obesity, oxygen dependent at home, presented to emergency department complaining of dizziness and lightheadedness. Upon evaluation patient noted to be at times bradycardic with heart rate in 30s. Laboratory work-up revealed no leukocytosis , stable hemoglobin and hematocrit. Potassium 5.3. BUN 48, creatinine 1.8. Lactic acid 1.1. Glucose 99. Stable LFT and lipase. Albumin 3.2. Troponin negative. pro BNP 6748. TSH within normal limits. ABG stable. Urinalysis revealed +2 protein , no evidence of urinary tract infection. EKG revealed sinus bradycardia no acute ischemic changes , no block. Patient subsequently admitted to telemetry floor for further management. CONSULTANTS: budget director/value engineer Dr. Loza pulmonary consult soft Dr. Thayer tractor crane operator Dr. Bowling.[facility] COURSE: Patient admitted to monitored floor. Oracle Programmer followed. Echocardiogram revealed preserved ejection fraction 55% with mild left ventricular hypertrophy. No evidence of wall motion abnormality. No evidence of pericardial effusion. Right ventricular systolic pressure of 64 , consistent with a severe pulmonary hypertension Patient was off any sinus or AV jessica blocking agents. Patient was watched on telemetry. Per budget director, patient had a symptomatic bradycardia and may need a placement of permanent pacemaker, if bradycardia not resolved. Patient also exhibited frequent premature ventricular contractions from inferoseptal left ventricle sometimes with bigeminy pattern. These premature ventricular contractions may be amenable to ablation as per budget director /value engineer. Statin continued. Patient was on low-dose of Lasix as well as the bronchodilator treatment with albuterol. Lipid panel was stable. Pro BNP trended down from initial 6748 down to 4213. Dinkey Mechanic closely followed. Pulmonary hygiene was optimized. Patient was mobilized as tolerated. Patient was on the BiPAP at the bedtime and as needed. Bronchodilator therapy provided on as-needed basis. Volumes and cardiorenal parameters were closely monitored. Patient was further diuresed. Aspiration precaution maintained. Dinkey Mechanic recommended outpatient high-resolution CT scan, full PFT and sleep study as previously planned. Patient was encouraged to continue abstinence from smoking. Steward/Stewardess Dining Room followed. Renal parameters and electrolytes are closely monitor, electrolytes corrected as needed. Creatinine remained at baseline. Nephrotoxics avoided if possible. Synthroid continued. TSH within normal limits. Patient clinically stabilized and was ready for discharge home with home health services. FINAL DIAGNOSES: Symptomatic bradycardia Chronic hypoxemic and hypercapnic respiratory failure Interstitial lung disease , likely idiopathic pulmonary fibrosis Obesity, likely obesity hypoventilation syndrome and obstructive sleep apnea CHF with acute decompensated heart failure, diastolic dysfunction Chronic kidney disease Former smoker Pulmonary hypertension Frequent premature ventricular contraction from inferior septal left ventricle Hypothyroidism Hyperlipidemia DISCHARGE MEDICATIONS: See Medication Reconciliation list. DISCHARGE INSTRUCTIONS: Patient was discharged home with home health services. Follow up with primary care provider in one week. I have been assigned to dictate discharge summary for this account. I was not involved in the patient's management. Char Scanlon NP Jul 31, 2019 13:01
== END 2019-07-30 14:10 | disposition home health service (06) | DRG 308 ==
LOC: EMR 15:00 → 2W 15:15 → EDBEDREQ 16:39 → 2E 07-30 06:04
DX: R00.1 Bradycardia, unspecified (principal); I50.33 Acute on chronic diastolic (congestive) heart failure; J96.12 Chronic respiratory failure with hypercapnia; J96.11 Chronic respiratory failure with hypoxia; I13.0 Hypertensive heart and chronic kidney disease with heart failure and stage 1 through stage 4 chronic kidney disease, or unspecified chronic kidney disease; E66.2 Morbid (severe) obesity with alveolar hypoventilation; I49.3 Ventricular premature depolarization; J84.112 Idiopathic pulmonary fibrosis; N18.9 Chronic kidney disease, unspecified; Z87.891 Personal history of nicotine dependence; E03.9 Hypothyroidism, unspecified; E78.5 Hyperlipidemia, unspecified; J44.9 Chronic obstructive pulmonary disease, unspecified; E11.22 Type 2 diabetes mellitus with diabetic chronic kidney disease; Z68.34 Body mass index [BMI] 34.0-34.9, adult
CPT/HCPCS: 36415; 36600; 71045; 80048; 80053; 80061; 81003; 82550; 82553; 82803; 82962; 83036; 83605; 83690; 83735; 83880; 84100; 84439; 84443; 84481; 84484; 85025; 85610; 85730; 86850; 86900; 86901; 87040; 93005; 93306; 93970; 94664; 96360; 99291; J2405